=== PATIENT | male | born 1955 | race Caucasian/White ===

== ENCOUNTER → 2020-03-23 11:40 | Outpatient (CLI) | payer OTHER, SELFPAY ==
--- NOTE | 2020-03-23 11:48 | RAD_ITS ---
STUDY: X-RAY - PELVIS AND LEFT HIP REASON FOR EXAM: Male, 64 years old. HIP PAIN, NO TRAUMA TECHNIQUE: 3 views of the pelvis and hip. COMPARISON: None. FINDINGS: There is a non-specific bowel gas pattern. Metallic coils are seen in the left hemipelvis included with the prior hernia repair. Normal bilateral iliac wings, sacroiliac joints and visualized sacrum. Normal bilateral superior and inferior pubic rami. Normal pubic symphysis. Normal bilateral ischial tuberosities. Normal visualized femoral head. There is osteoarthritic spur formation of the acetabular rim. There is mild articular joint space narrowing of the hip. RAD/HIP, UNI W/ Pelvis 2-3 Views IMPRESSION: Degenerative changes of the left hip joint. Electronically Signed: Dewayne Sanchez, at 12:49 EDT , Service support ,
--- NOTE | 2020-03-23 11:48 | RAD_ITS ---
STUDY: X-RAY - RIGHT SHOULDER REASON FOR EXAM: Male, 64 years old. SHOULDER PAIN, NO TRAUMA TECHNIQUE: 4 view(s) of the shoulder. COMPARISON: None. FINDINGS: Normal glenohumeral articulation. Normal acromioclavicular joint. Normal acromion. Normal humeral head and visualized proximal humerus. The soft tissue structures are unremarkable. Normal visualized pulmonary apex. RAD/Shoulder min 2 Views IMPRESSION: Normal x-ray examination of the shoulder. Electronically Signed: Dewayne Sanchez, at 12:48 EDT , Service support ,
== END ==
PROVIDERS: PCP Internal Medicine; Referring Provider Internal Medicine; Visit Provider Internal Medicine
DX: M25.511 Pain in right shoulder (principal); M25.552 Pain in left hip
CPT/HCPCS: 73030; 73502

== ENCOUNTER → 2021-05-31 15:11 | Outpatient (CLI) | payer OTHER, SELFPAY ==
--- NOTE | 2021-05-31 15:19 | CT_ITS ---
STUDY: CT ABDOMEN AND PELVIS WITHOUT CONTRAST REASON FOR EXAM: Male, 65 years old. Microscopic hematuria RADIATION DOSAGE (If Supplied By Facility): CTDIvol = ( 6.13 ) mGy, DLP = ( 290.02 ) mGycm TECHNIQUE: Transaxial images were obtained from the dome of the diaphragm to the symphysis pubis without oral contrast, and without intravenous contrast. Sagittal and coronal images were reconstructed. Individualized dose optimization techniques were used for this CT. COMPARISON: None. FINDINGS: The visualized lung bases are unremarkable. The visualized portions of the heart are within normal limits. Normal liver. Normal gallbladder and extrahepatic biliary system. There are multiple benign calcified granulomata of the spleen. Normal pancreas. Normal bilateral adrenal glands. Normal right kidney. Normal left kidney. Normal visualized stomach. Normal small intestine. There are multiple colonic diverticula consistent with diverticulosis. The appendix is visualized and appears normal. Appendix seen on coronal recon images 44 through 49 Normal abdominal aorta. Normal inferior vena cava. Normal retroperitoneum. Normal urinary bladder. There are prostatic calcifications. Normal abdominal wall. There are diffuse degenerative changes of the visualized lumbar spine, and pelvis. CT/Abdomen/Pelvis without Cont IMPRESSION: No suspicious solid organ abnormality, specifically, no obstructive uropathy. Colonic diverticulosis Normal appendix visualized Degenerative bony changes Electronically Signed: Freddie Aviles MD at 16:32 EDT , Service support ,
== END ==
PROVIDERS: PCP Internal Medicine; Referring Provider Internal Medicine; Visit Provider Internal Medicine
DX: R31.0 Gross hematuria (principal)
CPT/HCPCS: 74176

== ENCOUNTER → 2021-08-08 16:36 | Outpatient (CLI) | payer OTHER, SELFPAY ==
--- NOTE | 2021-08-08 16:52 | MRI_ITS ---
STUDY: MRI LEFT MIDFOOT/foot REASON FOR EXAM: Male, 65 years old. PLANTAR FASCITIS LEFT FOOT WITH HEEL SPUR -- CAPSULITIS OF LEFT 2ND TOE TECHNIQUE: Standardized fat and water weighted pulse sequences were obtained in all 3 orthogonal planes. COMPARISON: None. FINDINGS: There is mild to moderate thickening of the central cord of the plantar fascia just proximal to the calcaneal insertion site. No edema is seen within the thickened fascia or tear. No plantar bursitis is seen. Mild linear intrasubstance signal abnormality is present in the thickened cord beneath a tiny plantar calcaneal spur. Normal remaining aspects of the plantar fascia. No marrow edema or osteochondral defect is present. Mild subcutaneous edema is seen on the medial side of ankle joint. Normal talonavicular articulation. Normal calcaneocuboid articulation. Normal navicular-cuneiform articulations. Normal intercuneiform articulations. Normal first tarsometatarsal articulation. Normal Lisfranc ligament. Normal second and third tarsometatarsal articulations. Normal cuboid fourth and cuboid fifth tarsometatarsal articulation. Normal first through fifth metatarsi. Small joint effusion of the first MTP noted. Normal tibialis anterior tendon. Normal extensor hallucis longus tendon. Normal extensor digitorum longus tendons. Normal peroneus longus tendon and distal insertion. Normal peroneus brevis tendon and distal insertion. Normal intrinsic muscles of the mid and forefoot region. Normal extensor digitorum brevis muscle. MRI/Lower Ext/No Jt/w/o IMPRESSION: 1. There is mild to moderate thickening of the central cord of the plantar fascia just proximal to the calcaneal insertion site. No edema is seen within the thickened fascia or tear. No plantar bursitis is seen. 2. Mild linear intrasubstance signal abnormality is present in the thickened cord beneath a tiny plantar calcaneal spur. 3. Mild subcutaneous edema is seen on the medial side of ankle joint. 4. Small joint effusion of the first MTP noted. Electronically Signed: Morales Wade MD at 23:52 EDT , Service support ,
== END ==
PROVIDERS: PCP Internal Medicine; Visit Provider Podiatrist
DX: M72.2 Plantar fascial fibromatosis (principal); M77.32 Calcaneal spur, left foot; M77.8 Other enthesopathies, not elsewhere classified
CPT/HCPCS: 73718

== ENCOUNTER → 2021-08-12 15:35 | Outpatient (CLI) | payer OTHER, SELFPAY ==
--- NOTE | 2021-08-12 16:14 | MRI_ITS ---
STUDY: MRI LEFT MIDFOOT AND FOREFOOT REASON FOR EXAM: Male, 65 years old. LEFT FOOT ,,ADD SERIES FOR TIP OF 2ND TOE AND POSTERIOR HEEL TECHNIQUE: Standardized fat and water weighted pulse sequences were obtained in all 3 orthogonal planes. COMPARISON: None. FINDINGS: The distal phalanx of the great toe demonstrates mild lateral deviation. The IP joint of the great toe is mildly narrowed. Low signal susceptibility artifact is seen in the nailbed region of the distal phalanges of the great toe possibly due to extrinsic artifact or sequela from posttraumatic fibrosis or similar entity. No demonstrated hallux valgus deformity. A small joint effusion of the first MTP is present. No marrow edema is seen. Mild flexion/hammertoe deformities noted in the second and third digits. Normal second through fifth metatarsophalangeal (MTP) joints. Normal interphalangeal joints of the second through fifth toes. Normal proximal, middle and distal phalanges of the second through fifth toes. Normal first through fourth intermetatarsal spaces. Normal visualized metatarsi. Normal first tarsometatarsal articulation. Normal Lisfranc ligament. Normal second and third tarsometatarsal articulations. Normal cuboid fourth and cuboid fifth tarsometatarsal articulation. Normal first through fifth metatarsi. Normal tibialis anterior tendon. Normal extensor hallucis longus tendon. Normal extensor digitorum longus tendons. Normal peroneus longus tendon and distal insertion. Normal peroneus brevis tendon and distal insertion. Normal intrinsic muscles of the mid and forefoot region. Normal extensor digitorum brevis muscle. Normal subcutis adipose space. IMPRESSION: 1. The distal phalanx of the great toe demonstrates mild lateral deviation. The IP joint of the great toe is mildly narrowed. 2. No demonstrated hallux valgus deformity. A small joint effusion of the first MTP is present. 3. Mild flexion/hammertoe deformities noted in the second and third digits. Electronically Signed: Morales Wade MD at 17:01 EDT , Service support , STUDY: MRI LEFT ANKLE WITHOUT CONTRAST REASON FOR EXAM: Male, 65 years old. LEFT FOOT ,,ADD SERIES FOR TIP OF 2ND TOE AND POSTERIOR HEEL. Bone spur with pain TECHNIQUE: Standardized fat and water weighted pulse sequences were obtained in all 3 orthogonal planes. COMPARISON: Left foot x-ray dated FEBRUARY 24, 2014. MRI of the left forefoot dated August 13, 2021. FINDINGS: A small 7.8 mm plantar calcaneal spur is reidentified. There is mild increased signal abnormality in addition a slight thickening of the central cord of the plantar fascia and insertion just beneath this region. The remaining aspects of the plantar fascia are normal. No focal tear or retraction or plantar bursitis is present. No plantar fibroma is seen. No edema is present in the calcaneal plantar spur or remaining aspect of the bone. No marrow edema or osteochondral defects are present. Normal posterior tibialis tendon. Normal flexor digitorum longus tendon. Normal flexor hallucis longus tendon. Normal peroneus longus and brevis tendons. Normal tibialis anterior tendon. Normal extensor hallucis longus tendon. Normal extensor digitorum longus tendons. Normal Achilles tendon and teno-osseous insertion. Normal intrinsic muscles of the rearfoot. Normal distal tibiofibular syndesmotic ligamentous complex. Normal lateral ligamentous complex. Normal subtalar ligaments and sinus tarsi. Normal deltoid ligamentous complexes. Normal plantar calcaneonavicular (spring) ligament. Normal tibiotalar articulation. Normal talar dome. Normal subtalar articulations. Normal talonavicular articulation. Normal calcaneocuboid articulation. Normal navicular-cuneiform articulations. MRI/Lower Ext/No Jt/w/o IMPRESSION: 1. A small 7.8 mm plantar calcaneal spur is reidentified. There is mild increased signal abnormality in addition a slight thickening of the central cord of the plantar fascia and insertion just beneath this region. The remaining aspects of the plantar fascia are normal. No focal tear or retraction or plantar bursitis is present. No plantar fibroma is seen. 2. No edema is present in the calcaneal plantar spur or remaining aspect of the bone. Electronically Signed: Morales Wade MD at 17:15 EDT , Service support ,
== END ==
PROVIDERS: PCP Internal Medicine; Visit Provider Podiatrist
DX: M77.32 Calcaneal spur, left foot (principal)
CPT/HCPCS: 73718

== ENCOUNTER 2021-11-28 17:30 | Outpatient (CLI) | payer OTHER, SELFPAY ==
[2021-11-28 17:49] VITALS: BP 156/92; PULSE 81; RESP 16; TEMP 37.1; O2SAT 100; BMI 23.6
[2021-11-28] MEDS: 0.9% Saline Lock 10 ML Syringe IV (17:52)
[2021-11-28 18:24] VITALS: BP 133/87; PULSE 78; RESP 16; TEMP 37.1; O2SAT 100
[2021-11-28 19:18] VITALS: BP 133/86; PULSE 76; RESP 16; TEMP 36.9; O2SAT 100
== END 2021-11-28 23:59 | disposition home or self-care (01) ==
LOC: MS3OUT 17:30 → MS3 17:31
PROVIDERS: PCP Internal Medicine; Referring Provider Nurse Practitioner Adult Health; Visit Provider Nurse Practitioner Adult Health
DX: Z23 Encounter for immunization (principal); U07.1 COVID-19
CPT/HCPCS: J7050; M0245; Q0245; A4216

== ENCOUNTER → 2024-12-05 | Outpatient (CLI) | payer MEDICARE, SELFPAY ==
--- NOTE | 2024-12-05 14:07 | RAD_ITS ---
EXAM: XR CHEST, 2 VIEWS CLINICAL INDICATION: CHEST X-RAY, PA AND LATERAL -- Cough in adult TECHNIQUE: Frontal and lateral views of the chest. COMPARISON: 07/13/2024 FINDINGS: LUNGS AND PLEURAL SPACES: Unremarkable. No consolidation or edema. No pneumothorax. No effusion. HEART: Unremarkable. Cardiac silhouette not enlarged. MEDIASTINUM: Central airways and mediastinal contour are unremarkable. BONES/JOINTS: Unremarkable. No acute fracture. SOFT TISSUES: Unremarkable. RAD/Chest PA and Lateral IMPRESSION: No radiographic evidence of acute cardiopulmonary disease. Electronically Signed: Brooks Do MD at 23:45 EST ,
== END | disposition home or self-care (01) ==
LOC: MTRAD 14:07
PROVIDERS: PCP Internal Medicine; Referring Provider Internal Medicine; Visit Provider Internal Medicine
DX: R05.9 Cough, unspecified (principal)
CPT/HCPCS: 71046

== ENCOUNTER → 2025-03-15 | Outpatient (CLI) | payer MEDICARE, SELFPAY ==
--- NOTE | 2025-03-15 13:35 | NEURO ---
NCS and/or EMG Patient Report Ordering Doctor: Kyra Bowers DATE OF SERVICE: 03/15/25 Cruz presents for electrodiagnostic testing of the upper limbs. He reports numbness and tingling in both hands. Electrodiagnostic findings: Right median motor nerve demonstrates prolonged latency with normal amplitude and reduced conduction velocity. Left median motor nerve demonstrates prolonged latency with normal amplitude and reduced conduction velocity. Ulnar motor response within normal limits bilaterally. Prolonged median sensory latency at the wrist bilaterally. Needle EMG testing was performed in the upper limbs. All muscles tested showed no evidence of denervation with normal motor unit action potentials. Electrodiagnostic impression: This is an abnormal study in the upper limbs 1. Electrodiagnostic findings suggestive of bilateral median mononeuropathy. This consistent with a moderate bilateral carpal tunnel syndrome. 2. No electrodiagnostic evidence is noted for ulnar neuropathy, including cubital tunnel syndrome. 3. No electrodiagnostic evidence is noted for cervical radiculopathy Multi Select Codes Neurology Neurology Interp Codes: 69591-99 Musc test done w/n test comp (interp) (2) and 88058-22 Nrv cndj test 9-10 studies (interp)
== END | disposition home or self-care (01) ==
LOC: PSN 09:58
PROVIDERS: PCP Internal Medicine; Referring Provider Internal Medicine; Visit Provider Internal Medicine
DX: G56.03 Carpal tunnel syndrome, bilateral upper limbs (principal)
CPT/HCPCS: 95886; 95911

== ENCOUNTER 2025-05-01 06:37 | Outpatient (CLI) | payer MEDICARE, SELFPAY ==
--- OUTSIDE RECORDS SUMMARY | 2025-05-01 06:40 | XMS RPT_ITS | CCD ---
Author Organization [facility] ion [facility] Care Team Providers Care Business Instructor Name Role Phone Kyra Bowers Unavailable Claudy Kothari Unavailable Sonya Ocampo Unavailable Unavailable Unavailable Unavailable Kyra Bowers Unavailable Claudy Kothariuel Unavailable Gravius, Teresa Unavailable Unavailable Unavailable Unavailable Gravius, Teresa Unavailable Unavailable Isaac Cooper Unavailable Unavailable PRESTON Garcia Unavailable Unavailable Jeanie Parmar Unavailable [facility] Unavailable Slarb, Teresita Unavailable Unavailable Marietta BROTHERS Kyra Unavailable Jeanie Parmar MD Unavailable Claudy Kothari MD Unavailable [facility] Unavailable Slarb CIGAR PACKER, Teresita Unavailable Unavailable Gravius LAUNDRY MANAGER, Teresa Unavailable Unavailable Andrew CIGAR PACKER, Meghan Unavailable Unavailable Unavailable Unavailable Isaac Salamanca LPN Unavailable Unavailable Coco MEYER Darlene Unavailable Unavailable Татьяна Fletcher MA Unavailable Unavailable Tiffanie Lewis MD Unavailable Jose MCKENNA, PRESTON Unavailable Unavailable CiJacquelin tamez CNP E Unavailable Donya Varner LPN Unavailable Unavailable Marietta DO Kyra Unavailable Jacquelin Park Unavailable Jacquelin Park Unavailable Marietta DO, Kyra De Leon Primary Care Provider Venu LAUNDRY MANAGER, Debbie Unavailable Unavailable Marietta DO, Kyra Attending Unavailable Fast DO, Evelia A Referring Unavailable Marietta DO, Kyra Consulting Unavailable Marietta DO, Kyra De Leon Primary Care Provider Dr. Charlie Webster Unavailable Tameka Fernandez MA Unavailable Unavailable Fast DO, Evelia A Unavailable MILADYS CARTER Attending Unavailable MARIETTA, KYRA DE LEON Primary Care Unavailab le EMMAMILADYS HERRERA Attending Unavailable MARIETTA, KYRA DE LEON Primary Care Unavailab le Marietta DO, Kyra De Leon Primary Care Provider Marietta BROTHERS, Dr. Rae Primary Care Provider Marietta BROTHERS, Dr. Rae Attending Provider [phone] Marietta DO, Dr. Rae Referring Provider [phone] Dr. Sly Kaur MD Attending Provider Marietta DO, Dr. Rae Other Provider Sarmad CH, Dr. Gill Attending Provider Marietta DO, Dr. aRe Primary Care Provider Marietta BROTHERS, Dr. Rae Attending Provider [phone] Marietta BROTHERS, Dr. Rae Referring Provider [phone] Shawna CH, Dr. Velazquez Attending Provider Marietta, Kyra Primary Care Unavailable Marietta, Kyra Referring Unavailable Bridget Bañuelos Attending Unavailable Marietta, Kyra Consulting Unavailable Marietta, Kyra Primary Care Unavailable Marietta, Kyra Referring Unavailable Marietta, Kyra Attending Unavailable Marietta, Kyra Primary Care Unavailable Marietta, Kyra Referring Unavailable Marietta, Kyra Attending Unavailable Marietta, Kyra Primary Care Unavailable Sly Kaur Attending Unavailable Marietta, Kyra Primary Care Unavailable VincentSly Attending Unavailable Marietta, Kyra Primary Care Unavailable Kyra Bowers Referring Unavailable Krya Bowers Attending Unavailable Kyra Bowers Primary Care Unavailable Kyra Bowers Referring Unavailable Marcus Matos Attending Unavailable Allergies Allergy Classification Reported Allergen(s) Allergy Type Date of Onset Reaction(s) Facility NEGATED: Highlighted row has been ruled out! (1 source) allergy to substance 4 [facility] Work Phone: NEGATED: Highlighted row has been ruled out! (1 source) drug allergy 2 [facility] Work Phone: Medications Current Medications Medication Drug Class(es) Dates Sig (Normalized) Sig (Original) azithromycin 250 mg oral tablet (20 sources) Macrolide Antimicrobial Start: 11-27-2021 End: 06-01-2023 take 1 capsule by mouth once daily Azithromycin (Zithromax Z-Hair) 250 mg Capsule Active 250 mg PO DAILY November 28, 2021 1:00am Comment on above: dispense one package 2 ml dupilumab 150 mg/ml auto-injector (1 source) Interleukin-4 Receptor alpha Antagonist dupilumab (DUPIXENT PEN) 300 mg/2 mL pen injection Inject subcutaneously every 2 weeks. Active 24 hr propranolol hydrochloride 120 mg extended release oral capsule (20 sources) beta-Adrenergic Clint Start: 01-04-2024 End: 12-26-2025 take 1 capsule by mouth once daily Propranolol 120 mg capsule,extended release 24 hr Active 120 mg PO daily April 27, 2025 12:00am Start: 01-09-2022 End: 07-18-2023 take 1 capsule by mouth once daily propranolol ER (INDERAL LA) 120 mg 24 hr capsule Take 1 capsule by mouth once daily. 90 capsule 3 07/18/2022 07/18/2023 Active Start: 07-04-2021 End: 04-27-2025 take 1 tablet by mouth twice daily Propranolol 10 mg tablet Discontinued 10 mg PO TWICE A DAY July 04, 2021 12:00am April 27, 2025 1:54pm take 1 capsule by [facility] once daily Propranolol HCl 120 MG Oral Capsule Extended Release 1 daily (120 MG) Active Comments: in [facility] take 1 capsule by [facility] once daily Propranolol HCl 120 MG Oral Capsule Extended Release 1 daily (120 MG) Active Comments: in [facility] Comment on above: in [facility] Take 1 capsule by [facility] once daily. rosuvastatin calcium 10 mg oral tablet (2 sources) HMG-CoA Reductase Inhibitor Start: take 1 tablet by mouth at bedtime Rosuvastatin 10 mg tablet Active 10 mg PO AT BEDTIME April 27, 2025 12:00am Start: 10-28-2024 rosuvastatin ( CRESTOR) 10 mg tablet 10/28/2024 Active Completed/Discontinued Medications Medication Drug Class(es) Dates Sig (Normalized) Sig (Original) 200 actuat albuterol 0.09 mg/actuat dry powder inhaler (16 sources) beta2-Adrenergic Agonist Start: 12-11-2021 End: 10-14-2022 take 2 puff(s) by inhalation three times daily ProAir RespiClick 90 mcg/actuation inhalation Aerosol Powder, Breath Activated 2 (two) Puff tid or qid for 0 days Quantity: 1 {Each} Refills: 0 Ordered: 14-Oct-2022 Debbie Lea CMA Start : 11-Dec-2021 End : 14-Oct-2022 Inactive amoxicillin 875 mg / clavulanate 125 mg oral tablet (20 sources) Penicillin-class Antibacterial Start: 08-24-2018 End: 09-03-2018 take 1 tablet by mouth twice daily Augmentin 875-125 MG Oral Tablet 1 (one) Tablet bid for 10 days Quantity: 20 {Tablet} Refills: 0 Ordered: 24-Aug-2018 Tiffanie Lewis MD Start : 24-Aug-2018 End : 03-Sep-2018 Inactive benzonatate 100 mg oral capsule (20 sources) Non-narcotic Antitussive Start: 12-11-2021 End: 04-30-2022 take 1 capsule by mouth three times daily as needed for cough Tessalon Perles 100 MG Oral Capsule 1 (one) Capsule tid prn cough for 0 days Quantity: 30 {Capsule} Refills: 0 Ordered: 30-Apr-2022 Teresita Choudhary LPN Start : 11-Dec-2021 End : 30-Apr-2022 Inactive Start: 12-05-2021 End: 06-22-2022 take 1 capsule by mouth three times daily as needed Benzonatate 200 MG Oral Capsule 1 (one) Capsule tid prn for 0 days Quantity: 30 {Capsule} Refills: 0 Ordered: 30-Apr-2022 Teresita Choudhary LPN Start : 05-Dec-2021 End : 30-Apr-2022 Inactive cefdinir 300 mg oral capsule (20 sources) Cephalosporin Antibacterial Start: 01-15-2015 End: 01-22-2015 take 1 capsule by mouth twice daily CEFDINIR, 300MG (Oral Capsule) 1 (one) Capsule bid for 7 days Quantity: 14 {Capsule} Refills: 0 Ordered: 15-Jan-2015 Jacquelin Park Start : 15-Jan-2015 End : 22-Jan-2015 Inactive celecoxib 200 mg oral capsule (20 sources) Nonsteroidal Anti-inflammatory Drug CELEBREX, 200MG (Oral Capsule) 1 cap prn (200 MG) Inactive cephalexin 500 mg oral capsule (20 sources) Cephalosporin Antibacterial Start: 03-23-2012 End: 04-02-2012 take 1 capsule by mouth three times daily KEFLEX, 500MG (Oral Capsule) 1 Capsule tid for 10 days Quantity: 30 {Capsule} Refills: 0 Ordered: 23-Mar-2012 Jacquelin Park Start : 23-Mar-2012 End : 02-Apr-2012 Inactive ciprofloxacin 500 mg oral tablet (20 sources) Quinolone Antimicrobial Start: 05-31-2021 End: 10-07-2021 take 1 tablet by mouth twice daily Ciprofloxacin HCl 500 MG Oral Tablet 1 (one) Tablet bid for 0 days Quantity: 20 {Tablet} Refills: 0 Ordered: 07-Oct-2021 Teresita Choudhary LPN Start : 31-May-2021 End : 07-Oct-2021 Inactive codeine phosphate 2 mg/ml / guaiFENesin 20 mg/ml oral solution (20 sources) Opioid Agonist Start: 05-02-2016 End: 05-31-2018 take 1 [tsp_us] by mouth every six hours as needed Cheratussin AC 100-10 MG/5ML Oral Syrup 1 (one) tsp q 6 hrs prn for 0 days Quantity: 4 {Ounce} Refills: 0 Ordered: 31-May-2018 Sonya Ocampo RN Start : 02-May-2016 End : 31-May-2018 Inactive Comments: four Comment on above: four doxycycline hyclate 20 mg oral tablet (1 source) Tetracycline-class Drug End: 12-26-2024 take 1 tablet by mouth twice daily doxycycline 20 mg tablet Take 20 mg by mouth two times a day. 12/26/2024 Discontinued ibuprofen 200 mg oral tablet (20 sources) Nonsteroidal Anti-inflammatory Drug take 3 tablets by mouth twice daily at mealtime IBUPROFEN, 200MG (Oral Tablet) 3 tabs bid with food (200 MG) Inactive ivermectin 3 mg oral tablet (20 sources) Antiparasitic, Pediculicide Start: 11-27-2021 End: 10-14-2022 ivermectin 3 mg oral tablet 10 Tablet qd with food for 5days for 0 days Quantity: 50 {Tablet} Refills: 0 Ordered: 14-Oct-2022 Debbie Lea CMA Start : 27-Nov-2021 End : 14-Oct-2022 Inactive meloxicam 15 mg oral tablet (20 sources) Nonsteroidal Anti-inflammatory Drug Start: 03-23-2020 End: 10-07-2021 take 1 tablet by mouth once daily at mealtime Meloxicam 15 MG Oral Tablet 1 (one) Tablet qd with food for 0 days Quantity: 30 {Tablet} Refills: 0 Ordered: 07-Oct-2021 Teresita Choudhary LPN Start : 23-Mar-2020 End : 07-Oct-2021 Inactive methylPREDNISolone 4 mg oral tablet (20 sources) Corticosteroid Start: 01-10-2015 End: 01-15-2015 MEDROL (HAIR), 4MG (Oral Tablet) 1 (one) Tablet TAD for 0 days Quantity: 1 {Package} Refills: 0 Ordered: 15-Jan-2015 Teresita Choudhary LPN Start : 10-Jan-2015 End : 15-Jan-2015 Discontinued No routine meds at this time (20 sources) No routine meds at this time Inactive No routine meds at this time Active oseltamivir 75 mg oral capsule (20 sources) Neuraminidase Inhibitor Start: 12-28-2019 End: 01-02-2020 take 1 capsule by mouth twice daily Tamiflu 75 MG Oral Capsule 1 (one) Capsule bid for 5 days Quantity: 10 {Capsule} Refills: 0 Ordered: 28-Dec-2019 Jacquelin Park Start : 28-Dec-2019 End : 02-Jan-2020 Inactive predniSONE 20 mg oral tablet (20 sources) Corticosteroid Start: 04-15-2012 End: 02-24-2014 take 2 tablets by mouth once daily, then take 1 tablet by mouth once daily, then take 0.5 tablet by mouth once daily PREDNISONE, 20MG (Oral Tablet) 1 Tablet uad for 0 days Refills: 0 Ordered: 24-Feb-2014 Jeanie Mcclain Start : 15-Apr-2012 End : 24-Feb-2014 Discontinued Comments: 2 a d for 5 d, 1 a d for 5d, 1/2 a d for 5 d Comment on above: 2 a d for 5 d, 1 a d for 5d, 1/2 a d for 5 d primidone 50 mg oral tablet (1 source) Anti-epileptic Agent Start: 01-08-2023 End: 01-08-2023 take 0.5 tablet by mouth once daily at bedtime, then take 1 tablet by mouth once daily at bedtime, then take 1.5 tablets by mouth once daily at bedtime, then take 2 tablets by mouth once daily at bedtime, then take 2.5 tablets by mouth once daily at bedtime, then take 3 tablets by mouth once daily at bedtime primidone (MYSOLINE) 50 mg tablet Take 0.5 tablets by mouth daily at bedtime for 7 days, THEN 1 tablet daily at bedtime for 7 days, THEN 1.5 tablets daily at bedtime for 7 days, THEN 2 tablets daily at bedtime for 7 days, THEN 2.5 tablets daily at bedtime for 7 days, THEN 3 tablets daily at bedtime. Can stop increasing the dose if tremors are controlled. 90 tablet 11 01/08/2023 01/08/2023 Discontinued Comment on above: Take 0.5 tablets by mouth daily at bedtime for 7 days, THEN 1 tablet daily at bedtime for 7 days, THEN 1.5 tablets daily at bedtime for 7 days, THEN 2 tablets daily at bedtime for 7 days, THEN 2.5 tablets daily at bedtime for 7 days, THEN 3 tablets daily at bedtime. Can stop increasing the dose if tremors are controlled. topiramate 100 mg oral tablet (20 sources) take 1 tablet by mouth once daily Topamax 100 MG Oral Tablet 1 daily (100 MG) Inactive Comments: Comment on above: NEGATED: Highlighted row has not occurred!drug or medication (18 sources) No Known Historical Medications NEGATED: Highlighted row has not occurred!No Known Historical Medications (20 sources) No Known Historical Medications Problems Active Problems Problem Classification Problem Date Documented Da te Episodic/Chronic Abdominal pain (20 sources) Left flank pain; Translations: [Left flank pain] Resolved: 10-14-2022 05-31-2018 Episodic Allergic reactions (20 sources) Contact dermatitis; Translations: [Contact dermatitis due to poison pelon] Resolved: 02-24-2014 05-31-2018 Episodic Comment on above: had Beulah x 2 days a fter hernia in Dec, now worsening puritic rash just on back Cancer; other and unspecified primary (20 sources) Personal history of malignant neoplasm of other organs and systems; Translations: [History of squamous cell carcinoma] 03-30-2020 Episodic Chronic obstructive pulmonary disease and bronchiectasis (12 sources) Bronchitis; Translations: [Bronchitis] Resolved: 06-01-2023 12-22-2022 Episodic Complications of surgical procedures or medical care (20 sources) Drug therapy finding; Translations: [Medication side effect] 02-15-2021 Episodic Comment on above: i think from topamax ---told him to go back to last dose and see if gives body more time at that dose - does he tolerated it -- then if does,, are his GAFFNEY controlled or not ?-- and go from there-- also touch base with neurologist to see if he agrees with plan or would he recommend doing somthing differently Coronary atherosclerosis and other heart disease (2 sources) Coronary arteriosclerosis; Translations: [Atherosclerotic heart disease of [place] coronary artery without angina pectoris] 11-28-2021 Chronic Diabetes mellitus without complication (20 sources) Hyperglycemia; Translations: [Hyperglycemia] 10-25-2021 Episodic Comment on above: Hiac was checked 5.5 10-29 Disorders of lipid metabolism (20 sources) Hypercholesterolemi a; Translations: [Hypercholesteremia ] Onset: 04-27-2025 10-25-2021 Chronic Comment on above: he will do diet and exercise Fever of unknown origin (20 sources) Fever with chills; Translations: [Chills with fever] Resolved: 02-19-2022 03-30-2020 Episodic Genitourinary symptoms and ill-defined conditions (20 sources) Blood in urine; Translations: [Hematuria] 06-12-2021 Episodic Headache; including migraine (20 sources) Migraine; Translations: [Migraine] 09-19-2019 Chronic Hyperplasia of prostate (20 sources) Large prostate ; Translations: [Prostate enlargement] 05-31-2018 Chronic Immunizations and screening for infectious disease (20 sources) Patient encounter status; Translations: [Encounter for immunization] 02-15-2021 Episodic Influenza (20 sources) Influenza due to Influenza A virus subtype H1N1; Translations: [Influenza A (H1N1)] 03-30-2020 Episodic Malaise and fatigue (20 sources) Fatigue; Translations: [Fatigue] 09-12-2019 Episodic Nutritional deficiencies (20 sources) Cobalamin deficiency; Translations: [Vitamin B12 deficiency] 10-25-2021 Episodic Open wounds of extremities (20 sources) Open wound of finger; Translations: [Unspecified open wound of other finger without damage to nail, initial encounter] Resolved: 02-24-2014 10-19-2015 Episodic Other connective tissue disease (20 sources) Achilles tendinitis, left leg; Translations: [Left achilles tendonitis] 05-31-2018 Episodic Comment on above: pending how he feels with rest nsaids -may need to see ortho for boot Other connective tissue disease (20 sources) Pain in right finger(s); Translations: [Pain in finger of right hand] 05-31-2018 Episodic Other connective tissue disease (20 sources) Triggering of digit; Translations: [Trigger ring finger of left hand] 06-08-2018 Episodic Comment on above: [id number]% bupivacaine 1/[id number] 401/2cc injected thumb and 4 th (ring ) finger Other connective tissue disease (20 sources) Plantar fasciitis; Translations: [Plantar fasciitis] 05-31-2018 Episodic Other connective tissue disease (20 sources) Rupture of Achilles tendon; Translations: [Partial tear of Achilles tendon, left, initial encounter] 05-31-2018 Episodic Comment on above: monitor no running- ice elvation and nsaids Other connective tissue disease (20 sources) Trigger thumb of right hand; Translations: [Trigger thumb of right hand] 02-15-2021 Episodic Other hereditary and degenerative nervous system conditions (3 sources) Essential tremor; Translations: [Essential tremor] Chronic Other lower respiratory disease (20 sources) Cough; Translations: [Cough] Resolved: 05-31-2018 05-31-2018 Episodic Other lower respiratory disease (20 sources) Rib pain; Translations: [Rib pain on left side] Resolved: 05-31-2018 05-31-2018 Episodic Other male genital disorders (20 sources) Disorder of male genital organ; Translations: [Testicular/scrotal pain] 05-31-2018 Episodic Other nervous system disorders (20 sources) Bilateral carpal tunnel syndrome; Translations: [Carpal tunnel syndrome, bilateral] 02-15-2021 Chronic Comment on above: cockup slpints at hs - discussed if worse consider sx so dont lose function Other nervous system disorders (2 sources) Carpal tunnel syndrome, bilateral upper limbs; Translations: [Carpal tunnel syndrome, bilateral upper limbs] Onset: 04-18-2025 Chronic Other nervous system disorders (20 sources) Tremor; Translations: [Tremor] 05-31-2018 Episodic Comment on above: think essential trem or- he wnats to hold meds for now Other nervous system disorders (20 sources) Paresthesia; Translations: [Paresthesia] Resolved: 05-31-2018 05-31-2018 Episodic Comment on above: believe carpal tunne l Other non-epithelial cancer of skin (20 sources) Basal cell carcinoma of skin; Translations: [Basal cell carcinoma] 03-30-2020 Episodic Other non-traumatic joint disorders (20 sources) Hip pain; Translations: [Hip pain, left] Resolved: 10-14-2022 03-30-2020 Episodic Other non-traumatic joint disorders (20 sources) Shoulder pain; Translations: [Right shoulder pain, unspecified chronicity] Resolved: 10-14-2022 03-30-2020 Episodic Other skin disorders (20 sources) Eruption; Translations: [Rash] Resolved: 05-31-2018 05-31-2018 Episodic Comment on above: contact derm vs foll iculitis only on back, not better with medrol dose pack will treat with antibiotic so had dr ro mcadams ok as trunk rash not look like poison pelon and looked liked drgu rash which would be wierd if prednisone so hold pred and obando to derm to have him seen- take antihistmain and pepcid and see how does until can get into derm Other skin disorders (20 sources) Other specified follicular disorders; Translations: [Bacterial folliculitis] Resolved: 05-31-2018 05-31-2018 Episodic Other skin disorders (20 sources) Lesion of skin of face; Translations: [Skin lesion of face] Resolved: 10-07-2021 03-30-2020 Episodic Other skin disorders (20 sources) Skin lesion; Translations: [Skin lesion] 03-23-2020 Episodic Other upper respiratory disease (14 sources) Pain in throat Episodic Other upper respiratory disease (12 sources) Nasal congestion; Translations: [Nasal congestion] Resolved: 06-01-2023 12-22-2022 Episodic Other upper respiratory infections (20 sources) Sore throat symptom; Translations: [Sore throat] 11-27-2021 Episodic Residual codes; unclassified (20 sources) Chill; Translations: [Chills] Resolved: 10-07-2021 03-30-2020 Episodic Residual codes; unclassified (20 sources) Non-smoker; Translations: [Non-smoker] 02-15-2021 Episodic Residual codes; unclassified (20 sources) Influenza vaccination declined; Translations: [Influenza vaccination declined (Renamed from Refused influenza vaccine)] 10-25-2021 Episodic Skin and subcutaneous tissue infections (2 sources) Cellulitis of left upper limb; Translations: [Cellulitis of left upper limb] 07-04-2021 Episodic Unclassified (20 sources) Blood chemistry abnormal; Translations: [Abnormal blood chemistry] Resolved: 05-31-2018 05-31-2018 Episodic Comment on above: pt will think about pt declined Unclassified (20 sources) Body mass index (BMI) 24.0-24.9, adult; Translations: [Vaccination required] Resolved: 04-11-2019 05-31-2018 Episodic Unclassified (20 sources) Unclassified (20 sources) BMI 24.0-24.9, adult Unclassified (20 sources) Non-smoker; Translations: [Non-smoker] 04-11-2019 Unclassified (20 sources) Skin lesion of face Unclassified (20 sources) Right shoulder pain, unspecified chronicity Unclassified (20 sources) Hip pain, left Unclassified (16 sources) Encounter for well adult exam with abnormal findings Unclassified (16 sources) Encounter for screening for malignant neoplasm of prostate (Renamed from Screening for prostate cancer) Unclassified (16 sources) Colon cancer screening (Renamed from Encounter for screening for malignant neoplasm of colon) Unclassified (16 sources) Influenza vaccination declined (Renamed from Refused influenza vaccine) Unclassified (16 sources) Encounter for screening for lipid disorder (Renamed from Screening for lipid disorders) Unclassified (1 source) Cough, unspecified; Translations: [Cough, unspecified] Onset: 12-21-2024 Viral infection (20 sources) Severe acute respiratory syndrome; Translations: [SARS (severe acute respiratory syndrome)] 11-27-2021 Episodic Past or Other Problems Problem Classification Problem Date Documented Date Episodic/Chronic Abdominal hernia (20 sources) Inguinal hernia; Translations: [Hernia, inguinal] Onset: 5 05-31-2018 Episodic Influenza (20 sources) Influenza Other connective tissue disease (14 sources) Pain in finger of right hand; Translations: [Finger pain, right] 04-11-2019 Other connective tissue disease (14 sources) Left achilles tendonitis; Translations: [Achilles tendinitis of left lower extremity] 04-11-2019 Comment on above: pending how he feels with rest nsaids -may need to see ortho for boot Other connective tissue disease (2 sources) Trigger thumb of right hand; Translations: [Trigger thumb of right hand] 02-15-2021 Other nervous system disorders (14 sources) Bilateral carpal tunnel syndrome; Translations: [Carpal tunnel syndrome, bilateral] 04-11-2019 Comment on above: cockup slpints at hs - discussed if worse consider sx so dont lose function Residual codes; unclassified (5 sources) Vaccination required; Translations: [Encounter for immunization] 05-31-2018 Episodic Unclassified (5 sources) Carpal tunnel syndrome, bilateral upper limbs; Translations: [Carpal tunnel syndrome, bilateral] 05-31-2018 Comment on above: cockup slpints at hs - discussed if worse consider sx so dont lose function Unclassified (20 sources) Abnormal blood chemistry Unclassified (20 sources) Prostate enlargement Unclassified (20 sources) Open wound of fingers, without mention of complication (883.0) Unclassified (20 sources) Rib pain on left side Unclassified (20 sources) Testicular/scrotal pain Unclassified (20 sources) Finger pain, right Unclassified (20 sources) Rash Unclassified (20 sources) Bacterial folliculitis Unclassified (20 sources) Trigger ring finger of right hand Unclassified (20 sources) Hernia, inguinal Unclassified (20 sources) SHINGLES,NEED FOR PROPHYLACTIC VACCINATION AND INOCULATION AGAINST (V05.8) Unclassified (20 sources) Parasthesia (782.0) Unclassified (20 sources) Abnormal blood chemistry (790.6) Unclassified (20 sources) Plantar Fascititis (728.71) Unclassified (20 sources) Achilles tendinitis of left lower extremity Unclassified (20 sources) Partial tear of Achilles tendon, left, initial encounter Unclassified (20 sources) CONTACT DERMATITIS D/T POISON PELON, (692.6) Unclassified (20 sources) Carpal tunnel syndrome, bilateral Unclassified (20 sources) BMI 23.0-23.9, adult; Translations: [Body mass index 20-24 - normal] 09-12-2019 Unclassified (20 sources) Trigger ring finger of left hand Unclassified (12 sources) Patient encounter status; Translations: [Encounter for immunization] 04-11-2019 Unclassified (20 sources) Body mass index 20-24 - normal; Translations: [BMI 24.0-24.9, adult] Resolved: 9 09-12-2019 Unclassified (20 sources) Drug therapy finding; Translations: [Medication side effect] 09-19-2019 Comment on above: i think from topamax ---told him to go back to last dose and see if gives body more time at that dose - does he tolerated it -- then if does,, are his GAFFNEY controlled or not ?-- and go from there-- also touch base with neurologist to see if he agrees with plan or would he recommend doing somthing differently Unclassified (20 sources) History of squamous cell carcinoma Unclassified (20 sources) Chills with fever Unclassified (20 sources) Trigger thumb of right hand Unclassified (20 sources) High priority for severe acute respiratory syndrome coronavirus 2 (SARS-CoV-2) vaccination (Dose 1) (Renamed from High priority for severe acute respiratory syndrome coronavirus 2 (SARS-CoV-2) vaccination) Unclassified (19 sources) Trigger finger, left little finger Unclassified (16 sources) Hypercholesteremia Unclassified (20 sources) Unspecified Diagnosis 12-11-2021 Unclassified (4 sources) Hematuria, microscopic Viral infection (20 sources) Disease caused by 2019-nCoV Results Test Name Value Interpretation Reference Range Facility Plastic Surgery Visit Report on 06-19-2025 Plastic Surgery Visit Report [facility]astic [facility] Surgery [address], [address] [place], [place] [id number] OFFICE VISIT Date of Service: 04/27/25 MR#: [id number] Acct: [id number] Name: VANE OCHOA Rep #: [id number] : 1955 Provider: Dr. Marcus Matos MD Age/Sex: 69/M Location: [facility] Status: Signed Intake Vital Signs 02/17/25 08:46 04/27/25 14:03 Height 5 ft 10 in 5 ft 10 in Weight: 170 lb BMI 24.3 BP 95/65 Blood Pressure Location Lt brachial Position Sitting Respiration 18 Pulse 84 Temp 98.6 F Temp Source Oral Pulse Oximetry (%) 96 Oxygen Delivery Method room air Intake Visit Reasons: BILAT CARPAL TUNNEL Chief Complaint: bilateral carpal tunnel Accompanied by: Is patient in pain?: No Allergies No Known Allergies Allergy (Verified 04/27/25 14:04) Medications ???Medication ???Instructions ???Recorded ???Confirmed ???Type azithromycin 250 mg capsule 250 mg PO DAILY 11/28/21 11/28/21 History propranolol 120 mg capsule,24 120 mg PO QDAY 04/27/25 04/27/25 H istory hr,extended release rosuvastatin 10 mg tablet 10 mg PO QHS 04/27/25 04/27/25 His tory Have you fallen in the past year?: Yes (fell in driveway injury to elbow) Nurse's Note: pt here with for eval carpal tunnel, right worse than left [facility] History (Updated 04/28/25 @ 10:[address] Marcus Matos MD) Tumor cells, benign Seasonal allergies Hyperglycemia B12 deficiency Hypercholesteremia Essential tremor Migraine Carpal tunnel syndrome, bilateral upper limbs Inguinal hernia Cervical radiculopathy Trigger finger, left Partial tear of Achilles tendon Skin cancer Cellulitis of left upper extremity Hernia Tumor Hay fever Social History Smoking Status: Never smoker alcohol intake: current substance use type: does not use additional social history: pt denies vaping, denies edibles, denies marijuana use, pt uses aspirin and ibuprofen Pt denies family history blood clots HPI BILAT CARPAL TUNNEL Details: The patient is a delightful 69-year-old male presenting with concerning symptoms of bilateral carpal tunnel syndrome. The symptoms began a few years ago and have been intermittent, with the right hand being more affected than the left. The patient reports nocturnal symptoms, including burning sensations and numbness, primarily affecting the radial three fingers. 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 He has been taking P5P supplements, which he believes have contributed to symptom improvement. The patient has a history of trauma to the small fingers on both hands, resulting in arthritis, but no surgical interventions were performed. He denies any significant neck or back problems and has no history of diabetes or smoking. The patient also reports having essential tremors, which are more pronounced during activity. Attestation: Documentation on this patient encounter was supported using ambient scribe technology/ voice AI technology. The patient consented to recording for the purpose of documenting the encounter. Provider reviewed content of the generated note prior to signature. ROS Details - Neurological: Reports burning sensation and numbness in hands, denies headaches, dizziness, or balance issues - Musculoskeletal: Reports arthritis in small fingers, denies fractures or breaks in other areas - General: Denies significant neck or back problems, denies history of diabetes or smoking General General: Yes good health; No fatigue, fever(s) or weight loss HENMT HENMT: No rhinitis, sore throat/mouth sore, nasal congestion, contacts or glaucoma Endo Endocrine: No thyroid disease, polydipsia, heat intolerance, cold intolerance, hepatitis or excessive urine Skin Skin: Yes Bleeding and bruising; No changing moles or suspicious lesion Musc Musculoskeletal: No joint pain, joint stiffness, muscle weakness, back pain, osteoarthritis or Muscle aches/ myalgia Neuro Neurological: No headache(s), No lightheadedness and No numbness Cardio Cardiovascular: No chest pain, pacemaker, fatigue or shortness of breat with exertion Psych Psychiatric: No depression, claustrophobia or anxiety Resp Respiratory: No spitting up, shortness of breath, sleep apnea, asthma, emphysema, TB, Cough or Smoker Gastro Gastrointestinal: No diarrhea, constipation, blood in stool, nausea, vomiting or abdominal bloating Nawaf Hematologic: No anemia, No bleeding and No abnormal bleeding Genitourinary: No urinary frequency, blood in urine or incontinence Exam Details Bilateral Upper Extremity Inspectio (more content not included)... Normal [facility] NCS and/or EMG Patienton NCS and/or EMG Patient [facility] Pulmonary Services/Neurology [address] [place] [address] MR#: [id number] Acct: [id number] Name: VANE OCHOA Rep #: [id number] : 1955 69 From: Bridget Bañuelos MD Referring Dr: Kyra Bowers DO Status: REG CL I Location: PSN Date: 03/15/25 Sex: M C NCS and/or EMG Patient Report Ordering Doctor: Kyra Bowers DATE OF SERVICE: 03/15/25 Vane presents for electrodiagnostic testing of the upper limbs. He reports numbness and tingling in both hands. Electrodiagnostic findings: Right median motor nerve demonstrates prolonged latency with normal amplitude and reduced conduction velocity. Left median motor nerve demonstrates prolonged latency with normal amplitude and reduced conduction velocity. Ulnar motor response within normal limits bilaterally. Prolonged median sensory latency at the wrist bilaterally. Needle EMG testing was performed in the upper limbs. All muscles tested showed no evidence of denervation with normal motor unit action potentials. Electrodiagnostic impression: This is an abnormal study in the upper limbs 1. Electrodiagnostic findings suggestive of bilateral median mononeuropathy. This consistent with a moderate bilateral carpal tunnel syndrome. 2. No electrodiagnostic evidence is noted for ulnar neuropathy, including cubital tunnel syndrome. 3. No electrodiagnostic evidence is noted for cervical radiculopathy Multi Select Codes Neurology Neurology Interp Codes: 35632-54 Musc test done w/n test comp (interp) (2) and 76501-22 Nrv cndj test 9-10 studies (interp) 03/15/251336 Date Bridget Bañuelos MD CC: Dr. Bridget Bañuelos MD; Dr. Kyra Bowers DO Date Dictated: 03/15/251334 Date Transcribed: 03/15/251334 Third Loader: RAFA Signed Normal [facility] Cerv Spine 4 or 5 Viewson Cerv Spine 4 or 5 Views [facility] Imaging Services [address] [place], [place] [address] Cerv Spine 4 or 5 Views MR#: [id number] Acct: [id number] Name: VANE OCHOA Rep #: [id number] : 1955 M 69 From: Jeffery arias MD PCP: Dr. Kyra Bowers DO Status: DEP AMB Study: Cerv Spine 4 or 5 Views Date of Exam: 02/17/25 Exam# [id number] Ordering Dr: Josey Jeffers BACTERIOLOGIST FISHERY-C PROCEDURE: CERV SPINE 4 OR 5 VIEWS 02/17/2025 REASON FOR EXAM: RADICULOPATHY TECHNIQUE: 4 views of the cervical spine. COMPARISON: None FINDINGS: Cervical lordosis is maintained. Atlantoaxial interval is within normal limits. Vertebral body heights are maintained. Mild loss of disc spaces at C6-C7 and C7-T1, otherwise disc spaces are within normal limits. No acute fracture or traumatic malalignment. No significant malalignment on the flexion and extension images. Rzwv-sb-vhwokhzo multilevel degenerative changes, most prominent at C6-C7, including uncinate hypertrophy and endplate remodeling. Precervical soft tissue planes are maintained. Imaged lung charles are clear. RAD/Cerv Spine 4 or 5 Views IMPRESSION: Mild-moderate multilevel degenerative changes of the cervical spine, most prominent at C6-C7. Reading Location: [facility] CC: BACTERIOLOGIST FISHERY-Jean-Paul Jeffers; Dr. Kyra Bowers DO Third Loader: Signed Normal [facility] CNOVon 12-26-2024 CNOV Office Visit (NRMDN) VANE OCHOA ([id number]) 1955 M Date Time Provider Department 12/26/24 9:30 AM MILADYS CARTER NRN During your visit today, we recorded the following information about you: Pulse Blood pressure Weight 73/minute 129/80 79.8 kg Miladys Carter MD 12/26/2024 12:19 PM Signed [facility] - FOLLOW UP EVALUATION Primary Movement Disorders Neurologist: Miladys Carter MD Primary Movement Disorders SHIRA: Kyra Bowers DO, DO [address] [facility] [address] [address] [facility] [address] Dear Kyra Bowers DO DO: I had the pleasure of seeing Mr. Ochoa for follow-up today. As you know he is a 69 year old right-handed male with a history of ET since 2012. He is seen alone. Subjective Previous Plan- 01/04/2024 Visit: Continue your medications as you have been taking them. We are not making any changes today. If you feel you are not tolerating them or your symptoms are changing before your next appointment, please feel free to send me a Adiana message or contact the office - Interval History: About the same. Tremor unchanged. Occasionally worse but it doesn't last. Hasn't identified any triggers. If hungry maybe. No propranolol side effects. No lightheadedness. Balance is fine. No falls. Movement Disorders Medications Schedule - as of the start of the visit: Medications propranolol ER 120 mg daily Other Movement Disorder Prior Therapies Topiramate Questionnaires: In addition, the following areas that may be affected by abnormal involuntary movements were evaluated: Daily activities Difficulties with eating: Yes (slight) tremor Difficulties in dressin (none) Difficulties with hygiene activities: 0 (none) Difficulties with handwriting: Yes (slight) variable. shaky when bad but always legible. Difficulties with doing hobbies and other activities: 0 (none) Difficulties turning in bed: 0 (none) Difficulties getting out of bed, car or chair: 0 (none) Tremors/Gait/Balance Shaking or tremors: Yes (mild) Walking and balance problems: 0 (none) Number of falls in the Last Month: 0 Gait freezin (none) Autonomic/Pain Lightheadeness on standin (none) Urinary problems: 0 (none) Constipation problems: 0 (none) Pain and other sensations: 0 (none) Speech/Swallowing Speech problems: 0 (none) Droolin (none) Chewing and swallowing problems: 0 (none) Sleep/Fatigue Sleep problems: 0 (none) Daytime sleepiness: 0 (none) Fatigue: 0 (none) Mood/Behavior Depression: PHQ-9 Score: 0 usually representing no significant (0-4) depression. Anxiety: GERSON-7 Total Score: 0 usually representing no significant (0-4) anxiety. Finally, the following table shows the patient's overall global physical and mental health using the PROMIS scale: PROMIS-10 Flowsheet Row Office Visit from 12/26/2024 in Neurology Office Visit from 01/04/2024 in Neurology Global Physical Health T Score 57.7 57.7 Global Mental Health T Score 56 53.3 0-10 Standard Pain Scale 4 5 *PROMIS-10 scoring scale: mean = 50, over 50 is above average, under 50 is below average ALLERGIES No Known Allergies Current Outpatient Medications Medication Sig rosuvastatin (CRESTOR) 10 mg tablet dupilumab (DUPIXENT PEN) 300 mg/2 mL pen injection Inject subcutaneously every 2 weeks. propranolol ER (INDERAL LA) 120 mg 24 hr capsule Take 1 capsule by mouth once daily. No current facility-administered medications for this visit. Objective Vital Signs: BP 129/80 (BP Site: Left Arm, BP Position: Sitting, BP Cuff Size: Regular Adult) Pulse 73 Wt 79.8 kg (175 lb 14.8 oz) SpO2 98% BMI 25.24 kg/m? Orthostatic Vitals: None for this encounter Weight: 79.8 kg (175 lb 14.8 oz) No LMP for male patient. Body mass index is 25.24 kg/m?. General Physical Examination: General: Awake, alert, interactive, no acute distress, good nutritional status, normal development, well-kept General Neurological Examination: Neurological Exam Mental Status Awake and alert. Language is fluent with no aphasia. Motor Bilateral upper extremity action/postural tremors, worse on right.. Gait Casual gait is normal including stance, stride, and arm swing. Assessment and Plan: Assessment Mr. Ochoa is a right-handed 69 year old year old male with ET. His tremor is manageable with current treatment regimen. The following are the current problems noted and addressed during this visit: Essential tremor (primary encounter diagnosis) Plan 12/26/2024 Visit: For tremor - continue propranolol at current dose Updated Movement Disorders Medication Schedule: Medications propranolol ER 120 mg daily Return at or around: 12/26/25 Thank you for allowing me to be part of the clinical care of this patient! I look forward to continued participation in the patient?s care with you. Please (more content not included)... Normal [facility] Chest PA and Lateralon 12-05 Chest PA and Lateral [facility] Imaging Services [address] [place], [place] [address] Chest PA and Lateral MR#: [id number] Acct: [id number] Name: VANE OCHOA Rep #: [id number] : 1955 M 68 From: Brooks Do MD PCP: Dr. Kyra Bowers DO Status: REG CLI Study: Chest PA and Lateral Date of Exam: 12/05/24 Exam# [id number] Ordering [place]: [place] [id number] EXAM: XR CHEST, 2 VIEWS CLINICAL INDICATION: CHEST X-RAY, PA AND LATERAL -- Cough in adult TECHNIQUE: Frontal and lateral views of the chest. COMPARISON: 07/13/2024 FINDINGS: LUNGS AND PLEURAL SPACES: Unremarkable. No consolidation or edema. No pneumothorax. No effusion. HEART: Unremarkable. Cardiac silhouette not enlarged. MEDIASTINUM: Central airways and mediastinal contour are unremarkable. BONES/JOINTS: Unremarkable. No acute fracture. SOFT TISSUES: Unremarkable. RAD/Chest PA and Lateral IMPRESSION: No radiographic evidence of acute cardiopulmonary disease. Electronically Signed: Brooks Do MD at 23:45 EST , CC: Dr. Kyra Bowers DO Third Loader: Signed Normal [facility] Ribs Corey Min 4V w/PA Cheston 07-13-2024 Ribs Corey Min 4V w/PA Chest [facility] Radiology [address] [place] [address] Ribs Corey Min 4V w/PA Chest MR#: [id number] Acct: [id number] Name: VANE OCHOA Rep #: [id number] : 1955 M 68 From: Armand Harden MD PCP: Dr. Kyra Bowers DO Status: DEP AMB Study: Ribs Corey Min 4V w/PA Chest Date of Exam: 07/13 Exam# [id number] Ordering Dr: Josey Jeffers [id number] STUDY: X-RAY - BILATERAL RIBS WITH CHEST REASON FOR EXAM: Male, 68 years old. PAIN TECHNIQUE - RIBS: 8 views of the ribs. TECHNIQUE - CHEST: 2 frontal views of the chest. COMPARISON: None. FINDINGS - RIBS : Normal visualized bilateral ribs without a demonstrated fracture. FINDINGS - CHEST: The lungs are clear and expanded. There is no demonstrated pleural abnormality. Normal size heart. Normal mediastinum and rashida. Normal visualized pulmonary arteries. Normal visualized aortic arch and descending thoracic aorta. Normal visualized thoracic spine. Normal visualized ribs, clavicles, and shoulders. There is no demonstrated abnormality of the visualized soft tissue structures of the upper abdomen. RAD/Ribs Corey Min 4V w/PA Chest IMPRESSION: RIBS: Normal x-ray examination of the bilateral ribs. CHEST: Normal x-ray examination of the chest. Electronically Signed: Armand Harden MD at 14:59 EDT Reading Location ID and State: [facility] / [place] , Service support , CC: JERE Jeffers; Dr. Kyra Bowers DO Third Loader: Signed Normal [facility] CNOVon 01-04-2024 CNOV Office Visit (NRMDN) VANE OCHOA ([id number]) 1955 M Date Time Provider Department 01/04/24 9:00 AM MILADYS CARTER During your visit today, we recorded the following information about you: Pulse Blood pressure Weight Height 74/minute 133/78 78.2 kg 1.778 m Miladys Carter MD 01/04/2024 9:23 AM Signed [facility] - FOLLOW UP EVALUATION Kyra Bowers DO, DO [address] [facility] [address] [facility] [address] Dear Kyra Bowers DO, DO: I had the pleasure of seeing Mr. Ochoa for follow-up today. As you know he is a 68 year old right-handed male with a history of ET since 2012. He is seen alone. Subjective Previous Plan-01/08/2023 Visit: Continue propranolol - Initially prescribed primidone to add on but patient later called and declined it - Interval History: Tremor is worse at times but otherwise overall about the same. No triggers. Only notices when eating, dinner time, carrying plate of food. Writing is variable. Fine motor is variable. Right side worse than left. Happy with current treatment. BP is ok. Movement Disorders Medications Schedule - as of the start of the visit: Medications propranolol ER 120 mg daily Other Movement Disorder Prior Therapies Topiramate Questionnaires: In addition, the following areas that may be affected by abnormal involuntary movements were evaluated: Daily activities Difficulties with eating: Yes (mild) Difficulties in dressin (none) Difficulties with hygiene activities: 0 (none) Difficulties with handwriting: Yes (slight) Difficulties with doing hobbies and other activities: 0 (none) Difficulties turning in bed: 0 (none) Difficulties getting out of bed, car or chair: 0 (none) Tremors/Gait/Balance Shaking or tremors: Yes (mild) Walking and balance problems: 0 (none) Number of falls in the Last Month: 0 Gait freezin (none) Autonomic/Pain Lightheadeness on standin (none) Urinary problems: 0 (none) Constipation problems: 0 (none) Pain and other sensations: 0 (none) Speech/Swallowing Speech problems: 0 (none) Droolin (none) Chewing and swallowing problems: 0 (none) Sleep/Fatigue Sleep problems: 0 (none) Daytime sleepiness: 0 (none) Fatigue: 0 (none) Mood/Behavior Depression: PHQ-9 Score: 0 usually representing no significant (0-4) depression. Anxiety: GERSON-7 Total Score: 0 usually representing no significant (0-4) anxiety. Finally, the following table shows the patient's overall global physical and mental health using the PROMIS scale: PROMIS-10 Flowsheet Row Office Visit from 01/04/2024 in Neurology Office Visit from 01/08/2023 in Neurology Global Physical Health T Score 57.7 57.7 Global Mental Health T Score 53.3 53.3 0-10 Standard Pain Scale 5 4 *PROMIS-10 scoring scale: mean = 50, over 50 is above average, under 50 is below average ALLERGIES No Known Allergies Current Outpatient Medications Medication Sig doxycycline 20 mg tablet Take 20 mg by mouth two times a day. propranolol ER (INDERAL LA) 120 mg 24 hr capsule Take 1 capsule by mouth once daily. No current facility-administered medications for this visit. Objective Vital Signs: BP 133/78 (BP Site: Left Arm, BP Position: Sitting, BP Cuff Size: Regular Adult) Pulse 74 Ht 177.8 cm (5' 10) Wt 78.2 kg (172 lb 6.4 oz) SpO2 97% BMI 24.74 kg/m? Orthostatic Vitals: None for this encounter Weight: 78.2 kg (172 lb 6.4 oz) Height: 177.8 cm (5' 10) No LMP for male patient. Body mass index is 24.74 kg/m?. General Physical Examination: General: Awake, alert, interactive, no acute distress, good nutritional status, normal development, well-kept General Neurological Examination: Neurological Exam Mental Status Awake and alert. Speech is normal. Language is fluent with no aphasia. Fund of knowledge is appropriate for level of education. Motor The following abnormal movements were seen: Bilateral upper extremity action/postural tremors, worse on right. No bradykinesia. Gait Casual gait is normal including stance, stride, and arm swing. Assessment and Plan: Assessment Mr. Ochoa is a right-handed 68 year old year old male with ET. His tremor is manageable with current treatment regimen. The following are the current problems noted and addressed during this visit: Essential tremor (primary encounter diagnosis) Plan 01/04/2024 Visit: Continue your medications as you have been taking them. We are not making any changes today. If you feel you are not tolerating them or your symptoms are changing before your next appointment, please feel free to send me a Adiana message or contact the office - Updated Movement Disorders Medication Schedule: Medications propranolol ER 120 mg daily Return at or around: 01/04/25 Medical Decision Making: Problems: Low: Stable chronic illn (more content not included)... Normal [facility] HEPATITIS C ANTIBODY (88903) Ordered By: Salt Refiner on 10-14-2022 HCV Ab Signal/Cutoff IA [Rel units/Vol] {ratio} Normal 0.0-0.9 [facility]; [facility] Work Phone: Comment on above: Negative: < 0.8 Inde terminate: 0.8 - 0.9 Positive: > 0.9 . HCV antibody alone does not differentiate between previous resolved infection and active infection. The CDC and current clinical guidelines recommend that a positive HCV antibody result be followed up with an HCV RNA test to support the diagnosis of acute HCV infection. [facility] offers Hepatitis C Virus (HCV) RNA, Diagnosis, NEO (360290) and Hepatitis C Virus (HCV) Antibody with reflex to Quantitative Real-time PCR (769539). PATIENT WAS FASTINGP ERFORMED BY: [facility] Center[facility]scsot5365 [facility] [id number] LIPID PANEL (60383)Ordered B y: Salt Refiner on 10-14-2022 Cholesterol [Mass/Vol] 207 mg/dL Abnormal 100-199 [facility]; [facility] Work Phone: Comment on above: PATIENT WAS FASTINGP ERFORMED BY: [facility] CenterBcuzbi3160 [facility] [id number] Cholesterol in HDL [Mass/Vol] 42 mg/dL Normal [facility]; [facility] Work Phone: Comment on above: PATIENT WAS FASTINGP ERFORMED BY: CLAUDIA [facility] [id number] [place] [id number] Triglyceride [Mass/Vol] 93 mg/dL Normal 0-149 [facility]; [facility] Work Phone: Comment on above: PATIENT WAS FASTINGP ERFORMED BY: [facility] [id number] [address] [place] [id number] LIPID PANEL (95204) 17 mg/dL Normal 5-40 [facility]; [facility] Work Phone: Comment on above: PATIENT WAS FASTINGP ERFORMED BY: [facility] [id number] [address] [place] [id number] LIPID PANEL (70934) 148 mg/dL Abnormal 0-99 [facility]; [facility] Work Phone: Comment on above: PATIENT WAS FASTINGP ERFORMED BY: [facility] [id number] [address] [id number] LIPID PANEL (64712) 3.5 {ratio} Normal 0.0-3.6 [facility]; [facility] Work Phone: Comment on above: LDL/HDL Ratio Men Wo men 1/2 Avg.Risk 1.0 1.5 Avg.Risk 3.6 3.2 2X Avg.Risk 6.2 5.0 3X Avg.Risk 8.0 6.1 PATIENT WAS FASTINGP ERFORMED BY: [facility] [id number] [address] [id number] PSA (PROSTATE SPECIFIC ANTIG EN) (V76.44)Ordered By: Salt Refiner on 10-14-2022 Prostate specific Ag [Mass/Vol] 2.5 ng/mL Normal 0.0-4.0 [facility]; [facility] Work Phone: Comment on above: Ugo ECLIA methodol ogy. .According to the [place] [employer], Serum PSA shoulddecrease and remain at undetectable levels after radicalprostatectomy. The AUA defines biochemical recurrence as an initialPSA value 0.2 ng/mL or greater followed by a subsequent confirmatoryPSA value 0.2 ng/mL or greater.Values obtained with different assay methods or kits cannot be usedinterchangeably. Results cannot be interpreted as absolute evidenceof the presence or absence of malignant disease. PATIENT WAS FASTINGP ERFORMED BY: [employer]6370 Surfwax MediaBaptist Health La [facility]ange [id number] VITAMIN B-12 (CYANOCOBALAMIN ) ([id number])Ordered By: Salt Refiner on 10-14-2022 Cobalamin (Vitamin B12) [Mass/Vol] 492 pg/mL Normal 232-1245 [facility]; [facility] Work Phone: Comment on above: PATIENT WAS FASTINGP ERFORMED BY: [employer]6370 Surfwax MediaBaptist Health [facility] [id number] URINE JOHNSON CULTURE-IDENTIFICA [place] ([id number])Ordered By: Salt Refiner on 04-28-2022 Bacteria identified Cx Nom (U) Final report Abnormal [facility]; [facility] Work Phone: Comment on above: PATIENT NOT FASTINGP ERFORMED BY: [employer]6370 Polaris WirelessMission Hospital [facility]owell [id number] Information: SRC:UC Bacteria identified Cx Nom (U) Escherichia coli Abnormal [facility]; [facility] Work Phone: Comment on above: 10,000-25,000 colony forming units per mLCefazolin <=4 ug/mLCefazolin with an JOSEMANUEL <=16 predicts susceptibility to the oral agentscefaclor, cefdinir, cefpodoxime, cefprozil, cefuroxime, cephalexin,and loracarbef when used for therapy of uncomplicated urinary tractinfections due to E. coli, Klebsiella pneumoniae, and Proteusmirabilis. PATIENT NOT FASTINGP ERFORMED BY: [employer]6370 Polaris WirelessMission Hospital [facility] [id number] Information: SRC:UC Other Antibiotic [Susc] MIHEAD Normal [facility]; [facility] Work Phone: Comment on above: S = Susceptible; I = Intermediate; R = Resistant P = Positive; N = Negative MICS are expressed in micrograms per mL Antibiotic RSLT#1 RSLT#2 RSLT#3 RSLT#4Amoxicillin/Clavulanic Acid SAmpicillin SCefepime SCeftriaxone SCefuroxime SCiprofloxacin SErtapenem SGentamicin SImipenem SLevofloxacin SMeropenem SNitrofurantoin SPiperacillin/Tazobactam STetracycline STobramycin STrimethoprim/Sulfa S PATIENT NOT FASTINGP ERFORMED BY: CLAUDIA [facility] Dakkrf5945 Murphy RoadUNC Health [id number] Information: SRC:JARON Urinalysis, Office ([id number])Or dered By: Teresa Fall on 04-28-2022 Bilirubin Ql (U) Negative Normal Comprehe nsive Internal Medicine; [facility] Work Phone: Glucose Test strip (U) [Mass/Vol] Negative Normal [facility]; [facility] Work Phone: Hemoglobin Ql (U) ++ Abnormal Compreh ensive [facility]; [facility] Work Phone: Ketones Ql (U) Negative Normal Comprehens ada [facility]; [facility] Work Phone: Leukocyte esterase Test strip Ql (U) Negative Normal [facility]; [facility] Work Phone: Nitrite Ql (U) Negative Normal Comprehens ada [facility]; [facility] Work Phone: pH (U) 5.0 [pH] Normal [facility]; [facility] Work Phone: Protein Ql (U) Negative Normal Comprehens ada [facility]; [facility] Work Phone: Specific gravity (U) [Rel density] 1.030 1 Abnormal [facility]; [facility] Work Phone: Urobilinogen (24H U) [Mass/Time] Normal Normal [facility]; [facility] Work Phone: COVID 19 (ONLY) RAPID ([id number] )Ordered By: Isaac Salamanca on 11-27-2021 SARS-CoV-2 (COVID-19) RNA NEO+probe Ql (Unsp spec) Positive Normal [facility]; [facility] Work Phone: C-REACTIVE PROTEIN ([id number])Or dered By: Salt Refiner on 10-08-2021 CRP [Mass/Vol] 2 mg/L Normal 0-10 [facility]; [facility] Work Phone: Comment on above: PATIENT WAS FASTINGP ERFORMED BY: [facility] Codhwg6407 [address] RoadDublin [place] [id number] CBC (AUTO) ([id number])Ordered By : Salt Refiner on 10-08-2021 Erythrocyte distribution width (RBC) [Ratio] 12.2 % Normal 11.6-15.4 [facility]; [facility] Work Phone: Comment on above: PATIENT WAS FASTINGP ERFORMED BY: [facility] Vpwvhz3117 [address] Roadblin [place] [id number] Hematocrit (Bld) [Volume fraction] 45.3 % Normal 37.5-51.0 [facility]; [facility] Work Phone: Comment on above: PATIENT WAS FASTINGP ERFORMED BY: [facility] Mmekfc5921 [address] RoadDublin [place] [id number] Hemoglobin (Bld) [Mass/Vol] 15.7 g/dL Normal 13.0-17.7 [facility]; [facility] Work Phone: Comment on above: PATIENT WAS FASTINGP ERFORMED BY: [facility] Cxpaxe5135 [address] RoadDublin [place] [id number] MCH (RBC) [Entitic mass] 31.7 pg Normal 26.6-33.0 [facility]; [facility] Work Phone: Comment on above: PATIENT WAS FASTINGP ERFORMED BY: [facility] Qwzewj0176 [address] RoadDublin [place] [id number] MCHC (RBC) [Mass/Vol] 34.7 g/dL Normal 31.5-35.7 [facility]; [facility] Work Phone: Comment on above: PATIENT WAS FASTINGP ERFORMED BY: [facility] Katkdj1011 [address] RoadDublin [place] [id number] MCV (RBC) [Entitic vol] 92 fL Normal 79-97 [facility]; [facility] Work Phone: Comment on above: PATIENT WAS FASTINGP ERFORMED BY: CLAUDIA [facility] Gcubrc2989 [address] RoadDublin [place] [id number] Platelets (Bld) [#/Vol] 248 10*3/uL Normal 150-450 [facility]; [facility] Work Phone: Comment on above: PATIENT WAS FASTINGP ERFORMED BY: CLAUDIA [facility] Jbtfgb9489 [address] RoadDublin [place] [id number] RBC (Bld) [#/Vol] 4.95 10*6/uL Normal 4.14-5.80 Compr [facility]; [facility] Work Phone: Comment on above: PATIENT WAS FASTINGP ERFORMED BY: CLAUDIA Lab[facility] Llzyeh1798 [address] RoadDublin [place] [id number] WBC (Bld) [#/Vol] 8.9 10*3/uL Normal 3.4-10.8 [facility]; [facility] Work Phone: Comment on above: PATIENT WAS FASTINGP ERFORMED BY: CLAUDIA [facility] Easpkj7359 [address] RoadDublin [place] [id number] LIPID PANEL (03945)Ordered B y: Salt Refiner on 10-08-2021 Cholesterol [Mass/Vol] 211 mg/dL Abnormal 100-199 [facility]; [facility] Work Phone: Comment on above: PATIENT WAS FASTINGP ERFORMED BY: CLAUDIA [facility] Rdxgvj1383 [address] RoadDublin [place] [id number] Cholesterol in HDL [Mass/Vol] 39 mg/dL Abnormal [facility]; [facility] Work Phone: Comment on above: PATIENT WAS FASTINGP ERFORMED BY: CLAUDIA [facility] Polrvp2272 [address] RoadDublin [place] [id number] Triglyceride [Mass/Vol] 150 mg/dL Abnormal 0-149 [facility]; [facility] Work Phone: Comment on above: PATIENT WAS FASTINGP ERFORMED BY: CLAUDIA [facility] Nzwjdo4484 [address] RoadDublin [place] [id number] LIPID PANEL (06253) 27 mg/dL Normal 5-40 [facility]; [facility] Work Phone: Comment on above: PATIENT WAS FASTINGP ERFORMED BY: CLAUDIA Mae Nenjfs6711 [facility] [id number] LIPID PANEL (29208) 145 mg/dL Abnormal 0-99 [facility]; [facility] Work Phone: Comment on above: PATIENT WAS FASTINGP ERFORMED BY: Lab[facility] Jjkqna6791 [facility] [id number] LIPID PANEL (43828) 3.7 {ratio} Abnormal 0.0-3.6 [facility]; [facility] Work Phone: Comment on above: LDL/HDL Ratio Men Wo men 1/2 Avg.Risk 1.0 1.5 Avg.Risk 3.6 3.2 2X Avg.Risk 6.2 5.0 3X Avg.Risk 8.0 6.1 PATIENT WAS FASTINGP ERFORMED BY: [facility]6370 [facility] [id number] METABOLIC PANEL, COMPREHENSI VE (45540)Ordered By: Salt Refiner on 10-08-2021 Albumin [Mass/Vol] 4.1 g/dL Normal 3.8-4.8 [facility]; [facility] Work Phone: Comment on above: PATIENT WAS FASTINGP ERFORMED BY: CLAUDIA [facility] Mkbzci0271 [facility] [id number] Albumin/Globulin [Mass ratio] 1.5 {ratio} Normal 1.2-2.2 [facility]; [facility] Work Phone: Comment on above: PATIENT WAS FASTINGP ERFORMED BY: LabcoOcean Medical CenterNbvgow6436 [facility] [id number] ALP [Catalytic activity/Vol] 82 U/L Normal 44-121 [facility]; [facility] Work Phone: Comment on above: Please note refere nce interval change PATIENT WAS FASTINGP ERFORMED BY: Labss[facility] Jxphct2[address] RoadDublin [place] [id number] ALT [Catalytic activity/Vol] 15 U/L Normal 0-44 [facility]; [facility] Work Phone: Comment on above: PATIENT WAS FASTINGP ERFORMED BY: CLAUDIA Rigginslin6[address] RoadDublin [place] [id number] AST [Catalytic activity/Vol] 15 U/L Normal 0-40 [facility]; [facility] Work Phone: Comment on above: PATIENT WAS FASTINGP ERFORMED BY: CLAUDIA [facility] Prftgk2387 [address] RoadDublin [place] [id number] Bilirubin [Mass/Vol] 0.3 mg/dL Normal 0.0-1.2 [facility]; [facility] Work Phone: Comment on above: PATIENT WAS FASTINGP ERFORMED BY: Mae Sjtmdt0758 [address] RoadDublin [place] [id number] Calcium [Mass/Vol] 9.3 mg/dL Normal 8.6-10.2 [facility]; [facility] Work Phone: Comment on above: PATIENT WAS FASTINGP ERFORMED BY: Labhimanshu Nzpuoo7[address] RoadDublin [place] [id number] Chloride [Moles/Vol] 105 mmol/L Normal 96-106 [facility]; [facility] Work Phone: Comment on above: PATIENT WAS FASTINGP ERFORMED BY: Labhimanshu Ifdrvr1774 [address] RoadDublin [place] [id number] CO2 [Moles/Vol] 22 mmol/L Normal 20-29 [facility]; [facility] Work Phone: Comment on above: PATIENT WAS FASTINGP ERFORMED BY: [facility] Mlymlw0076 [address] RoadDublin [place] [id number] Creatinine [Mass/Vol] 1.01 mg/dL Normal 0.76-1.27 [facility]; [facility] Work Phone: Comment on above: PATIENT WAS FASTINGP ERFORMED BY: [facility] Lewwhb6518 [address] RoadDublin [place] [id number] GFR/1.73 sq M.predicted among blacks CKD-EPI (S/P/Bld) [Vol rate/Area] 90 mL/min/1.73 Normal [facility]; [facility] Work Phone: Comment on above: In accordance with recommendations from the NKF-ASN Task force, Mae is in the process of updating its eGFR calculation to the 2020 CKD-EPI creatinine equation that estimates kidney function without a race variable. PATIENT WAS FASTINGP ERFORMED BY: CLAUDIA Rigginslin6370 MurphySac-[facility] Hospital [id number] GFR/1.73 sq M.predicted among non-blacks CKD-EPI (S/P/Bld) [Vol rate/Area] 78 mL/min/1.73 Normal [facility]; [facility] Work Phone: Comment on above: PATIENT WAS FASTINGP ERFORMED BY: Kenneth Rigginslin6370 [facility] [id number] Globulin (S) [Mass/Vol] 2.7 g/dL Normal 1.5-4.5 [facility]; [facility] Work Phone: Comment on above: PATIENT WAS FASTINGP ERFORMED BY: CLAUDIA Iqbal6370 [facility] [id number] Glucose [Mass/Vol] 108 mg/dL Abnormal 65-99 [facility]; [facility] Work Phone: Comment on above: PATIENT WAS FASTINGP ERFORMED BY: Kenneth Rigginslin6370 [facility] [id number] Potassium [Moles/Vol] 4.5 mmol/L Normal 3.5-5.2 [facility]; [facility] Work Phone: Comment on above: PATIENT WAS FASTINGP ERFORMED BY: CLAUDIA Rigginslin6370 [facility] [id number] Protein [Mass/Vol] 6.8 g/dL Normal 6.0-8.5 [facility]; [facility] Work Phone: Comment on above: PATIENT WAS FASTINGP ERFORMED BY: CLAUDIA [facility] Hbtmum0487 [address] RoadDublin [place] [id number] Sodium [Moles/Vol] 139 mmol/L Normal 134-144 [facility]; [facility] Work Phone: Comment on above: PATIENT WAS FASTINGP ERFORMED BY: CLAUDIA [facility] Higeoj6330 [address] RoadDublin [place] [id number] Urea nitrogen [Mass/Vol] 20 mg/dL Normal 8-27 [facility]; [facility] Work Phone: Comment on above: PATIENT WAS FASTINGP ERFORMED BY: CLAUDIA [facility] Dbqanp6337 [address] RoadDublin [place] [id number] Urea nitrogen/Creatini ne [Mass ratio] 20 mg/mg Normal 10-24 [facility]; [facility] Work Phone: Comment on above: PATIENT WAS FASTINGP ERFORMED BY: CLAUDIA [facility] Vamtos5568 [address] RoadDublin [place] [id number] SED RATE ERYTHROCYTE ([id number]) Ordered By: Salt Refiner on 10-08-2021 ESR (Bld) [Velocity] 9 mm/h Normal 0-30 [facility]; [facility] Work Phone: Comment on above: PATIENT WAS FASTINGP ERFORMED BY: CLAUDIA [facility] Acfdrt0973 [address] RoadDublin [place] [id number] TSH ([id number])Ordered By: Syste m Hospice Case Manager on 10-08-2021 TSH Qn 2.030 {uIU/mL} Normal 0.450-4.500 [facility]; [facility] Work Phone: Comment on above: PATIENT WAS FASTINGP ERFORMED BY: CLAUDIA [facility] Fcjbdt9301 [address] RoadDublin [place] [id number] VITAMIN B-12 (CYANOCOBALAMIN ) ([id number])Ordered By: Salt Refiner on 10-08-2021 Cobalamin (Vitamin B12) [Mass/Vol] 337 pg/mL Normal 232-1245 [facility]; [facility] Work Phone: Comment on above: PATIENT WAS FASTINGP ERFORMED BY: CLAUDIA [employer] Jrhjng[address] cafegiveMission Hospital [facility]owell [id number] URINE JOHNSON CULTURE-IDENTIFICA [place] (45093)Ordered By: Salt Refiner on 06-12-2021 Bacteria identified Cx Nom (U) Final report Abnormal [facility]; [facility] Work Phone: Comment on above: PATIENT NOT FASTINGP ERFORMED BY: [employer] Tehenc97[address] 77[facility] [id number] Information: SRC: Bacteria identified Cx Nom (U) STASAP Abnormal [facility]; [facility] Work Phone: Comment on above: Staphylococcus sapro vldiduyd93,000-25,000 colony forming units per mLThe CLSI does not advise routine susceptibility testing of urinarytract isolates of Staphylococcus saprophyticus, because acute,uncomplicated urinary tract infections caused by this organism respondto concentrations achieved in urine of antimicrobial agents commonlyused to treat these infections, such as nitrofurantoin, afluoroquinolone, or trimethoprim with or without sulfamethoxazole.CLSI, T772-U74, 2005. PATIENT NOT FASTINGP ERFORMED BY: [employer] Blywxm1167 [address] cafegiveMission Hospital [facility]owell [id number] Information: SRC: Urinalysis, Office ([id number])Or dered By: Teresa Fall on 06-12-2021 Bilirubin Ql (U) Negative Normal Comprehe nsive Internal Medicine; [facility] Work Phone: Glucose Test strip (U) [Mass/Vol] Negative Normal [facility]; [facility] Work Phone: Hemoglobin Ql (U) ++ Abnormal Compreh ensive [facility]; [facility] Work Phone: Ketones Ql (U) Negative Normal Comprehens ada [facility]; [facility] Work Phone: Leukocyte esterase Test strip Ql (U) Negative Normal [facility]; [facility] Work Phone: Nitrite Ql (U) Negative Normal Comprehens ada [facility]; [facility] Work Phone: pH (U) 6.0 [pH] Normal [facility]; [facility] Work Phone: Protein Ql (U) Negative Normal Comprehens ada [facility]; [facility] Work Phone: Specific gravity (U) [Rel density] 1.020 1 Normal [facility]; [facility] Work Phone: Urobilinogen (24H U) [Mass/Time] 2 mg/dL Normal [facility]; [facility] Work Phone: PSA (Prostate Specific Antig en), Screening (61582)Ordered By: Salt Refiner on 06-10-2021 Prostate specific Ag [Mass/Vol] 3.9 ng/mL Normal 0.0-4.0 [facility]; [facility] Work Phone: Comment on above: [employer] ECLIA methodol ogy. .According to the [place] [employer], Serum PSA shoulddecrease and remain at undetectable levels after radicalprostatectomy. The AUA defines biochemical recurrence as an initialPSA value 0.2 ng/mL or greater followed by a subsequent confirmatoryPSA value 0.2 ng/mL or greater.Values obtained with different assay methods or kits cannot be usedinterchangeably. Results cannot be interpreted as absolute evidenceof the presence or absence of malignant disease. PATIENT NOT FASTINGP ERFORMED BY: [employer]6370 Surfwax MediaBaptist Health La [facility] [id number] URINE JOHNSON CULTURE-IDENTIFICA [place] (44945)Ordered By: Salt Refiner on 05-31-2021 Bacteria identified Cx Nom (U) Final report Abnormal [facility]; [facility] Work Phone: Comment on above: PATIENT NOT FASTINGP ERFORMED BY: [employer]6370 Surfwax MediaBaptist Health [facility] [id number] Information: SRC:UC Bacteria identified Cx Nom (U) Enterococcus faecalis Abnormal Comprehens ada [facility]; [facility] Work Phone: Comment on above: 400 Colonies/mLNote: this isolate is vancomycin- susceptible.This information is provided for epidemiologic purposes only:vancomycin is not among the antibiotics recommended for therapyof urinary tract infections caused by Enterococcus.For Enterococcus species, aminoglycosides (except for high-levelresistance screening), cephalosporins, clindamycin, andtrimethoprim-sulfamethoxazole are not effective clinically.(CLSI, R653-B98, 2016) PATIENT NOT FASTINGP ERFORMED BY: CLAUDIA [facility] Nbotvr7333 [address] cafegiveMission Hospital McDowell [id number] Information: SRC: Other Antibiotic [Susc] MIHEAD Normal [facility]; [facility] Work Phone: Comment on above: S = Susceptible; I = Intermediate; R = Resistant P = Positive; N = Negative MICS are expressed in micrograms per mL Antibiotic RSLT#1 RSLT#2 RSLT#3 RSLT#4Ciprofloxacin SLevofloxacin SNitrofurantoin SPenicillin STetracycline RVancomycin S PATIENT NOT FASTINGP ERFORMED BY: CLAUDIA SharitaFreeman [facility] Ahlkiy[address] cafegiveMission Hospital [facility]owell [id number] Information: SRC: Urinalysis, Office ([id number])Or dered By: Teresita Choudhary on 05-31-2021 Bilirubin Ql (U) Negative Normal Comprehe nsive Internal Medicine; [facility] Work Phone: Glucose Test strip (U) [Mass/Vol] Negative Normal [facility]; [facility] Work Phone: Hemoglobin Ql (U) + Abnormal Compreh ensive [facility]; [facility] Work Phone: Ketones Ql (U) Negative Normal Comprehens ada [facility]; [facility] Work Phone: Leukocyte esterase Test strip Ql (U) Negative Normal [facility]; [facility] Work Phone: Nitrite Ql (U) Negative Normal Comprehens ada [facility]; [facility] Work Phone: pH (U) 6 [pH] Abnormal [facility]; [facility] Work Phone: Protein Ql (U) Negative Normal Comprehens ada [facility]; [facility] Work Phone: Specific gravity (U) [Rel density] 1.020 1 Normal [facility]; [facility] Work Phone: Urobilinogen (24H U) [Mass/Time] Normal Normal [facility]; [facility] Work Phone: Rapid Flu (95053 x 2)Ordered By: Isaac Cooper on 12-28-2019 FLUAV Ag IA Ql (Throat) Positive Normal [facility] Work Phone: Rapid Flu (40127 x 2)Ordered By: Isaac Salamanca on 12-28-2019 FLUAV Ag IA Ql (Throat) Positive Normal [facility]; [facility] Work Phone: CBC WITH MANUAL DIFF ([id number]) Ordered By: Salt Refiner on 09-12-2019 Basophils (Bld) [#/Vol] 0.0 {x10E3/uL} Normal 0.0-0.2 [facility] Work Phone: Comment on above: PATIENT NOT FASTINGP ERFORMED BY: CB [facility] Ypzpph7116 [address] RoadDublin [place] [id number] Basophils (Bld) [#/Vol] 0.0 10*3/uL Normal 0.0-0.2 [facility]; [facility] Work Phone: Comment on above: PATIENT NOT FASTINGP ERFORMED BY: CB [facility] Lgndin7596 [address] RoadDublin [place] [id number] Basophils/100 WBC (Bld) 0 % Normal [facility] Work Phone: Comment on above: PATIENT NOT FASTINGP ERFORMED BY: CB [facility] Ccpcgl2870 [address] RoadDublin [place] [id number] Eosinophils (Bld) [#/Vol] 0.2 {x10E3/uL} Normal 0.0-0.4 [facility] Work Phone: Comment on above: PATIENT NOT FASTINGP ERFORMED BY: CB [facility] Hcetlk6443 [address] RoadDublin [place] [id number] Eosinophils (Bld) [#/Vol] 0.2 10*3/uL Normal 0.0-0.4 [facility]; [facility] Work Phone: Comment on above: PATIENT NOT FASTINGP ERFORMED BY: CB [facility] Krcmfd7355 [address] RoadDublin [place] [id number] Eosinophils/100 WBC (Bld) 2 % Normal [facility] Work Phone: Comment on above: PATIENT NOT FASTINGP ERFORMED BY: CLAUDIA SheriffConoy IqbalKctjbp9719 [address] Roadblin [place] [id number] Erythrocyte distribution width (RBC) [Ratio] 13.4 % Normal 12.3-15.4 [facility] Work Phone: Comment on above: PATIENT NOT FASTINGP ERFORMED BY: CB [facility] Yrpdzj[address] [facility] [id number] Hematocrit (Bld) [Volume fraction] 43.1 % Normal 37.5-51.0 [facility] Work Phone: Comment on above: PATIENT NOT FASTINGP ERFORMED BY: CLAUDIA SheriffConoy RigginsFfqahi7805 Murphy RoadUNC Health [id number] Hemoglobin (Bld) [Mass/Vol] 15.1 g/dL Normal 13.0-17.7 [facility] Work Phone: Comment on above: PATIENT NOT FASTINGP ERFORMED BY: CB [facility] Zwjtjq4045 Murphy RoadAtrium Healthin [place] [id number] Immature granulocytes (Bld) [#/Vol] 0.0 {x10E3/uL} Normal 0.0-0.1 [facility] Work Phone: Comment on above: PATIENT NOT FASTINGP ERFORMED BY: CB [facility] Mlfjqi7345 [address] Roadblin [place] [id number] Immature granulocytes (Bld) [#/Vol] 0.0 10*3/uL Normal 0.0-0.1 [facility]; [facility] Work Phone: Comment on above: PATIENT NOT FASTINGP ERFORMED BY: CB [facility] Vrqjsj4346 [address] Roadblin [place] [id number] Immature granulocytes/100 WBC (Bld) 0 % Normal [facility] Work Phone: Comment on above: PATIENT NOT FASTINGP ERFORMED BY: CB [facility] Jculor59[address] [facility]in [place] [id number] Lymphocytes (Bld) [#/Vol] 2.4 {x10E3/uL} Normal 0.7-3.1 [facility] Work Phone: Comment on above: PATIENT NOT FASTINGP ERFORMED BY: CLAUDIA [facility] Dtwzoa1612 [address] RoadDublin [place] [id number] Lymphocytes (Bld) [#/Vol] 2.4 10*3/uL Normal 0.7-3.1 [facility]; [facility] Work Phone: Comment on above: PATIENT NOT FASTINGP ERFORMED BY: CB [facility] Nqxwvv4028 [address] RoadDublin [place] [id number] Lymphocytes/100 WBC (Bld) 27 % Normal [facility] Work Phone: Comment on above: PATIENT NOT FASTINGP ERFORMED BY: CLAUDIA [facility] Vdsfig9735 [address] RoadDublin [place] [id number] MCH (RBC) [Entitic mass] 31.7 pg Normal 26.6-33.0 [facility] Work Phone: Comment on above: PATIENT NOT FASTINGP ERFORMED BY: CB [facility] Ckesog1547 [address] RoadDublin [place] [id number] MCHC (RBC) [Mass/Vol] 35.0 g/dL Normal 31.5-35.7 [facility] Work Phone: Comment on above: PATIENT NOT FASTINGP ERFORMED BY: [facility] Cxpyso2090 [address]Dublin [place] [id number] MCV (RBC) [Entitic vol] 90 fL Normal 79-97 [facility] Work Phone: Comment on above: PATIENT NOT FASTINGP ERFORMED BY: CB [facility] Xutzox7[address]Dublin [place] [id number] Monocytes (Bld) [#/Vol] 0.9 {x10E3/uL} Normal 0.1-0.9 [facility] Work Phone: Comment on above: PATIENT NOT FASTINGP ERFORMED BY: CB [facility] Iezxjt4724 [address]Dublin [place] [id number] Monocytes (Bld) [#/Vol] 0.9 10*3/uL Normal 0.1-0.9 [facility]; [facility] Work Phone: Comment on above: PATIENT NOT FASTINGP ERFORMED BY: CB [facility] Prouft40[address]Dublin [place] [id number] Monocytes/100 WBC (Bld) 10 % Normal [facility] Work Phone: Comment on above: PATIENT NOT FASTINGP ERFORMED BY: CB [facility] Sqilgc8[address]Dublin [place] [id number] Neutrophils (Bld) [#/Vol] 5.3 {x10E3/uL} Normal 1.4-7.0 [facility] Work Phone: Comment on above: PATIENT NOT FASTINGP ERFORMED BY: CLAUDIA [facility] Kccjzd5350 [address] RoadDublin [place] [id number] Neutrophils (Bld) [#/Vol] 5.3 10*3/uL Normal 1.4-7.0 [facility]; [facility] Work Phone: Comment on above: PATIENT NOT FASTINGP ERFORMED BY: CB [facility] Qppaxu1534 [address]Dublin [place] [id number] Neutrophils/100 WBC (Bld) 61 % Normal [facility] Work Phone: Comment on above: PATIENT NOT FASTINGP ERFORMED BY: CB [facility] Silysf01[address]Dublin [place] [id number] Platelets (Bld) [#/Vol] 236 {x10E3/uL} Normal 150-450 [facility] Work Phone: Comment on above: PATIENT NOT FASTINGP ERFORMED BY: CB [facility] Bbugrw9[address]Dublin [place] [id number] Platelets (Bld) [#/Vol] 236 10*3/uL Normal 150-450 [facility]; [facility] Work Phone: Comment on above: PATIENT NOT FASTINGP ERFORMED BY: CB [facility] Cddzfq04[address]Dublin [place] [id number] RBC (Bld) [#/Vol] 4.77 {x10E6/uL} Normal 4.14-5.80 [facility] Medicine Work Phone: Comment on above: PATIENT NOT FASTINGP ERFORMED BY: CLAUDIA Maenoy Wpcrgd0068 [facility] [id number] RBC (Bld) [#/Vol] 4.77 10*6/uL Normal 4.14-5.80 [facility]; [facility] Work Phone: Comment on above: PATIENT NOT FASTINGP ERFORMED BY: CLAUDIA [facility] Bmgugv7556 [facility] [id number] WBC (Bld) [#/Vol] 8.9 {x10E3/uL} Normal 3.4-10.8 [facility] Medicine Work Phone: Comment on above: PATIENT NOT FASTINGP ERFORMED BY: CLAUDIA Rigginslin6370 [facility] [id number] WBC (Bld) [#/Vol] 8.9 10*3/uL Normal 3.4-10.8 [facility] Internal [facility]; [facility] Work Phone: Comment on above: PATIENT NOT FASTINGP ERFORMED BY: CLAUDIA Rigginslin6370 [facility] [id number] EBV Panel ([id number])Ordered By: Salt Refiner on 09-12-2019 EBV capsid IgG IA Qn (S) >600.0 Abnormal 0.0-17.9 [facility] Work Phone: Comment on above: Negative <18.0 Equiv ocal 18.0 - 21.9 Positive >21.9 PATIENT NOT FASTINGP ERFORMED BY: CLAUDIA LabDaniel Asteim3905 [facility] [id number] EBV capsid IgM IA Qn (S) <36.0 Normal 0.0-35.9 [facility] Work Phone: Comment on above: Negative <36.0 Equiv ocal 36.0 - 43.9 Positive >43.9 PATIENT NOT FASTINGP ERFORMED BY: CLAUDIA [employer] Tabwhq0114 [facility] [id number] EBV early IgG Qn (S) <9.0 Normal 0.0-8.9 [facility] Work Phone: Comment on above: Negative < 9.0 Equiv ocal 9.0 - 10.9 Positive >10.9 PATIENT NOT FASTINGP ERFORMED BY: [employer] Dgyaxf6356 [facility] [id number] EBV nuclear IgG IA Qn (S) 263.0 U/mL Abnormal 0.0-17.9 [facility] Work Phone: Comment on above: Negative <18.0 Equiv ocal 18.0 - 21.9 Positive >21.9 PATIENT NOT FASTINGP ERFORMED BY: [employer] Skrabn4098 [facility] [id number] Service comment (Unsp spec) [Interp] SPRCS Normal [facility] Work Phone: Comment on above: EBV Interpretation C davies . Interpretation EBV-IgM EA(D)-IgG VCA-IgG EBNA-IgG . EBV Seronegative - - - - Early Phase + - - - Acute Primary + +or- + - Infection Convalescence/Past - +or- + + Infection Reactivated +or- +or- + + Infection + Antibody Present - Antibody Absent PATIENT NOT FASTINGP ERFORMED BY: [employer] Yhfufz0583 [facility] [id number] [facility]ALTHon 09-[facility]-2019 [facility] HNO ID: [id number] Author: Lelia Javed (Tech) Service: Radiology Author Type: Wiper Blender Type: Allied Health Filed: 09/08/2019 3:29 PM Note Text: Radiology Service Progress Note PATIENT NAME: Vane Ochoa DATE OF SERVICE: September 08, 2019 TIME: 3:29 PM PATIENT IDENTITY VERIFICATION COMPLETED USING TWO (2) METHODS: Name and Date of confirmed by patient verbally and Name and Date of confirmed by identification band. PATIENT GENDER DATA: Male PATIENT RELEVANT IMPLANT DATA REVIEWED: Yes RADIOLOGY DEPARTMENT: MR; Exam(s) Completed: Head: Routine Brain PERIPHERAL IV DATA: Not applicable SIGNED BY: RODRIGUE Gonzalez September 08, 2019 3:29 PM Normal [facility] MRI BRAIN WO IVCONon 09-08-2 019 MRI BRAIN WO IVCON * * *Final Report* * * DATE OF EXAM: Sep 08 2019 3:47PM LUIS 0294 - MRI BRAIN WO IVCON / PROCEDURE REASON: N75-Ombmemmmeu headache * * * * Physician Interpretation * * * * EXAMINATION: MRI BRAIN WO IVCON HISTORY: Positional headache - Headache, persistent/atypical TECHNIQUE: MRI brain routine protocol without contrast. M: [id number] COMPARISON: None. RESULT: Acute Change: No evidence of an acute intracranial process. Hemorrhage: No evidence of prior parenchymal hemorrhage on the susceptibility weighted sequences. Mass Lesion/ Mass Effect: No evidence of an intracranial mass or extra-axial fluid collection. No significant mass effect. Chronic Change: The white matter is within normal limits of signal intensity for age. Parenchyma: No significant parenchymal volume loss for age. Ventricles: Normal caliber and morphology. Skull Base: Hypothalamic and pituitary region are grossly normal. Craniocervical junction is normal. No significant marrow replacement process. Vasculature: Major intracranial arteries and dural venous sinuses demonstrate typical flow voids, suggesting patency by spin echo criteria. Incidental small developmental venous anomaly in the left superior frontal lobe. Other: Trace mucosal thickening in scattered ethmoid air cells. Mastoid air cells are clear. The orbits and extracranial soft tissues are unremarkable. IMPRESSION: No acute intracranial findings. Age-appropriate unremarkable brain. Third Loader: TREV Transcribe Date/Time: Sep 08 2019 3:51P Dictated by : SHIRIN HOWARD MD This examination was interpreted and the report reviewed and electronically signed by: SHIRIN HOWARD MD on Sep 08 2019 3:54PM EST [id number] Normal [facility] PSA (PROSTATE SPECIFIC ANTIG EN) ([id number])Ordered By: Salt Refiner on 11-29-2015 Prostate specific Ag mass conc 2.2 ng/mL Normal 0.0-4.0 [facility] Work Phone: Comment on above: Ugo ECLIA methodol ogy. .According to the [place] [employer], Serum PSA shoulddecrease and remain at undetectable levels after radicalprostatectomy. The AUA defines biochemical recurrence as an initialPSA value 0.2 ng/mL or greater followed by a subsequent confirmatoryPSA value 0.2 ng/mL or greater.Values obtained with different assay methods or kits cannot be usedinterchangeably. Results cannot be interpreted as absolute evidenceof the presence or absence of malignant disease. PATIENT NOT FASTINGP ERFORMED BY: CLAUDIA Ujogo6370 [facility] [id number] Information: [id number] CYTOSPIN ON FLUIDOrdered By: Salt Refiner on 11-22-2015 CYTOSPIN ON FLUID See Note Normal Compreh ensive Internal Medicine Work Phone: Comment on above: Patient: VANE OCHOA : 1955 (59/M) Acct Num: [id number] Phys: Ashley CH,Terrence Unit Num: [id number] Loc: LABSPEC Specimen: [id number] Received: 11/23/15899 Spec Type: CYSPIN FL TISSUES TISSUES: CULTURE RESULTS No results available. CYTOLOGY GROSS Received is 80 ml of yellow cloudy fluid labeled with the patient's name and DOBand designated per the requisition as urine. Submitted for cytology preparation. / 11/23/15 TC:5 CPT: 11594 CYTOLOGY STUDY Slides are reviewed. DIAGNOSIS CYTOLOGY Urine for cytology (cytospin): Negative for malignant cells. AM: 11/26/15 HEADER OPERATION: Not noted PRE-OP DIAGNOSIS: Hematuria TISSUE SUBMITTED: Urine cytology Signed Kvng Doris 11/26/15 Cytology, Body Fluid / CSFOr dered By: Salt Refiner on 11-22-2015 Cytology report Cyto stain Doc (Body fld) SEE PATHOLOGY REPORT Normal Comprehensi ve Internal Medicine Work Phone: Comment on above: Specimen submitted t o Anatomical Pathology Department fortesting. CBC WITH MANUAL DIFF ([id number]) Ordered By: Salt Refiner on 11-15-2015 Basophils #/vol (Bld) 0.0 {x10E3/uL} Normal 0.0-0.2 [facility] Work Phone: Comment on above: PATIENT NOT FASTINGP ERFORMED BY: [facility]6370 [facility] [id number] Information: [id number] Basophils (Bld) [#/Vol] 0.0 10*3/uL Normal 0.0-0.2 [facility]; [facility] Work Phone: Comment on above: PATIENT NOT FASTINGP ERFORMED BY: [address] [id number] Information: [id number] Basophils Auto #/vol (Bld) 0.0 {x10E3/uL} Normal 0.0-0.2 [facility] Work Phone: Basophils/100 WBC (Bld) 0 % Normal [facility] Work Phone: Comment on above: PATIENT NOT FASTINGP ERFORMED BY: [address] [id number] Information: [id number] Basophils/100 WBC Auto (Bld) 0 % Normal [facility] Work Phone: Eosinophils #/vol (Bld) 0.2 {x10E3/uL} Normal 0.0-0.4 [facility] Work Phone: Comment on above: PATIENT NOT FASTINGP ERFORMED BY: [address] [id number] Information: [id number] Eosinophils (Bld) [#/Vol] 0.2 10*3/uL Normal 0.0-0.4 [facility]; [facility] Work Phone: Comment on above: PATIENT NOT FASTINGP ERFORMED BY: [address] [id number] Information: [id number] Eosinophils Auto #/vol (Bld) 0.2 {x10E3/uL} Normal 0.0-0.4 [facility] Work Phone: Eosinophils/100 WBC (Bld) 2 % Normal [facility] Work Phone: Comment on above: PATIENT NOT FASTINGP ERFORMED BY: CLAUDIA [facility] CenterZcjtdo3421 [facility] [id number] Information: [id number] Eosinophils/100 WBC Auto (Bld) 2 % Normal [facility] Work Phone: Erythrocyte distribution width Auto Ratio (RBC) 13.4 % Normal 12.3-15.4 [facility] Work Phone: Erythrocyte distribution width Ratio (RBC) 13.4 % Normal 12.3-15.4 [facility] Work Phone: Comment on above: PATIENT NOT FASTINGP ERFORMED BY: [address] [id number] Information: [id number] Hematocrit Auto Volume Fraction (Bld) 42.3 % Normal 37.5-51.0 [facility] Work Phone: Hematocrit Volume Fraction (Bld) 42.3 % Normal 37.5-51.0 [facility] Work Phone: Comment on above: PATIENT NOT FASTINGP ERFORMED BY: [address] [id number] Information: [id number] Hemoglobin mass conc (Bld) 14.3 g/dL Normal 12.6-17.7 [facility] Work Phone: Comment on above: PATIENT NOT FASTINGP ERFORMED BY: [place] [id number] [facility] [id number] Information: [id number] Immature granulocytes #/vol (Bld) 0.0 {x10E3/uL} Normal 0.0-0.1 [facility] Work Phone: Comment on above: PATIENT NOT FASTINGP ERFORMED BY: [place] 5694670 [facility] [id number] Information: [id number] Immature granulocytes (Bld) [#/Vol] 0.0 10*3/uL Normal 0.0-0.1 [facility]; [facility] Work Phone: Comment on above: PATIENT NOT FASTINGP ERFORMED BY: CLAUDIA Leblanc [facility] [id number] Information: [id number] Immature granulocytes/100 WBC (Bld) 0 % Normal [facility] Work Phone: Comment on above: PATIENT NOT FASTINGP ERFORMED BY: CLAUDIA Rigginslin6370 [facility] [id number] Information: [id number] Lymphocytes #/vol (Bld) 2.0 {x10E3/uL} Normal 0.7-3.1 [facility] Work Phone: Comment on above: PATIENT NOT FASTINGP ERFORMED BY: CLAUDIA Rigginslin6370 [facility] [id number] Information: [id number] Lymphocytes (Bld) [#/Vol] 2.0 10*3/uL Normal 0.7-3.1 [facility]; [facility] Work Phone: Comment on above: PATIENT NOT FASTINGP ERFORMED BY: CLAUDIA Rigginslin6370 [facility] [id number] Information: [id number] Lymphocytes Auto #/vol (Bld) 2.0 {x10E3/uL} Normal 0.7-3.1 [facility] Work Phone: Lymphocytes/100 WBC (Bld) 25 % Normal [facility] Work Phone: Comment on above: PATIENT NOT FASTINGP ERFORMED BY: CLAUDIA [place] [id number] [facility] [id number] Information: [id number] Lymphocytes/100 WBC Auto (Bld) 25 % Normal [facility] Work Phone: MCH Auto Entitic mass (RBC) 30.6 pg Normal 26.6-33.0 [facility] Work Phone: MCH Entitic mass (RBC) 30.6 pg Normal 26.6-33.0 [facility] Work Phone: Comment on above: PATIENT NOT FASTINGP ERFORMED BY: CLAUDIA [address] [id number] Information: [id number] MCHC Auto mass conc (RBC) 33.8 g/dL Normal 31.5-35.7 [facility] Work Phone: MCHC mass conc (RBC) 33.8 g/dL Normal 31.5-35.7 [facility] Work Phone: Comment on above: PATIENT NOT FASTINGP ERFORMED BY: [address] [id number] Information: [id number] MCV Auto Entitic volume (RBC) 90 fL Normal 79-97 [facility] Work Phone: MCV Entitic volume (RBC) 90 fL Normal 79-97 [facility] Work Phone: Comment on above: PATIENT NOT FASTINGP ERFORMED BY: [address] [id number] Information: [id number] Monocytes #/vol (Bld) 0.8 {x10E3/uL} Normal 0.1-0.9 [facility] Work Phone: Comment on above: PATIENT NOT FASTINGP ERFORMED BY: [address] [id number] Information: [id number] Monocytes (Bld) [#/Vol] 0.8 10*3/uL Normal 0.1-0.9 [facility]; [facility] Work Phone: Comment on above: PATIENT NOT FASTINGP ERFORMED BY: [facility]6370 [facility] [id number] Information: [id number] Monocytes Auto #/vol (Bld) 0.8 {x10E3/uL} Normal 0.1-0.9 [facility] Work Phone: Monocytes/100 WBC (Bld) 11 % Normal [facility] Work Phone: Comment on above: PATIENT NOT FASTINGP ERFORMED BY: CLAUDIA SharitaDaniel RigginsCjvaqk3314 [facility] [id number] Information: [id number] Monocytes/100 WBC Auto (Bld) 11 % Normal [facility] Work Phone: Neutrophils #/vol (Bld) 4.9 {x10E3/uL} Normal 1.4-7.0 [facility] Work Phone: Comment on above: PATIENT NOT FASTINGP ERFORMED BY: CLAUDIA SharitaDaniel RigginsGmaftv3037 [facility] [id number] Information: [id number] Neutrophils (Bld) [#/Vol] 4.9 10*3/uL Normal 1.4-7.0 [facility]; [facility] Work Phone: Comment on above: PATIENT NOT FASTINGP ERFORMED BY: CLAUDIA [facility] CenterDaniel RigginsObdwhg9607 [facility] [id number] Information: [id number] Neutrophils Auto #/vol (Bld) 4.9 {x10E3/uL} Normal 1.4-7.0 [facility] Work Phone: Neutrophils/100 WBC (Bld) 62 % Normal [facility] Work Phone: Comment on above: PATIENT NOT FASTINGP ERFORMED BY: CLAUDIA [place] [id number] [facility] [id number] Information: [id number] Neutrophils/100 WBC Auto (Bld) 62 % Normal [facility] Work Phone: Platelets #/vol (Bld) 223 {x10E3/uL} Normal 150-379 [facility] Work Phone: Comment on above: PATIENT NOT FASTINGP ERFORMED BY: CLAUDIA [place] [id number] [facility] [id number] Information: [id number] Platelets (Bld) [#/Vol] 223 10*3/uL Normal 150-379 [facility]; [facility] Work Phone: Comment on above: PATIENT NOT FASTINGP ERFORMED BY: CLAUDIA Leblanc [facility] [id number] Information: [id number] Platelets Auto #/vol (Bld) 223 {x10E3/uL} Normal 150-379 [facility] Work Phone: RBC #/vol (Bld) 4.68 {x10E6/uL} Normal 4.14-5.80 [facility] Work Phone: Comment on above: PATIENT NOT FASTINGP ERFORMED BY: CLAUDIA Leblanc [facility] [id number] Information: [id number] RBC (Bld) [#/Vol] 4.68 10*6/uL Normal 4.14-5.80 Compr [facility] Internal Medicine; [facility] Work Phone: Comment on above: PATIENT NOT FASTINGP ERFORMED BY: CLAUDIA Leblanc [facility] [id number] Information: [id number] RBC Auto #/vol (Bld) 4.68 {x10E6/uL} Normal 4.14-5.80 [facility] Internal Medicine Work Phone: WBC #/vol (Bld) 8.0 {x10E3/uL} Normal 3.4-10.8 [facility] Internal Medicine Work Phone: Comment on above: PATIENT NOT FASTINGP ERFORMED BY: CLAUDIA Rigginslin6370 [facility] [id number] Information: [id number] WBC (Bld) [#/Vol] 8.0 10*3/uL Normal 3.4-10.8 [facility]; [facility] Work Phone: Comment on above: PATIENT NOT FASTINGP ERFORMED BY: CB [facility] Delsfr1161 [address]Dublin [place] [id number] Information: [id number] WBC Auto #/vol (Bld) 8.0 {x10E3/uL} Normal 3.4-10.8 [facility] Work Phone: Metabolic Panel, Comprehensi ve ([id number])Ordered By: Salt Refiner on 11-15-2015 Albumin mass conc 4.2 g/dL Normal 3.5-5.5 Compreh ensive Internal Medicine Work Phone: Comment on above: PATIENT NOT FASTINGP ERFORMED BY: CLAUDIA [facility] Nnudmn9585 [address] RoadDublin [place] [id number] Albumin/Globulin mass ratio 1.6 {ratio} Normal 1.1-2.5 [facility] Work Phone: Comment on above: PATIENT NOT FASTINGP ERFORMED BY: CLAUDIA LabHimanshu Wfxdsy7758 [address] RoadDublin [place] [id number] ALP [Catalytic activity/Vol] 63 U/L Normal 39-117 [facility]; [facility] Work Phone: Comment on above: PATIENT NOT FASTINGP ERFORMED BY: CLAUDIA [facility] Duujcl4497 [address] RoadDublin [place] [id number] ALP enzyme act/vol 63 [iU]/L Normal 39-117 [facility] Work Phone: Comment on above: PATIENT NOT FASTINGP ERFORMED BY: CLAUDIA [facility] Xpcmwt5962 [address] RoadDublin [place] [id number] ALT [Catalytic activity/Vol] 14 U/L Normal 0-44 [facility]; [facility] Work Phone: Comment on above: PATIENT NOT FASTINGP ERFORMED BY: CLAUDIA [facility] Tftosc3473 [address] RoadDublin [place] [id number] ALT enzyme act/vol 14 [iU]/L Normal 0-44 [facility] Work Phone: Comment on above: PATIENT NOT FASTINGP ERFORMED BY: CLAUDIA [facility] Fmykto0461 [address] RoadDublin [place] [id number] AST [Catalytic activity/Vol] 17 U/L Normal 0-40 [facility]; [facility] Work Phone: Comment on above: PATIENT NOT FASTINGP ERFORMED BY: CLAUDIA Iqbal6[address] [facility] [id number] AST enzyme act/vol 17 [iU]/L Normal 0-40 [facility] Work Phone: Comment on above: PATIENT NOT FASTINGP ERFORMED BY: CLAUDIA Iqbal6[address] [facility] [id number] Bilirubin mass conc 0.3 mg/dL Normal 0.0-1.2 [facility] Work Phone: Comment on above: PATIENT NOT FASTINGP ERFORMED BY: CLAUDIA Rigginslin6370 [facility] [id number] Calcium mass conc 9.2 mg/dL Normal 8.7-10.2 Compreh ensive Internal Medicine Work Phone: Comment on above: PATIENT NOT FASTINGP ERFORMED BY: CLAUDIA Rigginslin6370 [facility] [id number] Chloride molar conc 104 mmol/L Normal 97-108 [facility] Work Phone: Comment on above: PATIENT NOT FASTINGP ERFORMED BY: CLAUDIA Rigginslin6370 [facility] [id number] CO2 molar conc 23 mmol/L Normal 18-29 Comprehens [facility] Internal Medicine Work Phone: Comment on above: PATIENT NOT FASTINGP ERFORMED BY: CLAUDIA Rigginslin6370 [facility] [id number] Creatinine mass conc 1.21 mg/dL Normal 0.76-1.27 [facility] Work Phone: Comment on above: PATIENT NOT FASTINGP ERFORMED BY: CLAUDIA Rigginslin6370 [facility] [id number] GFR/1.73 sq M predicted among blacks CKD-EPI vol rate/area (S/P/Bld) 75 mL/min/1.73 Normal [facility] Work Phone: Comment on above: PATIENT NOT FASTINGP ERFORMED BY: CLAUDIA [facility] Fguuzx8516 [address] Roadblin [place] [id number] GFR/1.73 sq M predicted among non-blacks CKD-EPI vol rate/area (S/P/Bld) 65 mL/min/1.73 Normal [facility] Work Phone: Comment on above: PATIENT NOT FASTINGP ERFORMED BY: CLAUDIA [facility] Jymngw1610 Murphy RoadAtrium Healthin [place] [id number] Globulin Calculated mass conc (S) 2.7 g/dL Normal 1.5-4.5 [facility] Work Phone: Globulin mass conc (S) 2.7 g/dL Normal 1.5-4.5 [facility] Work Phone: Comment on above: PATIENT NOT FASTINGP ERFORMED BY: CLAUDIA [facility] Kvgtid17[address] Healthin [place] [id number] Glucose mass conc 85 mg/dL Normal 65-99 Compreh ensive Internal Medicine Work Phone: Comment on above: PATIENT NOT FASTINGP ERFORMED BY: CLAUDIA [facility] Tezeoe[address] [facility] Hospitalbl[facility] [place] [id number] Potassium molar conc 4.3 mmol/L Normal 3.5-5.2 [facility] Work Phone: Comment on above: PATIENT NOT FASTINGP ERFORMED BY: CLAUDIA [facility] Wgsxfn[address] [facility] HospitalDuin [place] [id number] Protein mass conc 6.9 g/dL Normal 6.0-8.5 Compreh ensive Internal Medicine Work Phone: Comment on above: PATIENT NOT FASTINGP ERFORMED BY: [facility] Kfkvoy0525 [address] RoadDublin [place] [id number] Sodium molar conc 143 mmol/L Normal 134-144 Compreh ensive Internal Medicine Work Phone: Comment on above: PATIENT NOT FASTINGP ERFORMED BY: CLAUDIA [facility] Rpypsh4738 [address] RoadDublin [place] [id number] Urea nitrogen mass conc 17 mg/dL Normal 6-24 [facility] Work Phone: Comment on above: PATIENT NOT FASTINGP ERFORMED BY: CLAUDIA [facility] Pmtmkb0932 [address] RoadDublin [place] [id number] Urea nitrogen/Creatini ne mass ratio 14 mg/mg Normal 9-20 [facility] Work Phone: Comment on above: PATIENT NOT FASTINGP ERFORMED BY: CLAUDIA LabHimanshurp Gldtcf3866 Murphy RoadDublin [place] [id number] URINALYSIS W/O MICRO ([id number]) Ordered By: Salt Refiner on 11-15-2015 Appearance Nom (U) Clear Normal [facility] Work Phone: Comment on above: PATIENT NOT FASTINGP ERFORMED BY: CLAUDIA LabDaniel RigginsOeaynz4228 [address] RoadDublin [place] [id number] Bilirubin Ql (U) Negative Normal Comprehe nsive [facility] Work Phone: Comment on above: PATIENT NOT FASTINGP ERFORMED BY: CLAUDIA LabDaniel RigginsDhkbtj4181 [address] RoadDublin [place] [id number] Bilirubin Ql (U) Negative Normal Comprehe nsive [facility]; [facility] Work Phone: Comment on above: PATIENT NOT FASTINGP ERFORMED BY: CLAUDIA LabDaniel RigginsBxgneh0009 [address] RoadDublin [place] [id number] Color Nom (U) Yellow Normal Comprehensi ve Internal Medicine Work Phone: Comment on above: PATIENT NOT FASTINGP ERFORMED BY: CLAUDIA LabDaniel RigginsXzgbps8344 [address] RoadDublin [place] [id number] Glucose Ql (U) Negative Normal Comprehens ada [facility] Work Phone: Comment on above: PATIENT NOT FASTINGP ERFORMED BY: CLAUDIA [facility] Zyeioe9674 [address] RoadDublin [place] [id number] Glucose Ql (U) Negative Normal Comprehens ada [facility]; [facility] Work Phone: Comment on above: PATIENT NOT FASTINGP ERFORMED BY: CLAUDIA LabHimanshurp Bxtsqc0844 [address] RoadDublin [place] [id number] Hemoglobin Ql (U) Negative Normal Compreh ensive [facility] Work Phone: Comment on above: PATIENT NOT FASTINGP ERFORMED BY: CLAUDIA LabDaniel Iqbal6370 [address] RoadDublin [place] [id number] Hemoglobin Ql (U) Negative Normal Compreh ensive [facility]; [facility] Work Phone: Comment on above: PATIENT NOT FASTINGP ERFORMED BY: CLAUDIA Iqbal6370 [address] RoadDublin [place] [id number] Hemoglobin Test strip Ql (U) Negative Normal [facility] Work Phone: Ketones Ql (U) Negative Normal Comprehens ada [facility] Work Phone: Comment on above: PATIENT NOT FASTINGP ERFORMED BY: CLAUDIA Rigginslin6370 [address] RoadDublin [place] [id number] Ketones Ql (U) Negative Normal Comprehens ada [facility]; [facility] Work Phone: Comment on above: PATIENT NOT FASTINGP ERFORMED BY: CLAUDIA Rigginslin6370 [address] RoadDuin [place] [id number] Leukocyte esterase Test strip Ql (U) Negative Normal [facility] Work Phone: Comment on above: PATIENT NOT FASTINGP ERFORMED BY: CLAUDIA Iqbal6370 Murphy RoadDuin [place] [id number] Leukocyte esterase Test strip Ql (U) Negative Normal [facility]; [facility] Work Phone: Comment on above: PATIENT NOT FASTINGP ERFORMED BY: CLAUDIA Rigginslin6370 Murphy RoadAtrium Healthin [place] [id number] Microscopic observation LM Nom (Urine sed) MICNIP Normal [facility] Work Phone: Comment on above: Microscopic not sania cated and not performed. PATIENT NOT FASTINGP ERFORMED BY: CLAUDIA LabDaniel RigginsXwisnf7732 [address] RoadDublin [place] [id number] Nitrite Ql (U) Negative Normal Comprehens ada [facility] Work Phone: Comment on above: PATIENT NOT FASTINGP ERFORMED BY: CLAUDIA Rigginslin6370 [address] RoadDuin [place] [id number] Nitrite Ql (U) Negative Normal Comprehens ada [facility]; [facility] Work Phone: Comment on above: PATIENT NOT FASTINGP ERFORMED BY: CLAUDIA LabConoy IqbalDbzlok2779 [address] RoadDublin [place] [id number] Nitrite Test strip Ql (U) Negative Normal [facility] Work Phone: pH (U) 7.0 [pH] Normal 5.0-7.5 [facility] Work Phone: Comment on above: PATIENT NOT FASTINGP ERFORMED BY: CLAUDIA [facility] Nofomx6[address] RoadDublin [place] [id number] pH Test strip (U) 7.0 [pH] Normal 5.0-7.5 Compreh ensive [facility] Work Phone: Protein Ql (U) Trace Normal Comprehens ada [facility] Work Phone: Comment on above: PATIENT NOT FASTINGP ERFORMED BY: CLAUDIA LabDaniel RigginsQanmor9906 [address] RoadDublin [place] [id number] Protein Test strip Ql (U) Trace Normal [facility] Work Phone: Specific gravity Relative Density (U) 1.024 1 Normal 1.005-1.030 [facility] Work Phone: Comment on above: PATIENT NOT FASTINGP ERFORMED BY: CLAUDIA LabConoy RigginsVdcdet0100 [address] RoadDublin [place] [id number] Urobilinogen (U) [Mass/Vol] 1.0 mg/dL Normal 0.2-1.0 [facility]; [facility] Work Phone: Comment on above: PATIENT NOT FASTINGP ERFORMED BY: [facility] Yqclrg5472 Murphy RoadDublin [place] [id number] Urobilinogen Test strip mass conc (U) 1.0 mg/dL Normal 0.2-1.0 [facility] Work Phone: Comment on above: PATIENT NOT FASTINGP ERFORMED BY: CLAUDIA [facility] Dnqlig8935 Murphy RoadDublin [place] [id number] CBC W/AUTO DIFF WBC (07246)O rdered By: Salt Refiner on 10-23-2014 Basophils #/vol (Bld) 0.0 {x10E3/uL} Normal 0.0-0.2 [facility] Work Phone: Comment on above: PATIENT WAS FASTINGP ERFORMED BY: [address] [id number] Information: [id number] Basophils (Bld) [#/Vol] 0.0 10*3/uL Normal 0.0-0.2 [facility]; [facility] Work Phone: Comment on above: PATIENT WAS FASTINGP ERFORMED BY: [address] [id number] Information: [id number] Basophils Auto #/vol (Bld) 0.0 {x10E3/uL} Normal 0.0-0.2 [facility] Work Phone: Basophils/100 WBC (Bld) 0 % Normal [facility] Work Phone: Comment on above: PATIENT WAS FASTINGP ERFORMED BY: [address] [id number] Information: [id number] Basophils/100 WBC Auto (Bld) 0 % Normal [facility] Work Phone: Eosinophils #/vol (Bld) 0.1 {x10E3/uL} Normal 0.0-0.4 [facility] Work Phone: Comment on above: PATIENT WAS FASTINGP ERFORMED BY: [place] 5694670 [facility] [id number] Information: [id number] Eosinophils (Bld) [#/Vol] 0.1 10*3/uL Normal 0.0-0.4 [facility]; [facility] Work Phone: Comment on above: PATIENT WAS FASTINGP ERFORMED BY: [address] [id number] Information: [id number] Eosinophils Auto #/vol (Bld) 0.1 {x10E3/uL} Normal 0.0-0.4 [facility] Work Phone: Eosinophils/100 WBC (Bld) 2 % Normal [facility] Work Phone: Comment on above: PATIENT WAS FASTINGP ERFORMED BY: [address] [id number] Information: [id number],[id number] Eosinophils/100 WBC Auto (Bld) 2 % Normal [facility] Work Phone: Erythrocyte distribution width Auto Ratio (RBC) 13.4 % Normal 12.3-15.4 [facility] Work Phone: Erythrocyte distribution width Ratio (RBC) 13.4 % Normal 12.3-15.4 [facility] Work Phone: Comment on above: PATIENT WAS FASTINGP ERFORMED BY: [address] [id number] Information: [id number] Hematocrit Auto Volume Fraction (Bld) 45.0 % Normal 37.5-51.0 [facility] Work Phone: Hematocrit Volume Fraction (Bld) 45.0 % Normal 37.5-51.0 [facility] Work Phone: Comment on above: PATIENT WAS FASTINGP ERFORMED BY: [address] [id number] Information: [id number] Hemoglobin mass conc (Bld) 15.1 g/dL Normal 12.6-17.7 [facility] Work Phone: Comment on above: PATIENT WAS FASTINGP ERFORMED BY: [address] [id number] Information: [id number] Immature granulocytes #/vol (Bld) 0.0 {x10E3/uL} Normal 0.0-0.1 [facility] Work Phone: Comment on above: PATIENT WAS FASTINGP ERFORMED BY: [place] 5694670 [facility] [id number] Information: [id number],[id number] Immature granulocytes (Bld) [#/Vol] 0.0 10*3/uL Normal 0.0-0.1 [facility]; [facility] Work Phone: Comment on above: PATIENT WAS FASTINGP ERFORMED BY: [address] [id number] Information: [id number],[id number] Immature granulocytes/100 WBC (Bld) 0 % Normal [facility] Work Phone: Comment on above: PATIENT WAS FASTINGP ERFORMED BY: [address] [id number] Information: [id number] Lymphocytes #/vol (Bld) 1.7 {x10E3/uL} Normal 0.7-3.1 [facility] Work Phone: Comment on above: PATIENT WAS FASTINGP ERFORMED BY: [place] 5694670 [facility] [id number] Information: [id number] Lymphocytes (Bld) [#/Vol] 1.7 10*3/uL Normal 0.7-3.1 [facility]; [facility] Work Phone: Comment on above: PATIENT WAS FASTINGP ERFORMED BY: [place] 5694670 [facility] [id number] Information: [id number] Lymphocytes Auto #/vol (Bld) 1.7 {x10E3/uL} Normal 0.7-3.1 [facility] Work Phone: Lymphocytes/100 WBC (Bld) 22 % Normal [facility] Work Phone: Comment on above: PATIENT WAS FASTINGP ERFORMED BY: [place] 5694670 [facility] [id number] Information: [id number] Lymphocytes/100 WBC Auto (Bld) 22 % Normal [facility] Work Phone: MCH Auto Entitic mass (RBC) 30.0 pg Normal 26.6-33.0 [facility] Work Phone: MCH Entitic mass (RBC) 30.0 pg Normal 26.6-33.0 [facility] Work Phone: Comment on above: PATIENT WAS FASTINGP ERFORMED BY: CLAUDIA MyFitnessPalDaniel RigginsUebdmm5794 [facility] [id number] Information: [id number] MCHC Auto mass conc (RBC) 33.6 g/dL Normal 31.5-35.7 [facility] Work Phone: MCHC mass conc (RBC) 33.6 g/dL Normal 31.5-35.7 [facility] Work Phone: Comment on above: PATIENT WAS FASTINGP ERFORMED BY: CLAUDIA Iqbal6370 [facility] [id number] Information: [id number] MCV Auto Entitic volume (RBC) 89 fL Normal 79-97 [facility] Work Phone: MCV Entitic volume (RBC) 89 fL Normal 79-97 [facility] Work Phone: Comment on above: PATIENT WAS FASTINGP ERFORMED BY: CLAUDIA MyFitnessPalDaniel Gnpitp7328 [facility] [id number] Information: [id number] Monocytes #/vol (Bld) 0.7 {x10E3/uL} Normal 0.1-0.9 [facility] Work Phone: Comment on above: PATIENT WAS FASTINGP ERFORMED BY: CLAUDIA MyFitnessPalDaniel RigginsWhdmya4424 [facility] [id number] Information: [id number] Monocytes (Bld) [#/Vol] 0.7 10*3/uL Normal 0.1-0.9 [facility]; [facility] Work Phone: Comment on above: PATIENT WAS FASTINGP ERFORMED BY: [facility]6370 [facility] [id number] Information: [id number] Monocytes Auto #/vol (Bld) 0.7 {x10E3/uL} Normal 0.1-0.9 [facility] Work Phone: Monocytes/100 WBC (Bld) 9 % Normal [facility] Work Phone: Comment on above: PATIENT WAS FASTINGP ERFORMED BY: [place] 5694670 [facility] [id number] Information: 408773,[id number] Monocytes/100 WBC Auto (Bld) 9 % Normal [facility] Work Phone: Neutrophils #/vol (Bld) 5.3 {x10E3/uL} Normal 1.4-7.0 [facility] Work Phone: Comment on above: PATIENT WAS FASTINGP ERFORMED BY: [place] [id number] [facility] [id number] Information: [id number],[id number] Neutrophils (Bld) [#/Vol] 5.3 10*3/uL Normal 1.4-7.0 [facility]; [facility] Work Phone: Comment on above: PATIENT WAS FASTINGP ERFORMED BY: [place] 5694670 [facility] [id number] Information: [id number],[id number] Neutrophils Auto #/vol (Bld) 5.3 {x10E3/uL} Normal 1.4-7.0 [facility] Work Phone: Neutrophils/100 WBC (Bld) 67 % Normal [facility] Work Phone: Comment on above: PATIENT WAS FASTINGP ERFORMED BY: [place] [id number] [facility] [id number] Information: [id number] Neutrophils/100 WBC Auto (Bld) 67 % Normal [facility] Work Phone: Platelets #/vol (Bld) 224 {x10E3/uL} Normal 150-379 [facility] Work Phone: Comment on above: PATIENT WAS FASTINGP ERFORMED BY: CLAUDIA Kenneth Mora70 [facility] [id number] Information: [id number] Platelets (Bld) [#/Vol] 224 10*3/uL Normal 150-379 [facility]; [facility] Work Phone: Comment on above: PATIENT WAS FASTINGP ERFORMED BY: CLAUDIA Maenoy Xhyoiw5800 [facility] [id number] Information: [id number] Platelets Auto #/vol (Bld) 224 {x10E3/uL} Normal 150-379 [facility] Work Phone: RBC #/vol (Bld) 5.04 {x10E6/uL} Normal 4.14-5.80 [facility] Work Phone: Comment on above: PATIENT WAS FASTINGP ERFORMED BY: CLAUDIA SharitaAznoy Ojicnn4619 [facility] [id number] Information: [id number] RBC (Bld) [#/Vol] 5.04 10*6/uL Normal 4.14-5.80 [facility] Work Phone: Comment on above: PATIENT WAS FASTINGP ERFORMED BY: CLAUDIA SharitaFreeman [facility] Eylyqz6692 [facility] [id number] Information: [id number] RBC Auto #/vol (Bld) 5.04 {x10E6/uL} Normal 4.14-5.80 [facility] Work Phone: WBC #/vol (Bld) 7.9 {x10E3/uL} Normal 3.4-10.8 [facility] Work Phone: Comment on above: PATIENT WAS FASTINGP ERFORMED BY: CLAUDIA [place] [id number] [facility] [id number] Information: [id number] WBC (Bld) [#/Vol] 7.9 10*3/uL Normal 3.4-10.8 [facility]; [facility] Work Phone: Comment on above: PATIENT WAS FASTINGP ERFORMED BY: [place] 5694670 [facility] [id number] Information: [id number] WBC Auto #/vol (Bld) 7.9 {x10E3/uL} Normal 3.4-10.8 [facility] Work Phone: VITAMIN B-12 (CYANOCOBALAMIN ) (84513)Ordered By: Salt Refiner on 10-23-2014 Cobalamin (Vitamin B12) mass conc 371 pg/mL Normal 211-946 [facility] Work Phone: Comment on above: PATIENT WAS FASTINGP ERFORMED BY: [address] [id number] CBC W/AUTO DIFF WBC (64929)O rdered By: Salt Refiner on 07-26-2014 Basophils #/vol (Bld) 0.0 {x10E3/uL} Normal 0.0-0.2 [facility] Work Phone: Comment on above: PATIENT WAS FASTINGP ERFORMED BY: [place] 5694670 [facility] [id number] Information: [id number] Basophils (Bld) [#/Vol] 0.0 10*3/uL Normal 0.0-0.2 [facility]; [facility] Work Phone: Comment on above: PATIENT WAS FASTINGP ERFORMED BY: [place] [id number] [facility] [id number] Information: [id number] Basophils Auto #/vol (Bld) 0.0 {x10E3/uL} Normal 0.0-0.2 [facility] Work Phone: Basophils/100 WBC (Bld) 0 % Normal [facility] Work Phone: Comment on above: PATIENT WAS FASTINGP ERFORMED BY: CLAUDIA [place] [id number] [facility] [id number] Information: [id number] Basophils/100 WBC Auto (Bld) 0 % Normal [facility] Work Phone: Eosinophils #/vol (Bld) 0.2 {x10E3/uL} Normal 0.0-0.4 [facility] Work Phone: Comment on above: PATIENT WAS FASTINGP ERFORMED BY: CLAUDIA [address] [id number] Information: [id number] Eosinophils (Bld) [#/Vol] 0.2 10*3/uL Normal 0.0-0.4 [facility]; [facility] Work Phone: Comment on above: PATIENT WAS FASTINGP ERFORMED BY: CLAUDIA [place] [id number] [facility] [id number] Information: [id number],[id number] Eosinophils Auto #/vol (Bld) 0.2 {x10E3/uL} Normal 0.0-0.4 [facility] Work Phone: Eosinophils/100 WBC (Bld) 2 % Normal [facility] Work Phone: Comment on above: PATIENT WAS FASTINGP ERFORMED BY: [address] [id number] Information: 466130,[id number] Eosinophils/100 WBC Auto (Bld) 2 % Normal [facility] Work Phone: Erythrocyte distribution width Auto Ratio (RBC) 13.7 % Normal 12.3-15.4 [facility] Work Phone: Erythrocyte distribution width Ratio (RBC) 13.7 % Normal 12.3-15.4 [facility] Work Phone: Comment on above: PATIENT WAS FASTINGP ERFORMED BY: [address] [id number] Information: [id number] Hematocrit Auto Volume Fraction (Bld) 43.5 % Normal 37.5-51.0 [facility] Work Phone: Hematocrit Volume Fraction (Bld) 43.5 % Normal 37.5-51.0 [facility] Work Phone: Comment on above: PATIENT WAS FASTINGP ERFORMED BY: [address] [id number] Information: [id number] Hemoglobin mass conc (Bld) 15.1 g/dL Normal 12.6-17.7 [facility] Work Phone: Comment on above: PATIENT WAS FASTINGP ERFORMED BY: [address] [id number] Information: [id number] Immature granulocytes #/vol (Bld) 0.0 {x10E3/uL} Normal 0.0-0.1 [facility] Work Phone: Comment on above: PATIENT WAS FASTINGP ERFORMED BY: [address] [id number] Information: [id number] Immature granulocytes (Bld) [#/Vol] 0.0 10*3/uL Normal 0.0-0.1 [facility]; [facility] Work Phone: Comment on above: PATIENT WAS FASTINGP ERFORMED BY: [address] [id number] Information: [id number] Immature granulocytes/100 WBC (Bld) 0 % Normal [facility] Work Phone: Comment on above: PATIENT WAS FASTINGP ERFORMED BY: [address] [id number] Information: 237774,[id number] Lymphocytes #/vol (Bld) 1.5 {x10E3/uL} Normal 0.7-3.1 [facility] Work Phone: Comment on above: PATIENT WAS FASTINGP ERFORMED BY: CLAUDIA [facility]6370 [facility] [id number] Information: [id number],[id number] Lymphocytes (Bld) [#/Vol] 1.5 10*3/uL Normal 0.7-3.1 [facility]; [facility] Work Phone: Comment on above: PATIENT WAS FASTINGP ERFORMED BY: CLAUDIA [facility] Dznjuu1773 [facility] [id number] Information: [id number] Lymphocytes Auto #/vol (Bld) 1.5 {x10E3/uL} Normal 0.7-3.1 [facility] Work Phone: Lymphocytes/100 WBC (Bld) 13 % Normal [facility] Work Phone: Comment on above: PATIENT WAS FASTINGP ERFORMED BY: CLAUDIA [place] [id number] [facility] [id number] Information: [id number],[id number] Lymphocytes/100 WBC Auto (Bld) 13 % Normal [facility] Work Phone: MCH Auto Entitic mass (RBC) 30.3 pg Normal 26.6-33.0 [facility] Work Phone: MCH Entitic mass (RBC) 30.3 pg Normal 26.6-33.0 [facility] Work Phone: Comment on above: PATIENT WAS FASTINGP ERFORMED BY: CLAUDIA [facility]6370 [facility] [id number] Information: 545647,[id number] MCHC Auto mass conc (RBC) 34.7 g/dL Normal 31.5-35.7 [facility] Work Phone: MCHC mass conc (RBC) 34.7 g/dL Normal 31.5-35.7 [facility] Work Phone: Comment on above: PATIENT WAS FASTINGP ERFORMED BY: CLAUDIA [place] [id number] [facility] [id number] Information: [id number],[id number] MCV Auto Entitic volume (RBC) 87 fL Normal 79-97 [facility] Work Phone: MCV Entitic volume (RBC) 87 fL Normal 79-97 [facility] Work Phone: Comment on above: PATIENT WAS FASTINGP ERFORMED BY: [place] [id number] [facility] [id number] Information: 610655,[id number] Monocytes #/vol (Bld) 1.1 {x10E3/uL} Abnormal 0.1-0.9 [facility] Work Phone: Comment on above: PATIENT WAS FASTINGP ERFORMED BY: [address] [id number] Information: [id number] Monocytes (Bld) [#/Vol] 1.1 10*3/uL Abnormal 0.1-0.9 [facility]; [facility] Work Phone: Comment on above: PATIENT WAS FASTINGP ERFORMED BY: [place] [id number] [facility] [id number] Information: 890373,[id number] Monocytes Auto #/vol (Bld) 1.1 {x10E3/uL} Abnormal 0.1-0.9 [facility] Work Phone: Monocytes/100 WBC (Bld) 9 % Normal [facility] Work Phone: Comment on above: PATIENT WAS FASTINGP ERFORMED BY: [address] [id number] Information: 794339,[id number] Monocytes/100 WBC Auto (Bld) 9 % Normal [facility] Work Phone: Neutrophils #/vol (Bld) 8.6 {x10E3/uL} Abnormal 1.4-7.0 [facility] Work Phone: Comment on above: PATIENT WAS FASTINGP ERFORMED BY: [address] [id number] Information: [id number] Neutrophils (Bld) [#/Vol] 8.6 10*3/uL Abnormal 1.4-7.0 [facility]; [facility] Work Phone: Comment on above: PATIENT WAS FASTINGP ERFORMED BY: CLAUDIA [place] [id number] [facility] [id number] Information: [id number] Neutrophils Auto #/vol (Bld) 8.6 {x10E3/uL} Abnormal 1.4-7.0 [facility] Work Phone: Neutrophils/100 WBC (Bld) 76 % Normal [facility] Work Phone: Comment on above: PATIENT WAS FASTINGP ERFORMED BY: CLAUDIA Rigginslin6370 [facility] [id number] Information: [id number] Neutrophils/100 WBC Auto (Bld) 76 % Normal [facility] Work Phone: Platelets #/vol (Bld) 180 {x10E3/uL} Normal 150-379 [facility] Work Phone: Comment on above: PATIENT WAS FASTINGP ERFORMED BY: CLAUDIA Rigginslin6370 [facility] [id number] Information: [id number] Platelets (Bld) [#/Vol] 180 10*3/uL Normal 150-379 [facility]; [facility] Work Phone: Comment on above: PATIENT WAS FASTINGP ERFORMED BY: CLAUDIA [facility]6370 [facility] [id number] Information: [id number] Platelets Auto #/vol (Bld) 180 {x10E3/uL} Normal 150-379 [facility] Work Phone: RBC #/vol (Bld) 4.99 {x10E6/uL} Normal 4.14-5.80 [facility] Internal Medicine Work Phone: Comment on above: PATIENT WAS FASTINGP ERFORMED BY: CLAUDIA [facility]6370 [facility] [id number] Information: [id number] RBC (Bld) [#/Vol] 4.99 10*6/uL Normal 4.14-5.80 [facility]; [facility] Work Phone: Comment on above: PATIENT WAS FASTINGP ERFORMED BY: [facility]6370 [facility] [id number] Information: [id number] RBC Auto #/vol (Bld) 4.99 {x10E6/uL} Normal 4.14-5.80 [facility] Work Phone: WBC #/vol (Bld) 11.5 {x10E3/uL} Abnormal 3.4-10.8 [facility] Work Phone: Comment on above: PATIENT WAS FASTINGP ERFORMED BY: [facility]6370 [facility] [id number] Information: [id number] WBC (Bld) [#/Vol] 11.5 10*3/uL Abnormal 3.4-10.8 [facility] Internal Medicine; [facility] Work Phone: Comment on above: PATIENT WAS FASTINGP ERFORMED BY: [facility]6[address] [facility] [id number] Information: [id number] WBC Auto #/vol (Bld) 11.5 {x10E3/uL} Abnormal 3.4-10.8 [facility] Work Phone: METABOLIC PANEL, COMPREHENSI VE ([id number])Ordered By: Salt Refiner on 07-26-2014 Albumin mass conc 4.2 g/dL Normal 3.5-5.[address] [facility] Work Phone: Comment on above: PATIENT WAS FASTINGP ERFORMED BY: [facility] [id number] Albumin/Globulin mass ratio 1.5 {ratio} Normal 1.1-2.5 [facility] Work Phone: Comment on above: PATIENT WAS FASTINGP ERFORMED BY: CLAUDIA SharitaDaniel RigginsAdhftz43[address] Murphy RoadDublin [place] [id number] ALP [Catalytic activity/Vol] 71 U/L Normal 39-117 [facility]; [facility] Work Phone: Comment on above: PATIENT WAS FASTINGP ERFORMED BY: CLAUDIA SharitaDaniel RigginsUzolzr3535 Murphy RoadDublin [place] [id number] ALP enzyme act/vol 71 [iU]/L Normal 39-117 [facility] Work Phone: Comment on above: PATIENT WAS FASTINGP ERFORMED BY: CLAUDIA Rigginslin6370 [address] RoadDublin [place] [id number] ALT [Catalytic activity/Vol] 14 U/L Normal 0-44 [facility]; [facility] Work Phone: Comment on above: PATIENT WAS FASTINGP ERFORMED BY: CLAUDIA Rigginslin6370 [address] RoadDublin [place] [id number] ALT enzyme act/vol 14 [iU]/L Normal 0-44 [facility] Work Phone: Comment on above: PATIENT WAS FASTINGP ERFORMED BY: CLAUDIA Rigginslin6[address] RoadDublin [place] [id number] AST [Catalytic activity/Vol] 17 U/L Normal 0-40 [facility]; [facility] Work Phone: Comment on above: PATIENT WAS FASTINGP ERFORMED BY: CLAUDIA SharitaDaniel RigginsTpkrjo7083 [address] RoadDublin [place] [id number] AST enzyme act/vol 17 [iU]/L Normal 0-40 [facility] Work Phone: Comment on above: PATIENT WAS FASTINGP ERFORMED BY: CLAUDIA SharitaDaniel RigginsSfamwy5[address] RoadDublin [place] [id number] Bilirubin mass conc 0.6 mg/dL Normal 0.0-1.2 [facility] Work Phone: Comment on above: PATIENT WAS FASTINGP ERFORMED BY: CLAUDIA Rigginslin[address] [facility] [place] [id number] Calcium mass conc 9.4 mg/dL Normal 8.7-10.2 Compreh ensive Internal Medicine Work Phone: Comment on above: PATIENT WAS FASTINGP ERFORMED BY: [facility] Xpadee[address] [facility] [id number] Chloride molar conc 99 mmol/L Normal 97-108 [facility] Work Phone: Comment on above: PATIENT WAS FASTINGP ERFORMED BY: [facility] Ybaale[address] [facility] [place] [id number] CO2 molar conc 24 mmol/L Normal 18-29 Comprehens ada Internal Medicine Work Phone: Comment on above: PATIENT WAS FASTINGP ERFORMED BY: [facility] Mjfzik7688 [facility] [id number] Creatinine mass conc 0.98 mg/dL Normal 0.76-1.27 [facility] Work Phone: Comment on above: PATIENT WAS FASTINGP ERFORMED BY: [facility] Whgccf6343 [facility] [id number] GFR/1.73 sq M predicted among blacks CKD-EPI vol rate/area (S/P/Bld) 98 mL/min/1.73 Normal [facility] Work Phone: Comment on above: PATIENT WAS FASTINGP ERFORMED BY: [facility] Aovxvx7910 [address] [facility] [id number] GFR/1.73 sq M predicted among non-blacks CKD-EPI vol rate/area (S/P/Bld) 85 mL/min/1.73 Normal [facility] Work Phone: Comment on above: PATIENT WAS FASTINGP ERFORMED BY: [facility] Pheqvt1926 [address] [facility] [id number] Globulin Calculated mass conc (S) 2.8 g/dL Normal 1.5-4.5 [facility] Work Phone: Globulin mass conc (S) 2.8 g/dL Normal 1.5-4.5 [facility] Work Phone: Comment on above: PATIENT WAS FASTINGP ERFORMED BY: CLAUDIA LabConoy RigginsFeopar[address] [facility] [place] [id number] Glucose mass conc 88 mg/dL Normal 65-99 Compreh ensive Internal Medicine Work Phone: Comment on above: PATIENT WAS FASTINGP ERFORMED BY: CLAUDIA [facility] Gycxbx8648 [address] [facility] [place] [id number] Potassium molar conc 4.6 mmol/L Normal 3.5-5.2 [facility] Work Phone: Comment on above: PATIENT WAS FASTINGP ERFORMED BY: CLAUDIA LabDaniel RigginsBxzobb47[address] [facility] [place] [id number] Protein mass conc 7.0 g/dL Normal 6.0-8.5 Compreh ensive Internal Medicine Work Phone: Comment on above: PATIENT WAS FASTINGP ERFORMED BY: CLAUDIA LabDaniel RigginsWzcxcj0329 [address] [facility] [id number] Sodium molar conc 138 mmol/L Normal 134-144 Compreh ensive Internal Medicine Work Phone: Comment on above: PATIENT WAS FASTINGP ERFORMED BY: CLAUDIA LabDaniel RigginsKxwglq3458 [facility] [id number] Urea nitrogen mass conc 13 mg/dL Normal 6-24 [facility] Work Phone: Comment on above: PATIENT WAS FASTINGP ERFORMED BY: CLAUDIA [facility] Uygtvz7143 [facility] [id number] Urea nitrogen/Creatini ne mass ratio 13 mg/mg Normal 9-20 [facility] Work Phone: Comment on above: PATIENT WAS FASTINGP ERFORMED BY: CLAUDIA [facility] Svxtcy7919 [address] [facility] [id number] TSH ([id number])Ordered By: Jules Mcdonald on 07-26-2014 Thyrotropin Qn 1.490 {uIU/mL} Normal 0.450-4.500 Compr ehensive Internal Medicine Work Phone: Comment on above: PATIENT WAS FASTINGP ERFORMED BY: CB Asset Marketing Serviceslin6370 [facility] [id number] VITAMIN B-12 (CYANOCOBALAMIN ) ([id number])Ordered By: Salt Refiner on 07-26-2014 Cobalamin (Vitamin B12) mass conc 368 pg/mL Normal 211-946 [facility] Work Phone: Comment on above: PATIENT WAS FASTINGP ERFORMED BY: [facility] Jmdhjb6151 [facility] [id number] Vital Signs Date Time Vital Sign Value Performing Clinician Facility 04-27-2025 14:03-0400 Body height 177.[address] Kyra Bowers DO Work Phone: [facility] 04-27-2025 14:03-0400 Body mass index (BMI) [Ratio] 24.3 kg/m2 Dr. Kyra Bowers DO Work Phone: [facility] 04-27-2025 14:03-0400 Body temperature 98.6 [degF] Dr. Kyra Bowers DO Work Phone: [facility] 04-27-2025 14:03-0400 Body weight 77.[address] Kyra Bowers DO Work Phone: [facility] 04-27-2025 14:03-0400 Diastolic blood pressure 65 mm[Hg] Dr. Kyra Bowers DO Work Phone: [facility] 04-27-2025 14:03-0400 Heart rate 84 /min Dr. Kyra Bowers DO Work Phone: [facility] 04-27-2025 14:03-0400 Respiratory rate 18 /min Dr. Kyra Bowers DO Work Phone: [facility] 04-27-2025 14:03-0400 SaO2% (BldA) [Mass fraction] 96 % Dr. Kyra Bowers DO Work Phone: [facility] 04-27-2025 14:03-0400 Systolic blood pressure 95 mm[Hg] Dr. Kyra Bowers DO Work Phone: [facility] 02-17-2025 08:46-0400 Body height 177.[address] Kyra Bowers DO Work Phone: [facility] 12-26-2024 09:17-0500 Body mass index (BMI) [Ratio] 25.24 kg/m2 Miladys Carter MD Work Phone: [facility] 12-26-2024 09:17-0500 Body weight 79.8 kg Miladys Carter MD Work Phone: [facility] 12-26-2024 09:17-0500 Diastolic blood pressure 80 mm[Hg] Miladys Carter MD Work Phone: [facility] 12-26-2024 09:17-0500 Heart rate 73 /min Miladys Carter MD Work Phone: [facility] 12-26-2024 09:17-0500 SaO2% (BldA) [Mass fraction] 98 % Miladys Carter MD Work Phone: [facility] 12-26-2024 09:17-0500 Systolic blood pressure 129 mm[Hg] Miladys Carter MD Work Phone: [facility] 07-21-2023 13:12-0400 Body height 177.8 cm Tameka Fernandez MA [facility]; [facility] Work Phone: 07-21-2023 13:12-0400 Body mass index (BMI) [Ratio] 24.57 kg/m2 Tameka Fernandez MA [facility]; [facility] Work Phone: 07-21-2023 13:12-0400 Body surface area Derived from formula 1.95 m2 Tameka Fernandez MA [facility]; [facility] Work Phone: 07-21-2023 13:12-0400 Body temperature 97.4 [degF] Tameka Fernandez MA [facility]; [facility] Work Phone: 09-12-2023 13:12-0400 Body weight 77.68 kg Tameka Fernandez MA [facility]; [facility] Work Phone: 07-21-2023 13:12-0400 Diastolic blood pressure 78 mm[Hg] Tameka Fernandez MA [facility]; [facility] Work Phone: Comment on above: Patient Position: Sitting; Cuff Location : Left Arm; Cuff Size: Standard 07-21-2023 13:12-0400 Heart rate 64 /min Tameka Fernandez MA [facility]; [facility] Work Phone: Comment on above: Pattern: Regular 07-21-2023 13:120400 SaO2% (BldA) [Mass fraction] 99 % Tameka Fernandez MA [facility]; [facility] Work Phone: Comment on above: Room air 07-21-2023 13:12-0400 Systolic blood pressure 122 mm[Hg] Tameka Fernandez MA [facility]; [facility] Work Phone: Comment on above: Patient Position: Sitting; Cuff Location : Left Arm; Cuff Size: Standard 06-01-2023 08:06-0400 Body height 177.8 cm Teresita Kevinrb BALA [facility]; [facility] Work Phone: 06-01-2023 08:06-0400 Body mass index (BMI) [Ratio] 24.57 kg/m2 Teresita Slarb [employer]IGAR P[employer]ER [facility]; [facility] Work Phone: 06-01-2023 08:06-0400 Body surface area Derived from formula 1.95 m2 Teresita Slarb [employer] [facility]; [facility] Work Phone: 06-01-2023 08:06-0400 Body temperature 97.9 [degF] Teresita Slarb [employer] [facility]; [facility] Work Phone: Comment on above: Method: Temporal 06-01-2023 08:06-0400 Body weight 77.68 kg Teresita Slarb BALA [facility]; [facility] Work Phone: 06-01-2023 08:06-0400 Diastolic blood pressure 82 mm[Hg] Teresita Slarb [employer] [facility]; [facility] Work Phone: Comment on above: Patient Position: Sitting; Cuff Location : Left Arm; Cuff Size: Standard 06-01-2023 08:06-0400 Heart rate 71 /min Teresita Slarb [employer] [facility]; [facility] Work Phone: Comment on above: Pattern: Regular 06-01-2023 08:06-0400 Respiratory rate 17 /min Teresita Slarb [employer] [facility]; [facility] Work Phone: Comment on above: Pattern: Unlabored 06-01-2023 08:06-0400 SaO2% (BldA) [Mass fraction] 99 % Teresita Slarb [employer] [facility]; [facility] Work Phone: Comment on above: Room air 06-01-2023 08:06-0400 Systolic blood pressure 124 mm[Hg] Teresita Slarb [employer] [facility]; [facility] Work Phone: Comment on above: Patient Position: Sitting; Cuff Location : Left Arm; Cuff Size: Standard 01-08-2023 09:26-0500 Body height 177.8 cm Miladys Carter MD Work Phone: [facility] 01-08-2023 09:26-0500 Body weight 78.02 kg Miladys Carter MD Work Phone: [facility] 01-08-2023 09:26-0500 Diastolic blood pressure 77 mm[Hg] Miladys Carter MD Work Phone: [facility] 01-08-2023 09:26-0500 Heart rate 73 /min Miladys Carter MD Work Phone: [facility] 01-08-2023 09:26-0500 SaO2% (BldA) [Mass fraction] 98 % Miladys Carter MD Work Phone: [facility] 01-08-2023 09:26-0500 Systolic blood pressure 118 mm[Hg] Miladys Carter MD Work Phone: [facility] 12-22-2022 13:25-0500 Body height 177.8 cm [facility]; [facility] Work Phone: 12-22-2022 13:25-0500 Body mass index (BMI) [Ratio] 24.57 kg/m2 [facility]; [facility] Work Phone: 12-22-2022 13:25-0500 Body surface area Derived from formula 1.95 m2 [facility]; [facility] Work Phone: 12-22-2022 13:25-0500 Body temperature 97 [degF] Debbie [facility] Comprehensiv e Internal Medicine; [facility] Work Phone: 12-22-2022 13:25-0500 Body weight 77.68 kg [facility]; [facility] Work Phone: 12-22-2022 13:25-0500 Diastolic blood pressure 68 mm[Hg] [facility]; [facility] Work Phone: Comment on above: Patient Position: Sitting; Cuff Location : Left Arm; Cuff Size: Standard 12-22-2022 13:25-0500 Heart rate 68 /min [facility]; [facility] Work Phone: Comment on above: Pattern: Regular 12-22-2022 13:25-0500 Respiratory rate 16 /min [facility] Comprehensiv e Internal Medicine; [facility] Work Phone: Comment on above: Pattern: Unlabored 12-22-2022 13:25-0500 SaO2% (BldA) [Mass fraction] 97 % [facility]; [facility] Work Phone: Comment on above: Room air 12-22-2022 13:25-0500 Systolic blood pressure 118 mm[Hg] [facility]; [facility] Work Phone: Comment on above: Patient Position: Sitting; Cuff Location : Left Arm; Cuff Size: Standard 10-14-2022 08:20-0500 Body height 177.8 cm Debbie Lea [facility]; [facility] Work Phone: 10-14-2022 08:20-0500 Body mass index (BMI) [Ratio] 24.57 kg/m2 [facility]; [facility] Work Phone: 10-14-2022 08:20-0500 Body surface area Derived from formula 1.95 m2 [facility]; [facility] Work Phone: 10-14-2022 08:20-0500 Body temperature 97.4 [degF] [facility] Comprehensiv e Internal Medicine; [facility] Work Phone: 10-14-2022 08:20-0500 Body weight 77.68 kg [facility]; [facility] Work Phone: 10-14-2022 08:20-0500 Diastolic blood pressure 68 mm[Hg] [facility]; [facility] Work Phone: Comment on above: Patient Position: Sitting; Cuff Location : Left Arm; Cuff Size: Standard 10-14-2022 08:20-0500 Heart rate 88 /min [facility]; [facility] Work Phone: Comment on above: Pattern: Regular 10-14-2022 08:20-0500 Respiratory rate 16 /min [facility] Comprehensiv e Internal Medicine; [facility] Work Phone: Comment on above: Pattern: Unlabored 10-14-2022 08:20-0500 SaO2% (BldA) [Mass fraction] 97 % [facility]; [facility] Work Phone: Comment on above: Room air 10-14-2022 08:20-0500 Systolic blood pressure 118 mm[Hg] [facility]; [facility] Work Phone: Comment on above: Patient Position: Sitting; Cuff Location : Left Arm; Cuff Size: Standard 06-11-2022 09:39-0400 Body height 177.8 cm Teresa Gravius [facility]; [facility] Work Phone: 06-11-2022 09:39-0400 Body mass index (BMI) [Ratio] 24.39 kg/m2 Teresa Gravius [facility]; [facility] Work Phone: 06-11-2022 09:39-0400 Body surface area Derived from formula 1.95 m2 Teresa Gravius [facility]; [facility] Work Phone: 06-11-2022 09:39-0400 Body weight 77.11 kg Teresa Gravius [facility]; [facility] Work Phone: 04-30-2022 09:26-0400 Body height 177.8 cm Kyra Marietta DO Work Phone: [facility]; [facility] Work Phone: Comment on above: pt did not report any vitals 04-30-2022 09:26-0400 Body mass index (BMI) [Ratio] 24.39 kg/m2 Kyra Marietta DO Work Phone: [facility]; [facility] Work Phone: Comment on above: pt did not report any vitals 04-30-2022 09:26-0400 Body surface area Derived from formula 1.95 m2 Kyra Marietta DO Work Phone: [facility]; [facility] Work Phone: Comment on above: pt did not report any vitals 04-30-2022 09:26-0400 Body weight 77.11 kg Kyra Marietta DO Work Phone: [facility]; [facility] Work Phone: Comment on above: pt did not report any vitals 02-19-2022 15:56-0400 Body height 177.8 cm Teresa Gravius [facility]; [facility] Work Phone: 02-19-2022 15:56-0400 Body mass index (BMI) [Ratio] 24.39 kg/m2 Teresa Fall CMA [facility]; [facility] Work Phone: 02-19-2022 15:56-0400 Body surface area Derived from formula 1.95 m2 Teresa Fall LAUNDRY MANAGER [facility]; [facility] Work Phone: 02-19-2022 15:56-0400 Body temperature 97.3 [degF] Teresa Fall CMA Comprehensiv e Internal Medicine; [facility] Work Phone: Comment on above: Method: Infrared 02-19-2022 15:56-0400 Body weight 77.11 kg Teresa Fall LAUNDRY MANAGER [facility]; [facility] Work Phone: 02-19-2022 15:56-0400 Diastolic blood pressure 78 mm[Hg] Teresa Fall LAUNDRY MANAGER [facility]; [facility] Work Phone: Comment on above: Patient Position: Sitting; Cuff Location : Left Arm; Cuff Size: Standard 02-19-2022 15:56-0400 Heart rate 86 /min Teresa Fall [facility]; [facility] Work Phone: Comment on above: Pattern: Regular 02-19-2022 15:56-0400 Respiratory rate 16 /min Teresa Fall LAUNDRY MANAGER Comprehensiv e Internal Medicine; [facility] Work Phone: Comment on above: Pattern: Unlabored 02-19-2022 15:56-0400 SaO2% (BldA) [Mass fraction] 97 % Teresa Fall [facility]; [facility] Work Phone: Comment on above: Room air 02-19-2022 15:56-0400 Systolic blood pressure 104 mm[Hg] Teresa Fall LAUNDRY MANAGER [facility]; [facility] Work Phone: Comment on above: Patient Position: Sitting; Cuff Location : Left Arm; Cuff Size: Standard 11-27-2021 08:36-0500 Body height 177.8 cm Teresa Fall CMA [facility]; [facility] Work Phone: 11-27-2021 08:36-0500 Body mass index (BMI) [Ratio] 24.39 kg/m2 Teresa Fall CMA [facility]; [facility] Work Phone: 11-27-2021 08:36-0500 Body surface area Derived from formula 1.95 m2 Teresa Fall CMA [facility]; [facility] Work Phone: 11-27-2021 08:36-0500 Body temperature 99.5 [degF] Teresa Fall CMA Comprehensiv e Internal Medicine; [facility] Work Phone: Comment on above: Method: Oral 11-27-2021 08:36-0500 Body weight 77.11 kg Teresa Fall CMA [facility]; [facility] Work Phone: 11-27-2021 08:36-0500 Diastolic blood pressure 62 mm[Hg] Teresa Fall CMA [facility]; [facility] Work Phone: Comment on above: Patient Position: Sitting; Cuff Location : Left Arm; Cuff Size: Standard 11-27-2021 08:36-0500 Heart rate 78 /min Teresa Fall CMA [facility]; [facility] Work Phone: Comment on above: Pattern: Regular 11-27-2021 08:36-0500 Respiratory rate 18 /min Teresa Fall CMA Comprehensiv e Internal Medicine; [facility] Work Phone: Comment on above: Pattern: Unlabored 11-27-2021 08:36-0500 SaO2% (BldA) [Mass fraction] 96 % Teresa Fall [facility]; [facility] Work Phone: Comment on above: Room air 11-27-2021 08:36-0500 Systolic blood pressure 90 mm[Hg] Teresa Fall CMA [facility]; [facility] Work Phone: Comment on above: Patient Position: Sitting; Cuff Location : Left Arm; Cuff Size: Standard 10-25-2021 08:19-0500 Body height 177.8 cm Darlene Sepulveda [facility]; [facility] Work Phone: 10-25-2021 08:19-0500 Body mass index (BMI) [Ratio] 24.39 kg/m2 Darlene Sepulveda [facility]; [facility] Work Phone: 10-25-2021 08:19-0500 Body surface area Derived from formula 1.95 m2 Darlene Sepulveda [facility]; [facility] Work Phone: 10-25-2021 08:19-0500 Body temperature 97.3 [degF] Darlene Sepulveda [facility]; [facility] Work Phone: Comment on above: Method: Thermal Scan 10-25-2021 08:19-0500 Body weight 77.11 kg Darlene Sepulveda [facility]; [facility] Work Phone: 10-25-2021 08:19-0500 Diastolic blood pressure 62 mm[Hg] Darlene Sepulveda [facility]; [facility] Work Phone: Comment on above: Patient Position: Sitting; Cuff Location : Left Arm; Cuff Size: Standard 10-25-2021 08:19-0500 Heart rate 81 /min Darlene Sepulveda [facility]; [facility] Work Phone: Comment on above: Pattern: Regular 10-25-2021 08:19-0500 Respiratory rate 16 /min Darlene Sepulveda [facility]; [facility] Work Phone: Comment on above: Pattern: Unlabored 10-25-2021 08:19-0500 Systolic blood pressure 115 mm[Hg] Darlene Sepulveda [facility]; [facility] Work Phone: Comment on above: Patient Position: Sitting; Cuff Location : Left Arm; Cuff Size: Standard 10-07-2021 16:12-0500 Body height 177.8 cm Teresita Choudhary LPN [facility]; [facility] Work Phone: 10-07-2021 16:12-0500 Body mass index (BMI) [Ratio] 24.39 kg/m2 Teresita Slarb [employer] [facility]; [facility] Work Phone: 10-07-2021 16:12-0500 Body surface area Derived from formula 1.95 m2 Teresita Slarb [employer] [facility]; [facility] Work Phone: 10-07-2021 16:12-0500 Body temperature 97.8 [degF] Teresita Slarb [employer] [facility] Work Phone: 10-07-2021 16:12-0500 Body weight 77.11 kg Teresita Slarb [employer] [facility] Work Phone: 10-07-2021 16:12-0500 Diastolic blood pressure 68 mm[Hg] Teresita Slarb [employer] [facility] Work Phone: Comment on above: Patient Position: Sitting; Cuff Location : Left Arm; Cuff Size: Standard 10-07-2021 16:12-0500 Heart rate 78 /min Teresita Slarb [employer] [facility] Work Phone: Comment on above: Pattern: Regular 10-07-2021 16:12-0500 Respiratory rate 16 /min Teresita Slarb [employer] [facility] Work Phone: Comment on above: Pattern: Unlabored 10-07-2021 16:12-0500 SaO2% (BldA) [Mass fraction] 98 % Teresita Slarb [employer] [facility]; [facility] Work Phone: Comment on above: Room air 10-07-2021 16:12-0500 Systolic blood pressure 110 mm[Hg] Teresita Slarb [employer] [facility]; [facility] Work Phone: Comment on above: Patient Position: Sitting; Cuff Location : Left Arm; Cuff Size: Standard 05-31-2021 06:52-0400 Body height 177.8 cm Teresita Slarb [employer] [facility] Work Phone: Comment on above: pt did not report 05-31-2021 06:52-0400 Body mass index (BMI) [Ratio] 24.11 kg/m2 Teresita Slarb [employer] [facility]; [facility] Work Phone: Comment on above: pt did not report 05-31-2021 06:52-0400 Body surface area Derived from formula 1.94 m2 Teresita Slarb [employer] [facility]; [facility] Work Phone: Comment on above: pt did not report 05-31-2021 06:52-0400 Body weight 76.22 kg Teresita Slarb [employer] [facility]; [facility] Work Phone: Comment on above: pt did not report 04-26-2021 07:12-0400 Body height 177.8 cm Teresa Gravius [facility] Work Phone: 04-26-2021 07:12-0400 Body mass index (BMI) [Ratio] 24.11 kg/m2 Teresa Gravius [facility]; [facility] Work Phone: 04-26-2021 07:12-0400 Body surface area Derived from formula 1.94 m2 Teresa Gravius [facility]; [facility] Work Phone: 04-26-2021 07:12-0400 Body temperature 97.3 [degF] Teresa Gravius [facility]; [facility] Work Phone: Comment on above: Method: Infrared 04-26-2021 07:12-0400 Body weight 76.22 kg Teresa Gravius [facility] Work Phone: 04-26-2021 07:12-0400 Heart rate 71 /min Teresa Gravius [facility] Work Phone: Comment on above: Pattern: Regular 04-26-2021 07:12-0400 Respiratory rate 16 /min Teresa Gravius [facility]; [facility] Work Phone: Comment on above: Pattern: Unlabored 04-26-2021 07:12-0400 SaO2% (BldA) [Mass fraction] 97 % Teresa Morochoius [employer] [facility]; [facility] Work Phone: Comment on above: Room air 02-15-2021 07:11-0400 BMI (Body Mass Index) 24.11 kg/m2 Teresita Slarb [employer] [facility]; [facility] Work Phone: 02-15-2021 [id number] Body Temperature 98.2 [degF] Teresita Slarb [employer] [facility]; [facility] Work Phone: 02-15-2021 07:040 Body weight 76.22 kg Teresita Slarb [employer] [facility]; [facility] Work Phone: 02-15-2021 07:11-0400 BP Diastolic 68 mm[Hg] Teresita Slarb [employer] [facility]; [facility] Work Phone: Comment on above: Patient Position: Sitting; Cuff Location : Left Arm; Cuff Size: Standard 02-15-2021 07:11-0400 BP Systolic 108 mm[Hg] Teresita Slarb [employer] [facility]; [facility] Work Phone: Comment on above: Patient Position: Sitting; Cuff Location : Left Arm; Cuff Size: Standard 02-15-2021 [id number]:[id number] BSA (Body Surface Area) 1.94 m2 Teresita Slarb [employer] [facility]; [facility] Work Phone: 02-15-2021 [id number] Height 177.8 cm Teresita Slarb [employer] [facility]; [facility] Work Phone: 02-15-2021 07:11-0400 Pulse (Heart Rate) 78 /min Teresita Slarb [employer] [facility]; [facility] Work Phone: Comment on above: Pattern: Regular 02-15-2021 07:11-0400 Pulse Oximetry 98 % Kyra Bowers [facility]; [facility] Work Phone: Comment on above: Room air 02-15-2021 07:11-0400 Respiratory Rate 16 /min Teresita Choudhary [facility]; [facility] Work Phone: Comment on above: Pattern: Unlabored 02-15-2021 07:11-0400 SaO2% (BldA) [Mass fraction] 98 % Teresita Choudhary [facility]; [facility] Work Phone: Comment on above: Room air 07-06-2020 11:18-0400 BMI (Body Mass Index) 24.11 kg/m2 Teresa Fall [facility] Work Phone: 07-06-2020 11:18-0400 Body Temperature 97.1 [degF] Teresa Fall [facility] Work Phone: Comment on above: Method: Infrared 07-06-2020 11:18-0400 Body weight 76.22 kg Teresa Fall [facility] Work Phone: 07-06-2020 11:18-0400 BP Diastolic 60 mm[Hg] Teresa Fall [facility] Work Phone: Comment on above: Patient Position: Sitting; Cuff Location : Left Arm; Cuff Size: Standard 07-06-2020 11:18-0400 BP Systolic 120 mm[Hg] Teresa Fall [facility] Work Phone: Comment on above: Patient Position: Sitting; Cuff Location : Left Arm; Cuff Size: Standard 07-06-2020 11:18-0400 BSA (Body Surface Area) 1.94 m2 Teresa Fall [facility] Work Phone: 07-06-2020 11:18-0400 Height 177.8 cm Teresa Fall [facility] Work Phone: 07-06-2020 11:18-0400 Pulse (Heart Rate) 76 /min Teresa Fall [facility] Work Phone: Comment on above: Pattern: Regular 07-06-2020 11:18-0400 Pulse Oximetry 97 % Kyra Bowers [facility] Work Phone: Comment on above: Room air 07-06-2020 11:18-0400 Respiratory Rate 16 /min Teresa Fall CMA [facility] Work Phone: Comment on above: Pattern: Unlabored 07-06-2020 11:18-0400 SaO2% (BldA) [Mass fraction] 97 % Teresa Fall [facility]; [facility] Work Phone: Comment on above: Room air 03-30-2020 08:23-0400 BMI (Body Mass Index) 24.11 kg/m2 Teresa Fall [facility] Work Phone: 03-30-2020 08:23-0400 Body Temperature 96.8 [degF] Teresa Fall CMA [facility] Work Phone: Comment on above: Method: Temporal 03-30-2020 08:23-0400 Body weight 76.22 kg Teresa Fall [facility] Work Phone: 03-30-2020 08:23-0400 BP Diastolic 78 mm[Hg] Teresa Fall [facility] Work Phone: Comment on above: Patient Position: Sitting; Cuff Location : Left Arm; Cuff Size: Standard 03-30-2020 08:23-0400 BP Systolic 118 mm[Hg] Teresa Fall [facility] Work Phone: Comment on above: Patient Position: Sitting; Cuff Location : Left Arm; Cuff Size: Standard 03-30-2020 08:23-0400 BSA (Body Surface Area) 1.94 m2 Teresa Fall [facility] Work Phone: 03-30-2020 08:23-0400 Height 177.8 cm Teresa Fall [facility] Work Phone: 03-30-2020 08:23-0400 Pulse (Heart Rate) 71 /min Teresa Fall CMA [facility] Work Phone: Comment on above: Pattern: Regular 03-30-2020 08:23-0400 Pulse Oximetry 98 % Kyra Bowers [facility] Work Phone: Comment on above: Room air 03-30-2020 08:23-0400 Respiratory Rate 16 /min Teresa Fall CMA [facility] Work Phone: Comment on above: Pattern: Unlabored 03-30-2020 08:23-0400 SaO2% (BldA) [Mass fraction] 98 % Teresa Fall [facility]; [facility] Work Phone: Comment on above: Room air 03-23-2020 11:07-0400 BMI (Body Mass Index) 24.11 kg/m2 Teresa Fall CMA [facility] Work Phone: 03-23-2020 11:07-0400 Body Temperature 97.3 [degF] Teresa Fall CMA [facility] Work Phone: Comment on above: Method: Temporal 03-23-2020 11:07-0400 Body weight 76.22 kg Teresa Fall [employer] [facility] Work Phone: 03-23-2020 11:07-0400 BP Diastolic 82 mm[Hg] Teresa Fall [employer] [facility] Work Phone: Comment on above: Patient Position: Sitting; Cuff Location : Left Arm; Cuff Size: Standard 03-23-2020 11:07-0400 BP Systolic 123 mm[Hg] Teresa Fall [employer] [facility] Work Phone: Comment on above: Patient Position: Sitting; Cuff Location : Left Arm; Cuff Size: Standard 03-23-2020 11:07-0400 BSA (Body Surface Area) 1.94 m2 Teresa Fall [employer] [facility] Work Phone: 03-23-2020 11:07-0400 Height 177.8 cm Teresa Fall [employer] [facility] Work Phone: 03-23-2020 11:07-0400 Pulse (Heart Rate) 69 /min Teresa Fall CMA [facility] Work Phone: Comment on above: Pattern: Regular 03-23-2020 11:07-0400 Pulse Oximetry 97 % Kyra Bowers [facility] Work Phone: Comment on above: Room air 03-23-2020 11:07-0400 Respiratory Rate 18 /min Teresa Fall [employer] [facility] Work Phone: Comment on above: Pattern: Unlabored 03-23-2020 11:07-0400 SaO2% (BldA) [Mass fraction] 97 % Teresa Fall [employer] [facility]; [facility] Work Phone: Comment on above: Room air 01-16-2020 15:58-0400 BMI (Body Mass Index) 24.4 kg/m2 Sonya Ocampo RN [facility] Work Phone: 01-16-2020 15:58-0400 Body Temperature 97.9 [degF] Sonya Ocampo RN [facility] Work Phone: Comment on above: Method: Temporal 01-16-2020 15:58-0400 Body weight 77.12 kg Sonya L Terrence RN [facility] Work Phone: 01-16-2020 15:58-0400 BP Diastolic 74 mm[Hg] Sonya L Terrence RN [facility] Work Phone: Comment on above: Patient Position: Sitting; Cuff Location : Left Arm; Cuff Size: Standard 01-16-2020 15:58-0400 BP Systolic 118 mm[Hg] Sonya L Long RN [facility] Work Phone: Comment on above: Patient Position: Sitting; Cuff Location : Left Arm; Cuff Size: Standard 01-16-2020 15:58-0400 BSA (Body Surface Area) 1.95 m2 Sonya L Long RN [facility] Work Phone: 01-16-2020 15:58-0400 Height 177.8 cm Sonya L Long RN [facility] Work Phone: 01-16-2020 15:58-0400 Pulse (Heart Rate) 79 /min Sonya L Terrence RN [facility] Work Phone: Comment on above: Pattern: Regular 01-16-2020 15:58-0400 Pulse Oximetry 97 % Kyra Bowers [facility] Work Phone: Comment on above: Room air 01-16-2020 15:58-0400 Respiratory Rate 16 /min Sonya Ocampo RN [facility] Work Phone: Comment on above: Pattern: Unlabored 01-16-2020 15:58-0400 SaO2% (BldA) [Mass fraction] 97 % Sonya Ocampo RN [facility]; [facility] Work Phone: Comment on above: Room air 12-28-2019 08:16-0500 BMI (Body Mass Index) 24.4 kg/m2 Isaac Salamanca LPN [facility] Work Phone: 12-28-2019 08:16-0500 Body Temperature 97.6 [degF] Isaac Salamanca LPN [facility] Work Phone: Comment on above: Method: Temporal 12-28-2019 08:16-0500 Body weight 77.12 kg Isaac Salamanca LPN [facility] Work Phone: 12-28-2019 08:16-0500 BP Diastolic 72 mm[Hg] Isaac Salamanca LPN [facility] Work Phone: Comment on above: Patient Position: Sitting; Cuff Location : Left Arm; Cuff Size: Standard 12-28-2019 08:16-0500 BP Systolic 118 mm[Hg] Isaac Salamanca LPN [facility] Work Phone: Comment on above: Patient Position: Sitting; Cuff Location : Left Arm; Cuff Size: Standard 12-28-2019 08:16-0500 BSA (Body Surface Area) 1.95 m2 Isaac Salamanca LPN [facility] Work Phone: 12-28-2019 08:16-0500 Height 177.8 cm Isaac Salamanca LPN [facility] Work Phone: 12-28-2019 08:16-0500 Pulse (Heart Rate) 98 /min Isaac Salamanca LPN [facility] Work Phone: Comment on above: Pattern: Regular 12-28-2019 08:16-0500 Pulse Oximetry 97 % Kyra Bowers [facility] Work Phone: Comment on above: Room air 12-28-2019 08:16-0500 Respiratory Rate 16 /min Isaac Cheikh [facility] Work Phone: Comment on above: Pattern: Unlabored 12-28-2019 08:16-0500 SaO2% (BldA) [Mass fraction] 97 % Isaac Salamanca [facility]; [facility] Work Phone: Comment on above: Room air 09-19-2019 13:07-0500 BMI (Body Mass Index) 23.82 kg/m2 Teresa Fall [facility] Work Phone: 09-19-2019 13:07-0500 Body Temperature 96.7 [degF] Teresa Fall [employer] [facility] Work Phone: Comment on above: Method: Temporal 09-19-2019 13:07-0500 Body weight 75.3 kg Teresa Fall [facility] Work Phone: 09-19-2019 13:07-0500 BP Diastolic 90 mm[Hg] Teresa Fall [facility] Work Phone: Comment on above: Patient Position: Sitting; Cuff Location : Left Arm; Cuff Size: Standard 09-19-2019 13:07-0500 BP Systolic 132 mm[Hg] Teresa Fall [facility] Work Phone: Comment on above: Patient Position: Sitting; Cuff Location : Left Arm; Cuff Size: Standard 09-19-2019 13:07-0500 BSA (Body Surface Area) 1.93 m2 Teresa Fall [facility] Work Phone: 09-19-2019 13:07-0500 Height 177.8 cm Teresa Fall [facility] Work Phone: 09-19-2019 13:07-0500 Pulse (Heart Rate) 74 /min Teresa Fall [employer] [facility] Work Phone: Comment on above: Pattern: Regular 09-19-2019 13:07-0500 Pulse Oximetry 97 % Kyra Bowers [facility] Work Phone: Comment on above: Room air 09-19-2019 13:07-0500 Respiratory Rate 16 /min Teresa Fall CMA [facility] Work Phone: Comment on above: Pattern: Unlabored 09-19-2019 13:07-0500 SaO2% (BldA) [Mass fraction] 97 % Teresa Fall CMA [facility]; [facility] Work Phone: Comment on above: Room air 04-11-2019 15:28-0400 BMI (Body Mass Index) 23.82 kg/m2 Teresa Fall [facility] Work Phone: 04-11-2019 15:28-0400 Body Temperature 97.2 [degF] Teresa Fall CMA [facility] Work Phone: Comment on above: Method: Temporal 04-11-2019 15:28-0400 Body weight 75.3 kg Teresa Fall [facility] Work Phone: 04-11-2019 15:28-0400 BP Diastolic 78 mm[Hg] Teresa Fall [facility] Work Phone: Comment on above: Patient Position: Sitting; Cuff Location : Left Arm; Cuff Size: Standard 04-11-2019 15:28-0400 BP Systolic 126 mm[Hg] Teresa Fall [facility] Work Phone: Comment on above: Patient Position: Sitting; Cuff Location : Left Arm; Cuff Size: Standard 04-11-2019 15:28-0400 BSA (Body Surface Area) 1.93 m2 Teresa Fall [facility] Work Phone: 04-11-2019 15:28-0400 Height 177.8 cm Teresa Fall [facility] Work Phone: 04-11-2019 15:28-0400 Pulse (Heart Rate) 66 /min Teresa Fall CMA [facility] Work Phone: Comment on above: Pattern: Regular 04-11-2019 15:28-0400 Pulse Oximetry 96 % Kyra Bowers [facility] Work Phone: Comment on above: Room air 04-11-2019 15:28-0400 Respiratory Rate 16 /min Teresa Fall [employer] MANAGER [facility] Work Phone: Comment on above: Pattern: Unlabored 04-11-2019 15:28-0400 SaO2% (BldA) [Mass fraction] 96 % Teresa Fall [employer]UNDRY MANAGER [facility]; [facility] Work Phone: Comment on above: Room air 04-11-2019 15:28-0400 Weight 75.3 kg Kyra Bowers [facility] Work Phone: 05-31-2018 16:44-0400 BMI (Body Mass Index) 24.25 kg/m2 Sonya Ocampo RN [facility] Work Phone: 05-31-2018 16:44-0400 Body Temperature 98.6 [degF] Sonya Ocampo RN [facility] Work Phone: Comment on above: Method: Temporal 05-31-2018 16:44-0400 Body weight 76.66 kg Sonya Ocampo RN [facility] Work Phone: 05-31-2018 16:44-0400 BP Diastolic 78 mm[Hg] Sonya L Terrence [facility] Work Phone: Comment on above: Patient Position: Sitting; Cuff Location : Left Arm; Cuff Size: Standard 05-31-2018 16:44-0400 BP Systolic 112 mm[Hg] Sonya L Terrence [facility] Work Phone: Comment on above: Patient Position: Sitting; Cuff Location : Left Arm; Cuff Size: Standard 05-31-2018 16:44-0400 BSA (Body Surface Area) 1.94 m2 Sonya L Terrence [facility] Work Phone: 05-31-2018 16:44-0400 Height 177.8 cm Sonya L Terrence [facility] Work Phone: 05-31-2018 16:44-0400 Pulse (Heart Rate) 78 /min Sonya Ocampo RN [facility] Work Phone: Comment on above: Pattern: Regular 05-31-2018 16:44-0400 Pulse Oximetry 96 % Kyra Bowers [facility] Work Phone: Comment on above: Room air 05-31-2018 16:44-0400 Respiratory Rate 18 /min Sonya Ocampo RN [facility] Work Phone: Comment on above: Pattern: Unlabored 05-31-2018 16:44-0400 SaO2% (BldA) [Mass fraction] 96 % Sonya Mccormick [facility]; [facility] Work Phone: Comment on above: Room air 05-31-2018 16:44-0400 Weight 76.[address] [facility] Work Phone: 11-19-2015 17:28-0500 BMI (Body Mass Index) 23.24 kg/m2 Jeanie Mcclain [facility] Work Phone: 11-19-2015 17:28-0500 Body Temperature 98.9 [degF] Jeanie Mcclain [facility] Work Phone: Comment on above: Method: Temporal 11-19-2015 17:28-0500 Body weight 73.[address] [facility] Work Phone: 11-19-2015 17:28-0500 BP Diastolic 74 mm[Hg] Jeanie Mcclain [facility] Work Phone: Comment on above: Patient Position: Sitting; Cuff Location : Left Arm; Cuff Size: Standard 11-19-2015 17:28-0500 BP Systolic 126 mm[Hg] Jeanie Mcclain [facility] Work Phone: Comment on above: Patient Position: Sitting; Cuff Location : Left Arm; Cuff Size: Standard 11-19-2015 17:28-0500 BSA (Body Surface Area) 1.[address] [facility] Work Phone: 11-19-2015 17:28-0500 Height 177.[address] [facility] Work Phone: 11-19-2015 17:28-0500 Pulse (Heart Rate) 90 /min Jeanie Mcclain [facility] Work Phone: Comment on above: Pattern: Regular 11-19-2015 17:28-0500 Pulse Oximetry 98 % Kyra Bowers [facility] Work Phone: Comment on above: Room air 11-19-2015 17:28-0500 Respiratory Rate 16 /min Jeanie Velezmontserrat [facility] Work Phone: Comment on above: Pattern: Unlabored 11-19-2015 17:28-0500 SaO2% (BldA) [Mass fraction] 98 % Jeanie Velezjeromesimone [facility]; [facility] Work Phone: Comment on above: Room air 11-19-2015 17:28-0500 Weight 73.[address] [facility] Work Phone: 01-15-2015 11:05-0400 BMI (Body Mass Index) 23.53 kg/m2 Teresita Slarb [employer] [facility] Work Phone: 01-15-2015 11:05-0400 Body Temperature 98 [degF] Teresita Slarb [employer] [facility] Work Phone: 01-15-2015 11:05-0400 Body weight 74.39 kg Teresita Slarb [employer] [facility] Work Phone: 01-15-2015 11:05-0400 BP Diastolic 76 mm[Hg] Teresita Slarb [employer] [facility] Work Phone: Comment on above: Patient Position: Sitting; Cuff Location : Left Arm; Cuff Size: Standard 01-15-2015 11:05-0400 BP Systolic 122 mm[Hg] Teresita Slarb [employer] [facility] Work Phone: Comment on above: Patient Position: Sitting; Cuff Location : Left Arm; Cuff Size: Standard 01-15-2015 11:05-0400 BSA (Body Surface Area) 1.92 m2 Teresita Slarb [employer] [facility] Work Phone: 01-15-2015 11:05-0400 Height 177.8 cm Teresita Slarb [employer] [facility] Work Phone: 01-15-2015 11:05-0400 Pulse (Heart Rate) 87 /min Teresita Slarb [employer] [facility] Work Phone: Comment on above: Pattern: Regular 01-15-2015 11:05-0400 Pulse Oximetry 98 % Kyra Bowers [facility] Work Phone: Comment on above: Room air 01-15-2015 11:05-0400 Respiratory Rate 16 /min Teresita Slarb [employer] [facility] Work Phone: Comment on above: Pattern: Unlabored 01-15-2015 11:05-0400 SaO2% (BldA) [Mass fraction] 98 % Teresita Slarb [employer] [facility]; [facility] Work Phone: Comment on above: Room air 01-15-2015 11:05-0400 Weight 74.39 kg Kyra Bowers [facility] Work Phone: 01-10-2015 09:55-0500 BMI (Body Mass Index) 23.24 kg/m2 Teresita Slarb [employer] [facility] Work Phone: 01-10-2015 09:55-0500 Body Temperature 97 [degF] Teresita Slarb [employer] [facility] Work Phone: 01-10-2015 09:55-0500 Body weight 73.48 kg Teresita Slarb [employer] [facility] Work Phone: 01-10-2015 09:55-0500 BP Diastolic 78 mm[Hg] Teresita Slarb [employer] [facility] Work Phone: Comment on above: Patient Position: Sitting; Cuff Location : Left Arm; Cuff Size: Standard 01-10-2015 09:55-0500 BP Systolic 116 mm[Hg] Teresita Slarb [employer] [facility] Work Phone: Comment on above: Patient Position: Sitting; Cuff Location : Left Arm; Cuff Size: Standard 01-10-2015 09:55-0500 BSA (Body Surface Area) 1.91 m2 Teresita Slarb [employer]AR [facility] Work Phone: 01-10-2015 09:55-0500 Height 177.8 cm Teresita Choudhary BALA [facility] Work Phone: 01-10-2015 09:55-0500 Pulse (Heart Rate) 98 /min Teresita Choudhary LPN Comprehens[facility] e [facility] Medicine Work Phone: Comment on above: Pattern: Regular 01-10-2015 09:55-0500 Pulse Oximetry 98 % Kyra Bowers [facility] Internal Medicine Work Phone: Comment on above: Room air 01-10-2015 09:55-0500 Respiratory Rate 18 /min Teresita Brownbakari MCKENNA [facility] Work Phone: Comment on above: Pattern: Unlabored 01-10-2015 09:55-0500 SaO2% (BldA) [Mass fraction] 98 % Teresita Slabakari MCKENNA [facility]; [facility] Work Phone: Comment on above: Room air 01-10-2015 09:55-0500 Weight 73.[address] [facility] Internal Medicine Work Phone: 10-24-2014 11:22-0500 BMI (Body Mass Index) 23.24 kg/m2 Jeanie Johny [facility] Internal Medicine Work Phone: 10-24-2014 11:22-0500 Body Temperature 99.5 [degF] Jeanie Mcclain [facility] Internal Medicine Work Phone: 10-24-2014 11:22-0500 Body weight 73.[address] [facility] Internal Medicine Work Phone: 10-24-2014 11:22-0500 BP Diastolic 84 mm[Hg] Jeanie Mcclain [facility] Internal Medicine Work Phone: Comment on above: Patient Position: Sitting; Cuff Location : Left Arm; Cuff Size: Standard 10-24-2014 11:22-0500 BP Systolic 116 mm[Hg] Jeanie Johny [facility] Internal Medicine Work Phone: Comment on above: Patient Position: Sitting; Cuff Location : Left Arm; Cuff Size: Standard 10-24-2014 11:22-0500 BSA (Body Surface Area) 1.[address] [facility] Internal Medicine Work Phone: 10-24-2014 11:22-0500 Height 177.[address] [facility] Internal Medicine Work Phone: 10-24-2014 11:22-0500 Pulse (Heart Rate) 76 /min [facility] Work Phone: Comment on above: Pattern: Regular 10-24-2014 11:22-0500 Respiratory Rate 16 /min Jeanie Mcclain [facility] Internal Medicine Work Phone: Comment on above: Pattern: Unlabored 10-24-2014 11:22-0500 Weight 73.[address] [facility] Internal Medicine Work Phone: 08-21-2014 16:10-0400 BMI (Body Mass Index) 23.39 kg/m2 Jeanie Mcclain [facility] Internal Medicine Work Phone: 08-21-2014 16:10-0400 Body Temperature 98.7 [degF] Jeanie Mcclain [facility] Internal Medicine Work Phone: 08-21-2014 16:10-0400 Body weight 73.[address] [facility] Internal Medicine Work Phone: 08-21-2014 16:10-0400 BP Diastolic 68 mm[Hg] Jeanie Mcclain [facility] Internal Medicine Work Phone: Comment on above: Patient Position: Sitting; Cuff Location : Left Arm; Cuff Size: Standard 08-21-2014 16:10-0400 BP Systolic 104 mm[Hg] Jeanie Mcclain [facility] Internal Medicine Work Phone: Comment on above: Patient Position: Sitting; Cuff Location : Left Arm; Cuff Size: Standard 08-21-2014 16:10-0400 BSA (Body Surface Area) 1.[address] [facility] Internal Medicine Work Phone: 08-21-2014 16:10-0400 Height 177.[address] [facility] Internal Medicine Work Phone: 08-21-2014 16:10-0400 Pulse (Heart Rate) 94 /min Jeanie Mcclain [facility] Internal Medicine Work Phone: Comment on above: Pattern: Regular 08-21-2014 16:10-0400 Respiratory Rate 16 /min Jeanie Mcclain [facility] Internal Medicine Work Phone: Comment on above: Pattern: Unlabored 08-21-2014 16:10-0400 Weight 73.[address] [facility] Internal Medicine Work Phone: 07-05-2014 15:55-0400 BMI (Body Mass Index) 22.81 kg/m2 Darlene Sepulveda [facility] Internal Medicine Work Phone: 07-05-2014 15:55-0400 Body weight 72.12 kg Darlene Sepulveda [facility] Internal Medicine Work Phone: 07-05-2014 15:55-0400 BP Diastolic 60 mm[Hg] Darlene Sepulveda [facility] Internal Medicine Work Phone: Comment on above: Patient Position: Sitting; Cuff Location : Left Arm; Cuff Size: Standard 07-05-2014 15:55-0400 BP Systolic 120 mm[Hg] Darlene Sepulveda [facility] Internal Medicine Work Phone: Comment on above: Patient Position: Sitting; Cuff Location : Left Arm; Cuff Size: Standard 07-05-2014 15:55-0400 BSA (Body Surface Area) 1.89 m2 Darlene Sepulveda [facility] Internal Medicine Work Phone: 07-05-2014 15:55-0400 Height 177.8 cm Darlene Sepulveda [facility] Internal Medicine Work Phone: 07-05-2014 15:55-0400 Pulse (Heart Rate) 83 /min Darlene Sepulveda [facility] Internal Medicine Work Phone: Comment on above: Pattern: Regular 07-05-2014 15:55-0400 Respiratory Rate 16 /min Darlene Sepulveda [facility] Internal Medicine Work Phone: Comment on above: Pattern: Unlabored 07-05-2014 15:55-0400 Weight 72.[address] [facility] Internal Medicine Work Phone: 02-24-2014 10:30-0400 BMI (Body Mass Index) 22.81 kg/m2 Jeanie Johny [facility] Internal Medicine Work Phone: 02-24-2014 10:30-0400 Body Temperature 98 [degF] Jeanie Johny [facility] Internal Medicine Work Phone: 02-24-2014 10:30-0400 Body weight 72.[address] Internal Medicine Work Phone: 02-24-2014 10:30-0400 BP Diastolic 86 mm[Hg] Jeanie Johny [facility] Internal Medicine Work Phone: Comment on above: Patient Position: Sitting; Cuff Location : Left Arm; Cuff Size: Large 02-24-2014 10:30-0400 BP Systolic 120 mm[Hg] Jeanie Johny [facility] Internal Medicine Work Phone: Comment on above: Patient Position: Sitting; Cuff Location : Left Arm; Cuff Size: Large 02-24-2014 10:30-0400 BSA (Body Surface Area) 1.[address] [facility] Internal Medicine Work Phone: 02-24-2014 10:30-0400 Height 177.[address] [facility] Internal Medicine Work Phone: 02-24-2014 10:30-0400 Pulse (Heart Rate) 76 /min Jeanie Mcclain [facility] Internal Medicine Work Phone: Comment on above: Pattern: Regular 02-24-2014 10:30-0400 Respiratory Rate 16 /min Jeanie Mcclain [facility] Internal Medicine Work Phone: Comment on above: Pattern: Unlabored 02-24-2014 10:30-0400 Weight 72.[address] Work Phone: 03-23-2012 15:31-0400 BMI (Body Mass Index) 23.25 kg/m2 Lakshmi Corea LPN [facility] Work Phone: 03-23-2012 15:31-0400 Body weight 73.51 kg Lakshmi Corea LPN [facility] Work Phone: 03-23-2012 15:31-0400 BP Diastolic 74 mm[Hg] Lakshmi Corea LPN [facility] Work Phone: Comment on above: Patient Position: Sitting; Cuff Location : Left Arm; Cuff Size: Standard 03-23-2012 15:31-0400 BP Systolic 124 mm[Hg] Lakshmi Corea LPN [facility] Work Phone: Comment on above: Patient Position: Sitting; Cuff Location : Left Arm; Cuff Size: Standard 03-23-2012 15:31-0400 BSA (Body Surface Area) 1.91 m2 Lakshmi Corea LPN [facility] Work Phone: 03-23-2012 15:31-0400 Height 177.8 cm Lakshmi Corea LPN [facility] Work Phone: 03-23-2012 15:31-0400 Pulse (Heart Rate) 70 /min Lakshmi Corea LPN [facility] Work Phone: Comment on above: Pattern: Regular 03-23-2012 15:31-0400 Respiratory Rate 16 /min Lakshmi Corea LPN Comprehens[facility] e [facility] Work Phone: 03-23-2012 15:31-0400 Weight 73.[address] [facility] Work Phone: Encounters Encounter Date Encounter Type Care Provider Facility Start: 04-27-2025 End: 04-27-[address] Marcus Matos MD -[facility] Work Phone: Start: 04-27-2025 End: 04-27-[address] Kyra Bowers DO Work Phone: [facility] Work Phone: Start: 03-15-2025 ambulatory Kyra Bowers Facilit y:[facility] Start: 03-15-2025 Non-patient / Non-visit Dr. Bridget Bañuelos MD -[facility] Start: 03-15-2025 End: 03-15-[address] Kyra Bowers DO Work Phone: [facility] Work Phone: Start: 03-15-2025 End: 03-15-[address] Kyra Bowers DO -Pulmonary Services/Neurology Work Phone: Start: 03-15-2025 End: 03-15-2025 ambulatory Kyra Bowers Facility:[facility] Start: 02-17-2025 End: 02-17-[address] Sly Kaur MD -[facility] Start: 02-17-2025 End: 02-17-2025 ambulatory Kyra Bowers Facility:[facility] Start: 12-26-2024 End: 12-26-2024 ambulatory MILADYS CARTER Facility:[facility] Start: 12-26-2024 End: 12-26-2024 Office outpatient visit 15 minutes Miladys Carter MD Work Phone: Neurology Comment on above: Essential tremor (Pr imary Dx) Start: 12-05-2024 End: 12-05-[address] Kyra Bowers DO -Radiology, [place] Work Phone: Start: 12-05-2024 End: 12-05-2024 ambulatory Kyra Bowers Facility:[facility] Start: 07-13-2024 End: 07-13-2024 ambulatory Kyra Bowers Facility:[facility] Start: 01-04-2024 End: 01-04-2024 ambulatory MILADYS CARTER Facility:[facility] Start: 07-23-2023 End: 07-23-2023 Annotation/Addendum Kyra Bowers DO Work Phone: [facility] Start: 07-21-2023 End: 07-23-2023 Office outpatient visit 10 minutes Kyra Bowers DO Work Phone: [facility] Start: 07-21-2023 Review Kyra Fearo n DO Work Phone: [facility] Start: 06-01-2023 End: 06-01-2023 Office outpatient visit 5 minutes Kyra Marietta DO Work Phone: [facility] Start: 06-01-2023 Review Kyra Fearo n DO Work Phone: [facility] Start: 01-08-2023 End: 01-08-2023 Patient encounter procedure Miladys Carter MD Work Phone: Neurology Comment on above: Essential tremor (Pr imary Dx) Start: 12-22-2022 End: 12-22-2022 Office outpatient visit 15 minutes Kyra Marietta DO Work Phone: [facility] Start: 10-16-2022 End: 10-16-2022 Office outpatient visit 10 minutes Kyra Marietta DO Work Phone: [facility] Start: 10-15-2022 ambulatory Kyra Marietta DO Comp rehensive Internal Med Start: 10-14-2022 End: 10-15-2022 Patient encounter procedure Kyra Marietta DO Work Phone: [facility] Start: 07-18-2022 Refill Miladys ventura MD Work Phone: Neurological [place] Comment on above: Refill Request Start: 06-11-2022 End: 06-11-2022 Office outpatient visit 5 minutes Kyra Marietta DO Work Phone: [facility] Start: 04-30-2022 End: 04-30-2022 Office outpatient visit 15 minutes Kyra Marietta DO Work Phone: [facility] Start: 04-30-2022 Review Kyra Fearo n DO Work Phone: [facility] Start: 04-28-2022 End: 04-30-2022 Office outpatient visit 5 minutes Kyra Marietta DO Work Phone: [facility] Start: 03-31-2022 Review Kyra Fearo n DO Work Phone: [facility] Start: 03-17-2022 Review Kyra Fearo n DO Work Phone: [facility] Start: 02-19-2022 End: 02-20-2022 Office outpatient visit 10 minutes Kyra Marietta DO Work Phone: [facility] Start: 12-24-2021 End: 12-25-2021 Office outpatient visit 5 minutes Kyra Marietta DO Work Phone: [facility] Start: 12-11-2021 End: 12-11-2021 Annotation/Addendum Kyra Marietta DO Work Phone: [facility] Start: 12-05-2021 End: 12-05-2021 Phone Encounter Kyra Marietta DO Work Phone: [facility] Start: 12-02-2021 End: 12-02-2021 Office outpatient visit 25 minutes Kyra Marietta DO Work Phone: [facility] Start: 11-27-2021 End: 11-27-2021 Office outpatient visit 10 minutes Kyra Marietta DO Work Phone: [facility] Start: 11-27-2021 End: 11-27-2021 Annotation/Addendum Kyra Amrietta DO Work Phone: [facility] Start: 11-20-2021 End: 11-20-2021 Office outpatient visit 5 minutes Kyra Marietta DO Work Phone: [facility] Start: 10-25-2021 End: 10-25-2021 Office outpatient visit 15 minutes Kyra Marietta DO Work Phone: [facility] Start: 10-07-2021 End: 10-07-2021 Patient encounter status Kyra Marietta DO Work Phone: [facility] Start: 10-07-2021 End: 10-07-2021 Periodic preventive med est patient 40-64yrs Kyra Marietta DO Work Phone: [facility] Start: 06-12-2021 Review Kyra Fearo n DO Work Phone: [facility] Start: 06-12-2021 End: 06-12-2021 Phone Encounter Kyra Marietta DO Work Phone: [facility] Start: 06-10-2021 End: 06-10-2021 Lab Order Kyra Marietta DO Work Phone: [facility] Start: 06-07-2021 End: 06-07-2021 Annotation/Addendum Kyra Marietta DO Work Phone: [facility] Start: 05-31-2021 End: 05-31-2021 Office outpatient visit 15 minutes Kyra Marietta DO Work Phone: [facility] Start: 04-26-2021 End: 04-26-2021 Office outpatient visit 10 minutes Kyra Marietta DO Work Phone: [facility] Start: 04-02-2021 End: 04-03-2021 Office outpatient visit 5 minutes Kyra Marietta DO Work Phone: [facility] Start: 03-01-2021 End: 03-04-2021 Office outpatient visit 5 minutes Kyra Marietta DO Work Phone: [facility] Start: 03-01-2021 End: 03-04-2021 Office outpatient visit 5 minutes Kyra Marietta DO Work Phone: [facility] Start: 02-15-2021 End: 02-15-2021 Office outpatient visit 10 minutes Kyra Marietta [facility] Start: 07-06-2020 End: 07-06-2020 Office outpatient visit 10 minutes Kyra Marietta [facility] Start: 07-06-2020 Review Kyra Marietta [facility] Start: 03-30-2020 End: 03-30-2020 Office outpatient visit 10 minutes Kyra Marietta [facility] Start: 03-23-2020 End: 03-23-2020 Office outpatient visit 15 minutes Kyra Marietta [facility] Start: 01-23-2020 End: 01-23-2020 Phone Encounter Kyra Marietta [facility] Assistant Professor Of History al Medicine Start: 01-16-2020 End: 01-16-2020 Office outpatient visit 10 minutes Kyra Bowers [facility] Start: 12-30-2019 End: 12-30-2019 Annotation/Addendum Kyra Bowers [facility] Assistant Professor Of History al Medicine Start: 12-28-2019 End: 12-28-2019 Office outpatient visit 15 minutes Kyra Bowers [facility] Start: 09-19-2019 End: 09-19-2019 Office outpatient visit 15 minutes Kyra Bowers [facility] Start: 09-12-2019 End: 09-12-2019 Lab Order Kyra Bowers [facility] Assistant Professor Of History al Medicine Start: 04-11-2019 End: 04-11-2019 Office outpatient visit 15 minutes Kyra Bowers [facility] Start: 05-31-2018 End: 06-09-2018 Office outpatient visit 10 minutes Kyra Bowers [facility] Start: 05-02-2016 End: 05-02-2016 Phone Encounter Kyra Bowers [facility] Assistant Professor Of History al Medicine Start: 04-28-2016 End: 04-28-2016 Phone Encounter Kyra Bowers [facility] Assistant Professor Of History al Medicine Start: 11-30-2015 End: 11-30-2015 Phone Encounter Kyra Bowers [facility] Assistant Professor Of History al Medicine Start: 11-28-2015 End: 11-29-2015 Office outpatient visit 5 minutes Kyra Bowers [facility] Start: 11-21-2015 End: 11-21-2015 Phone Encounter Kyra Marietta [facility] Assistant Professor Of History al Medicine Start: 11-20-2015 End: 11-20-2015 Phone Encounter Kyra Marietta [facility] Assistant Professor Of History al Medicine Start: 11-19-2015 End: 11-20-2015 Office outpatient visit 25 minutes Kyra Bowers [facility] Start: 11-14-2015 End: 11-14-2015 Phone Encounter Kyra Marietta [facility] Assistant Professor Of History al Medicine Start: 11-14-2015 End: 11-14-2015 Phone Encounter Kyra Bowers [facility] Assistant Professor Of History al Medicine Start: 01-15-2015 End: 01-15-2015 Office outpatient visit 15 minutes Kyra Bowers [facility] Start: 01-10-2015 End: 01-10-2015 Office outpatient visit 10 minutes Kyra Bowers [facility] Start: 10-24-2014 End: 10-24-2014 Office outpatient visit 15 minutes Kyra Bowers [facility] Start: 10-23-2014 End: 10-23-2014 Office outpatient visit 5 minutes Kyra Bowers [facility] Start: 08-21-2014 End: 08-22-2014 Office outpatient visit 15 minutes Kyra Bowers [facility] Start: 07-05-2014 End: 07-11-2014 Office outpatient visit 25 minutes Kyra Bowers [facility] Start: 02-24-2014 End: 02-26-2014 Patient encounter Kyra Bowers [facility] Assistant Professor Of History al Medicine Start: 04-15-2012 End: 04-20-2012 Patient encounter Kyra Bowers [facility] Assistant Professor Of History al Medicine Start: 03-30-2012 End: 03-31-2012 Annotation/Addendum Kyra Bowers [facility] Assistant Professor Of History al Medicine Start: 03-23-2012 End: 03-23-2012 Patient encounter Kyra Bowers [facility] Assistant Professor Of History al Medicine Patient encounter procedure Kyra Bowers DO Work Phone: [facility]; [facility] Work Phone: Patient encounter procedure Debbie Lea [facility]; [facility] Work Phone: Patient encounter procedure Tameka Fernandez PR [facility]; [facility] Work Phone: Patient encounter status Darlene Sepulveda [facility]; [facility] Work Phone: Patient encounter status Isaac Salamanca [facility]; [facility] Work Phone: Patient encounter status Teresa Fall [facility]; [facility] Work Phone: Patient encounter status Teresita Choudhary [facility]; [facility] Work Phone: Patient encounter status Teresa Fall [facility]; [facility] Work Phone: Patient encounter status Debbie Lea [facility]; [facility] Work Phone: Patient encounter status Debbie Lea [facility]; [facility] Work Phone: Patient encounter status Teresita Choudhary [facility]; [facility] Work Phone: Procedures Date Procedure Procedure Detail Performing Clinician Start: 02-17-2025 X-ray of cervical spine Dr. Kyra Bowers DO Work Phone: Start: 12-05-2024 X-ray of chest, PA and lateral views Dr. Kyra Bowers DO Work Phone: Start: 01-09-2022 Adult depression screening assessment Miladys Carter MD Work Phone: Start: 11-28-2021 End: 11-28-2021 Virtual Office Visit Comments: See Note; NOTES: [facility] [address] [place] [address] OFFICE VISIT Date of Service: 11/28/21 MR#: [id number] Acct: [id number] Patient: VANE OCHOA Rep #: [id number] : [id number] Provider: JERE vann Age/Sex: 65/M Location: [facility] [email or web address] Status: Signed Intake Intake Visit Reasons: COVID, [place] Allergies No Known Allergies Allergy (Verified 11/28/21 10:09) PFSH Medical History (Updated 11/28/21 @ 10:07 by Sophia Weston NP, BACTERIOLOGIST FISHERY-C) Cellulitis of left upper extremity Hay fever Hernia Tumor Social History (Updated 07/04/21 @ 15:52 by Zohreh Cabrales) Smoking Status: Never smoker alcohol intake: never HPI HPI Details: Patient was informed that this visit will be billed to patient. This visit was conducted during COVID- pandemic. Details: Patient was informed that this visit will be billed to patient. This visit was conducted during COVID. Statement read to the patient: This telehealth visit is being offered during our stay at home measures in response to the pandemic. It is subject to an office visit charge. There are also charges for the monoclonal antibody infusion which may or may not be covered by your insurance. The patient consents to continue. The FDA has authorized the emergency use of monoclonal antibody treatment (bamlanivimab/etesevimab or casirivimab/imdevimab) for mild to moderate COVID-19 in adults and pediatric patients with positive results of direct SARS-Cov-2 viral testing ages 12 and older, at least 40 kg, who are at high risk for progressing to severe COVID-19 and or hospitalization. The significant known and potential risks (allergic reactions, worsening of symptoms after treatment, or side effects from injection including brief pain, bleeding, bruising of the skin, soreness, swelling, possible infection at the infusion site) and benefits (decrease chance of progression to severe COVID-19) of a monoclonal antibody infusion, and the extent to which such potential risks and benefits are unknown. Note that worsening symptoms after treatment may occur but it is unknown whether these symptoms are related to treatment or are due to the progression of COVID-19. Worsening symptoms may include: fever, difficulty breathing, rapid or slow heart rate, tiredness, weakness or confusion. If these symptoms occur, patients are encouraged to seek immediate medical attention. These treatments are still being studied, all possible side effects may not be listed or known at this time. Patients treated with monoclonal antibody infusion should continue to self-isolate and use infection control measures (such as wear mask, isolate, social distance, avoid sharing personal items, clean and disinfect high touch surfaces, and frequent handwashing) according to the CDC guidelines. The fact sheet will be provided prior to the administration of the medication. Oral medications have received authorization from the FDA to treat [id number] COVID-19 in patients at high risk for progression to severe COVID-19. These medications may not be appropriate for all patients and available drug supply may be limited. However, these oral medications may be more effective against the omicron variant. The patient had the option to refuse or accept treatment with monoclonal antibody therapy. The patient was informed that the number of people treated with monoclonal antibody therapy at this time is small. Due to the changes in the virus that causes COVID-19, some monoclonal antibody treatments may not be effective for all forms of the virus (known as variants). This includes the omicron variant. The patient stated understanding of this information communicated and wished to proceed with monoclonal antibody infusion therapy. COVID + test date: 11/27/21 @ [facility] Sx Onset: 11/21/21 Sx: cough, sinus and chest congestion, GAFFNEY, fever, body aches O2: NO Age: 65 yrs Vaccine: Moderna x2 Qualifier: Age 65 ROS Const Constitutional: Positive for body ache, fever(s) and headache(s) ENT ENT: Positive for sinus pressure and headache(s) Resp Respiratory: Positive for cough and chest congestion Neuro Neurology: Positive for headache(s) Exam Const General: cooperative and no acute distress Resp Effort Inspection: normal respiratory effort and able to speak in complete sentences Neuro General: patient alert, patient awake and patient oriented x3 Cognition: normal cognition Speech: speech normal Psych Mental Status: mental status grossly normal Mood: congruent mood Attitude: cooperative Thought Process: normal Thought Content: normal Judgment: judgment good Details: Details:: Exam was limited due to phone visit with no video. Quality Reporting Tobacco Screening ([facility] 138) Smoking Status: Never smoker Coding Level of Care Code New Pt Level 1 Telephone Patient Type New History Problem Focused Exam Problem Focused Medical Decision Making Straight Forward Diagnoses COVID-19 U07.1 Coronary artery disease I25.10 Time Spent (min) 10 Comment 62928 Assessment and Plan Assessment and Plan (1) COVID-19: Status: Acute Plan: The patient remains appropriate for the Monoclonal Antibody Infusion. The patient states understanding of this information communicated and wishes to proceed with monoclonal antibody infusion therapy. Patient agrees to receive either balanivimab/etesvimab or casirivimab/imdevimab upon availability. (2) Coronary artery disease: Status: Acute 11/28/21 1018 <Electronically signed by Sophia DOBBINSC> Date Sophia Weston NP, NP-C Cosigner Signature: Date (if applicable) CC: Tiffanie Lewis MD; Dr. Kyra Bowers, DO Kyra Bowers DO Work Phone: Start: 08-12-2021 End: 08-13-2021 Lower Ext/No Jt/w/o Comments: See Note; NOTES: [facility] Imaging Services [address] [address] Lower Ext/No Jt/w/o MR#: [id number] Acct: [id number] Name: VANE OCHOA Rep #: [id number] : 1955 M 65 From: Morales ta MD PCP: Dr. Kyra Bowers, DO Status: REG CLI Study: Lower Ext/No Jt/w/o Date of Exam: 08/12/21 Exam# [id number] Ordering Dr: Dileep Reece DP STUDY: MRI LEFT MIDFOOT AND FOREFOOT REASON FOR EXAM: Male, 65 years old. LEFT FOOT ,,ADD SERIES FOR TIP OF 2ND TOE AND POSTERIOR HEEL TECHNIQUE: Standardized fat and water weighted pulse sequences were obtained in all 3 orthogonal planes. COMPARISON: None. FINDINGS: The distal phalanx of the great toe demonstrates mild lateral deviation. The IP joint of the great toe is mildly narrowed. Low signal susceptibility artifact is seen in the nailbed region of the distal phalanges of the great toe possibly due to extrinsic artifact or sequela from posttraumatic fibrosis or similar entity. No demonstrated hallux valgus deformity. A small joint effusion of the first MTP is present. No marrow edema is seen. Mild flexion/hammertoe deformities noted in the second and third digits. Normal second through fifth metatarsophalangeal (MTP) joints. Normal interphalangeal joints of the second through fifth toes. Normal proximal, middle and distal phalanges of the second through fifth toes. Normal first through fourth intermetatarsal spaces. Normal visualized metatarsi. Normal first tarsometatarsal articulation. Normal Lisfranc ligament. Normal second and third tarsometatarsal articulations. Normal cuboid fourth and cuboid fifth tarsometatarsal articulation. Normal first through fifth metatarsi. Normal tibialis anterior tendon. Normal extensor hallucis longus tendon. Normal extensor digitorum longus tendons. Normal peroneus longus tendon and distal insertion. Normal peroneus brevis tendon and distal insertion. Normal intrinsic muscles of the mid and forefoot region. Normal extensor digitorum brevis muscle. Normal subcutis adipose space. IMPRESSION: 1. The distal phalanx of the great toe demonstrates mild lateral deviation. The IP joint of the great toe is mildly narrowed. 2. No demonstrated hallux valgus deformity. A small joint effusion of the first MTP is present. 3. Mild flexion/hammertoe deformities noted in the second and third digits. Electronically Signed: Morales Wade MD at 17:01 EDT , Service support , STUDY: MRI LEFT ANKLE WITHOUT CONTRAST REASON FOR EXAM: Male, 65 years old. LEFT FOOT ,,ADD SERIES FOR TIP OF 2ND TOE AND POSTERIOR HEEL. Bone spur with pain TECHNIQUE: Standardized fat and water weighted pulse sequences were obtained in all 3 orthogonal planes. COMPARISON: Left foot x-ray dated FEBRUARY 24, 2014. MRI of the left forefoot dated August 13, 2021. FINDINGS: A small 7.8 mm plantar calcaneal spur is reidentified. There is mild increased signal abnormality in addition a slight thickening of the central cord of the plantar fascia and insertion just beneath this region. The remaining aspects of the plantar fascia are normal. No focal tear or retraction or plantar bursitis is present. No plantar fibroma is seen. No edema is present in the calcaneal plantar spur or remaining aspect of the bone. No marrow edema or osteochondral defects are present. Normal posterior tibialis tendon. Normal flexor digitorum longus tendon. Normal flexor hallucis longus tendon. Normal peroneus longus and brevis tendons. Normal tibialis anterior tendon. Normal extensor hallucis longus tendon. Normal extensor digitorum longus tendons. Normal Achilles tendon and teno-osseous insertion. Normal intrinsic muscles of the rearfoot. Normal distal tibiofibular syndesmotic ligamentous complex. Normal lateral ligamentous complex. Normal subtalar ligaments and sinus tarsi. Normal deltoid ligamentous complexes. Normal plantar calcaneonavicular (spring) ligament. Normal tibiotalar articulation. Normal talar dome. Normal subtalar articulations. Normal talonavicular articulation. Normal calcaneocuboid articulation. Normal navicular-cuneiform articulations. MRI/Lower Ext/No Jt/w/o IMPRESSION: 1. A small 7.8 mm plantar calcaneal spur is reidentified. There is mild increased signal abnormality in addition a slight thickening of the central cord of the plantar fascia and insertion just beneath this region. The remaining aspects of the plantar fascia are normal. No focal tear or retraction or plantar bursitis is present. No plantar fibroma is seen. 2. No edema is present in the calcaneal plantar spur or remaining aspect of the bone. Electronically Signed: Morales Wade MD at 17:15 EDT , Service support , CC: AMARIS Reece; Dr. Kyra Bowers DO Third Loader: Signed Kyra Bowers DO Work Phone: Start: 08-08-2021 End: 08-08-2021 Lower Ext/No Jt/w/o Comments: See Note; NOTES: [facility] Imaging Services [address] [place] [address] Lower Ext/No Jt/w/o MR#: [id number] Acct: [id number] Name: VANE OCHOA Rep #: [id number] : 1955 M 65 From: Morales ta MD PCP: Dr. Kyra Bowers DO Status: REG CLI Study: Lower Ext/No Jt/w/o Date of Exam: 08/08/21 Exam# [id number] Ordering Dr: Dileep Reece DPM STUDY: MRI LEFT MIDFOOT/foot REASON FOR EXAM: Male, 65 years old. PLANTAR FASCITIS LEFT FOOT WITH HEEL SPUR -- CAPSULITIS OF LEFT 2ND TOE TECHNIQUE: Standardized fat and water weighted pulse sequences were obtained in all 3 orthogonal planes. COMPARISON: None. FINDINGS: There is mild to moderate thickening of the central cord of the plantar fascia just proximal to the calcaneal insertion site. No edema is seen within the thickened fascia or tear. No plantar bursitis is seen. Mild linear intrasubstance signal abnormality is present in the thickened cord beneath a tiny plantar calcaneal spur. Normal remaining aspects of the plantar fascia. No marrow edema or osteochondral defect is present. Mild subcutaneous edema is seen on the medial side of ankle joint. Normal talonavicular articulation. Normal calcaneocuboid articulation. Normal navicular-cuneiform articulations. Normal intercuneiform articulations. Normal first tarsometatarsal articulation. Normal Lisfranc ligament. Normal second and third tarsometatarsal articulations. Normal cuboid fourth and cuboid fifth tarsometatarsal articulation. Normal first through fifth metatarsi. Small joint effusion of the first MTP noted. Normal tibialis anterior tendon. Normal extensor hallucis longus tendon. Normal extensor digitorum longus tendons. Normal peroneus longus tendon and distal insertion. Normal peroneus brevis tendon and distal insertion. Normal intrinsic muscles of the mid and forefoot region. Normal extensor digitorum brevis muscle. MRI/Lower Ext/No Jt/w/o IMPRESSION: 1. There is mild to moderate thickening of the central cord of the plantar fascia just proximal to the calcaneal insertion site. No edema is seen within the thickened fascia or tear. No plantar bursitis is seen. 2. Mild linear intrasubstance signal abnormality is present in the thickened cord beneath a tiny plantar calcaneal spur. 3. Mild subcutaneous edema is seen on the medial side of ankle joint. 4. Small joint effusion of the first MTP noted. Electronically Signed: Morales Wade MD at 23:52 EDT , Service support , CC: AMARIS Reece; Dr. Kyra Bowers DO Third Loader: Signed Kyra Bowers DO Work Phone: Start: 07-04-2021 End: 07-04-2021 Urgent Care Visit Report Comments: See Note; NOTES: [facility] [address] [place] [address] OFFICE VISIT Date of Service: 07/04/21 MR#: [id number] Acct: [id number] Name: VANE OCHOA Rep #: [id number] : 1955 Provider: TIARA rosa Age/Sex: 65/M Location: [facility] Status: Signed Intake Vital Signs 07/04/21 15:47 Height 5 ft 10 in Weight: 160 lb BMI 22.9 BP 118/62 Blood Pressure Location Lt brachial Position Sitting Respiration 16 Pulse 85 Pulse Source Monitor Temp 98.1 F Temp Source Temporal Pulse Oximetry (%) 96 Oxygen Delivery Method room air Intake Visit Reasons: LEFT ARM SWELLING REDNESS Allergies No Known Allergies Allergy (Verified 07/04/21 15:48) Medications doxycycline monohydrate 100 mg capsule 100 mg PO BID #20 cap 07/04/21 [Rx Confirmed 07/04/21] methylprednisolone 4 mg tablets in a dose pack See Rx Instructions PO PER PKG DIR #21 tab 07/04/21 [Rx Confirmed 07/04/21] propranolol 10 mg tablet 10 mg PO BID 07/04/21 [History Confirmed 07/04/21] PFSH Medical History (Updated 07/04/21 @ 16:00 by TIARA Lancaster) Cellulitis of left upper extremity Hay fever Hernia Tumor Social History (Updated 07/04/21 @ 15:52 by Zohreh Cabrales) Smoking Status: Never smoker alcohol intake: never HPI HPI Details: VANE OCHOA, is a 65 M who presents to the office today for initial evaluation approximate 24-hour history of progressive worsening erythema, warmth, swelling, pruritus, and tenderness with pinpoint black opening to center to left upper arm - unknown etiology. No complaints of fever, chills, sweats, constricted/pruritic airway or chest pressure/shortness of breath/wheeze. No oymm-uvk-ghjfjod products taken to assist with symptoms. No other associated symptoms and no alleviating or aggravating factors. ROS Const Constitutional: No other (As above) Exam Const General: cooperative, healthy appearing, comfortable and no acute distress Nutritional Appearance: average body habitus and well nourished Orientation: alert, awake and oriented x3 [facility] Head: normal to inspection Ears: hearing grossly normal bilaterally and external ears normal Nose: external nose normal and no nasal discharge Face and sinus: normal facial exam and face symmetric Mouth: oral mucosae normal, lip normal, tongue normal and oropharynx normal Teeth and gingiva: gingiva normal Throat: posterior oropharynx normal, tonsils normal, uvula midline and no postnasal drainage Eyes General: appearance normal, both eyes and all related structures Neck Neck: normal visual inspection, full ROM, no lymphadenopathy, no meningeal signs and supple Neck mass: No Thyroid: thyroid normal Lymphatic: no lymphadenopathy noted Chest Chest palpation inspection: normal inspection of the chest Resp Effort Inspection: normal respiratory effort, able to speak in complete sentences and symmetric chest movement Cardio Rate: regular rate Pulses: radial pulses present GI Inspection: normal to inspection Skin General: no rashes or lesions noted and erythema ( 6 cm diameter w/ well-circumscribed border center pinpoint black d/c) Neuro General: patient alert, patient awake, patient oriented x3 and gait normal Cognition: normal cognition Speech: speech normal Gait: normal gait Motor: muscle tone normal throughout Sensory Exam: no sensory deficits noted Extrem General: full ROM, capillary refill normal, normal exam except as noted (Except as noted in skin exam above) and no joint enlargement Psych Appearance: grossly normal Mental Status: mental status grossly normal Mood: congruent mood Affect: normal affect Speech and Movement: speech and movement normal Attitude: cooperative Thought Process: normal Thought Content: normal Judgment: judgment good Coding Level of Care Code Off vis,new,level 3 Diagnoses Cellulitis of left upper extremity L03.114 Assessment and Plan Assessment and Plan (1) Cellulitis of left upper extremity: Status: Acute Plan - Abisai MENJIVAR, PA: - consider insect/spider bite Doxycycline and Medrol Dosepak as prescribed today. Twice daily wound care with bacitracin ointment as instructed today. Rest, ice applications, Tylenol as needed for symptomatic relief. Follow-up PCP in 3 to 5 days should symptoms not improve, ED sooner should symptoms only worsen or any other concerns develop. Patient states acknowledging understanding all the above. This note was generated with [employer] dictation software. It may contain incorrect words, spelling, and punctuation that were not noted in checking the note before signing. Plan Details Other Medications: New: doxycycline monohydrate 100 mg PO BID 20 caps 0RF methylprednisolone (Medrol (Hair)) PO PER PKG DIR 21 tabs 0RF 07/04/21 1601 <Electronically signed by Abisai MENJIVAR> Date Abisai MENJIVAR Cosigner Signature: Date (if applicable) CC: Kyra Bowers DO Work Phone: Start: 05-31-2021 End: 05-31-2021 Abdomen/Pelvis without Cont Comments: See Note; NOTES: [facility] Imaging Services [address] [place] [address] Abdomen/Pelvis without Cont MR#: [id number] Acct: [id number] Name: VANE OCHOA Rep #: [id number] : 1955 M 65 From: Tremayne Aviles MD PCP: Dr. Kyra Bowers, Status: REG CLI Study: Abdomen/Pelvis without Cont Date of Exam: 05/10 01/27 Exam# [id number] Ordering Dr: Kyra Bowers DO STUDY: CT ABDOMEN AND PELVIS WITHOUT CONTRAST REASON FOR EXAM: Male, 65 years old. Microscopic hematuria RADIATION DOSAGE (If Supplied By Facility): CTDIvol = ( 6.13 ) mGy, DLP = ( 290.02 ) mGycm TECHNIQUE: Transaxial images were obtained from the dome of the diaphragm to the symphysis pubis without oral contrast, and without intravenous contrast. Sagittal and coronal images were reconstructed. Individualized dose optimization techniques were used for this CT. COMPARISON: None. FINDINGS: The visualized lung bases are unremarkable. The visualized portions of the heart are within normal limits. Normal liver. Normal gallbladder and extrahepatic biliary system. There are multiple benign calcified granulomata of the spleen. Normal pancreas. Normal bilateral adrenal glands. Normal right kidney. Normal left kidney. Normal visualized stomach. Normal small intestine. There are multiple colonic diverticula consistent with diverticulosis. The appendix is visualized and appears normal. Appendix seen on coronal recon images 44 through 49 Normal abdominal aorta. Normal inferior vena cava. Normal retroperitoneum. Normal urinary bladder. There are prostatic calcifications. Normal abdominal wall. There are diffuse degenerative changes of the visualized lumbar spine, and pelvis. CT/Abdomen/Pelvis without Cont IMPRESSION: No suspicious solid organ abnormality, specifically, no obstructive uropathy. Colonic diverticulosis Normal appendix visualized Degenerative bony changes Electronically Signed: Freddie Aviles MD at 16:32 EDT , Service support , CC: Dr. Kyra Bowers DO Third Loader: Signed Kyra Bowers DO Work Phone: Start: 03-23-2020 End: 03-23-2020 HIP, UNI W/ Pelvis 2-3 Views Comments: See Note; NOTES: [facility] Imaging Services [address] [place] [address] HIP, UNI W/ Pelvis 2-3 Views MR#: [id number] Acct: [id number] Name: VANE OCHOA Rep #: [id number] : 1955 M 64 From: Dewayne vázquez MD PCP: Dr. Evelia Feng DO Status: REG CLI Study: HIP, UNI W/ Pelvis 2-3 Views Date of Exam: Exam# [id number] Ordering Dr: Kyra Bowers DO STUDY: X-RAY - PELVIS AND LEFT HIP REASON FOR EXAM: Male, 64 years old. HIP PAIN, NO TRAUMA TECHNIQUE: 3 views of the pelvis and hip. COMPARISON: None. FINDINGS: There is a non-specific bowel gas pattern. Metallic coils are seen in the left hemipelvis included with the prior hernia repair. Normal bilateral iliac wings, sacroiliac joints and visualized sacrum. Normal bilateral superior and inferior pubic rami. Normal pubic symphysis. Normal bilateral ischial tuberosities. Normal visualized femoral head. There is osteoarthritic spur formation of the acetabular rim. There is mild articular joint space narrowing of the hip. RAD/HIP, UNI W/ Pelvis 2-3 Views IMPRESSION: Degenerative changes of the left hip joint. Electronically Signed: Dewayne Sanchez, at 12:49 EDT , Service support , CC: Dr. Evelia Feng DO; Dr. Kyra Bowers DO Third Loader: Signed Kyra Bowers Work Phone: Start: 03-23-2020 End: 03-23-2020 Shoulder min 2 Views Comments: See Note; NOTES: [facility] Imaging Services [address] [place] [address] Shoulder min 2 Views MR#: [id number] Acct: [id number] Name: VANE OCHOA Rep #: [id number] : 1955 M 64 From: Dewayne vázquez MD PCP: Dr. Evelia Feng DO Status: REG CLI Study: Shoulder min 2 Views Date of Exam: 03/23/20 Exam# [id number] Ordering Dr: Kyra Bowers DO STUDY: X-RAY - RIGHT SHOULDER REASON FOR EXAM: Male, 64 years old. SHOULDER PAIN, NO TRAUMA TECHNIQUE: 4 view(s) of the shoulder. COMPARISON: None. FINDINGS: Normal glenohumeral articulation. Normal acromioclavicular joint. Normal acromion. Normal humeral head and visualized proximal humerus. The soft tissue structures are unremarkable. Normal visualized pulmonary apex. RAD/Shoulder min 2 Views IMPRESSION: Normal x-ray examination of the shoulder. Electronically Signed: Dewayne Sanchez, at 12:48 EDT , Service support , CC: Dr. Evelia Feng DO; Dr. Kyra Bowers DO Third Loader: Signed Kyra Bowers Work Phone: Start: 11-27-2015 End: 11-27-2015 Abdomen/Pelvis WITH Contrast Comments: See Note; NOTES: [facility] Imaging Services [address] [place] [address] Verdana 4d Abdomen/Pelvis WITH Contrast MR#: [id number] Acct: [id number] Name: DONVANE Quita Rep #: [id number] : 1955 M 59 From: Mckay Orzoco DO PCP: Evelia Feng DO Status: REG CLI Study: Abdomen/Pelvis WITH Contrast Date of Exam: 11/27/15 Exam# [id number] Ordering Dr: Evelia Feng DO STUDY: CT ABDOMEN AND PELVIS WITH CONTRAST REASON FOR EXAM: Male, 59 years old. Left-sided abdominal and flank pain. History of left inguinal hernia repair. RADIATION DOSAGE (If Supplied By Facility): CTDIvol = ( 10.91 ) mGy, DLP = ( 1086.83 ) mGycm TECHNIQUE: Transaxial images were obtained from the dome of the diaphragm to the symphysis pubis with oral contrast. 100ml ml of Isovue 300 contrast was administered. Sagittal and coronal images were reconstructed. COMPARISON: None. FINDINGS: The visualized lung bases are unremarkable. The visualized portions of the heart are within normal limits. The liver is of normal size contour and density. There are multiple hypodense foci suggesting small cysts. The largest lies in segment 2 of the liver and measures 1 cm in diameter. The gallbladder is partially contracted. There is no biliary ductal abnormality. Calcified granulomata within the otherwise normal spleen. Normal pancreas. Normal bilateral adrenal glands. Post kidneys are of normal size and cortical thickness. There is no focal mass or renal calculi. There is no hydronephrosis. There is normal bilateral uptake and excretion of contrast material. Normal bilateral ureters. Normal visualized stomach. Normal small intestine. There is sigmoid diverticuli without acute inflammatory change. The appendix is visualized and appears normal. Normal abdominal aorta. Normal inferior vena cava. Normal retroperitoneum. Normal urinary bladder. The prostate is enlarged with coarse calcifications. Prominent seminal vesicles. There is no pelvic lymphadenopathy or mass. No free air or free fluid is seen within the abdominal cavity. There is evidence of previous left inguinal herniorrhaphy. There is persistent herniation of omental fat. Similarly, omental fat is seen in the right inguinal canal. There are degenerative changes of the lumbar spine and hips. IMPRESSION: 1. Hepatic cysts. 2. Evidence of old granulomatous disease. 3. Sigmoid diverticulosis without acute inflammatory change. 4. Enlarged prostate. 5. Evidence of left inguinal herniorrhaphy it is persistent herniation of omental fat. Electronically Signed: Mckay Orozco DO at 23:30 EST Tel [phone], Service support [phone], CC: Evelia Feng DO Third Loader: Signed Evelia Feng Work Phone: Start: 11-20-2015 End: 11-20-2015 Ribs Unil 2V No CXR Comments: See Note; NOTES: [facility] Imaging Services [address] [place] [address] Verdana 4d Ribs Unil 2V No CXR MR#: [id number] Acct: [id number] Name: VANE OCHOA Rep #: [id number] : 1955 M 59 From: John Christianson MD PCP: Evelia Feng DO Status: REG CLI Study: Ribs Unil 2V No CXR Date of Exam: 11/20/15 Exam# [id number] Ordering Dr: Evelia Feng DO STUDY: X-RAY - UNILATERAL RIBS ( LEFT ) REASON FOR EXAM: Male, 59 years old. Left posterior rib pain. No trauma TECHNIQUE: 4 view(s) of the ribs. COMPARISON: None. FINDINGS: Normal visualized ribs without a demonstrated fracture. There is a calcified granuloma in the left lung. There is a calcified lymph node in the aortopulmonary window IMPRESSION: No rib lesions noted. Electronically Signed: John Christianson MD, FACR at 20:06 EST , Service support [phone], RAD/Ribs Unil 2V No CXR IMPRESSION: No rib lesions noted. Electronically Signed: John Christianson MD, FACR at 20:06 EST , Service support [phone], CC: Evelia Feng DO Third Loader: Signed Evelia Feng Work Phone: Start: 11-20-2015 End: 11-20-2015 Chest PA and Lateral Comments: See Note; NOTES: [facility] Imaging Services [address] [place] [address] Verda 4d Chest PA and Lateral MR#: [id number] Acct: [id number] Name: VANE OCHOA Rep #: [id number] : 1955 M 59 From: John Christianson MD PCP: Evelia Feng DO Status: REG CLI Study: Chest PA and Lateral Date of Exam: 11/20/15 Exam# [id number] Ordering Dr: Evelia Feng DO STUDY: X-RAY CHEST REASON FOR EXAM: Male, 59 years old. Left posterior rib pain. No trauma TECHNIQUE: PA and lateral views of the chest. COMPARISON: None. FINDINGS: There is a calcified granuloma in the left upper lobe. There is hyperexpansion of the lungs There is no demonstrated pleural abnormality. There is a calcified lymph node in the aortopulmonary window normal rashida Normal visualized pulmonary arteries. Normal visualized aortic arch and descending thoracic aorta. There are diffuse degenerative changes of the visualized thoracic spine. Normal visualized ribs, clavicles, and shoulders. There is no demonstrated abnormality of the visualized soft tissue structures of the upper abdomen. IMPRESSION: COPD. Old granulomatous disease. No acute disease noted Electronically Signed: John Christianson MD, FACR at 20:04 EST , Service support [phone], RAD/Chest PA and Lateral IMPRESSION: COPD. Old granulomatous disease. No acute disease noted Electronically Signed: John Christianson MD, FACR at 20:04 EST , Service support [phone], CC: Evelia Feng DO Third Loader: Signed Evelia Feng Work Phone: Start: 11-15-2015 End: 11-19-2015 Testicular with Arterial Flow Comments: See Note; NOTES: [facility] Imaging Services [address] [place] [address] Verdana 4d Testicular with Arterial Flow MR#: [id number] Acct: [id number] Name: VANE OCHOA Rep #: [id number] : 1955 M 59 From: Tony Rodriguez MD PCP: Evelia Feng DO Status: REG CLI Study: Testicular with Arterial Flow Date of Exam: 11/15/15 Exam# [id number] Ordering Dr: Evelia Feng DO STUDY: SCROTUM ULTRASOUND REASON FOR EXAM: Male, 59 years old. Bilateral testicular pain TECHNIQUE: Ultrasound evaluation of the scrotum was performed with color Doppler and static engel-scale imaging. COMPARISON: None. FINDINGS: RIGHT TESTICLE INTRATESTICULAR: There is a normal size of the right testicle. The right testicle measures 3.3 x 2.4 x 1.6 cm. There is a homogenous echotexture. There is normal arterial and normal venous vascularity. There is no demonstrated right testicular mass or cyst. EXTRATESTICULAR: The epididymal head is normal in size. The epididymis head measures 1.2 x 1.2 x 0.8 cm. There is normal vascularity of the epididymis. There is a 0.6 x 0.5 x 0.4 CM right epididymal head cyst. There is no demonstrated hydrocele. There is no demonstrated varicocele. There is no demonstrated extratesticular mass or cyst. Lateral to the right testicle is a hypoechoic cord measuring approximately 5 mm in diameter. This is of unknown etiology or significance. LEFT TESTICLE INTRATESTICULAR: There is a normal size of the left testicle. The left testicle measures 3.4 x 2.5 x 1.5 cm. There is a homogenous echotexture. There is normal arterial and normal venous vascularity. There is no demonstrated left testicular mass or cyst. Several left testicular microcalcifications are present. EXTRATESTICULAR: The epididymal head is normal in size. The epididymis head measures 0.9 x 0.9 x 1.0 cm. There is normal vascularity of the epididymis. There is an epididymal head cyst measuring 0.3 x 0.4 x 0.3 CM. There is no demonstrated hydrocele. There is no demonstrated varicocele. There is no demonstrated extratesticular mass or cyst. Lateral to the left testicle there is an anechoic cord measuring 0.4 CM in diameter. This is of unknown etiology or significance. IMPRESSION: 1. Mild left testicular microlithiasis. 2. 4 mm anechoic cord lateral to the left testicle. 5 mm hypoechoic linear structure lateral to the right testicle. These are of unknown etiology or significance. 3. Bilateral epididymal head cysts. Electronically Signed: Tony Rodriguez MD at 23:14 EST , Service support [phone], CC: Evelia Feng DO Third Loader: Signed Evelia Feng Work Phone: Start: 07-31-2014 End: 07-31-2014 NCS and/or EMG Patient Comments: See Note; NOTES: [facility] Pulmonary Services/Neurology [address] [place] [address] NCS and/or EMG Patient MR#: [id number] Acct: [id number] Name: VANE OCHOA Rep #: [id number] : 1955 58 From: Bridget Bañuelos MD Referring Dr: Evelia Feng DO Status: REG CLI Ordering Dr: Evelia Feng DO Date: 07/26/14 Location: [facility] Sex: M C The patient presents for electrodiagnostic testing of the upper extremities. He has chief complaint of numbness in both hands and occasional tremors in the hands. ELECTRODIAGNOSTIC FINDINGS: On nerve conduction study, median motor nerve demonstrates normal distal latency , amplitude, and conduction velocity bilaterally. Ulnar motor responses are within normal limits, including conduction velocity across the elbow. Prolonged median sensory distal latency bilaterally. Prolonged right median palmar response. Ulnar sensory response is within normal limits. Radial sensory responses are normal. On needle EMG, all muscles tested in the upper limbs showed no evidence of denervation with normal motor unit action potentials. ELECTRODIAGNOSTIC IMPRESSION: This is an abnormal study. Electrodiagnostic evidence is consistent with bilateral median mononeuropathy. This is consistent with a mild bilateral carpal tunnel syndrome. If there are any questions in regards to this exam, please do not hesitate to contact me. Sincerely, 07/31/14 1356 <Electronically signed by Bridget Bañuelos MD> Date Bridget Bañuelos MD CC: Bridget Bañuelos MD; Evelia Feng DO Date Dictated: 07/26/14 1210 Date Transcribed: 07/26/14 1250 Third Loader: GULSHAN Signed Kyra Bowers Start: 02-24-2014 End: 03-07-2014 Ankle min 3 Views Comments: See Note; NOTES: [facility] Imaging Services [address] [place] [address] Radiology Report MR#: [id number] Acct: [id number] Name: VANE OCHOA Rep #: [id number] : 1955 M 58 From: Dewayne Sanchez MD PCP: Pavan Downey MD Status: REG CLI Study: Ankle min 3 Views Date of Exam: 02/24/14 Exam# [id number] Ordering Dr: Evelia Feng DO ADDENDUM by Dewayne Sanchez MD on 03/07/14 at 1618 ADDENDUM This is an addendum report for billing purposes. 3 views were obtained. Electronically Signed: Dewayne Sanchez MD at 16:18 EDT Tel [phone], Service support [phone], 03/07/14 6541 Date cc: Evelia Feng DO; Pavan Downey MD * Signed STUDY: X-RAY - LEFT ANKLE REASON FOR EXAM: Male, 58 years old. Heel pain. TECHNIQUE: 30 view(s) of the ankle. COMPARISON: None. FINDINGS: Normal visualized distal tibia and fibula. Normal medial and lateral malleoli. Normal tibiotalar articulation and ankle mortise. Plantar spur. The visualized subtalar, talonavicular, calcaneocuboid and tarsal articulations are normal. IMPRESSION: Plantar spur. Electronically Signed: Dewayne Sanchez MD at 13:02 EDT Tel [phone], Service support [phone], RAD/Ankle min 3 Views IMPRESSION: Plantar spur. Electronically Signed: Dewayne Sanchez MD at 13:02 EDT Tel [phone], Service support [phone], CC: Evelia Feng DO; Pavan Downey MD Third Loader: Signed Evelia Feng Work Phone: Start: 02-24-2014 End: 02-27-2014 Foot min 3 Views Comments: See Note; NOTES: [facility] Imaging Services [address] [place] [address] Radiology Report MR#: [id number] Acct: [id number] Name: VANE OCHOA Rep #: [id number] : 1955 58 From: Dewayne Sanchez MD PCP: Pavan Downey MD Status: REG CLI Study: Foot min 3 Views Date of Exam: 02/24/14 Exam# [id number] Ordering Dr: Evelia Feng DO STUDY: X-RAY - LEFT FOOT CLINICAL: Male, 58 years old. Heel pain. TECHNIQUE: 3 view(s) of the foot. COMPARISON: None. FINDINGS: There is a plantar calcaneal spur. Normal visualized subtalar, talonavicular, calcaneocuboid, tarsal and tarsometatarsal articulations. Normal metatarsi. 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 Normal tibial and fibular sesamoid bones. Normal interphalangeal joint of the great toe. Normal phalanges of the great toe. Normal second through fifth metatarsophalangeal joints. Normal interphalangeal joints and phalanges of the lesser toes. The soft tissue structures are unremarkable. IMPRESSION: Plantar spur. Electronically Signed: Dewayne Sanchez MD at 13:02 EDT Tel [phone], Service support [phone], CC: Evelia Feng DO; Pavan Downey MD Third Loader: Signed Evelia Feng Work Phone: Hernia-inguinal Sonya Ocampo Comment on above: Date: 12/13/2014. Hernia-inguinal Teresa Gravi us Comment on above: Date: 12/13/2014. Hernia-inguinal Teresa Gravi us Comment on above: Date: 12/13/2014. Hernia-inguinal Teresa Gravi us Comment on above: Date: 12/13/2014. Hernia-inguinal Teresa Gravi us Comment on above: Date: 12/13/2014. Hernia-inguinal Teresita Slarb Comment on above: Date: 12/13/2014. Hernia-inguinal Teresa Gravi us LAUNDRY MANAGER Comment on above: Date: 12/13/2014. Hernia-inguinal Darlene Elizabeth hak LAUNDRY MANAGER Comment on above: Date: 12/13/2014. Hernia-inguinal Isaac Salamanca CIGAR PACKER Comment on above: Date: 12/13/2014. Hernia-inguinal Teresa Gravi us LAUNDRY MANAGER Comment on above: Date: 12/13/2014. Hernia-inguinal Teresita Slarb CIGAR PACKER Comment on above: Date: 12/13/2014. Hernia-inguinal Teresa Gravi us LAUNDRY MANAGER Comment on above: Date: 12/13/2014. Hernia-inguinal Kayela Radfo rd LAUNDRY MANAGER Comment on above: Date: 12/13/2014. Hernia-inguinal Kayela Radfo rd LAUNDRY MANAGER Comment on above: Date: 12/13/2014. Hernia-inguinal Kayela Radfo rd LAUNDRY MANAGER Comment on above: Date: 12/13/2014. Hernia-inguinal Teresita Slarb CIGAR P[employer]ER Comment on above: Date: 12/13/2014. Hernia-inguinal Tameka Feranndez [place] Comment on above: Date: 12/13/2014. Plan of Treatment Date Care Activity Detail Author Start: 2030 RSV Vaccine (1 - 1-d ose 75+ series) RSV Vaccine (1 - 1-dose 75+ series) [facility] Start: 05-01-2025 ambulatory Ambulatory Facility:[facility] Start: 11-09-2024 Advance Directive Discussion Advance Directive Discussion [facility] Start: 07-10-2024 Covid-19 Vaccine () Covid-19 Vaccine ( season) [facility] Start: 07-10-2024 Influenza vaccination Influenza Vacc ine (#1) [facility] Start: 07-21-2023 Procedure Education Eprescribe d prescriptions (G8553) [facility] Work Phone: Start: 06-01-2023 Procedure Education Eprescribe d prescriptions (G8553) [facility]; [facility] Work Phone: Start: 06-01-2023 Provider Instruction s for Treatment *Trigger Point Injections [facility]; [facility] Work Phone: Start: 01-09-2023 Adult depression screening assessment DEPRESSION SCREENING [facility] Start: 12-22-2022 INHOUSE COVID 19 (ON LY) RAPID (77497) INHOUSE COVID 19 (ONLY) RAPID (41908) [facility]; [facility] Work Phone: Start: 12-22-2022 Procedure Education Eprescribe d prescriptions (G8553) [facility]; [facility] Work Phone: Start: 11-09-2022 ADVANCE DIRECTIVE DISCUSSION ADVANCE DIRECTIVE DISCUSSION [facility] Start: 11-09-2022 DEPRESSION ASSESSMENT DEPRESSION ASS ESSMENT [facility] Start: 10-16-2022 Procedure Education Eprescribe d prescriptions (G8553) [facility]; [facility] Work Phone: Start: 10-16-2022 Provider Instruction s for Treatment Reviewed Lab [facility]; [facility] Work Phone: Start: 10-14-2022 Provider Instruction s for Treatment [facility]; [facility] Work Phone: Start: 07-10-2022 Influenza vaccination INFLUENZA (#1) [facility] Start: 06-11-2022 Procedure Education Eprescribe d prescriptions (G8553) [facility]; [facility] Work Phone: Start: 06-11-2022 Provider Instruction s for Treatment *Trigger Point Injections [facility]; [facility] Work Phone: Start: 04-30-2022 Procedure Education Eprescribe d prescriptions (G8553) [facility]; [facility] Work Phone: Start: 04-28-2022 Culture bct isol&prs mptv id isolate ea urine URINE JOHNSON CULTURE-IDENTIFICATN (67192) [facility]; [facility] Work Phone: Start: 02-19-2022 Procedure Education Eprescribe d prescriptions (G8553) [facility]; [facility] Work Phone: Start: 02-19-2022 Provider Instruction s for Treatment *Trigger Point Injections [facility]; [facility] Work Phone: Start: 11-27-2021 Procedure Education Eprescribe d prescriptions (G8553) [facility]; [facility] Work Phone: Start: 11-09-2021 ADVANCE DIRECTIVE DISCUSSION ADVANCE DIRECTIVE DISCUSSION [facility] Start: 10-25-2021 Procedure Education Eprescribe d prescriptions (G8553) [facility]; [facility] Work Phone: Start: 10-25-2021 Provider Instruction s for Treatment [facility]; [facility] Work Phone: Start: 10-25-2021 Lipid panel LIPID PANEL (77400) [facility]; [facility] Work Phone: Comment on above: do lab in february Start: 10-25-2021 Cyanocobalamin vitam in b-12 VITAMIN B-12 (CYANOCOBALAMIN) (13906) [facility]; [facility] Work Phone: Comment on above: do lab infebruary Start: 10-07-2021 Procedure Education Eprescribe d prescriptions (G8553) [facility]; [facility] Work Phone: Start: 06-07-2021 Assay of prostate specific antigen total PSA (PROSTATE SPECIFIC ANTIGEN) (06881) [facility]; [facility] Work Phone: Start: 05-31-2021 Procedure Education Eprescribe d prescriptions (G8553) [facility]; [facility] Work Phone: Start: 04-26-2021 Procedure Education Eprescribe d prescriptions (G8553) [facility]; [facility] Work Phone: Start: 02-15-2021 Procedure Education Eprescribe d prescriptions (G8553) [facility]; [facility] Work Phone: Start: 2020 PNEUMOCOCCAL: 65+ (1 - PCV) PNEUMOCOCCAL: 65+ (1 - PCV) [facility] Start: 07-06-2020 Procedure Education Eprescribe d prescriptions (G8553) [facility] Work Phone: Start: 03-30-2020 Procedure Education Eprescribe d prescriptions (G8553) [facility] Work Phone: Start: 03-30-2020 Provider Instruction s for Treatment Shave Biopsy with Epi [facility] Work Phone: Start: 03-23-2020 Procedure Education Eprescribe d prescriptions (G8553) [facility] Work Phone: Start: 01-16-2020 Procedure Education Eprescribe d prescriptions (G8553) [facility] Work Phone: Start: 01-16-2020 Provider Instruction s for Treatment Shave Biopsy without Epi- nose - sent to pathology [facility] Work Phone: Start: 12-28-2019 Patient Education Flu (Influenza) *: flu [facility] Work Phone: Start: 12-28-2019 Procedure Education Eprescribe d prescriptions (G8553) [facility] Work Phone: Start: 09-19-2019 Procedure Education Eprescribe d prescriptions (G8553) [facility] Work Phone: Start: 09-19-2019 Provider Instruction s for Treatment Reviewed Lab [facility] Work Phone: Start: 09-12-2019 Blood count manual c ell count each CBC WITH MANUAL DIFF (79373) [facility] Work Phone: Start: 09-12-2019 Antibody broderick-bar r eb virus early antigen ea EBV Panel (23815) [facility] Work Phone: Start: 04-11-2019 Procedure Education Eprescribe d prescriptions (G8553) [facility] Work Phone: Start: 04-11-2019 Provider Instruction s for Treatment *Trigger Point Injections- billateral ring fingers of R and L hand [facility] Work Phone: Start: 01-15-2015 Provider Instruction s for Treatment Follow up if no improvement or if symptoms worsen [facility] Work Phone: Start: 10-24-2014 Patient Education Groin (Ingui nal) Hernia: groin [facility] Work Phone: Start: 10-23-2014 Provider Instruction s for Treatment Shingles Vaccine Education 2005 [facility] Work Phone: Start: 03-23-2012 Procedure Education Laceration Com [facility] Work Phone: Start: 03-23-2012 Provider Instruction s for Treatment Follow up in 10 days [facility] Work Phone: Start: 2010 PROSTATE CANCER SCREENING DISCUSSION PROSTATE CANCER SCREENING DISCUSSION [facility] Start: 2010 Prostate specific antigen measurement Prostate Cancer Screening Discussion [facility] Start: 2005 Pneumococcal Vaccine : 50+ (1 of 1 - PCV) Pneumococcal Vaccine: 50+ (1 of 1 - PCV) [facility] Start: 2005 SHINGRIX VACCINE (1 of 2) SHINGRIX VACCINE (1 of 2) [facility] Start: 2000 COLOGUARD (FIT-DNA) COLOGUARD (FIT-D NA) [facility] Start: 2000 Colonoscopy COLONOSCOPY [facility] Start: 2000 COLORECTAL CANCER SCREENING COLORECTAL CANCER SCREENING [facility] Start: [address] COLONOGRAPHY [facility] Start: 2000 [facility] Start: 2000 Diabetes Screening Diabetes Screenin g [facility] Start: 2000 FECAL OCCULT BLOOD FECAL OCCULT BLOO D [facility] Start: 2000 Screening for malign ant neoplasm of colon [facility] Start: 2000 SIGMOIDOSCOPY SIGMOIDOSCOPY [facility] Start: 1990 Lipid panel Lipid Screening [facility] Start: 1990 LIPID SCREEN LIPID SCREEN [facility] Start: 1974 Urine microalbumin profile [facility] Start: 1973 Anxiety Screening Anxiety Screening [facility] Start: 1973 Depression Screening Depression Scre ening [facility] Start: 1973 HEPATITIS C SCREENING HEPATITIS C [facility] Start: 1973 Hepatitis C screening Hepatitis C [facility] Start: 06-13-1956 COVID-19 VACCINE (#1) COVID-19 VACCI NE (#1) [facility] Work Phone: [facility] Work Phone: [facility] Work Phone: [facility] Work Phone: [facility] Work Phone: [facility] Work Phone[facility] Work Phone[facility] Work Phone: [facility] Work Phone: [facility] Work Phone: Hernia, inguinal : Groin (Inguinal) Hernia: groin [facility] Work Phone: Unspecified open wound of other finger without damage to nail, initial encounter : Laceration [facility] Work Phone: [facility] Work Phone: [facility] Work Phone[facility] Work Phone: [facility] Work Phone: [facility] Work Phone: [facility] Work Phone: [facility] Work Phone: [facility] Work Phone: [facility] Work Phone: [facility] Work Phone: [facility] Work Phone: [facility] Work Phone: [facility] Work Phone: [facility] Work Phone: [facility] Work Phone: [facility] Work Phone: [facility] Work Phone: Payers Date Payer Category Payer Self-pay 2023 Medicare (Managed Care) [employer] [id number] 2022 Medicare [employer] MEDICARE [employer] MEDICARE PPO [id number] 2022-Present [phone] [address] [address] [place] [address] PPO [id number] 2021 Private Health Insurance [id number] 2021 Unknown [id number] 2014 Unknown 2004 Private Health Insurance [employer] [id number] 1955 Unknown [id number] Unknown [id number] Unknown [id number] Unknown [id number] Unknown [id number] Unknown [id number] Unknown [id number] Unknown [id number] Unknown [id number] Social History Date Type Detail Facility Start: 01-04-2024 End: 12-26-2024 Alcohol Use Never smoker [facility] Work Phone: Tobacco use: Never smoker. [facility] Work Phone: Tobacco use: Tobacco use: [facility] Work Phone: Start: 11-23-2014 End: 04-27-2025 Tobacco smoking status MSIS Never smoked tobacco [facility] Work Phone: Start: 11-23-2014 Tobacco use and exposure Smokeless tobacco non-user [facility] Work Phone: Start: 01-09-2022 End: 12-26-2024 Alcohol intake Current drinker of alcohol (finding) [facility] Start: 11-23-2014 History SDOH Alcohol Comment 1-3/week [facility] Start: 1955 Sex Assigned At Not on file [facility] Start: 01-04-2024 End: 12-26-2024 Tobacco use panel [facility] Adult Depression Screening Assessment 0 [facility] Start: 1955 Sex Assigned At Male W [facility] Medical Equipment Procedure Code Equipment Code Equipment Origin al Text Equipment Identifier Dates Mesh Srg 3dmax 6 x4in Lt Groin - [id number] Start: 12-13-2014 Functional Status Date Assessment Result Facility 01-22-2015 Are you deaf, or do you have serious difficulty hearing No 01/22/2015 12:51 PM Gianluca Gleason [facility] 01-22-2015 Are you blind, or do you have serious difficulty seeing, even when wearing glasses No 01/22/2015 12:51 PM Gianluca Gleason [facility] 01-22-2015 Do you have serious difficulty walking or climbing stairs No 01/22/2015 12:51 PM Gianluca Gleason [facility] 01-22-2015 Do you have difficul ty dressing or bathing No 01/22/2015 12:51 PM Gianluca Gleason [facility] 01-22-2015 Because of a physica l, mental, or emotional condition, do you have difficulty doing errands alone such as visiting a physician's office or shopping No 01/22/2015 12:51 PM Gianluca Gleason [facility] Mental Status Date Assessment Result Facility 01-22-2015 Because of a physica l, mental, or emotional condition, do you have serious difficulty concentrating, remembering, or making decisions No 01/22/2015 12:51 PM Gianluca Gleason [facility] Clinical Notes 07-18-2022 to 03-15-2025 Miladys Carter MD - 12/26/2024 9:44 AM Daniel Carter MD - 01/09/2023 7:31 AM ESTTelephone Encounter - Miladys Carter MD - 07/18/2022 2:42 PM EDT Note Date & Type Note Facility 03-15-2025 Procedure note [facility] 12-26-2024 Note HNO ID: [id number] Author: MILADYS CARTER MD Service: ? Author Type: Physician Type: Progress Notes Filed: 12/26/2024 12:19 Note Text: [facility] - FOLLOW UP EVALUATION [facility] Neurologist: Miladys Carter MD [facility] SHIRA: yKra Bowers DO, DO [address] [facility] [address] [facility] [address] Dear Kyra Bowers DO DO: I had the pleasure of seeing Mr. Ochoa for follow-up today. As you know he is a 69 year old right-handed male with a history of ET since 2012. He is seen alone. Subjective Previous Plan- 01/04/2024 Visit: Continue your medications as you have been taking them. We are not making any changes today. If you feel you are not tolerating them or your symptoms are changing before your next appointment, please feel free to send me a Adiana message or contact the office - Interval History: About the same. Tremor unchanged. Occasionally worse but it doesn't last. Hasn't identified any triggers. If hungry maybe. No propranolol side effects. No lightheadedness. Balance is fine. No falls. Movement Disorders Medications Schedule - as of the start of the visit: Medications propranolol ER 120 mg daily Other Movement Disorder Prior Therapies Topiramate Questionnaires: In addition, the following areas that may be affected by abnormal involuntary movements were evaluated: Daily activities Difficulties with eating: Yes (slight) tremor Difficulties in dressin (none) Difficulties with hygiene activities: 0 (none) Difficulties with handwriting: Yes (slight) variable. shaky when bad but always legible. Difficulties with doing hobbies and other activities: 0 (none) Difficulties turning in bed: 0 (none) Difficulties getting out of bed, car or chair: 0 (none) Tremors/Gait/Balance Shaking or tremors: Yes (mild) Walking and balance problems: 0 (none) Number of falls in the Last Month: 0 Gait freezin (none) Autonomic/Pain Lightheadeness on standin (none) Urinary problems: 0 (none) Constipation problems: 0 (none) Pain and other sensations: 0 (none) Speech/Swallowing Speech problems: 0 (none) Droolin (none) Chewing and swallowing problems: 0 (none) Sleep/Fatigue Sleep problems: 0 (none) Daytime sleepiness: 0 (none) Fatigue: 0 (none) Mood/Behavior Depression: PHQ-9 Score: 0 usually representing no significant (0-4) depression. Anxiety: GERSON-7 Total Score: 0 usually representing no significant (0-4) anxiety. Finally, the following table shows the patient's overall global physical and mental health using the PROMIS scale: PROMIS-10 Flowsheet Row Office Visit from 12/26/2024 in Neurology Office Visit from 01/04/2024 in Neurology Global Physical Health T Score 57.7 57.7 Global Mental Health T Score 56 53.3 0-10 Standard Pain Scale 4 5 *PROMIS-10 scoring scale: mean = 50, over 50 is above average, under 50 is below average ALLERGIES No Known Allergies Current Outpatient Medications Medication Sig rosuvastatin (CRESTOR) 10 mg tablet dupilumab (DUPIXENT PEN) 300 mg/2 mL pen injection Inject subcutaneously every 2 weeks. propranolol ER (INDERAL LA) 120 mg 24 hr capsule Take 1 capsule by mouth once daily. No current facility-administered medications for this visit. Objective Vital Signs: BP 129/80 (BP Site: Left Arm, BP Position: Sitting, BP Cuff Size: Regular Adult) Pulse 73 Wt 79.8 kg (175 lb 14.8 oz) SpO2 98% BMI 25.24 kg/m? Orthostatic Vitals: None for this encounter Weight: 79.8 kg (175 lb 14.8 oz) No LMP for male patient. Body mass index is 25.24 kg/m?. General Physical Examination: General: Awake, alert, interactive, no acute distress, good nutritional status, normal development, well-kept General Neurological Examination: Neurological Exam Mental Status Awake and alert. Language is fluent with no aphasia. Motor Bilateral upper extremity action/postural tremors, worse on right.. Gait Casual gait is normal including stance, stride, and arm swing. Assessment and Plan: Assessment Mr. Ochoa is a right-handed 69 year old year old male with ET. His tremor is manageable with current treatment regimen. The following are the current problems noted and addressed during this visit: Essential tremor (primary encounter diagnosis) Plan 12/26/2024 Visit: For tremor - continue propranolol at current dose Updated Movement Disorders Medication Schedule: Medications propranolol ER 120 mg daily Return at or around: 12/26/25 Thank you for allowing me to be part of the clinical care of this patient! I look forward to continued participation in the patient?s care with you. Please do not hesitate to call with any questions. Sincerely, Miladys Carter MD [facility] 12-26-2024 History of Present illness Narrative [facility] - FOLLOW UP EVALUATION Primary Movement Disorders Neurologist: Miladys Carter MD Primary Movement Disorders SHIRA: Kyra Bowers DO, DO [address] [facility] [address] [facility] [id number] Dear Kyra Bowers DO, DO: I had the pleasure of seeing Mr. Ochoa for follow-up today. As you know he is a 69 year old right-handed male with a history of ET since 2012. He is seen alone. Subjective Previous Plan- 01/04/2024 Visit: Continue your medications as you have been taking them. We are not making any changes today. If you feel you are not tolerating them or your symptoms are changing before your next appointment, please feel free to send me a Adiana message or contact the office - Interval History: About the same. Tremor unchanged. Occasionally worse but it doesn't last. Hasn't identified any triggers. If hungry maybe. No propranolol side effects. No lightheadedness. Balance is fine. No falls. Movement Disorders Medications Schedule - as of the start of the visit: Medications propranolol ER 120 mg daily Other Movement Disorder Prior Therapies Topiramate Questionnaires: In addition, the following areas that may be affected by abnormal involuntary movements were evaluated: Daily activities Difficulties with eating: Yes (slight) tremor Difficulties in dressin (none) Difficulties with hygiene activities: 0 (none) Difficulties with handwriting: Yes (slight) variable. shaky when bad but always legible. Difficulties with doing hobbies and other activities: 0 (none) Difficulties turning in bed: 0 (none) Difficulties getting out of bed, car or chair: 0 (none) Tremors/Gait/Balance Shaking or tremors: Yes (mild) Walking and balance problems: 0 (none) Number of falls in the Last Month: 0 Gait freezin (none) Autonomic/Pain Lightheadeness on standin (none) Urinary problems: 0 (none) Constipation problems: 0 (none) Pain and other sensations: 0 (none) Speech/Swallowing Speech problems: 0 (none) Droolin (none) Chewing and swallowing problems: 0 (none) Sleep/Fatigue Sleep problems: 0 (none) Daytime sleepiness: 0 (none) Fatigue: 0 (none) Mood/Behavior Depression: PHQ-9 Score: 0 usually representing no significant (0-4) depression. Anxiety: GERSON-7 Total Score: 0 usually representing no significant (0-4) anxiety. Finally, the following table shows the patient's overall global physical and mental health using the PROMIS scale: PROMIS-10 Flowsheet Row Office Visit from 12/26/2024 in Neurology Office Visit from 01/04/2024 in Neurology Global Physical Health T Score 57.7 57.7 Global Mental Health T Score 56 53.3 0-10 Standard Pain Scale 4 5 *PROMIS-10 scoring scale: mean = 50, over 50 is above average, under 50 is below average ALLERGIES No Known Allergies Current Outpatient Medications Medication Sig rosuvastatin (CRESTOR) 10 mg tablet dupilumab (DUPIXENT PEN) 300 mg/2 mL pen injection Inject subcutaneously every 2 weeks. propranolol ER (INDERAL LA) 120 mg 24 hr capsule Take 1 capsule by mouth once daily. No current facility-administered medications for this visit. Objective Vital Signs: BP 129/80 (BP Site: Left Arm, BP Position: Sitting, BP Cuff Size: Regular Adult) Pulse 73 Wt 79.8 kg (175 lb 14.8 oz) SpO2 98% BMI 25.24 kg/m Orthostatic Vitals: None for this encounter Weight: 79.8 kg (175 lb 14.8 oz) No LMP for male patient. Body mass index is 25.24 kg/m . General Physical Examination: General: Awake, alert, interactive, no acute distress, good nutritional status, normal development, well-kept General Neurological Examination: Neurological Exam Mental Status Awake and alert. Language is fluent with no aphasia. Motor Bilateral upper extremity action/postural tremors, worse on right.. Gait Casual gait is normal including stance, stride, and arm swing. Assessment and Plan: Assessment Mr. Ochoa is a right-handed 69 year old year old male with ET. His tremor is manageable with current treatment regimen. The following are the current problems noted and addressed during this visit: Essential tremor (primary encounter diagnosis) Plan 12/26/2024 Visit: For tremor - continue propranolol at current dose Updated Movement Disorders Medication Schedule: Medications propranolol ER 120 mg daily Return at or around: 12/26/25 Thank you for allowing me to be part of the clinical care of this patient! I look forward to continued participation in the patient s care with you. Please do not hesitate to call with any questions. Sincerely, Miladys Carter MD documented in this encounter [facility] 01-04-2024 Note HNO ID: [id number] Author: MILADYS CARTER MD Service: ? Author Type: Physician Type: Progress Notes Filed: 01/04/2024 09:23 Note Text: [facility] - FOLLOW UP EVALUATION Kyra Bowers DO, DO [address] [facility] [address] [facility] [id number] Dear Kyra Bowers DO DO: I had the pleasure of seeing Mr. Ochoa for follow-up today. As you know he is a 68 year old right-handed male with a history of ET since 2012. He is seen alone. Subjective Previous Plan-01/08/2023 Visit: Continue propranolol - Initially prescribed primidone to add on but patient later called and declined it - Interval History: Tremor is worse at times but otherwise overall about the same. No triggers. Only notices when eating, dinner time, carrying plate of food. Writing is variable. Fine motor is variable. Right side worse than left. Happy with current treatment. BP is ok. Movement Disorders Medications Schedule - as of the start of the visit: Medications propranolol ER 120 mg daily Other Movement Disorder Prior Therapies Topiramate Questionnaires: In addition, the following areas that may be affected by abnormal involuntary movements were evaluated: Daily activities Difficulties with eating: Yes (mild) Difficulties in dressin (none) Difficulties with hygiene activities: 0 (none) Difficulties with handwriting: Yes (slight) Difficulties with doing hobbies and other activities: 0 (none) Difficulties turning in bed: 0 (none) Difficulties getting out of bed, car or chair: 0 (none) Tremors/Gait/Balance Shaking or tremors: Yes (mild) Walking and balance problems: 0 (none) Number of falls in the Last Month: 0 Gait freezin (none) Autonomic/Pain Lightheadeness on standin (none) Urinary problems: 0 (none) Constipation problems: 0 (none) Pain and other sensations: 0 (none) Speech/Swallowing Speech problems: 0 (none) Droolin (none) Chewing and swallowing problems: 0 (none) Sleep/Fatigue Sleep problems: 0 (none) Daytime sleepiness: 0 (none) Fatigue: 0 (none) Mood/Behavior Depression: PHQ-9 Score: 0 usually representing no significant (0-4) depression. Anxiety: GERSON-7 Total Score: 0 usually representing no significant (0-4) anxiety. Finally, the following table shows the patient's overall global physical and mental health using the PROMIS scale: PROMIS-10 Flowsheet Row Office Visit from 01/04/2024 in Neurology Office Visit from 01/08/2023 in Neurology Global Physical Health T Score 57.7 57.7 Global Mental Health T Score 53.3 53.3 0-10 Standard Pain Scale 5 4 *PROMIS-10 scoring scale: mean = 50, over 50 is above average, under 50 is below average ALLERGIES No Known Allergies Current Outpatient Medications Medication Sig doxycycline 20 mg tablet Take 20 mg by mouth two times a day. propranolol ER (INDERAL LA) 120 mg 24 hr capsule Take 1 capsule by mouth once daily. No current facility-administered medications for this visit. Objective Vital Signs: BP 133/78 (BP Site: Left Arm, BP Position: Sitting, BP Cuff Size: Regular Adult) Pulse 74 Ht 177.8 cm (5' 10) Wt 78.2 kg (172 lb 6.4 oz) SpO2 97% BMI 24.74 kg/m? Orthostatic Vitals: None for this encounter Weight: 78.2 kg (172 lb 6.4 oz) Height: 177.8 cm (5' 10) No LMP for male patient. Body mass index is 24.74 kg/m?. General Physical Examination: General: Awake, alert, interactive, no acute distress, good nutritional status, normal development, well-kept General Neurological Examination: Neurological Exam Mental Status Awake and alert. Speech is normal. Language is fluent with no aphasia. Fund of knowledge is appropriate for level of education. Motor The following abnormal movements were seen: Bilateral upper extremity action/postural tremors, worse on right. No bradykinesia. Gait Casual gait is normal including stance, stride, and arm swing. Assessment and Plan: Assessment Mr. Ochoa is a right-handed 68 year old year old male with ET. His tremor is manageable with current treatment regimen. The following are the current problems noted and addressed during this visit: Essential tremor (primary encounter diagnosis) Plan 01/04/2024 Visit: Continue your medications as you have been taking them. We are not making any changes today. If you feel you are not tolerating them or your symptoms are changing before your next appointment, please feel free to send me a Adiana message or contact the office - Updated Movement Disorders Medication Schedule: Medications propranolol ER 120 mg daily Return at or around: 01/04/25 Medical Decision Making: Problems: Low: Stable chronic illness Risk: Moderate: Drug management Medical Decision Making Level: 3 - Low Thank you for allowing me to be part of the clinical care of this patient! I look forward to continued participation in the patient?s care with you. Please do not hesitate to call (more content not included)... [facility] 01-09-2023 History of Present illness Narrative [facility] - FOLLOW UP EVALUATION Kyra Bowers DO, DO [address] [facility] [address] [facility] [id number] Dear Kyra Bowers DO, DO: I had the pleasure of seeing Mr. Ochoa for follow-up today. As you know he is a 67 year old right-handed male with a history of ET since 2012. He is seen with his . Subjective Previous Plan-01/09/2022 Visit: Continue propranolol at current dose - Interval History: Good and bad days. Some trouble doing things. Trouble eating, carrying plates. Writing is hit or miss. Overall worse. carries plate sometimes. Movement Disorders Medications Schedule - as of the start of the visit: Medications propranolol ER 120 mg daily Other Movement Disorder Prior Therapies Topiramate Questionnaires: In addition, the following areas that may be affected by abnormal involuntary movements were evaluated: Daily activities Difficulties with eating: Yes (mild) Difficulties in dressin (none) Difficulties with hygiene activities: 0 (none) Difficulties with handwriting: Yes (slight) Difficulties with doing hobbies and other activities: 0 (none) Difficulties turning in bed: 0 (none) Difficulties getting out of bed, car or chair: 0 (none) Tremors/Gait/Balance Shaking or tremors: Yes (mild) Walking and balance problems: 0 (none) Number of falls in the Last Month: 0 Gait freezin (none) Autonomic/Pain Lightheadeness on standin (none) Urinary problems: Constipation problems: 0 (none) Pain and other sensations: Yes (slight) Speech/Swallowing Speech problems: 0 (none) Droolin (none) Chewing and swallowing problems: 0 (none) Sleep/Fatigue Sleep problems: 0 (none) Daytime sleepiness: Fatigue: Yes (slight) Mood/Behavior Depression: PHQ-9 Score: 0 usually representing no significant (0-4) depression. Anxiety: GERSON-7 Total Score: 0 usually representing no significant (0-4) anxiety. Finally, the following table shows the patient's overall global physical and mental health using the PROMIS scale: PROMIS-10 Flowsheet Row Office Visit from 01/08/2023 in Neurology Office Visit from 01/09/2022 in Neurology Global Physical Health T Score 57.7 54.1 Global Mental Health T Score 53.3 56 0-10 Standard Pain Scale 4 4 *PROMIS-10 scoring scale: mean = 50, over 50 is above average, under 50 is below average ALLERGIES No Known Allergies Current Outpatient Medications Medication Sig propranolol ER (INDERAL LA) 120 mg 24 hr capsule Take 1 capsule by mouth once daily. No current facility-administered medications for this visit. Objective Vital Signs: BP 118/77 (BP Site: Left Arm, BP Position: Sitting, BP Cuff Size: Regular Adult) Pulse 73 Ht 177.8 cm (5' 10) Wt 78 kg (172 lb) SpO2 98% BMI 24.68 kg/m Orthostatic Vitals: None for this encounter Weight: 78 kg (172 lb) Height: 177.8 cm (5' 10) No LMP for male patient. Body mass index is 24.68 kg/m . General Physical Examination: General: Awake, alert, interactive, no acute distress, good nutritional status, normal development, well-kept General Neurological Examination: Neurological Exam Mental Status Awake and alert. Speech is normal. Language is fluent with no aphasia. Fund of knowledge is appropriate for level of education. Motor Normal muscle tone. The following abnormal movements were seen: Bilateral upper extremity action tremors. Gait Casual gait is normal including stance, stride, and arm swing. Assessment and Plan: Assessment Mr. Ochoa is a right-handed 67 year old year old male with ET. Noting mild progression of tremors. Discussed addition of primidone and he stated he would like to try it. Orders sent for titration up to 150 mg at bedtime. Patient called later in the day after his visit and stated he did not wish to try additional medication at this time. The following are the current problems noted and addressed during this visit: Essential tremor (primary encounter diagnosis) Plan 01/08/2023 Visit: Continue propranolol - Initially prescribed primidone to add on but patient later called and declined it - Updated Movement Disorders Medication Schedule: Medications propranolol ER 120 mg daily Return at or around: 07/11/23 Medical Decision Making: Problems: Moderate: 1+ chronic illnesses with change Risk: Moderate: Drug management Medical Decision Making Level: 4 - Moderate Thank you for allowing me to be part of the clinical care of this patient! I look forward to continued participation in the patient s care with you. Please do not hesitate to call with any questions. Sincerely, Miladys Carter MD documented in this encounter [facility] 07-18-2022 Miscellaneous Notes Done Request from patient requesting refill. Please E-Scribe to [facility]. Last OV: 01/09/22 with [facility] Future OV: none Requested Prescriptions Pending Prescriptions Disp Refills propranolol ER (INDERAL LA) 120 mg 24 hr capsule 90 capsule 3 Sig: Take 1 capsule by mouth once daily. Le Patrick documented in this encounter [facility] Evaluation note Diagnosis Essential tremor- Primary Essential and other specified forms of tremor [facility] Essential tremor- Primary Essential and other specified forms of tremor [facility]No assessment information availableWooVan [facility] Work Phone: Instructions* Name Dates Details Patient Instructions Indication:Trigger thumb of right hand Start:15-Feb-2021 Instruction Type:Provider Instructions for Treatment How to Access Health Informa tion Online using Patient Portal and [employer] Apps Indication:Trigger thumb of right hand Start:15-Feb-2021 Instruction Type:Patient Education How to access health informa tion online Indication:Trigger ring finger of left hand Start:06-Jul-2020 Instruction Type:Patient Education How to access health informa tion online - Detail Indication:Trigger ring finger of left hand Start:06-Jul-2020 Instruction Type:Patient Education Patient Instructions Indication:Trigger ring finger of left hand Start:06-Jul-2020 Instruction Type:Provider Instructions for Treatment How to access health informa tion online Indication:Non-smoker Start:30-Mar-2020 Instruction Type:Patient Education How to access health informa tion online - Detail Indication:Non-smoker Start:30-Mar-2020 Instruction Type:Patient Education Patient Instructions Indication:Non-smoker Start:30-Mar-2020 Instruction Type:Provider Instructions for Treatment How to access health informa tion online Indication:Non-smoker Start:23-Mar-2020 Instruction Type:Patient Education How to access health informa tion online - Detail Indication:Non-smoker Start:23-Mar-2020 Instruction Type:Patient Education Patient Instructions Indication:Non-smoker Start:23-Mar-2020 Instruction Type:Provider Instructions for Treatment How to access health informa tion online Indication:Non-smoker Start:16-Jan-2020 Instruction Type:Patient Education How to access health informa tion online - Detail Indication:Non-smoker Start:16-Jan-2020 Instruction Type:Patient Education Patient Instructions Indication:Non-smoker Start:16-Jan-2020 Instruction Type:Provider Instructions for Treatment How to access health informa tion online Indication:BMI 24.0-24.9, adult Start:28-Dec-2019 Instruction Type:Patient Education How to access health informa tion online - Detail Indication:BMI 24.0-24.9, adult Start:28-Dec-2019 Instruction Type:Patient Education Patient Instructions Indication:BMI 24.0-24.9, adult Start:28-Dec-2019 Instruction Type:Provider Instructions for Treatment How to access health informa tion online Indication:BMI 23.0-23.9, adult Start:19-Sep-2019 Instruction Type:Patient Education How to access health informa tion online - Detail Indication:BMI 23.0-23.9, adult Start:19-Sep-2019 Instruction Type:Patient Education Patient Instructions Indication:BMI 23.0-23.9, adult Start:19-Sep-2019 Instruction Type:Provider Instructions for Treatment How to access health informa tion online Indication:Non-smoker Start:11-Apr-2019 Instruction Type:Patient Education How to access health informa tion online - Detail Indication:Non-smoker Start:11-Apr-2019 Instruction Type:Patient Education Patient Instructions Indication:Non-smoker Start:11-Apr-2019 Instruction Type:Provider Instructions for Treatment How to access health informa tion online Indication:Trigger ring finger of right hand Start:31-May-2018 Instruction Type:Patient Education How to access health informa tion online - Detail Indication:Trigger ring finger of right hand Start:31-May-2018 Instruction Type:Patient Education Patient Instructions Indication:Trigger ring finger of right hand Start:31-May-2018 Instruction Type:Provider Instructions for Treatment How to access health informa tion online Indication:Testicular/scrotal pain Start:19-Nov-2015 Instruction Type:Patient Education How to access health informa tion online - Detail Indication:Testicular/scrotal pain Start:19-Nov-2015 Instruction Type:Patient Education Patient Instructions Indication:Testicular/scrotal pain Start:19-Nov-2015 Instruction Type:Provider Instructions for Treatment Patient Instructions Indication:Contact dermatitis Start:10-Jan-2015 Instruction Type:Provider Instructions for Treatment Patient Instructions Indication:Hernia, inguinal Start:24-Oct-2014 Instruction Type:Provider Instructions for Treatment Patient Instructions Indication:Paresthesia Start:21-Aug-2014 Instruction Type:Provider Instructions for Treatment How to access health informa tion online Indication:Tremor Start:05-Jul-2014 Instruction Type:Patient Education How to access health informa tion online - Detail Indication:Tremor Start:05-Jul-2014 Instruction Type:Patient Education Patient Instructions Indication:Tremor Start:05-Jul-2014 Instruction Type:Provider Instructions for Treatment Patient Instructions Indication:Plantar fasciitis Start:24-Feb-2014 Instruction Type:Provider Instructions for Treatment [facility]; [facility] Work Phone: Instructions* Name Dates Details Patient Instructions Indication:Trigger thumb of right hand Start:15-Feb-2021 Instruction Type:Provider Instructions for Treatment How to Access Health Informa tion Online using Patient Portal and [employer] Apps Indication:Trigger thumb of right hand Start:15-Feb-2021 Instruction Type:Patient Education How to access health informa tion online Indication:Trigger ring finger of left hand Start:06-Jul-2020 Instruction Type:Patient Education How to access health informa tion online - Detail Indication:Trigger ring finger of left hand Start:06-Jul-2020 Instruction Type:Patient Education Patient Instructions Indication:Trigger ring finger of left hand Start:06-Jul-2020 Instruction Type:Provider Instructions for Treatment How to access health informa tion online Indication:Non-smoker Start:30-Mar-2020 Instruction Type:Patient Education How to access health informa tion online - Detail Indication:Non-smoker Start:30-Mar-2020 Instruction Type:Patient Education Patient Instructions Indication:Non-smoker Start:30-Mar-2020 Instruction Type:Provider Instructions for Treatment How to access health informa tion online Indication:Non-smoker Start:23-Mar-2020 Instruction Type:Patient Education How to access health informa tion online - Detail Indication:Non-smoker Start:23-Mar-2020 Instruction Type:Patient Education Patient Instructions Indication:Non-smoker Start:23-Mar-2020 Instruction Type:Provider Instructions for Treatment How to access health informa tion online Indication:Non-smoker Start:16-Jan-2020 Instruction Type:Patient Education How to access health informa tion online - Detail Indication:Non-smoker Start:16-Jan-2020 Instruction Type:Patient Education Patient Instructions Indication:Non-smoker Start:16-Jan-2020 Instruction Type:Provider Instructions for Treatment How to access health informa tion online Indication:BMI 24.0-24.9, adult Start:28-Dec-2019 Instruction Type:Patient Education How to access health informa tion online - Detail Indication:BMI 24.0-24.9, adult Start:28-Dec-2019 Instruction Type:Patient Education Patient Instructions Indication:BMI 24.0-24.9, adult Start:28-Dec-2019 Instruction Type:Provider Instructions for Treatment How to access health informa tion online Indication:BMI 23.0-23.9, adult Start:19-Sep-2019 Instruction Type:Patient Education How to access health informa tion online - Detail Indication:BMI 23.0-23.9, adult Start:19-Sep-2019 Instruction Type:Patient Education Patient Instructions Indication:BMI 23.0-23.9, adult Start:19-Sep-2019 Instruction Type:Provider Instructions for Treatment How to access health informa tion online Indication:Non-smoker Start:11-Apr-2019 Instruction Type:Patient Education How to access health informa tion online - Detail Indication:Non-smoker Start:11-Apr-2019 Instruction Type:Patient Education Patient Instructions Indication:Non-smoker Start:11-Apr-2019 Instruction Type:Provider Instructions for Treatment How to access health informa tion online Indication:Trigger ring finger of right hand Start:31-May-2018 Instruction Type:Patient Education How to access health informa tion online - Detail Indication:Trigger ring finger of right hand Start:31-May-2018 Instruction Type:Patient Education Patient Instructions Indication:Trigger ring finger of right hand Start:31-May-2018 Instruction Type:Provider Instructions for Treatment How to access health informa tion online Indication:Testicular/scrotal pain Start:19-Nov-2015 Instruction Type:Patient Education How to access health informa tion online - Detail Indication:Testicular/scrotal pain Start:19-Nov-2015 Instruction Type:Patient Education Patient Instructions Indication:Testicular/scrotal pain Start:19-Nov-2015 Instruction Type:Provider Instructions for Treatment Patient Instructions Indication:Contact dermatitis Start:10-Jan-2015 Instruction Type:Provider Instructions for Treatment Patient Instructions Indication:Hernia, inguinal Start:24-Oct-2014 Instruction Type:Provider Instructions for Treatment Patient Instructions Indication:Paresthesia Start:21-Aug-2014 Instruction Type:Provider Instructions for Treatment How to access health informa tion online Indication:Tremor Start:05-Jul-2014 Instruction Type:Patient Education How to access health informa tion online - Detail Indication:Tremor Start:05-Jul-2014 Instruction Type:Patient Education Patient Instructions Indication:Tremor Start:05-Jul-2014 Instruction Type:Provider Instructions for Treatment Patient Instructions Indication:Plantar fasciitis Start:24-Feb-2014 Instruction Type:Provider Instructions for Treatment [facility]; [facility] Work Phone: Instructions* Name Dates Details Patient Instructions Indication:Trigger finger, left little finger Start:26-Apr-2021 Instruction Type:Provider Instructions for Treatment How to Access Health Informa tion Online using Patient Portal and [employer] Indication:Trigger finger, left little finger Start:26-Apr-2021 Instruction Type:Patient Education Patient Instructions Indication:Trigger thumb of right hand Start:15-Feb-2021 Instruction Type:Provider Instructions for Treatment How to Access Health Informa tion Online using Patient Portal and [employer] Indication:Trigger thumb of right hand Start:15-Feb-2021 Instruction Type:Patient Education How to access health informa tion online Indication:Trigger ring finger of left hand Start:06-Jul-2020 Instruction Type:Patient Education How to access health informa tion online - Detail Indication:Trigger ring finger of left hand Start:06-Jul-2020 Instruction Type:Patient Education Patient Instructions Indication:Trigger ring finger of left hand Start:06-Jul-2020 Instruction Type:Provider Instructions for Treatment How to access health informa tion online Indication:Non-smoker Start:30-Mar-2020 Instruction Type:Patient Education How to access health informa tion online - Detail Indication:Non-smoker Start:30-Mar-2020 Instruction Type:Patient Education Patient Instructions Indication:Non-smoker Start:30-Mar-2020 Instruction Type:Provider Instructions for Treatment How to access health informa tion online Indication:Non-smoker Start:23-Mar-2020 Instruction Type:Patient Education How to access health informa tion online - Detail Indication:Non-smoker Start:23-Mar-2020 Instruction Type:Patient Education Patient Instructions Indication:Non-smoker Start:23-Mar-2020 Instruction Type:Provider Instructions for Treatment How to access health informa tion online Indication:Non-smoker Start:16-Jan-2020 Instruction Type:Patient Education How to access health informa tion online - Detail Indication:Non-smoker Start:16-Jan-2020 Instruction Type:Patient Education Patient Instructions Indication:Non-smoker Start:16-Jan-2020 Instruction Type:Provider Instructions for Treatment How to access health informa tion online Indication:BMI 24.0-24.9, adult Start:28-Dec-2019 Instruction Type:Patient Education How to access health informa tion online - Detail Indication:BMI 24.0-24.9, adult Start:28-Dec-2019 Instruction Type:Patient Education Patient Instructions Indication:BMI 24.0-24.9, adult Start:28-Dec-2019 Instruction Type:Provider Instructions for Treatment How to access health informa tion online Indication:BMI 23.0-23.9, adult Start:19-Sep-2019 Instruction Type:Patient Education How to access health informa tion online - Detail Indication:BMI 23.0-23.9, adult Start:19-Sep-2019 Instruction Type:Patient Education Patient Instructions Indication:BMI 23.0-23.9, adult Start:19-Sep-2019 Instruction Type:Provider Instructions for Treatment How to access health informa tion online Indication:Non-smoker Start:11-Apr-2019 Instruction Type:Patient Education How to access health informa tion online - Detail Indication:Non-smoker Start:11-Apr-2019 Instruction Type:Patient Education Patient Instructions Indication:Non-smoker Start:11-Apr-2019 Instruction Type:Provider Instructions for Treatment How to access health informa tion online Indication:Trigger ring finger of right hand Start:31-May-2018 Instruction Type:Patient Education How to access health informa tion online - Detail Indication:Trigger ring finger of right hand Start:31-May-2018 Instruction Type:Patient Education Patient Instructions Indication:Trigger ring finger of right hand Start:31-May-2018 Instruction Type:Provider Instructions for Treatment How to access health informa tion online Indication:Testicular/scrotal pain Start:19-Nov-2015 Instruction Type:Patient Education How to access health informa tion online - Detail Indication:Testicular/scrotal pain Start:19-Nov-2015 Instruction Type:Patient Education Patient Instructions Indication:Testicular/scrotal pain Start:19-Nov-2015 Instruction Type:Provider Instructions for Treatment Patient Instructions Indication:Contact dermatitis Start:10-Jan-2015 Instruction Type:Provider Instructions for Treatment Patient Instructions Indication:Hernia, inguinal Start:24-Oct-2014 Instruction Type:Provider Instructions for Treatment Patient Instructions Indication:Paresthesia Start:21-Aug-2014 Instruction Type:Provider Instructions for Treatment How to access health informa tion online Indication:Tremor Start:05-Jul-2014 Instruction Type:Patient Education How to access health informa tion online - Detail Indication:Tremor Start:05-Jul-2014 Instruction Type:Patient Education Patient Instructions Indication:Tremor Start:05-Jul-2014 Instruction Type:Provider Instructions for Treatment Patient Instructions Indication:Plantar fasciitis Start:24-Feb-2014 Instruction Type:Provider Instructions for Treatment [facility]; [facility] Work Phone: Instructions* Name Dates Details Patient Instructions Indication:BMI 24.0-24.9, adult Start:25-Oct-2021 Instruction Type:Provider Instructions for Treatment How to Access Health Informa tion Online using Patient Portal and [employer] Indication:BMI 24.0-24.9, adult Start:25-Oct-2021 Instruction Type:Patient Education Patient Instructions Indication:Non-smoker Start:07-Oct-2021 Instruction Type:Provider Instructions for Treatment How to Access Health Informa tion Online using Patient Portal and [employer] Indication:Non-smoker Start:07-Oct-2021 Instruction Type:Patient Education Patient Instructions Indication:Non-smoker Start:31-May-2021 Instruction Type:Provider Instructions for Treatment How to Access Health Informa tion Online using Patient Portal and [employer] Apps Indication:Non-smoker Start:31-May-2021 Instruction Type:Patient Education Patient Instructions Indication:Trigger finger, left little finger Start:26-Apr-2021 Instruction Type:Provider Instructions for Treatment How to Access Health Informa tion Online using Patient Portal and [employer] Apps Indication:Trigger finger, left little finger Start:26-Apr-2021 Instruction Type:Patient Education Patient Instructions Indication:Trigger thumb of right hand Start:15-Feb-2021 Instruction Type:Provider Instructions for Treatment How to Access Health Informa tion Online using Patient Portal and [employer] Apps Indication:Trigger thumb of right hand Start:15-Feb-2021 Instruction Type:Patient Education How to access health informa tion online Indication:Trigger ring finger of left hand Start:06-Jul-2020 Instruction Type:Patient Education How to access health informa tion online - Detail Indication:Trigger ring finger of left hand Start:06-Jul-2020 Instruction Type:Patient Education Patient Instructions Indication:Trigger ring finger of left hand Start:06-Jul-2020 Instruction Type:Provider Instructions for Treatment How to access health informa tion online Indication:Non-smoker Start:30-Mar-2020 Instruction Type:Patient Education How to access health informa tion online - Detail Indication:Non-smoker Start:30-Mar-2020 Instruction Type:Patient Education Patient Instructions Indication:Non-smoker Start:30-Mar-2020 Instruction Type:Provider Instructions for Treatment How to access health informa tion online Indication:Non-smoker Start:23-Mar-2020 Instruction Type:Patient Education How to access health informa tion online - Detail Indication:Non-smoker Start:23-Mar-2020 Instruction Type:Patient Education Patient Instructions Indication:Non-smoker Start:23-Mar-2020 Instruction Type:Provider Instructions for Treatment How to access health informa tion online Indication:Non-smoker Start:16-Jan-2020 Instruction Type:Patient Education How to access health informa tion online - Detail Indication:Non-smoker Start:16-Jan-2020 Instruction Type:Patient Education Patient Instructions Indication:Non-smoker Start:16-Jan-2020 Instruction Type:Provider Instructions for Treatment How to access health informa tion online Indication:BMI 24.0-24.9, adult Start:28-Dec-2019 Instruction Type:Patient Education How to access health informa tion online - Detail Indication:BMI 24.0-24.9, adult Start:28-Dec-2019 Instruction Type:Patient Education Patient Instructions Indication:BMI 24.0-24.9, adult Start:28-Dec-2019 Instruction Type:Provider Instructions for Treatment How to access health informa tion online Indication:BMI 23.0-23.9, adult Start:19-Sep-2019 Instruction Type:Patient Education How to access health informa tion online - Detail Indication:BMI 23.0-23.9, adult Start:19-Sep-2019 Instruction Type:Patient Education Patient Instructions Indication:BMI 23.0-23.9, adult Start:19-Sep-2019 Instruction Type:Provider Instructions for Treatment How to access health informa tion online Indication:Non-smoker Start:11-Apr-2019 Instruction Type:Patient Education How to access health informa tion online - Detail Indication:Non-smoker Start:11-Apr-2019 Instruction Type:Patient Education Patient Instructions Indication:Non-smoker Start:11-Apr-2019 Instruction Type:Provider Instructions for Treatment How to access health informa tion online Indication:Trigger ring finger of right hand Start:31-May-2018 Instruction Type:Patient Education How to access health informa tion online - Detail Indication:Trigger ring finger of right hand Start:31-May-2018 Instruction Type:Patient Education Patient Instructions Indication:Trigger ring finger of right hand Start:31-May-2018 Instruction Type:Provider Instructions for Treatment How to access health informa tion online Indication:Testicular/scrotal pain Start:19-Nov-2015 Instruction Type:Patient Education How to access health informa tion online - Detail Indication:Testicular/scrotal pain Start:19-Nov-2015 Instruction Type:Patient Education Patient Instructions Indication:Testicular/scrotal pain Start:19-Nov-2015 Instruction Type:Provider Instructions for Treatment Patient Instructions Indication:Contact dermatitis Start:10-Jan-2015 Instruction Type:Provider Instructions for Treatment Patient Instructions Indication:Hernia, inguinal Start:24-Oct-2014 Instruction Type:Provider Instructions for Treatment Patient Instructions Indication:Paresthesia Start:21-Aug-2014 Instruction Type:Provider Instructions for Treatment How to access health informa tion online Indication:Tremor Start:05-Jul-2014 Instruction Type:Patient Education How to access health informa tion online - Detail Indication:Tremor Start:05-Jul-2014 Instruction Type:Patient Education Patient Instructions Indication:Tremor Start:05-Jul-2014 Instruction Type:Provider Instructions for Treatment Patient Instructions Indication:Plantar fasciitis Start:24-Feb-2014 Instruction Type:Provider Instructions for Treatment [facility]; [facility] Work Phone: Instructions* Name Dates Details Patient Instructions Indication:BMI 24.0-24.9, adult Start:25-Oct-2021 Instruction Type:Provider Instructions for Treatment How to Access Health Informa tion Online using Patient Portal and [employer] Indication:BMI 24.0-24.9, adult Start:25-Oct-2021 Instruction Type:Patient Education Patient Instructions Indication:Non-smoker Start:07-Oct-2021 Instruction Type:Provider Instructions for Treatment How to Access Health Informa tion Online using Patient Portal and [employer] Indication:Non-smoker Start:07-Oct-2021 Instruction Type:Patient Education Patient Instructions Indication:Non-smoker Start:31-May-2021 Instruction Type:Provider Instructions for Treatment How to Access Health Informa tion Online using Patient Portal and [employer] Indication:Non-smoker Start:31-May-2021 Instruction Type:Patient Education Patient Instructions Indication:Trigger finger, left little finger Start:26-Apr-2021 Instruction Type:Provider Instructions for Treatment How to Access Health Informa tion Online using Patient Portal and [employer] Indication:Trigger finger, left little finger Start:26-Apr-2021 Instruction Type:Patient Education Patient Instructions Indication:Trigger thumb of right hand Start:15-Feb-2021 Instruction Type:Provider Instructions for Treatment How to Access Health Informa tion Online using Patient Portal and [employer] Indication:Trigger thumb of right hand Start:15-Feb-2021 Instruction Type:Patient Education How to access health informa tion online Indication:Trigger ring finger of left hand Start:06-Jul-2020 Instruction Type:Patient Education How to access health informa tion online - Detail Indication:Trigger ring finger of left hand Start:06-Jul-2020 Instruction Type:Patient Education Patient Instructions Indication:Trigger ring finger of left hand Start:06-Jul-2020 Instruction Type:Provider Instructions for Treatment How to access health informa tion online Indication:Non-smoker Start:30-Mar-2020 Instruction Type:Patient Education How to access health informa tion online - Detail Indication:Non-smoker Start:30-Mar-2020 Instruction Type:Patient Education Patient Instructions Indication:Non-smoker Start:30-Mar-2020 Instruction Type:Provider Instructions for Treatment How to access health informa tion online Indication:Non-smoker Start:23-Mar-2020 Instruction Type:Patient Education How to access health informa tion online - Detail Indication:Non-smoker Start:23-Mar-2020 Instruction Type:Patient Education Patient Instructions Indication:Non-smoker Start:23-Mar-2020 Instruction Type:Provider Instructions for Treatment How to access health informa tion online Indication:Non-smoker Start:16-Jan-2020 Instruction Type:Patient Education How to access health informa tion online - Detail Indication:Non-smoker Start:16-Jan-2020 Instruction Type:Patient Education Patient Instructions Indication:Non-smoker Start:16-Jan-2020 Instruction Type:Provider Instructions for Treatment How to access health informa tion online Indication:BMI 24.0-24.9, adult Start:28-Dec-2019 Instruction Type:Patient Education How to access health informa tion online - Detail Indication:BMI 24.0-24.9, adult Start:28-Dec-2019 Instruction Type:Patient Education Patient Instructions Indication:BMI 24.0-24.9, adult Start:28-Dec-2019 Instruction Type:Provider Instructions for Treatment How to access health informa tion online Indication:BMI 23.0-23.9, adult Start:19-Sep-2019 Instruction Type:Patient Education How to access health informa tion online - Detail Indication:BMI 23.0-23.9, adult Start:19-Sep-2019 Instruction Type:Patient Education Patient Instructions Indication:BMI 23.0-23.9, adult Start:19-Sep-2019 Instruction Type:Provider Instructions for Treatment How to access health informa tion online Indication:Non-smoker Start:11-Apr-2019 Instruction Type:Patient Education How to access health informa tion online - Detail Indication:Non-smoker Start:11-Apr-2019 Instruction Type:Patient Education Patient Instructions Indication:Non-smoker Start:11-Apr-2019 Instruction Type:Provider Instructions for Treatment How to access health informa tion online Indication:Trigger ring finger of right hand Start:31-May-2018 Instruction Type:Patient Education How to access health informa tion online - Detail Indication:Trigger ring finger of right hand Start:31-May-2018 Instruction Type:Patient Education Patient Instructions Indication:Trigger ring finger of right hand Start:31-May-2018 Instruction Type:Provider Instructions for Treatment How to access health informa tion online Indication:Testicular/scrotal pain Start:19-Nov-2015 Instruction Type:Patient Education How to access health informa tion online - Detail Indication:Testicular/scrotal pain Start:19-Nov-2015 Instruction Type:Patient Education Patient Instructions Indication:Testicular/scrotal pain Start:19-Nov-2015 Instruction Type:Provider Instructions for Treatment Patient Instructions Indication:Contact dermatitis Start:10-Jan-2015 Instruction Type:Provider Instructions for Treatment Patient Instructions Indication:Hernia, inguinal Start:24-Oct-2014 Instruction Type:Provider Instructions for Treatment Patient Instructions Indication:Paresthesia Start:21-Aug-2014 Instruction Type:Provider Instructions for Treatment How to access health informa tion online Indication:Tremor Start:05-Jul-2014 Instruction Type:Patient Education How to access health informa tion online - Detail Indication:Tremor Start:05-Jul-2014 Instruction Type:Patient Education Patient Instructions Indication:Tremor Start:05-Jul-2014 Instruction Type:Provider Instructions for Treatment Patient Instructions Indication:Plantar fasciitis Start:24-Feb-2014 Instruction Type:Provider Instructions for Treatment [facility]; [facility] Work Phone: Instructions* Name Dates Details Patient Instructions Indication:Non-smoker Start:27-Nov-2021 Instruction Type:Provider Instructions for Treatment How to Access Health Informa tion Online using Patient Portal and [employer] Apps Indication:Non-smoker Start:27-Nov-2021 Instruction Type:Patient Education Patient Instructions Indication:BMI 24.0-24.9, adult Start:25-Oct-2021 Instruction Type:Provider Instructions for Treatment How to Access Health Informa tion Online using Patient Portal and [employer] Indication:BMI 24.0-24.9, adult Start:25-Oct-2021 Instruction Type:Patient Education Patient Instructions Indication:Non-smoker Start:07-Oct-2021 Instruction Type:Provider Instructions for Treatment How to Access Health Informa tion Online using Patient Portal and [employer] Indication:Non-smoker Start:07-Oct-2021 Instruction Type:Patient Education Patient Instructions Indication:Non-smoker Start:31-May-2021 Instruction Type:Provider Instructions for Treatment How to Access Health Informa tion Online using Patient Portal and [employer] Indication:Non-smoker Start:31-May-2021 Instruction Type:Patient Education Patient Instructions Indication:Trigger finger, left little finger Start:26-Apr-2021 Instruction Type:Provider Instructions for Treatment How to Access Health Informa tion Online using Patient Portal and [employer] Indication:Trigger finger, left little finger Start:26-Apr-2021 Instruction Type:Patient Education Patient Instructions Indication:Trigger thumb of right hand Start:15-Feb-2021 Instruction Type:Provider Instructions for Treatment How to Access Health Informa tion Online using Patient Portal and [employer] Indication:Trigger thumb of right hand Start:15-Feb-2021 Instruction Type:Patient Education How to access health informa tion online Indication:Trigger ring finger of left hand Start:06-Jul-2020 Instruction Type:Patient Education How to access health informa tion online - Detail Indication:Trigger ring finger of left hand Start:06-Jul-2020 Instruction Type:Patient Education Patient Instructions Indication:Trigger ring finger of left hand Start:06-Jul-2020 Instruction Type:Provider Instructions for Treatment How to access health informa tion online Indication:Non-smoker Start:30-Mar-2020 Instruction Type:Patient Education How to access health informa tion online - Detail Indication:Non-smoker Start:30-Mar-2020 Instruction Type:Patient Education Patient Instructions Indication:Non-smoker Start:30-Mar-2020 Instruction Type:Provider Instructions for Treatment How to access health informa tion online Indication:Non-smoker Start:23-Mar-2020 Instruction Type:Patient Education How to access health informa tion online - Detail Indication:Non-smoker Start:23-Mar-2020 Instruction Type:Patient Education Patient Instructions Indication:Non-smoker Start:23-Mar-2020 Instruction Type:Provider Instructions for Treatment How to access health informa tion online Indication:Non-smoker Start:16-Jan-2020 Instruction Type:Patient Education How to access health informa tion online - Detail Indication:Non-smoker Start:16-Jan-2020 Instruction Type:Patient Education Patient Instructions Indication:Non-smoker Start:16-Jan-2020 Instruction Type:Provider Instructions for Treatment How to access health informa tion online Indication:BMI 24.0-24.9, adult Start:28-Dec-2019 Instruction Type:Patient Education How to access health informa tion online - Detail Indication:BMI 24.0-24.9, adult Start:28-Dec-2019 Instruction Type:Patient Education Patient Instructions Indication:BMI 24.0-24.9, adult Start:28-Dec-2019 Instruction Type:Provider Instructions for Treatment How to access health informa tion online Indication:BMI 23.0-23.9, adult Start:19-Sep-2019 Instruction Type:Patient Education How to access health informa tion online - Detail Indication:BMI 23.0-23.9, adult Start:19-Sep-2019 Instruction Type:Patient Education Patient Instructions Indication:BMI 23.0-23.9, adult Start:19-Sep-2019 Instruction Type:Provider Instructions for Treatment How to access health informa tion online Indication:Non-smoker Start:11-Apr-2019 Instruction Type:Patient Education How to access health informa tion online - Detail Indication:Non-smoker Start:11-Apr-2019 Instruction Type:Patient Education Patient Instructions Indication:Non-smoker Start:11-Apr-2019 Instruction Type:Provider Instructions for Treatment How to access health informa tion online Indication:Trigger ring finger of right hand Start:31-May-2018 Instruction Type:Patient Education How to access health informa tion online - Detail Indication:Trigger ring finger of right hand Start:31-May-2018 Instruction Type:Patient Education Patient Instructions Indication:Trigger ring finger of right hand Start:31-May-2018 Instruction Type:Provider Instructions for Treatment How to access health informa tion online Indication:Testicular/scrotal pain Start:19-Nov-2015 Instruction Type:Patient Education How to access health informa tion online - Detail Indication:Testicular/scrotal pain Start:19-Nov-2015 Instruction Type:Patient Education Patient Instructions Indication:Testicular/scrotal pain Start:19-Nov-2015 Instruction Type:Provider Instructions for Treatment Patient Instructions Indication:Contact dermatitis Start:10-Jan-2015 Instruction Type:Provider Instructions for Treatment Patient Instructions Indication:Hernia, inguinal Start:24-Oct-2014 Instruction Type:Provider Instructions for Treatment Patient Instructions Indication:Paresthesia Start:21-Aug-2014 Instruction Type:Provider Instructions for Treatment How to access health informa tion online Indication:Tremor Start:05-Jul-2014 Instruction Type:Patient Education How to access health informa tion online - Detail Indication:Tremor Start:05-Jul-2014 Instruction Type:Patient Education Patient Instructions Indication:Tremor Start:05-Jul-2014 Instruction Type:Provider Instructions for Treatment Patient Instructions Indication:Plantar fasciitis Start:24-Feb-2014 Instruction Type:Provider Instructions for Treatment [facility]; [facility] Work Phone: Instructions* Name Dates Details Patient Instructions Indication:Non-smoker Start:27-Nov-2021 Instruction Type:Provider Instructions for Treatment How to Access Health Informa tion Online using Patient Portal and [employer] Apps Indication:Non-smoker Start:27-Nov-2021 Instruction Type:Patient Education Patient Instructions Indication:BMI 24.0-24.9, adult Start:25-Oct-2021 Instruction Type:Provider Instructions for Treatment How to Access Health Informa tion Online using Patient Portal and [employer] Indication:BMI 24.0-24.9, adult Start:25-Oct-2021 Instruction Type:Patient Education Patient Instructions Indication:Non-smoker Start:07-Oct-2021 Instruction Type:Provider Instructions for Treatment How to Access Health Informa tion Online using Patient Portal and [employer] Apps Indication:Non-smoker Start:07-Oct-2021 Instruction Type:Patient Education Patient Instructions Indication:Non-smoker Start:31-May-2021 Instruction Type:Provider Instructions for Treatment How to Access Health Informa tion Online using Patient Portal and [employer] Apps Indication:Non-smoker Start:31-May-2021 Instruction Type:Patient Education Patient Instructions Indication:Trigger finger, left little finger Start:26-Apr-2021 Instruction Type:Provider Instructions for Treatment How to Access Health Informa tion Online using Patient Portal and [employer] Apps Indication:Trigger finger, left little finger Start:26-Apr-2021 Instruction Type:Patient Education Patient Instructions Indication:Trigger thumb of right hand Start:15-Feb-2021 Instruction Type:Provider Instructions for Treatment How to Access Health Informa tion Online using Patient Portal and [employer] Apps Indication:Trigger thumb of right hand Start:15-Feb-2021 Instruction Type:Patient Education How to access health informa tion online Indication:Trigger ring finger of left hand Start:06-Jul-2020 Instruction Type:Patient Education How to access health informa tion online - Detail Indication:Trigger ring finger of left hand Start:06-Jul-2020 Instruction Type:Patient Education Patient Instructions Indication:Trigger ring finger of left hand Start:06-Jul-2020 Instruction Type:Provider Instructions for Treatment How to access health informa tion online Indication:Non-smoker Start:30-Mar-2020 Instruction Type:Patient Education How to access health informa tion online - Detail Indication:Non-smoker Start:30-Mar-2020 Instruction Type:Patient Education Patient Instructions Indication:Non-smoker Start:30-Mar-2020 Instruction Type:Provider Instructions for Treatment How to access health informa tion online Indication:Non-smoker Start:23-Mar-2020 Instruction Type:Patient Education How to access health informa tion online - Detail Indication:Non-smoker Start:23-Mar-2020 Instruction Type:Patient Education Patient Instructions Indication:Non-smoker Start:23-Mar-2020 Instruction Type:Provider Instructions for Treatment How to access health informa tion online Indication:Non-smoker Start:16-Jan-2020 Instruction Type:Patient Education How to access health informa tion online - Detail Indication:Non-smoker Start:16-Jan-2020 Instruction Type:Patient Education Patient Instructions Indication:Non-smoker Start:16-Jan-2020 Instruction Type:Provider Instructions for Treatment How to access health informa tion online Indication:BMI 24.0-24.9, adult Start:28-Dec-2019 Instruction Type:Patient Education How to access health informa tion online - Detail Indication:BMI 24.0-24.9, adult Start:28-Dec-2019 Instruction Type:Patient Education Patient Instructions Indication:BMI 24.0-24.9, adult Start:28-Dec-2019 Instruction Type:Provider Instructions for Treatment How to access health informa tion online Indication:BMI 23.0-23.9, adult Start:19-Sep-2019 Instruction Type:Patient Education How to access health informa tion online - Detail Indication:BMI 23.0-23.9, adult Start:19-Sep-2019 Instruction Type:Patient Education Patient Instructions Indication:BMI 23.0-23.9, adult Start:19-Sep-2019 Instruction Type:Provider Instructions for Treatment How to access health informa tion online Indication:Non-smoker Start:11-Apr-2019 Instruction Type:Patient Education How to access health informa tion online - Detail Indication:Non-smoker Start:11-Apr-2019 Instruction Type:Patient Education Patient Instructions Indication:Non-smoker Start:11-Apr-2019 Instruction Type:Provider Instructions for Treatment How to access health informa tion online Indication:Trigger ring finger of right hand Start:31-May-2018 Instruction Type:Patient Education How to access health informa tion online - Detail Indication:Trigger ring finger of right hand Start:31-May-2018 Instruction Type:Patient Education Patient Instructions Indication:Trigger ring finger of right hand Start:31-May-2018 Instruction Type:Provider Instructions for Treatment How to access health informa tion online Indication:Testicular/scrotal pain Start:19-Nov-2015 Instruction Type:Patient Education How to access health informa tion online - Detail Indication:Testicular/scrotal pain Start:19-Nov-2015 Instruction Type:Patient Education Patient Instructions Indication:Testicular/scrotal pain Start:19-Nov-2015 Instruction Type:Provider Instructions for Treatment Patient Instructions Indication:Contact dermatitis Start:10-Jan-2015 Instruction Type:Provider Instructions for Treatment Patient Instructions Indication:Hernia, inguinal Start:24-Oct-2014 Instruction Type:Provider Instructions for Treatment Patient Instructions Indication:Paresthesia Start:21-Aug-2014 Instruction Type:Provider Instructions for Treatment How to access health informa tion online Indication:Tremor Start:05-Jul-2014 Instruction Type:Patient Education How to access health informa tion online - Detail Indication:Tremor Start:05-Jul-2014 Instruction Type:Patient Education Patient Instructions Indication:Tremor Start:05-Jul-2014 Instruction Type:Provider Instructions for Treatment Patient Instructions Indication:Plantar fasciitis Start:24-Feb-2014 Instruction Type:Provider Instructions for Treatment [facility]; [facility] Work Phone: Instructions* Name Dates Details Patient Instructions Indication:Non-smoker Start:27-Nov-2021 Instruction Type:Provider Instructions for Treatment How to Access Health Informa tion Online using Patient Portal and [employer] Indication:Non-smoker Start:27-Nov-2021 Instruction Type:Patient Education Patient Instructions Indication:BMI 24.0-24.9, adult Start:25-Oct-2021 Instruction Type:Provider Instructions for Treatment How to Access Health Informa tion Online using Patient Portal and [employer] Indication:BMI 24.0-24.9, adult Start:25-Oct-2021 Instruction Type:Patient Education Patient Instructions Indication:Non-smoker Start:07-Oct-2021 Instruction Type:Provider Instructions for Treatment How to Access Health Informa tion Online using Patient Portal and [employer] Indication:Non-smoker Start:07-Oct-2021 Instruction Type:Patient Education Patient Instructions Indication:Non-smoker Start:31-May-2021 Instruction Type:Provider Instructions for Treatment How to Access Health Informa tion Online using Patient Portal and [employer] Indication:Non-smoker Start:31-May-2021 Instruction Type:Patient Education Patient Instructions Indication:Trigger finger, left little finger Start:26-Apr-2021 Instruction Type:Provider Instructions for Treatment How to Access Health Informa tion Online using Patient Portal and [employer] Indication:Trigger finger, left little finger Start:26-Apr-2021 Instruction Type:Patient Education Patient Instructions Indication:Trigger thumb of right hand Start:15-Feb-2021 Instruction Type:Provider Instructions for Treatment How to Access Health Informa tion Online using Patient Portal and [employer] Indication:Trigger thumb of right hand Start:15-Feb-2021 Instruction Type:Patient Education How to access health informa tion online Indication:Trigger ring finger of left hand Start:06-Jul-2020 Instruction Type:Patient Education How to access health informa tion online - Detail Indication:Trigger ring finger of left hand Start:06-Jul-2020 Instruction Type:Patient Education Patient Instructions Indication:Trigger ring finger of left hand Start:06-Jul-2020 Instruction Type:Provider Instructions for Treatment How to access health informa tion online Indication:Non-smoker Start:30-Mar-2020 Instruction Type:Patient Education How to access health informa tion online - Detail Indication:Non-smoker Start:30-Mar-2020 Instruction Type:Patient Education Patient Instructions Indication:Non-smoker Start:30-Mar-2020 Instruction Type:Provider Instructions for Treatment How to access health informa tion online Indication:Non-smoker Start:23-Mar-2020 Instruction Type:Patient Education How to access health informa tion online - Detail Indication:Non-smoker Start:23-Mar-2020 Instruction Type:Patient Education Patient Instructions Indication:Non-smoker Start:23-Mar-2020 Instruction Type:Provider Instructions for Treatment How to access health informa tion online Indication:Non-smoker Start:16-Jan-2020 Instruction Type:Patient Education How to access health informa tion online - Detail Indication:Non-smoker Start:16-Jan-2020 Instruction Type:Patient Education Patient Instructions Indication:Non-smoker Start:16-Jan-2020 Instruction Type:Provider Instructions for Treatment How to access health informa tion online Indication:BMI 24.0-24.9, adult Start:28-Dec-2019 Instruction Type:Patient Education How to access health informa tion online - Detail Indication:BMI 24.0-24.9, adult Start:28-Dec-2019 Instruction Type:Patient Education Patient Instructions Indication:BMI 24.0-24.9, adult Start:28-Dec-2019 Instruction Type:Provider Instructions for Treatment How to access health informa tion online Indication:BMI 23.0-23.9, adult Start:19-Sep-2019 Instruction Type:Patient Education How to access health informa tion online - Detail Indication:BMI 23.0-23.9, adult Start:19-Sep-2019 Instruction Type:Patient Education Patient Instructions Indication:BMI 23.0-23.9, adult Start:19-Sep-2019 Instruction Type:Provider Instructions for Treatment How to access health informa tion online Indication:Non-smoker Start:11-Apr-2019 Instruction Type:Patient Education How to access health informa tion online - Detail Indication:Non-smoker Start:11-Apr-2019 Instruction Type:Patient Education Patient Instructions Indication:Non-smoker Start:11-Apr-2019 Instruction Type:Provider Instructions for Treatment How to access health informa tion online Indication:Trigger ring finger of right hand Start:31-May-2018 Instruction Type:Patient Education How to access health informa tion online - Detail Indication:Trigger ring finger of right hand Start:31-May-2018 Instruction Type:Patient Education Patient Instructions Indication:Trigger ring finger of right hand Start:31-May-2018 Instruction Type:Provider Instructions for Treatment How to access health informa tion online Indication:Testicular/scrotal pain Start:19-Nov-2015 Instruction Type:Patient Education How to access health informa tion online - Detail Indication:Testicular/scrotal pain Start:19-Nov-2015 Instruction Type:Patient Education Patient Instructions Indication:Testicular/scrotal pain Start:19-Nov-2015 Instruction Type:Provider Instructions for Treatment Patient Instructions Indication:Contact dermatitis Start:10-Jan-2015 Instruction Type:Provider Instructions for Treatment Patient Instructions Indication:Hernia, inguinal Start:24-Oct-2014 Instruction Type:Provider Instructions for Treatment Patient Instructions Indication:Paresthesia Start:21-Aug-2014 Instruction Type:Provider Instructions for Treatment How to access health informa tion online Indication:Tremor Start:05-Jul-2014 Instruction Type:Patient Education How to access health informa tion online - Detail Indication:Tremor Start:05-Jul-2014 Instruction Type:Patient Education Patient Instructions Indication:Tremor Start:05-Jul-2014 Instruction Type:Provider Instructions for Treatment Patient Instructions Indication:Plantar fasciitis Start:24-Feb-2014 Instruction Type:Provider Instructions for Treatment [facility]; [facility] Work Phone: Instructions* Name Dates Details Patient Instructions Indication:Non-smoker Start:27-Nov-2021 Instruction Type:Provider Instructions for Treatment How to Access Health Informa tion Online using Patient Portal and [employer] Apps Indication:Non-smoker Start:27-Nov-2021 Instruction Type:Patient Education Patient Instructions Indication:BMI 24.0-24.9, adult Start:25-Oct-2021 Instruction Type:Provider Instructions for Treatment How to Access Health Informa tion Online using Patient Portal and [employer] Indication:BMI 24.0-24.9, adult Start:25-Oct-2021 Instruction Type:Patient Education Patient Instructions Indication:Non-smoker Start:07-Oct-2021 Instruction Type:Provider Instructions for Treatment How to Access Health Informa tion Online using Patient Portal and [employer] Indication:Non-smoker Start:07-Oct-2021 Instruction Type:Patient Education Patient Instructions Indication:Non-smoker Start:31-May-2021 Instruction Type:Provider Instructions for Treatment How to Access Health Informa tion Online using Patient Portal and [employer] Indication:Non-smoker Start:31-May-2021 Instruction Type:Patient Education Patient Instructions Indication:Trigger finger, left little finger Start:26-Apr-2021 Instruction Type:Provider Instructions for Treatment How to Access Health Informa tion Online using Patient Portal and [employer] Apps Indication:Trigger finger, left little finger Start:26-Apr-2021 Instruction Type:Patient Education Patient Instructions Indication:Trigger thumb of right hand Start:15-Feb-2021 Instruction Type:Provider Instructions for Treatment How to Access Health Informa tion Online using Patient Portal and [employer] Indication:Trigger thumb of right hand Start:15-Feb-2021 Instruction Type:Patient Education How to access health informa tion online Indication:Trigger ring finger of left hand Start:06-Jul-2020 Instruction Type:Patient Education How to access health informa tion online - Detail Indication:Trigger ring finger of left hand Start:06-Jul-2020 Instruction Type:Patient Education Patient Instructions Indication:Trigger ring finger of left hand Start:06-Jul-2020 Instruction Type:Provider Instructions for Treatment How to access health informa tion online Indication:Non-smoker Start:30-Mar-2020 Instruction Type:Patient Education How to access health informa tion online - Detail Indication:Non-smoker Start:30-Mar-2020 Instruction Type:Patient Education Patient Instructions Indication:Non-smoker Start:30-Mar-2020 Instruction Type:Provider Instructions for Treatment How to access health informa tion online Indication:Non-smoker Start:23-Mar-2020 Instruction Type:Patient Education How to access health informa tion online - Detail Indication:Non-smoker Start:23-Mar-2020 Instruction Type:Patient Education Patient Instructions Indication:Non-smoker Start:23-Mar-2020 Instruction Type:Provider Instructions for Treatment How to access health informa tion online Indication:Non-smoker Start:16-Jan-2020 Instruction Type:Patient Education How to access health informa tion online - Detail Indication:Non-smoker Start:16-Jan-2020 Instruction Type:Patient Education Patient Instructions Indication:Non-smoker Start:16-Jan-2020 Instruction Type:Provider Instructions for Treatment How to access health informa tion online Indication:BMI 24.0-24.9, adult Start:28-Dec-2019 Instruction Type:Patient Education How to access health informa tion online - Detail Indication:BMI 24.0-24.9, adult Start:28-Dec-2019 Instruction Type:Patient Education Patient Instructions Indication:BMI 24.0-24.9, adult Start:28-Dec-2019 Instruction Type:Provider Instructions for Treatment How to access health informa tion online Indication:BMI 23.0-23.9, adult Start:19-Sep-2019 Instruction Type:Patient Education How to access health informa tion online - Detail Indication:BMI 23.0-23.9, adult Start:19-Sep-2019 Instruction Type:Patient Education Patient Instructions Indication:BMI 23.0-23.9, adult Start:19-Sep-2019 Instruction Type:Provider Instructions for Treatment How to access health informa tion online Indication:Non-smoker Start:11-Apr-2019 Instruction Type:Patient Education How to access health informa tion online - Detail Indication:Non-smoker Start:11-Apr-2019 Instruction Type:Patient Education Patient Instructions Indication:Non-smoker Start:11-Apr-2019 Instruction Type:Provider Instructions for Treatment How to access health informa tion online Indication:Trigger ring finger of right hand Start:31-May-2018 Instruction Type:Patient Education How to access health informa tion online - Detail Indication:Trigger ring finger of right hand Start:31-May-2018 Instruction Type:Patient Education Patient Instructions Indication:Trigger ring finger of right hand Start:31-May-2018 Instruction Type:Provider Instructions for Treatment How to access health informa tion online Indication:Testicular/scrotal pain Start:19-Nov-2015 Instruction Type:Patient Education How to access health informa tion online - Detail Indication:Testicular/scrotal pain Start:19-Nov-2015 Instruction Type:Patient Education Patient Instructions Indication:Testicular/scrotal pain Start:19-Nov-2015 Instruction Type:Provider Instructions for Treatment Patient Instructions Indication:Contact dermatitis Start:10-Jan-2015 Instruction Type:Provider Instructions for Treatment Patient Instructions Indication:Hernia, inguinal Start:24-Oct-2014 Instruction Type:Provider Instructions for Treatment Patient Instructions Indication:Paresthesia Start:21-Aug-2014 Instruction Type:Provider Instructions for Treatment How to access health informa tion online Indication:Tremor Start:05-Jul-2014 Instruction Type:Patient Education How to access health informa tion online - Detail Indication:Tremor Start:05-Jul-2014 Instruction Type:Patient Education Patient Instructions Indication:Tremor Start:05-Jul-2014 Instruction Type:Provider Instructions for Treatment Patient Instructions Indication:Plantar fasciitis Start:24-Feb-2014 Instruction Type:Provider Instructions for Treatment [facility]; [facility] Work Phone: Instructions* Name Dates Details Patient Instructions Indication:Non-smoker Start:27-Nov-2021 Instruction Type:Provider Instructions for Treatment How to Access Health Informa tion Online using Patient Portal and [employer] Indication:Non-smoker Start:27-Nov-2021 Instruction Type:Patient Education Patient Instructions Indication:BMI 24.0-24.9, adult Start:25-Oct-2021 Instruction Type:Provider Instructions for Treatment How to Access Health Informa tion Online using Patient Portal and [employer] Apps Indication:BMI 24.0-24.9, adult Start:25-Oct-2021 Instruction Type:Patient Education Patient Instructions Indication:Non-smoker Start:07-Oct-2021 Instruction Type:Provider Instructions for Treatment How to Access Health Informa tion Online using Patient Portal and [employer] Apps Indication:Non-smoker Start:07-Oct-2021 Instruction Type:Patient Education Patient Instructions Indication:Non-smoker Start:31-May-2021 Instruction Type:Provider Instructions for Treatment How to Access Health Informa tion Online using Patient Portal and [employer] Indication:Non-smoker Start:31-May-2021 Instruction Type:Patient Education Patient Instructions Indication:Trigger finger, left little finger Start:26-Apr-2021 Instruction Type:Provider Instructions for Treatment How to Access Health Informa tion Online using Patient Portal and [employer] Indication:Trigger finger, left little finger Start:26-Apr-2021 Instruction Type:Patient Education Patient Instructions Indication:Trigger thumb of right hand Start:15-Feb-2021 Instruction Type:Provider Instructions for Treatment How to Access Health Informa tion Online using Patient Portal and [employer] Apps Indication:Trigger thumb of right hand Start:15-Feb-2021 Instruction Type:Patient Education How to access health informa tion online Indication:Trigger ring finger of left hand Start:06-Jul-2020 Instruction Type:Patient Education How to access health informa tion online - Detail Indication:Trigger ring finger of left hand Start:06-Jul-2020 Instruction Type:Patient Education Patient Instructions Indication:Trigger ring finger of left hand Start:06-Jul-2020 Instruction Type:Provider Instructions for Treatment How to access health informa tion online Indication:Non-smoker Start:30-Mar-2020 Instruction Type:Patient Education How to access health informa tion online - Detail Indication:Non-smoker Start:30-Mar-2020 Instruction Type:Patient Education Patient Instructions Indication:Non-smoker Start:30-Mar-2020 Instruction Type:Provider Instructions for Treatment How to access health informa tion online Indication:Non-smoker Start:23-Mar-2020 Instruction Type:Patient Education How to access health informa tion online - Detail Indication:Non-smoker Start:23-Mar-2020 Instruction Type:Patient Education Patient Instructions Indication:Non-smoker Start:23-Mar-2020 Instruction Type:Provider Instructions for Treatment How to access health informa tion online Indication:Non-smoker Start:16-Jan-2020 Instruction Type:Patient Education How to access health informa tion online - Detail Indication:Non-smoker Start:16-Jan-2020 Instruction Type:Patient Education Patient Instructions Indication:Non-smoker Start:16-Jan-2020 Instruction Type:Provider Instructions for Treatment How to access health informa tion online Indication:BMI 24.0-24.9, adult Start:28-Dec-2019 Instruction Type:Patient Education How to access health informa tion online - Detail Indication:BMI 24.0-24.9, adult Start:28-Dec-2019 Instruction Type:Patient Education Patient Instructions Indication:BMI 24.0-24.9, adult Start:28-Dec-2019 Instruction Type:Provider Instructions for Treatment How to access health informa tion online Indication:BMI 23.0-23.9, adult Start:19-Sep-2019 Instruction Type:Patient Education How to access health informa tion online - Detail Indication:BMI 23.0-23.9, adult Start:19-Sep-2019 Instruction Type:Patient Education Patient Instructions Indication:BMI 23.0-23.9, adult Start:19-Sep-2019 Instruction Type:Provider Instructions for Treatment How to access health informa tion online Indication:Non-smoker Start:11-Apr-2019 Instruction Type:Patient Education How to access health informa tion online - Detail Indication:Non-smoker Start:11-Apr-2019 Instruction Type:Patient Education Patient Instructions Indication:Non-smoker Start:11-Apr-2019 Instruction Type:Provider Instructions for Treatment How to access health informa tion online Indication:Trigger ring finger of right hand Start:31-May-2018 Instruction Type:Patient Education How to access health informa tion online - Detail Indication:Trigger ring finger of right hand Start:31-May-2018 Instruction Type:Patient Education Patient Instructions Indication:Trigger ring finger of right hand Start:31-May-2018 Instruction Type:Provider Instructions for Treatment How to access health informa tion online Indication:Testicular/scrotal pain Start:19-Nov-2015 Instruction Type:Patient Education How to access health informa tion online - Detail Indication:Testicular/scrotal pain Start:19-Nov-2015 Instruction Type:Patient Education Patient Instructions Indication:Testicular/scrotal pain Start:19-Nov-2015 Instruction Type:Provider Instructions for Treatment Patient Instructions Indication:Contact dermatitis Start:10-Jan-2015 Instruction Type:Provider Instructions for Treatment Patient Instructions Indication:Hernia, inguinal Start:24-Oct-2014 Instruction Type:Provider Instructions for Treatment Patient Instructions Indication:Paresthesia Start:21-Aug-2014 Instruction Type:Provider Instructions for Treatment How to access health informa tion online Indication:Tremor Start:05-Jul-2014 Instruction Type:Patient Education How to access health informa tion online - Detail Indication:Tremor Start:05-Jul-2014 Instruction Type:Patient Education Patient Instructions Indication:Tremor Start:05-Jul-2014 Instruction Type:Provider Instructions for Treatment Patient Instructions Indication:Plantar fasciitis Start:24-Feb-2014 Instruction Type:Provider Instructions for Treatment [facility]; [facility] Work Phone: Instructions* Name Dates Details Patient Instructions Indication:Non-smoker Start:19-Feb-2022 Instruction Type:Provider Instructions for Treatment How to Access Health Informa tion Online using Patient Portal and [employer]rd [employer] Apps Indication:Non-smoker Start:19-Feb-2022 Instruction Type:Patient Education Patient Instructions Indication:Non-smoker Start:27-Nov-2021 Instruction Type:Provider Instructions for Treatment How to Access Health Informa tion Online using Patient Portal and [employer]rd [employer] Apps Indication:Non-smoker Start:27-Nov-2021 Instruction Type:Patient Education Patient Instructions Indication:BMI 24.0-24.9, adult Start:25-Oct-2021 Instruction Type:Provider Instructions for Treatment How to Access Health Informa tion Online using Patient Portal and [employer]rd [employer] Apps Indication:BMI 24.0-24.9, adult Start:25-Oct-2021 Instruction Type:Patient Education Patient Instructions Indication:Non-smoker Start:07-Oct-2021 Instruction Type:Provider Instructions for Treatment How to Access Health Informa tion Online using Patient Portal and [employer] Apps Indication:Non-smoker Start:07-Oct-2021 Instruction Type:Patient Education Patient Instructions Indication:Non-smoker Start:31-May-2021 Instruction Type:Provider Instructions for Treatment How to Access Health Informa tion Online using Patient Portal and [employer] Apps Indication:Non-smoker Start:31-May-2021 Instruction Type:Patient Education Patient Instructions Indication:Trigger finger, left little finger Start:26-Apr-2021 Instruction Type:Provider Instructions for Treatment How to Access Health Informa tion Online using Patient Portal and [employer] Apps Indication:Trigger finger, left little finger Start:26-Apr-2021 Instruction Type:Patient Education Patient Instructions Indication:Trigger thumb of right hand Start:15-Feb-2021 Instruction Type:Provider Instructions for Treatment How to Access Health Informa tion Online using Patient Portal and [employer] Apps Indication:Trigger thumb of right hand Start:15-Feb-2021 Instruction Type:Patient Education How to access health informa tion online Indication:Trigger ring finger of left hand Start:06-Jul-2020 Instruction Type:Patient Education How to access health informa tion online - Detail Indication:Trigger ring finger of left hand Start:06-Jul-2020 Instruction Type:Patient Education Patient Instructions Indication:Trigger ring finger of left hand Start:06-Jul-2020 Instruction Type:Provider Instructions for Treatment How to access health informa tion online Indication:Non-smoker Start:30-Mar-2020 Instruction Type:Patient Education How to access health informa tion online - Detail Indication:Non-smoker Start:30-Mar-2020 Instruction Type:Patient Education Patient Instructions Indication:Non-smoker Start:30-Mar-2020 Instruction Type:Provider Instructions for Treatment How to access health informa tion online Indication:Non-smoker Start:23-Mar-2020 Instruction Type:Patient Education How to access health informa tion online - Detail Indication:Non-smoker Start:23-Mar-2020 Instruction Type:Patient Education Patient Instructions Indication:Non-smoker Start:23-Mar-2020 Instruction Type:Provider Instructions for Treatment How to access health informa tion online Indication:Non-smoker Start:16-Jan-2020 Instruction Type:Patient Education How to access health informa tion online - Detail Indication:Non-smoker Start:16-Jan-2020 Instruction Type:Patient Education Patient Instructions Indication:Non-smoker Start:16-Jan-2020 Instruction Type:Provider Instructions for Treatment How to access health informa tion online Indication:BMI 24.0-24.9, adult Start:28-Dec-2019 Instruction Type:Patient Education How to access health informa tion online - Detail Indication:BMI 24.0-24.9, adult Start:28-Dec-2019 Instruction Type:Patient Education Patient Instructions Indication:BMI 24.0-24.9, adult Start:28-Dec-2019 Instruction Type:Provider Instructions for Treatment How to access health informa tion online Indication:BMI 23.0-23.9, adult Start:19-Sep-2019 Instruction Type:Patient Education How to access health informa tion online - Detail Indication:BMI 23.0-23.9, adult Start:19-Sep-2019 Instruction Type:Patient Education Patient Instructions Indication:BMI 23.0-23.9, adult Start:19-Sep-2019 Instruction Type:Provider Instructions for Treatment How to access health informa tion online Indication:Non-smoker Start:11-Apr-2019 Instruction Type:Patient Education How to access health informa tion online - Detail Indication:Non-smoker Start:11-Apr-2019 Instruction Type:Patient Education Patient Instructions Indication:Non-smoker Start:11-Apr-2019 Instruction Type:Provider Instructions for Treatment How to access health informa tion online Indication:Trigger ring finger of right hand Start:31-May-2018 Instruction Type:Patient Education How to access health informa tion online - Detail Indication:Trigger ring finger of right hand Start:31-May-2018 Instruction Type:Patient Education Patient Instructions Indication:Trigger ring finger of right hand Start:31-May-2018 Instruction Type:Provider Instructions for Treatment How to access health informa tion online Indication:Testicular/scrotal pain Start:19-Nov-2015 Instruction Type:Patient Education How to access health informa tion online - Detail Indication:Testicular/scrotal pain Start:19-Nov-2015 Instruction Type:Patient Education Patient Instructions Indication:Testicular/scrotal pain Start:19-Nov-2015 Instruction Type:Provider Instructions for Treatment Patient Instructions Indication:Contact dermatitis Start:10-Jan-2015 Instruction Type:Provider Instructions for Treatment Patient Instructions Indication:Hernia, inguinal Start:24-Oct-2014 Instruction Type:Provider Instructions for Treatment Patient Instructions Indication:Paresthesia Start:21-Aug-2014 Instruction Type:Provider Instructions for Treatment How to access health informa tion online Indication:Tremor Start:05-Jul-2014 Instruction Type:Patient Education How to access health informa tion online - Detail Indication:Tremor Start:05-Jul-2014 Instruction Type:Patient Education Patient Instructions Indication:Tremor Start:05-Jul-2014 Instruction Type:Provider Instructions for Treatment Patient Instructions Indication:Plantar fasciitis Start:24-Feb-2014 Instruction Type:Provider Instructions for Treatment [facility]; [facility] Work Phone: Instructions* Name Dates Details Patient Instructions Indication:Non-smoker Start:19-Feb-2022 Instruction Type:Provider Instructions for Treatment How to Access Health Informa tion Online using Patient Portal and [employer] Apps Indication:Non-smoker Start:19-Feb-2022 Instruction Type:Patient Education Patient Instructions Indication:Non-smoker Start:27-Nov-2021 Instruction Type:Provider Instructions for Treatment How to Access Health Informa tion Online using Patient Portal and [employer] Apps Indication:Non-smoker Start:27-Nov-2021 Instruction Type:Patient Education Patient Instructions Indication:BMI 24.0-24.9, adult Start:25-Oct-2021 Instruction Type:Provider Instructions for Treatment How to Access Health Informa tion Online using Patient Portal and [employer] Apps Indication:BMI 24.0-24.9, adult Start:25-Oct-2021 Instruction Type:Patient Education Patient Instructions Indication:Non-smoker Start:07-Oct-2021 Instruction Type:Provider Instructions for Treatment How to Access Health Informa tion Online using Patient Portal and [employer] Apps Indication:Non-smoker Start:07-Oct-2021 Instruction Type:Patient Education Patient Instructions Indication:Non-smoker Start:31-May-2021 Instruction Type:Provider Instructions for Treatment How to Access Health Informa tion Online using Patient Portal and [employer] Apps Indication:Non-smoker Start:31-May-2021 Instruction Type:Patient Education Patient Instructions Indication:Trigger finger, left little finger Start:26-Apr-2021 Instruction Type:Provider Instructions for Treatment How to Access Health Informa tion Online using Patient Portal and [employer] Apps Indication:Trigger finger, left little finger Start:26-Apr-2021 Instruction Type:Patient Education Patient Instructions Indication:Trigger thumb of right hand Start:15-Feb-2021 Instruction Type:Provider Instructions for Treatment How to Access Health Informa tion Online using Patient Portal and [employer] Indication:Trigger thumb of right hand Start:15-Feb-2021 Instruction Type:Patient Education How to access health informa tion online Indication:Trigger ring finger of left hand Start:06-Jul-2020 Instruction Type:Patient Education How to access health informa tion online - Detail Indication:Trigger ring finger of left hand Start:06-Jul-2020 Instruction Type:Patient Education Patient Instructions Indication:Trigger ring finger of left hand Start:06-Jul-2020 Instruction Type:Provider Instructions for Treatment How to access health informa tion online Indication:Non-smoker Start:30-Mar-2020 Instruction Type:Patient Education How to access health informa tion online - Detail Indication:Non-smoker Start:30-Mar-2020 Instruction Type:Patient Education Patient Instructions Indication:Non-smoker Start:30-Mar-2020 Instruction Type:Provider Instructions for Treatment How to access health informa tion online Indication:Non-smoker Start:23-Mar-2020 Instruction Type:Patient Education How to access health informa tion online - Detail Indication:Non-smoker Start:23-Mar-2020 Instruction Type:Patient Education Patient Instructions Indication:Non-smoker Start:23-Mar-2020 Instruction Type:Provider Instructions for Treatment How to access health informa tion online Indication:Non-smoker Start:16-Jan-2020 Instruction Type:Patient Education How to access health informa tion online - Detail Indication:Non-smoker Start:16-Jan-2020 Instruction Type:Patient Education Patient Instructions Indication:Non-smoker Start:16-Jan-2020 Instruction Type:Provider Instructions for Treatment How to access health informa tion online Indication:BMI 24.0-24.9, adult Start:28-Dec-2019 Instruction Type:Patient Education How to access health informa tion online - Detail Indication:BMI 24.0-24.9, adult Start:28-Dec-2019 Instruction Type:Patient Education Patient Instructions Indication:BMI 24.0-24.9, adult Start:28-Dec-2019 Instruction Type:Provider Instructions for Treatment How to access health informa tion online Indication:BMI 23.0-23.9, adult Start:19-Sep-2019 Instruction Type:Patient Education How to access health informa tion online - Detail Indication:BMI 23.0-23.9, adult Start:19-Sep-2019 Instruction Type:Patient Education Patient Instructions Indication:BMI 23.0-23.9, adult Start:19-Sep-2019 Instruction Type:Provider Instructions for Treatment How to access health informa tion online Indication:Non-smoker Start:11-Apr-2019 Instruction Type:Patient Education How to access health informa tion online - Detail Indication:Non-smoker Start:11-Apr-2019 Instruction Type:Patient Education Patient Instructions Indication:Non-smoker Start:11-Apr-2019 Instruction Type:Provider Instructions for Treatment How to access health informa tion online Indication:Trigger ring finger of right hand Start:31-May-2018 Instruction Type:Patient Education How to access health informa tion online - Detail Indication:Trigger ring finger of right hand Start:31-May-2018 Instruction Type:Patient Education Patient Instructions Indication:Trigger ring finger of right hand Start:31-May-2018 Instruction Type:Provider Instructions for Treatment How to access health informa tion online Indication:Testicular/scrotal pain Start:19-Nov-2015 Instruction Type:Patient Education How to access health informa tion online - Detail Indication:Testicular/scrotal pain Start:19-Nov-2015 Instruction Type:Patient Education Patient Instructions Indication:Testicular/scrotal pain Start:19-Nov-2015 Instruction Type:Provider Instructions for Treatment Patient Instructions Indication:Contact dermatitis Start:10-Jan-2015 Instruction Type:Provider Instructions for Treatment Patient Instructions Indication:Hernia, inguinal Start:24-Oct-2014 Instruction Type:Provider Instructions for Treatment Patient Instructions Indication:Paresthesia Start:21-Aug-2014 Instruction Type:Provider Instructions for Treatment How to access health informa tion online Indication:Tremor Start:05-Jul-2014 Instruction Type:Patient Education How to access health informa tion online - Detail Indication:Tremor Start:05-Jul-2014 Instruction Type:Patient Education Patient Instructions Indication:Tremor Start:05-Jul-2014 Instruction Type:Provider Instructions for Treatment Patient Instructions Indication:Plantar fasciitis Start:24-Feb-2014 Instruction Type:Provider Instructions for Treatment [facility]; [facility] Work Phone: Instructions* Name Dates Details Patient Instructions Indication:Right flank pain Start:30-Apr-2022 Instruction Type:Provider Instructions for Treatment How to Access Health Informa tion Online using Patient Portal and [employer] Apps Indication:Right flank pain Start:30-Apr-2022 Instruction Type:Patient Education Patient Instructions Indication:Non-smoker Start:19-Feb-2022 Instruction Type:Provider Instructions for Treatment How to Access Health Informa tion Online using Patient Portal and [employer] Apps Indication:Non-smoker Start:19-Feb-2022 Instruction Type:Patient Education Patient Instructions Indication:Non-smoker Start:27-Nov-2021 Instruction Type:Provider Instructions for Treatment How to Access Health Informa tion Online using Patient Portal and [employer] Apps Indication:Non-smoker Start:27-Nov-2021 Instruction Type:Patient Education Patient Instructions Indication:BMI 24.0-24.9, adult Start:25-Oct-2021 Instruction Type:Provider Instructions for Treatment How to Access Health Informa tion Online using Patient Portal and [employer] Apps Indication:BMI 24.0-24.9, adult Start:25-Oct-2021 Instruction Type:Patient Education Patient Instructions Indication:Non-smoker Start:07-Oct-2021 Instruction Type:Provider Instructions for Treatment How to Access Health Informa tion Online using Patient Portal and [employer] Apps Indication:Non-smoker Start:07-Oct-2021 Instruction Type:Patient Education Patient Instructions Indication:Non-smoker Start:31-May-2021 Instruction Type:Provider Instructions for Treatment How to Access Health Informa tion Online using Patient Portal and [employer] Apps Indication:Non-smoker Start:31-May-2021 Instruction Type:Patient Education Patient Instructions Indication:Trigger finger, left little finger Start:26-Apr-2021 Instruction Type:Provider Instructions for Treatment How to Access Health Informa tion Online using Patient Portal and [employer] Apps Indication:Trigger finger, left little finger Start:26-Apr-2021 Instruction Type:Patient Education Patient Instructions Indication:Trigger thumb of right hand Start:15-Feb-2021 Instruction Type:Provider Instructions for Treatment How to Access Health Informa tion Online using Patient Portal and [employer] Apps Indication:Trigger thumb of right hand Start:15-Feb-2021 Instruction Type:Patient Education How to access health informa tion online Indication:Trigger ring finger of left hand Start:06-Jul-2020 Instruction Type:Patient Education How to access health informa tion online - Detail Indication:Trigger ring finger of left hand Start:06-Jul-2020 Instruction Type:Patient Education Patient Instructions Indication:Trigger ring finger of left hand Start:06-Jul-2020 Instruction Type:Provider Instructions for Treatment How to access health informa tion online Indication:Non-smoker Start:30-Mar-2020 Instruction Type:Patient Education How to access health informa tion online - Detail Indication:Non-smoker Start:30-Mar-2020 Instruction Type:Patient Education Patient Instructions Indication:Non-smoker Start:30-Mar-2020 Instruction Type:Provider Instructions for Treatment How to access health informa tion online Indication:Non-smoker Start:23-Mar-2020 Instruction Type:Patient Education How to access health informa tion online - Detail Indication:Non-smoker Start:23-Mar-2020 Instruction Type:Patient Education Patient Instructions Indication:Non-smoker Start:23-Mar-2020 Instruction Type:Provider Instructions for Treatment How to access health informa tion online Indication:Non-smoker Start:16-Jan-2020 Instruction Type:Patient Education How to access health informa tion online - Detail Indication:Non-smoker Start:16-Jan-2020 Instruction Type:Patient Education Patient Instructions Indication:Non-smoker Start:16-Jan-2020 Instruction Type:Provider Instructions for Treatment How to access health informa tion online Indication:BMI 24.0-24.9, adult Start:28-Dec-2019 Instruction Type:Patient Education How to access health informa tion online - Detail Indication:BMI 24.0-24.9, adult Start:28-Dec-2019 Instruction Type:Patient Education Patient Instructions Indication:BMI 24.0-24.9, adult Start:28-Dec-2019 Instruction Type:Provider Instructions for Treatment How to access health informa tion online Indication:BMI 23.0-23.9, adult Start:19-Sep-2019 Instruction Type:Patient Education How to access health informa tion online - Detail Indication:BMI 23.0-23.9, adult Start:19-Sep-2019 Instruction Type:Patient Education Patient Instructions Indication:BMI 23.0-23.9, adult Start:19-Sep-2019 Instruction Type:Provider Instructions for Treatment How to access health informa tion online Indication:Non-smoker Start:11-Apr-2019 Instruction Type:Patient Education How to access health informa tion online - Detail Indication:Non-smoker Start:11-Apr-2019 Instruction Type:Patient Education Patient Instructions Indication:Non-smoker Start:11-Apr-2019 Instruction Type:Provider Instructions for Treatment How to access health informa tion online Indication:Trigger ring finger of right hand Start:31-May-2018 Instruction Type:Patient Education How to access health informa tion online - Detail Indication:Trigger ring finger of right hand Start:31-May-2018 Instruction Type:Patient Education Patient Instructions Indication:Trigger ring finger of right hand Start:31-May-2018 Instruction Type:Provider Instructions for Treatment How to access health informa tion online Indication:Testicular/scrotal pain Start:19-Nov-2015 Instruction Type:Patient Education How to access health informa tion online - Detail Indication:Testicular/scrotal pain Start:19-Nov-2015 Instruction Type:Patient Education Patient Instructions Indication:Testicular/scrotal pain Start:19-Nov-2015 Instruction Type:Provider Instructions for Treatment Patient Instructions Indication:Contact dermatitis Start:10-Jan-2015 Instruction Type:Provider Instructions for Treatment Patient Instructions Indication:Hernia, inguinal Start:24-Oct-2014 Instruction Type:Provider Instructions for Treatment Patient Instructions Indication:Paresthesia Start:21-Aug-2014 Instruction Type:Provider Instructions for Treatment How to access health informa tion online Indication:Tremor Start:05-Jul-2014 Instruction Type:Patient Education How to access health informa tion online - Detail Indication:Tremor Start:05-Jul-2014 Instruction Type:Patient Education Patient Instructions Indication:Tremor Start:05-Jul-2014 Instruction Type:Provider Instructions for Treatment Patient Instructions Indication:Plantar fasciitis Start:24-Feb-2014 Instruction Type:Provider Instructions for Treatment [facility]; [facility] Work Phone: Instructions* Name Dates Details Patient Instructions Indication:Right flank pain Start:30-Apr-2022 Instruction Type:Provider Instructions for Treatment How to Access Health Informa tion Online using Patient Portal and [employer] Apps Indication:Right flank pain Start:30-Apr-2022 Instruction Type:Patient Education Patient Instructions Indication:Non-smoker Start:19-Feb-2022 Instruction Type:Provider Instructions for Treatment How to Access Health Informa tion Online using Patient Portal and [employer] Apps Indication:Non-smoker Start:19-Feb-2022 Instruction Type:Patient Education Patient Instructions Indication:Non-smoker Start:27-Nov-2021 Instruction Type:Provider Instructions for Treatment How to Access Health Informa tion Online using Patient Portal and [employer] Apps Indication:Non-smoker Start:27-Nov-2021 Instruction Type:Patient Education Patient Instructions Indication:BMI 24.0-24.9, adult Start:25-Oct-2021 Instruction Type:Provider Instructions for Treatment How to Access Health Informa tion Online using Patient Portal and [employer] Indication:BMI 24.0-24.9, adult Start:25-Oct-2021 Instruction Type:Patient Education Patient Instructions Indication:Non-smoker Start:07-Oct-2021 Instruction Type:Provider Instructions for Treatment How to Access Health Informa tion Online using Patient Portal and [employer] Indication:Non-smoker Start:07-Oct-2021 Instruction Type:Patient Education Patient Instructions Indication:Non-smoker Start:31-May-2021 Instruction Type:Provider Instructions for Treatment How to Access Health Informa tion Online using Patient Portal and [employer] Apps Indication:Non-smoker Start:31-May-2021 Instruction Type:Patient Education Patient Instructions Indication:Trigger finger, left little finger Start:26-Apr-2021 Instruction Type:Provider Instructions for Treatment How to Access Health Informa tion Online using Patient Portal and [employer] Indication:Trigger finger, left little finger Start:26-Apr-2021 Instruction Type:Patient Education Patient Instructions Indication:Trigger thumb of right hand Start:15-Feb-2021 Instruction Type:Provider Instructions for Treatment How to Access Health Informa tion Online using Patient Portal and [employer] Indication:Trigger thumb of right hand Start:15-Feb-2021 Instruction Type:Patient Education How to access health informa tion online Indication:Trigger ring finger of left hand Start:06-Jul-2020 Instruction Type:Patient Education How to access health informa tion online - Detail Indication:Trigger ring finger of left hand Start:06-Jul-2020 Instruction Type:Patient Education Patient Instructions Indication:Trigger ring finger of left hand Start:06-Jul-2020 Instruction Type:Provider Instructions for Treatment How to access health informa tion online Indication:Non-smoker Start:30-Mar-2020 Instruction Type:Patient Education How to access health informa tion online - Detail Indication:Non-smoker Start:30-Mar-2020 Instruction Type:Patient Education Patient Instructions Indication:Non-smoker Start:30-Mar-2020 Instruction Type:Provider Instructions for Treatment How to access health informa tion online Indication:Non-smoker Start:23-Mar-2020 Instruction Type:Patient Education How to access health informa tion online - Detail Indication:Non-smoker Start:23-Mar-2020 Instruction Type:Patient Education Patient Instructions Indication:Non-smoker Start:23-Mar-2020 Instruction Type:Provider Instructions for Treatment How to access health informa tion online Indication:Non-smoker Start:16-Jan-2020 Instruction Type:Patient Education How to access health informa tion online - Detail Indication:Non-smoker Start:16-Jan-2020 Instruction Type:Patient Education Patient Instructions Indication:Non-smoker Start:16-Jan-2020 Instruction Type:Provider Instructions for Treatment How to access health informa tion online Indication:BMI 24.0-24.9, adult Start:28-Dec-2019 Instruction Type:Patient Education How to access health informa tion online - Detail Indication:BMI 24.0-24.9, adult Start:28-Dec-2019 Instruction Type:Patient Education Patient Instructions Indication:BMI 24.0-24.9, adult Start:28-Dec-2019 Instruction Type:Provider Instructions for Treatment How to access health informa tion online Indication:BMI 23.0-23.9, adult Start:19-Sep-2019 Instruction Type:Patient Education How to access health informa tion online - Detail Indication:BMI 23.0-23.9, adult Start:19-Sep-2019 Instruction Type:Patient Education Patient Instructions Indication:BMI 23.0-23.9, adult Start:19-Sep-2019 Instruction Type:Provider Instructions for Treatment How to access health informa tion online Indication:Non-smoker Start:11-Apr-2019 Instruction Type:Patient Education How to access health informa tion online - Detail Indication:Non-smoker Start:11-Apr-2019 Instruction Type:Patient Education Patient Instructions Indication:Non-smoker Start:11-Apr-2019 Instruction Type:Provider Instructions for Treatment How to access health informa tion online Indication:Trigger ring finger of right hand Start:31-May-2018 Instruction Type:Patient Education How to access health informa tion online - Detail Indication:Trigger ring finger of right hand Start:31-May-2018 Instruction Type:Patient Education Patient Instructions Indication:Trigger ring finger of right hand Start:31-May-2018 Instruction Type:Provider Instructions for Treatment How to access health informa tion online Indication:Testicular/scrotal pain Start:19-Nov-2015 Instruction Type:Patient Education How to access health informa tion online - Detail Indication:Testicular/scrotal pain Start:19-Nov-2015 Instruction Type:Patient Education Patient Instructions Indication:Testicular/scrotal pain Start:19-Nov-2015 Instruction Type:Provider Instructions for Treatment Patient Instructions Indication:Contact dermatitis Start:10-Jan-2015 Instruction Type:Provider Instructions for Treatment Patient Instructions Indication:Hernia, inguinal Start:24-Oct-2014 Instruction Type:Provider Instructions for Treatment Patient Instructions Indication:Paresthesia Start:21-Aug-2014 Instruction Type:Provider Instructions for Treatment How to access health informa tion online Indication:Tremor Start:05-Jul-2014 Instruction Type:Patient Education How to access health informa tion online - Detail Indication:Tremor Start:05-Jul-2014 Instruction Type:Patient Education Patient Instructions Indication:Tremor Start:05-Jul-2014 Instruction Type:Provider Instructions for Treatment Patient Instructions Indication:Plantar fasciitis Start:24-Feb-2014 Instruction Type:Provider Instructions for Treatment [facility]; [facility] Work Phone: Instructions* Name Dates Details Patient Instructions Indication:Non-smoker Start:11-Jun-2022 Instruction Type:Provider Instructions for Treatment How to Access Health Informa tion Online using Patient Portal and [employer] Apps Indication:Non-smoker Start:11-Jun-2022 Instruction Type:Patient Education Patient Instructions Indication:Right flank pain Start:30-Apr-2022 Instruction Type:Provider Instructions for Treatment How to Access Health Informa tion Online using Patient Portal and [employer] Apps Indication:Right flank pain Start:30-Apr-2022 Instruction Type:Patient Education Patient Instructions Indication:Non-smoker Start:19-Feb-2022 Instruction Type:Provider Instructions for Treatment How to Access Health Informa tion Online using Patient Portal and [employer] Indication:Non-smoker Start:19-Feb-2022 Instruction Type:Patient Education Patient Instructions Indication:Non-smoker Start:27-Nov-2021 Instruction Type:Provider Instructions for Treatment How to Access Health Informa tion Online using Patient Portal and [employer] Indication:Non-smoker Start:27-Nov-2021 Instruction Type:Patient Education Patient Instructions Indication:BMI 24.0-24.9, adult Start:25-Oct-2021 Instruction Type:Provider Instructions for Treatment How to Access Health Informa tion Online using Patient Portal and [employer] Indication:BMI 24.0-24.9, adult Start:25-Oct-2021 Instruction Type:Patient Education Patient Instructions Indication:Non-smoker Start:07-Oct-2021 Instruction Type:Provider Instructions for Treatment How to Access Health Informa tion Online using Patient Portal and [employer] Indication:Non-smoker Start:07-Oct-2021 Instruction Type:Patient Education Patient Instructions Indication:Non-smoker Start:31-May-2021 Instruction Type:Provider Instructions for Treatment How to Access Health Informa tion Online using Patient Portal and [employer] Indication:Non-smoker Start:31-May-2021 Instruction Type:Patient Education Patient Instructions Indication:Trigger finger, left little finger Start:26-Apr-2021 Instruction Type:Provider Instructions for Treatment How to Access Health Informa tion Online using Patient Portal and [employer] Indication:Trigger finger, left little finger Start:26-Apr-2021 Instruction Type:Patient Education Patient Instructions Indication:Trigger thumb of right hand Start:15-Feb-2021 Instruction Type:Provider Instructions for Treatment How to Access Health Informa tion Online using Patient Portal and [employer] Indication:Trigger thumb of right hand Start:15-Feb-2021 Instruction Type:Patient Education How to access health informa tion online Indication:Trigger ring finger of left hand Start:06-Jul-2020 Instruction Type:Patient Education How to access health informa tion online - Detail Indication:Trigger ring finger of left hand Start:06-Jul-2020 Instruction Type:Patient Education Patient Instructions Indication:Trigger ring finger of left hand Start:06-Jul-2020 Instruction Type:Provider Instructions for Treatment How to access health informa tion online Indication:Non-smoker Start:30-Mar-2020 Instruction Type:Patient Education How to access health informa tion online - Detail Indication:Non-smoker Start:30-Mar-2020 Instruction Type:Patient Education Patient Instructions Indication:Non-smoker Start:30-Mar-2020 Instruction Type:Provider Instructions for Treatment How to access health informa tion online Indication:Non-smoker Start:23-Mar-2020 Instruction Type:Patient Education How to access health informa tion online - Detail Indication:Non-smoker Start:23-Mar-2020 Instruction Type:Patient Education Patient Instructions Indication:Non-smoker Start:23-Mar-2020 Instruction Type:Provider Instructions for Treatment How to access health informa tion online Indication:Non-smoker Start:16-Jan-2020 Instruction Type:Patient Education How to access health informa tion online - Detail Indication:Non-smoker Start:16-Jan-2020 Instruction Type:Patient Education Patient Instructions Indication:Non-smoker Start:16-Jan-2020 Instruction Type:Provider Instructions for Treatment How to access health informa tion online Indication:BMI 24.0-24.9, adult Start:28-Dec-2019 Instruction Type:Patient Education How to access health informa tion online - Detail Indication:BMI 24.0-24.9, adult Start:28-Dec-2019 Instruction Type:Patient Education Patient Instructions Indication:BMI 24.0-24.9, adult Start:28-Dec-2019 Instruction Type:Provider Instructions for Treatment How to access health informa tion online Indication:BMI 23.0-23.9, adult Start:19-Sep-2019 Instruction Type:Patient Education How to access health informa tion online - Detail Indication:BMI 23.0-23.9, adult Start:19-Sep-2019 Instruction Type:Patient Education Patient Instructions Indication:BMI 23.0-23.9, adult Start:19-Sep-2019 Instruction Type:Provider Instructions for Treatment How to access health informa tion online Indication:Non-smoker Start:11-Apr-2019 Instruction Type:Patient Education How to access health informa tion online - Detail Indication:Non-smoker Start:11-Apr-2019 Instruction Type:Patient Education Patient Instructions Indication:Non-smoker Start:11-Apr-2019 Instruction Type:Provider Instructions for Treatment How to access health informa tion online Indication:Trigger ring finger of right hand Start:31-May-2018 Instruction Type:Patient Education How to access health informa tion online - Detail Indication:Trigger ring finger of right hand Start:31-May-2018 Instruction Type:Patient Education Patient Instructions Indication:Trigger ring finger of right hand Start:31-May-2018 Instruction Type:Provider Instructions for Treatment How to access health informa tion online Indication:Testicular/scrotal pain Start:19-Nov-2015 Instruction Type:Patient Education How to access health informa tion online - Detail Indication:Testicular/scrotal pain Start:19-Nov-2015 Instruction Type:Patient Education Patient Instructions Indication:Testicular/scrotal pain Start:19-Nov-2015 Instruction Type:Provider Instructions for Treatment Patient Instructions Indication:Contact dermatitis Start:10-Jan-2015 Instruction Type:Provider Instructions for Treatment Patient Instructions Indication:Hernia, inguinal Start:24-Oct-2014 Instruction Type:Provider Instructions for Treatment Patient Instructions Indication:Paresthesia Start:21-Aug-2014 Instruction Type:Provider Instructions for Treatment How to access health informa tion online Indication:Tremor Start:05-Jul-2014 Instruction Type:Patient Education How to access health informa tion online - Detail Indication:Tremor Start:05-Jul-2014 Instruction Type:Patient Education Patient Instructions Indication:Tremor Start:05-Jul-2014 Instruction Type:Provider Instructions for Treatment Patient Instructions Indication:Plantar fasciitis Start:24-Feb-2014 Instruction Type:Provider Instructions for Treatment [facility]; [facility] Work Phone: Instructions* Name Dates Details Patient Instructions Indication:Non-smoker Start:11-Jun-2022 Instruction Type:Provider Instructions for Treatment How to Access Health Informa tion Online using Patient Portal and [employer] Indication:Non-smoker Start:11-Jun-2022 Instruction Type:Patient Education Patient Instructions Indication:Right flank pain Start:30-Apr-2022 Instruction Type:Provider Instructions for Treatment How to Access Health Informa tion Online using Patient Portal and [employer] Indication:Right flank pain Start:30-Apr-2022 Instruction Type:Patient Education Patient Instructions Indication:Non-smoker Start:19-Feb-2022 Instruction Type:Provider Instructions for Treatment How to Access Health Informa tion Online using Patient Portal and [employer] Indication:Non-smoker Start:19-Feb-2022 Instruction Type:Patient Education Patient Instructions Indication:Non-smoker Start:27-Nov-2021 Instruction Type:Provider Instructions for Treatment How to Access Health Informa tion Online using Patient Portal and [employer] Indication:Non-smoker Start:27-Nov-2021 Instruction Type:Patient Education Patient Instructions Indication:BMI 24.0-24.9, adult Start:25-Oct-2021 Instruction Type:Provider Instructions for Treatment How to Access Health Informa tion Online using Patient Portal and [employer] Indication:BMI 24.0-24.9, adult Start:25-Oct-2021 Instruction Type:Patient Education Patient Instructions Indication:Non-smoker Start:07-Oct-2021 Instruction Type:Provider Instructions for Treatment How to Access Health Informa tion Online using Patient Portal and [employer] Indication:Non-smoker Start:07-Oct-2021 Instruction Type:Patient Education Patient Instructions Indication:Non-smoker Start:31-May-2021 Instruction Type:Provider Instructions for Treatment How to Access Health Informa tion Online using Patient Portal and [employer] Apps Indication:Non-smoker Start:31-May-2021 Instruction Type:Patient Education Patient Instructions Indication:Trigger finger, left little finger Start:26-Apr-2021 Instruction Type:Provider Instructions for Treatment How to Access Health Informa tion Online using Patient Portal and [employer] Indication:Trigger finger, left little finger Start:26-Apr-2021 Instruction Type:Patient Education Patient Instructions Indication:Trigger thumb of right hand Start:15-Feb-2021 Instruction Type:Provider Instructions for Treatment How to Access Health Informa tion Online using Patient Portal and [employer] Indication:Trigger thumb of right hand Start:15-Feb-2021 Instruction Type:Patient Education How to access health informa tion online Indication:Trigger ring finger of left hand Start:06-Jul-2020 Instruction Type:Patient Education How to access health informa tion online - Detail Indication:Trigger ring finger of left hand Start:06-Jul-2020 Instruction Type:Patient Education Patient Instructions Indication:Trigger ring finger of left hand Start:06-Jul-2020 Instruction Type:Provider Instructions for Treatment How to access health informa tion online Indication:Non-smoker Start:30-Mar-2020 Instruction Type:Patient Education How to access health informa tion online - Detail Indication:Non-smoker Start:30-Mar-2020 Instruction Type:Patient Education Patient Instructions Indication:Non-smoker Start:30-Mar-2020 Instruction Type:Provider Instructions for Treatment How to access health informa tion online Indication:Non-smoker Start:23-Mar-2020 Instruction Type:Patient Education How to access health informa tion online - Detail Indication:Non-smoker Start:23-Mar-2020 Instruction Type:Patient Education Patient Instructions Indication:Non-smoker Start:23-Mar-2020 Instruction Type:Provider Instructions for Treatment How to access health informa tion online Indication:Non-smoker Start:16-Jan-2020 Instruction Type:Patient Education How to access health informa tion online - Detail Indication:Non-smoker Start:16-Jan-2020 Instruction Type:Patient Education Patient Instructions Indication:Non-smoker Start:16-Jan-2020 Instruction Type:Provider Instructions for Treatment How to access health informa tion online Indication:BMI 24.0-24.9, adult Start:28-Dec-2019 Instruction Type:Patient Education How to access health informa tion online - Detail Indication:BMI 24.0-24.9, adult Start:28-Dec-2019 Instruction Type:Patient Education Patient Instructions Indication:BMI 24.0-24.9, adult Start:28-Dec-2019 Instruction Type:Provider Instructions for Treatment How to access health informa tion online Indication:BMI 23.0-23.9, adult Start:19-Sep-2019 Instruction Type:Patient Education How to access health informa tion online - Detail Indication:BMI 23.0-23.9, adult Start:19-Sep-2019 Instruction Type:Patient Education Patient Instructions Indication:BMI 23.0-23.9, adult Start:19-Sep-2019 Instruction Type:Provider Instructions for Treatment How to access health informa tion online Indication:Non-smoker Start:11-Apr-2019 Instruction Type:Patient Education How to access health informa tion online - Detail Indication:Non-smoker Start:11-Apr-2019 Instruction Type:Patient Education Patient Instructions Indication:Non-smoker Start:11-Apr-2019 Instruction Type:Provider Instructions for Treatment How to access health informa tion online Indication:Trigger ring finger of right hand Start:31-May-2018 Instruction Type:Patient Education How to access health informa tion online - Detail Indication:Trigger ring finger of right hand Start:31-May-2018 Instruction Type:Patient Education Patient Instructions Indication:Trigger ring finger of right hand Start:31-May-2018 Instruction Type:Provider Instructions for Treatment How to access health informa tion online Indication:Testicular/scrotal pain Start:19-Nov-2015 Instruction Type:Patient Education How to access health informa tion online - Detail Indication:Testicular/scrotal pain Start:19-Nov-2015 Instruction Type:Patient Education Patient Instructions Indication:Testicular/scrotal pain Start:19-Nov-2015 Instruction Type:Provider Instructions for Treatment Patient Instructions Indication:Contact dermatitis Start:10-Jan-2015 Instruction Type:Provider Instructions for Treatment Patient Instructions Indication:Hernia, inguinal Start:24-Oct-2014 Instruction Type:Provider Instructions for Treatment Patient Instructions Indication:Paresthesia Start:21-Aug-2014 Instruction Type:Provider Instructions for Treatment How to access health informa tion online Indication:Tremor Start:05-Jul-2014 Instruction Type:Patient Education How to access health informa tion online - Detail Indication:Tremor Start:05-Jul-2014 Instruction Type:Patient Education Patient Instructions Indication:Tremor Start:05-Jul-2014 Instruction Type:Provider Instructions for Treatment Patient Instructions Indication:Plantar fasciitis Start:24-Feb-2014 Instruction Type:Provider Instructions for Treatment [facility]; [facility] Work Phone: Instructions* Name Dates Details Patient Instructions Indication:Non-smoker Start:16-Oct-2022 Instruction Type:Provider Instructions for Treatment How to Access Health Informa tion Online using Patient Portal and [employer] Indication:Non-smoker Start:16-Oct-2022 Instruction Type:Patient Education Patient Instructions Indication:Non-smoker Start:11-Jun-2022 Instruction Type:Provider Instructions for Treatment How to Access Health Informa tion Online using Patient Portal and [employer] Indication:Non-smoker Start:11-Jun-2022 Instruction Type:Patient Education Patient Instructions Indication:Right flank pain Start:30-Apr-2022 Instruction Type:Provider Instructions for Treatment How to Access Health Informa tion Online using Patient Portal and [employer] Indication:Right flank pain Start:30-Apr-2022 Instruction Type:Patient Education Patient Instructions Indication:Non-smoker Start:19-Feb-2022 Instruction Type:Provider Instructions for Treatment How to Access Health Informa tion Online using Patient Portal and [employer] Indication:Non-smoker Start:19-Feb-2022 Instruction Type:Patient Education Patient Instructions Indication:Non-smoker Start:27-Nov-2021 Instruction Type:Provider Instructions for Treatment How to Access Health Informa tion Online using Patient Portal and [employer] Apps Indication:Non-smoker Start:27-Nov-2021 Instruction Type:Patient Education Patient Instructions Indication:BMI 24.0-24.9, adult Start:25-Oct-2021 Instruction Type:Provider Instructions for Treatment How to Access Health Informa tion Online using Patient Portal and [employer] Indication:BMI 24.0-24.9, adult Start:25-Oct-2021 Instruction Type:Patient Education Patient Instructions Indication:Non-smoker Start:07-Oct-2021 Instruction Type:Provider Instructions for Treatment How to Access Health Informa tion Online using Patient Portal and [employer] Indication:Non-smoker Start:07-Oct-2021 Instruction Type:Patient Education Patient Instructions Indication:Non-smoker Start:31-May-2021 Instruction Type:Provider Instructions for Treatment How to Access Health Informa tion Online using Patient Portal and [employer] Indication:Non-smoker Start:31-May-2021 Instruction Type:Patient Education Patient Instructions Indication:Trigger finger, left little finger Start:26-Apr-2021 Instruction Type:Provider Instructions for Treatment How to Access Health Informa tion Online using Patient Portal and [employer] Indication:Trigger finger, left little finger Start:26-Apr-2021 Instruction Type:Patient Education Patient Instructions Indication:Trigger thumb of right hand Start:15-Feb-2021 Instruction Type:Provider Instructions for Treatment How to Access Health Informa tion Online using Patient Portal and [employer] Indication:Trigger thumb of right hand Start:15-Feb-2021 Instruction Type:Patient Education How to access health informa tion online Indication:Trigger ring finger of left hand Start:06-Jul-2020 Instruction Type:Patient Education How to access health informa tion online - Detail Indication:Trigger ring finger of left hand Start:06-Jul-2020 Instruction Type:Patient Education Patient Instructions Indication:Trigger ring finger of left hand Start:06-Jul-2020 Instruction Type:Provider Instructions for Treatment How to access health informa tion online Indication:Non-smoker Start:30-Mar-2020 Instruction Type:Patient Education How to access health informa tion online - Detail Indication:Non-smoker Start:30-Mar-2020 Instruction Type:Patient Education Patient Instructions Indication:Non-smoker Start:30-Mar-2020 Instruction Type:Provider Instructions for Treatment How to access health informa tion online Indication:Non-smoker Start:23-Mar-2020 Instruction Type:Patient Education How to access health informa tion online - Detail Indication:Non-smoker Start:23-Mar-2020 Instruction Type:Patient Education Patient Instructions Indication:Non-smoker Start:23-Mar-2020 Instruction Type:Provider Instructions for Treatment How to access health informa tion online Indication:Non-smoker Start:16-Jan-2020 Instruction Type:Patient Education How to access health informa tion online - Detail Indication:Non-smoker Start:16-Jan-2020 Instruction Type:Patient Education Patient Instructions Indication:Non-smoker Start:16-Jan-2020 Instruction Type:Provider Instructions for Treatment How to access health informa tion online Indication:BMI 24.0-24.9, adult Start:28-Dec-2019 Instruction Type:Patient Education How to access health informa tion online - Detail Indication:BMI 24.0-24.9, adult Start:28-Dec-2019 Instruction Type:Patient Education Patient Instructions Indication:BMI 24.0-24.9, adult Start:28-Dec-2019 Instruction Type:Provider Instructions for Treatment How to access health informa tion online Indication:BMI 23.0-23.9, adult Start:19-Sep-2019 Instruction Type:Patient Education How to access health informa tion online - Detail Indication:BMI 23.0-23.9, adult Start:19-Sep-2019 Instruction Type:Patient Education Patient Instructions Indication:BMI 23.0-23.9, adult Start:19-Sep-2019 Instruction Type:Provider Instructions for Treatment How to access health informa tion online Indication:Non-smoker Start:11-Apr-2019 Instruction Type:Patient Education How to access health informa tion online - Detail Indication:Non-smoker Start:11-Apr-2019 Instruction Type:Patient Education Patient Instructions Indication:Non-smoker Start:11-Apr-2019 Instruction Type:Provider Instructions for Treatment How to access health informa tion online Indication:Trigger ring finger of right hand Start:31-May-2018 Instruction Type:Patient Education How to access health informa tion online - Detail Indication:Trigger ring finger of right hand Start:31-May-2018 Instruction Type:Patient Education Patient Instructions Indication:Trigger ring finger of right hand Start:31-May-2018 Instruction Type:Provider Instructions for Treatment How to access health informa tion online Indication:Testicular/scrotal pain Start:19-Nov-2015 Instruction Type:Patient Education How to access health informa tion online - Detail Indication:Testicular/scrotal pain Start:19-Nov-2015 Instruction Type:Patient Education Patient Instructions Indication:Testicular/scrotal pain Start:19-Nov-2015 Instruction Type:Provider Instructions for Treatment Patient Instructions Indication:Contact dermatitis Start:10-Jan-2015 Instruction Type:Provider Instructions for Treatment Patient Instructions Indication:Hernia, inguinal Start:24-Oct-2014 Instruction Type:Provider Instructions for Treatment Patient Instructions Indication:Paresthesia Start:21-Aug-2014 Instruction Type:Provider Instructions for Treatment How to access health informa tion online Indication:Tremor Start:05-Jul-2014 Instruction Type:Patient Education How to access health informa tion online - Detail Indication:Tremor Start:05-Jul-2014 Instruction Type:Patient Education Patient Instructions Indication:Tremor Start:05-Jul-2014 Instruction Type:Provider Instructions for Treatment Patient Instructions Indication:Plantar fasciitis Start:24-Feb-2014 Instruction Type:Provider Instructions for Treatment [facility]; [facility] Work Phone: Instructions* Name Dates Details Patient Instructions Indication:BMI 24.0-24.9, adult Start:22-Dec-2022 Instruction Type:Provider Instructions for Treatment How to Access Health Informa tion Online using Patient Portal and [employer]rd [employer] Apps Indication:BMI 24.0-24.9, adult Start:22-Dec-2022 Instruction Type:Patient Education Patient Instructions Indication:Non-smoker Start:16-Oct-2022 Instruction Type:Provider Instructions for Treatment How to Access Health Informa tion Online using Patient Portal and [employer]rd [employer] Apps Indication:Non-smoker Start:16-Oct-2022 Instruction Type:Patient Education Patient Instructions Indication:Non-smoker Start:11-Jun-2022 Instruction Type:Provider Instructions for Treatment How to Access Health Informa tion Online using Patient Portal and [employer]rd [employer] Apps Indication:Non-smoker Start:11-Jun-2022 Instruction Type:Patient Education Patient Instructions Indication:Right flank pain Start:30-Apr-2022 Instruction Type:Provider Instructions for Treatment How to Access Health Informa tion Online using Patient Portal and [employer]rd [employer] Apps Indication:Right flank pain Start:30-Apr-2022 Instruction Type:Patient Education Patient Instructions Indication:Non-smoker Start:19-Feb-2022 Instruction Type:Provider Instructions for Treatment How to Access Health Informa tion Online using Patient Portal and [employer] Apps Indication:Non-smoker Start:19-Feb-2022 Instruction Type:Patient Education Patient Instructions Indication:Non-smoker Start:27-Nov-2021 Instruction Type:Provider Instructions for Treatment How to Access Health Informa tion Online using Patient Portal and [employer] Apps Indication:Non-smoker Start:27-Nov-2021 Instruction Type:Patient Education Patient Instructions Indication:BMI 24.0-24.9, adult Start:25-Oct-2021 Instruction Type:Provider Instructions for Treatment How to Access Health Informa tion Online using Patient Portal and [employer] Apps Indication:BMI 24.0-24.9, adult Start:25-Oct-2021 Instruction Type:Patient Education Patient Instructions Indication:Non-smoker Start:07-Oct-2021 Instruction Type:Provider Instructions for Treatment How to Access Health Informa tion Online using Patient Portal and [employer] Apps Indication:Non-smoker Start:07-Oct-2021 Instruction Type:Patient Education Patient Instructions Indication:Non-smoker Start:31-May-2021 Instruction Type:Provider Instructions for Treatment How to Access Health Informa tion Online using Patient Portal and [employer] Apps Indication:Non-smoker Start:31-May-2021 Instruction Type:Patient Education Patient Instructions Indication:Trigger finger, left little finger Start:26-Apr-2021 Instruction Type:Provider Instructions for Treatment How to Access Health Informa tion Online using Patient Portal and [employer] Apps Indication:Trigger finger, left little finger Start:26-Apr-2021 Instruction Type:Patient Education Patient Instructions Indication:Trigger thumb of right hand Start:15-Feb-2021 Instruction Type:Provider Instructions for Treatment How to Access Health Informa tion Online using Patient Portal and [employer] Apps Indication:Trigger thumb of right hand Start:15-Feb-2021 Instruction Type:Patient Education How to access health informa tion online Indication:Trigger ring finger of left hand Start:06-Jul-2020 Instruction Type:Patient Education How to access health informa tion online - Detail Indication:Trigger ring finger of left hand Start:06-Jul-2020 Instruction Type:Patient Education Patient Instructions Indication:Trigger ring finger of left hand Start:06-Jul-2020 Instruction Type:Provider Instructions for Treatment How to access health informa tion online Indication:Non-smoker Start:30-Mar-2020 Instruction Type:Patient Education How to access health informa tion online - Detail Indication:Non-smoker Start:30-Mar-2020 Instruction Type:Patient Education Patient Instructions Indication:Non-smoker Start:30-Mar-2020 Instruction Type:Provider Instructions for Treatment How to access health informa tion online Indication:Non-smoker Start:23-Mar-2020 Instruction Type:Patient Education How to access health informa tion online - Detail Indication:Non-smoker Start:23-Mar-2020 Instruction Type:Patient Education Patient Instructions Indication:Non-smoker Start:23-Mar-2020 Instruction Type:Provider Instructions for Treatment How to access health informa tion online Indication:Non-smoker Start:16-Jan-2020 Instruction Type:Patient Education How to access health informa tion online - Detail Indication:Non-smoker Start:16-Jan-2020 Instruction Type:Patient Education Patient Instructions Indication:Non-smoker Start:16-Jan-2020 Instruction Type:Provider Instructions for Treatment How to access health informa tion online Indication:BMI 24.0-24.9, adult Start:28-Dec-2019 Instruction Type:Patient Education How to access health informa tion online - Detail Indication:BMI 24.0-24.9, adult Start:28-Dec-2019 Instruction Type:Patient Education Patient Instructions Indication:BMI 24.0-24.9, adult Start:28-Dec-2019 Instruction Type:Provider Instructions for Treatment How to access health informa tion online Indication:BMI 23.0-23.9, adult Start:19-Sep-2019 Instruction Type:Patient Education How to access health informa tion online - Detail Indication:BMI 23.0-23.9, adult Start:19-Sep-2019 Instruction Type:Patient Education Patient Instructions Indication:BMI 23.0-23.9, adult Start:19-Sep-2019 Instruction Type:Provider Instructions for Treatment How to access health informa tion online Indication:Non-smoker Start:11-Apr-2019 Instruction Type:Patient Education How to access health informa tion online - Detail Indication:Non-smoker Start:11-Apr-2019 Instruction Type:Patient Education Patient Instructions Indication:Non-smoker Start:11-Apr-2019 Instruction Type:Provider Instructions for Treatment How to access health informa tion online Indication:Trigger ring finger of right hand Start:31-May-2018 Instruction Type:Patient Education How to access health informa tion online - Detail Indication:Trigger ring finger of right hand Start:31-May-2018 Instruction Type:Patient Education Patient Instructions Indication:Trigger ring finger of right hand Start:31-May-2018 Instruction Type:Provider Instructions for Treatment How to access health informa tion online Indication:Testicular/scrotal pain Start:19-Nov-2015 Instruction Type:Patient Education How to access health informa tion online - Detail Indication:Testicular/scrotal pain Start:19-Nov-2015 Instruction Type:Patient Education Patient Instructions Indication:Testicular/scrotal pain Start:19-Nov-2015 Instruction Type:Provider Instructions for Treatment Patient Instructions Indication:Contact dermatitis Start:10-Jan-2015 Instruction Type:Provider Instructions for Treatment Patient Instructions Indication:Hernia, inguinal Start:24-Oct-2014 Instruction Type:Provider Instructions for Treatment Patient Instructions Indication:Paresthesia Start:21-Aug-2014 Instruction Type:Provider Instructions for Treatment How to access health informa tion online Indication:Tremor Start:05-Jul-2014 Instruction Type:Patient Education How to access health informa tion online - Detail Indication:Tremor Start:05-Jul-2014 Instruction Type:Patient Education Patient Instructions Indication:Tremor Start:05-Jul-2014 Instruction Type:Provider Instructions for Treatment Patient Instructions Indication:Plantar fasciitis Start:24-Feb-2014 Instruction Type:Provider Instructions for Treatment [facility]; [facility] Work Phone: Instructions* Name Dates Details Patient Instructions Indication:Non-smoker Start:01-Jun-2023 Instruction Type:Provider Instructions for Treatment How to Access Health Informa tion Online using Patient Portal and [employer] Apps Indication:Non-smoker Start:01-Jun-2023 Instruction Type:Patient Education Patient Instructions Indication:BMI 24.0-24.9, adult Start:22-Dec-2022 Instruction Type:Provider Instructions for Treatment How to Access Health Informa tion Online using Patient Portal and [employer] Apps Indication:BMI 24.0-24.9, adult Start:22-Dec-2022 Instruction Type:Patient Education Patient Instructions Indication:Non-smoker Start:16-Oct-2022 Instruction Type:Provider Instructions for Treatment How to Access Health Informa tion Online using Patient Portal and [employer] Apps Indication:Non-smoker Start:16-Oct-2022 Instruction Type:Patient Education Patient Instructions Indication:Non-smoker Start:11-Jun-2022 Instruction Type:Provider Instructions for Treatment How to Access Health Informa tion Online using Patient Portal and [employer] Apps Indication:Non-smoker Start:11-Jun-2022 Instruction Type:Patient Education Patient Instructions Indication:Right flank pain Start:30-Apr-2022 Instruction Type:Provider Instructions for Treatment How to Access Health Informa tion Online using Patient Portal and [employer] Apps Indication:Right flank pain Start:30-Apr-2022 Instruction Type:Patient Education Patient Instructions Indication:Non-smoker Start:19-Feb-2022 Instruction Type:Provider Instructions for Treatment How to Access Health Informa tion Online using Patient Portal and [employer] Apps Indication:Non-smoker Start:19-Feb-2022 Instruction Type:Patient Education Patient Instructions Indication:Non-smoker Start:27-Nov-2021 Instruction Type:Provider Instructions for Treatment How to Access Health Informa tion Online using Patient Portal and [employer] Apps Indication:Non-smoker Start:27-Nov-2021 Instruction Type:Patient Education Patient Instructions Indication:BMI 24.0-24.9, adult Start:25-Oct-2021 Instruction Type:Provider Instructions for Treatment How to Access Health Informa tion Online using Patient Portal and [employer] Apps Indication:BMI 24.0-24.9, adult Start:25-Oct-2021 Instruction Type:Patient Education Patient Instructions Indication:Non-smoker Start:07-Oct-2021 Instruction Type:Provider Instructions for Treatment How to Access Health Informa tion Online using Patient Portal and [employer] Apps Indication:Non-smoker Start:07-Oct-2021 Instruction Type:Patient Education Patient Instructions Indication:Non-smoker Start:31-May-2021 Instruction Type:Provider Instructions for Treatment How to Access Health Informa tion Online using Patient Portal and [employer] Apps Indication:Non-smoker Start:31-May-2021 Instruction Type:Patient Education Patient Instructions Indication:Trigger finger, left little finger Start:26-Apr-2021 Instruction Type:Provider Instructions for Treatment How to Access Health Informa tion Online using Patient Portal and [employer] Apps Indication:Trigger finger, left little finger Start:26-Apr-2021 Instruction Type:Patient Education Patient Instructions Indication:Trigger thumb of right hand Start:15-Feb-2021 Instruction Type:Provider Instructions for Treatment How to Access Health Informa tion Online using Patient Portal and [employer] Apps Indication:Trigger thumb of right hand Start:15-Feb-2021 Instruction Type:Patient Education How to access health informa tion online Indication:Trigger ring finger of left hand Start:06-Jul-2020 Instruction Type:Patient Education How to access health informa tion online - Detail Indication:Trigger ring finger of left hand Start:06-Jul-2020 Instruction Type:Patient Education Patient Instructions Indication:Trigger ring finger of left hand Start:06-Jul-2020 Instruction Type:Provider Instructions for Treatment How to access health informa tion online Indication:Non-smoker Start:30-Mar-2020 Instruction Type:Patient Education How to access health informa tion online - Detail Indication:Non-smoker Start:30-Mar-2020 Instruction Type:Patient Education Patient Instructions Indication:Non-smoker Start:30-Mar-2020 Instruction Type:Provider Instructions for Treatment How to access health informa tion online Indication:Non-smoker Start:23-Mar-2020 Instruction Type:Patient Education How to access health informa tion online - Detail Indication:Non-smoker Start:23-Mar-2020 Instruction Type:Patient Education Patient Instructions Indication:Non-smoker Start:23-Mar-2020 Instruction Type:Provider Instructions for Treatment How to access health informa tion online Indication:Non-smoker Start:16-Jan-2020 Instruction Type:Patient Education How to access health informa tion online - Detail Indication:Non-smoker Start:16-Jan-2020 Instruction Type:Patient Education Patient Instructions Indication:Non-smoker Start:16-Jan-2020 Instruction Type:Provider Instructions for Treatment How to access health informa tion online Indication:BMI 24.0-24.9, adult Start:28-Dec-2019 Instruction Type:Patient Education How to access health informa tion online - Detail Indication:BMI 24.0-24.9, adult Start:28-Dec-2019 Instruction Type:Patient Education Patient Instructions Indication:BMI 24.0-24.9, adult Start:28-Dec-2019 Instruction Type:Provider Instructions for Treatment How to access health informa tion online Indication:BMI 23.0-23.9, adult Start:19-Sep-2019 Instruction Type:Patient Education How to access health informa tion online - Detail Indication:BMI 23.0-23.9, adult Start:19-Sep-2019 Instruction Type:Patient Education Patient Instructions Indication:BMI 23.0-23.9, adult Start:19-Sep-2019 Instruction Type:Provider Instructions for Treatment How to access health informa tion online Indication:Non-smoker Start:11-Apr-2019 Instruction Type:Patient Education How to access health informa tion online - Detail Indication:Non-smoker Start:11-Apr-2019 Instruction Type:Patient Education Patient Instructions Indication:Non-smoker Start:11-Apr-2019 Instruction Type:Provider Instructions for Treatment How to access health informa tion online Indication:Trigger ring finger of right hand Start:31-May-2018 Instruction Type:Patient Education How to access health informa tion online - Detail Indication:Trigger ring finger of right hand Start:31-May-2018 Instruction Type:Patient Education Patient Instructions Indication:Trigger ring finger of right hand Start:31-May-2018 Instruction Type:Provider Instructions for Treatment How to access health informa tion online Indication:Testicular/scrotal pain Start:19-Nov-2015 Instruction Type:Patient Education How to access health informa tion online - Detail Indication:Testicular/scrotal pain Start:19-Nov-2015 Instruction Type:Patient Education Patient Instructions Indication:Testicular/scrotal pain Start:19-Nov-2015 Instruction Type:Provider Instructions for Treatment Patient Instructions Indication:Contact dermatitis Start:10-Jan-2015 Instruction Type:Provider Instructions for Treatment Patient Instructions Indication:Hernia, inguinal Start:24-Oct-2014 Instruction Type:Provider Instructions for Treatment Patient Instructions Indication:Paresthesia Start:21-Aug-2014 Instruction Type:Provider Instructions for Treatment How to access health informa tion online Indication:Tremor Start:05-Jul-2014 Instruction Type:Patient Education How to access health informa tion online - Detail Indication:Tremor Start:05-Jul-2014 Instruction Type:Patient Education Patient Instructions Indication:Tremor Start:05-Jul-2014 Instruction Type:Provider Instructions for Treatment Patient Instructions Indication:Plantar fasciitis Start:24-Feb-2014 Instruction Type:Provider Instructions for Treatment [facility]; [facility] Work Phone: Instructions* Name Dates Details Patient Instructions Indication:Non-smoker Start:01-Jun-2023 Instruction Type:Provider Instructions for Treatment How to Access Health Informa tion Online using Patient Portal and [employer] Apps Indication:Non-smoker Start:01-Jun-2023 Instruction Type:Patient Education Patient Instructions Indication:BMI 24.0-24.9, adult Start:22-Dec-2022 Instruction Type:Provider Instructions for Treatment How to Access Health Informa tion Online using Patient Portal and [employer] Apps Indication:BMI 24.0-24.9, adult Start:22-Dec-2022 Instruction Type:Patient Education Patient Instructions Indication:Non-smoker Start:16-Oct-2022 Instruction Type:Provider Instructions for Treatment How to Access Health Informa tion Online using Patient Portal and [employer] Apps Indication:Non-smoker Start:16-Oct-2022 Instruction Type:Patient Education Patient Instructions Indication:Non-smoker Start:11-Jun-2022 Instruction Type:Provider Instructions for Treatment How to Access Health Informa tion Online using Patient Portal and [employer] Apps Indication:Non-smoker Start:11-Jun-2022 Instruction Type:Patient Education Patient Instructions Indication:Right flank pain Start:30-Apr-2022 Instruction Type:Provider Instructions for Treatment How to Access Health Informa tion Online using Patient Portal and [employer] Apps Indication:Right flank pain Start:30-Apr-2022 Instruction Type:Patient Education Patient Instructions Indication:Non-smoker Start:19-Feb-2022 Instruction Type:Provider Instructions for Treatment How to Access Health Informa tion Online using Patient Portal and [employer] Apps Indication:Non-smoker Start:19-Feb-2022 Instruction Type:Patient Education Patient Instructions Indication:Non-smoker Start:27-Nov-2021 Instruction Type:Provider Instructions for Treatment How to Access Health Informa tion Online using Patient Portal and [employer] Apps Indication:Non-smoker Start:27-Nov-2021 Instruction Type:Patient Education Patient Instructions Indication:BMI 24.0-24.9, adult Start:25-Oct-2021 Instruction Type:Provider Instructions for Treatment How to Access Health Informa tion Online using Patient Portal and [employer] Apps Indication:BMI 24.0-24.9, adult Start:25-Oct-2021 Instruction Type:Patient Education Patient Instructions Indication:Non-smoker Start:07-Oct-2021 Instruction Type:Provider Instructions for Treatment How to Access Health Informa tion Online using Patient Portal and [employer] Apps Indication:Non-smoker Start:07-Oct-2021 Instruction Type:Patient Education Patient Instructions Indication:Non-smoker Start:31-May-2021 Instruction Type:Provider Instructions for Treatment How to Access Health Informa tion Online using Patient Portal and [employer] Apps Indication:Non-smoker Start:31-May-2021 Instruction Type:Patient Education Patient Instructions Indication:Trigger finger, left little finger Start:26-Apr-2021 Instruction Type:Provider Instructions for Treatment How to Access Health Informa tion Online using Patient Portal and [employer] Apps Indication:Trigger finger, left little finger Start:26-Apr-2021 Instruction Type:Patient Education Patient Instructions Indication:Trigger thumb of right hand Start:15-Feb-2021 Instruction Type:Provider Instructions for Treatment How to Access Health Informa tion Online using Patient Portal and [employer] Apps Indication:Trigger thumb of right hand Start:15-Feb-2021 Instruction Type:Patient Education How to access health informa tion online Indication:Trigger ring finger of left hand Start:06-Jul-2020 Instruction Type:Patient Education How to access health informa tion online - Detail Indication:Trigger ring finger of left hand Start:06-Jul-2020 Instruction Type:Patient Education Patient Instructions Indication:Trigger ring finger of left hand Start:06-Jul-2020 Instruction Type:Provider Instructions for Treatment How to access health informa tion online Indication:Non-smoker Start:30-Mar-2020 Instruction Type:Patient Education How to access health informa tion online - Detail Indication:Non-smoker Start:30-Mar-2020 Instruction Type:Patient Education Patient Instructions Indication:Non-smoker Start:30-Mar-2020 Instruction Type:Provider Instructions for Treatment How to access health informa tion online Indication:Non-smoker Start:23-Mar-2020 Instruction Type:Patient Education How to access health informa tion online - Detail Indication:Non-smoker Start:23-Mar-2020 Instruction Type:Patient Education Patient Instructions Indication:Non-smoker Start:23-Mar-2020 Instruction Type:Provider Instructions for Treatment How to access health informa tion online Indication:Non-smoker Start:16-Jan-2020 Instruction Type:Patient Education How to access health informa tion online - Detail Indication:Non-smoker Start:16-Jan-2020 Instruction Type:Patient Education Patient Instructions Indication:Non-smoker Start:16-Jan-2020 Instruction Type:Provider Instructions for Treatment How to access health informa tion online Indication:BMI 24.0-24.9, adult Start:28-Dec-2019 Instruction Type:Patient Education How to access health informa tion online - Detail Indication:BMI 24.0-24.9, adult Start:28-Dec-2019 Instruction Type:Patient Education Patient Instructions Indication:BMI 24.0-24.9, adult Start:28-Dec-2019 Instruction Type:Provider Instructions for Treatment How to access health informa tion online Indication:BMI 23.0-23.9, adult Start:19-Sep-2019 Instruction Type:Patient Education How to access health informa tion online - Detail Indication:BMI 23.0-23.9, adult Start:19-Sep-2019 Instruction Type:Patient Education Patient Instructions Indication:BMI 23.0-23.9, adult Start:19-Sep-2019 Instruction Type:Provider Instructions for Treatment How to access health informa tion online Indication:Non-smoker Start:11-Apr-2019 Instruction Type:Patient Education How to access health informa tion online - Detail Indication:Non-smoker Start:11-Apr-2019 Instruction Type:Patient Education Patient Instructions Indication:Non-smoker Start:11-Apr-2019 Instruction Type:Provider Instructions for Treatment How to access health informa tion online Indication:Trigger ring finger of right hand Start:31-May-2018 Instruction Type:Patient Education How to access health informa tion online - Detail Indication:Trigger ring finger of right hand Start:31-May-2018 Instruction Type:Patient Education Patient Instructions Indication:Trigger ring finger of right hand Start:31-May-2018 Instruction Type:Provider Instructions for Treatment How to access health informa tion online Indication:Testicular/scrotal pain Start:19-Nov-2015 Instruction Type:Patient Education How to access health informa tion online - Detail Indication:Testicular/scrotal pain Start:19-Nov-2015 Instruction Type:Patient Education Patient Instructions Indication:Testicular/scrotal pain Start:19-Nov-2015 Instruction Type:Provider Instructions for Treatment Patient Instructions Indication:Contact dermatitis Start:10-Jan-2015 Instruction Type:Provider Instructions for Treatment Patient Instructions Indication:Hernia, inguinal Start:24-Oct-2014 Instruction Type:Provider Instructions for Treatment Patient Instructions Indication:Paresthesia Start:21-Aug-2014 Instruction Type:Provider Instructions for Treatment How to access health informa tion online Indication:Tremor Start:05-Jul-2014 Instruction Type:Patient Education How to access health informa tion online - Detail Indication:Tremor Start:05-Jul-2014 Instruction Type:Patient Education Patient Instructions Indication:Tremor Start:05-Jul-2014 Instruction Type:Provider Instructions for Treatment Patient Instructions Indication:Plantar fasciitis Start:24-Feb-2014 Instruction Type:Provider Instructions for Treatment [facility] Work Phone: Instructions* Name Dates Details Patient Instructions Indication:BMI 24.0-24.9, adult Start:21-Jul-2023 Instruction Type:Provider Instructions for Treatment How to Access Health Informa tion Online using Patient Portal and [employer] Apps Indication:BMI 24.0-24.9, adult Start:21-Jul-2023 Instruction Type:Patient Education Patient Instructions Indication:Non-smoker Start:01-Jun-2023 Instruction Type:Provider Instructions for Treatment How to Access Health Informa tion Online using Patient Portal and [employer] Apps Indication:Non-smoker Start:01-Jun-2023 Instruction Type:Patient Education Patient Instructions Indication:BMI 24.0-24.9, adult Start:22-Dec-2022 Instruction Type:Provider Instructions for Treatment How to Access Health Informa tion Online using Patient Portal and [employer] Apps Indication:BMI 24.0-24.9, adult Start:22-Dec-2022 Instruction Type:Patient Education Patient Instructions Indication:Non-smoker Start:16-Oct-2022 Instruction Type:Provider Instructions for Treatment How to Access Health Informa tion Online using Patient Portal and [employer] Apps Indication:Non-smoker Start:16-Oct-2022 Instruction Type:Patient Education Patient Instructions Indication:Non-smoker Start:11-Jun-2022 Instruction Type:Provider Instructions for Treatment How to Access Health Informa tion Online using Patient Portal and [employer] Apps Indication:Non-smoker Start:11-Jun-2022 Instruction Type:Patient Education Patient Instructions Indication:Right flank pain Start:30-Apr-2022 Instruction Type:Provider Instructions for Treatment How to Access Health Informa tion Online using Patient Portal and [employer] Apps Indication:Right flank pain Start:30-Apr-2022 Instruction Type:Patient Education Patient Instructions Indication:Non-smoker Start:19-Feb-2022 Instruction Type:Provider Instructions for Treatment How to Access Health Informa tion Online using Patient Portal and [employer] Apps Indication:Non-smoker Start:19-Feb-2022 Instruction Type:Patient Education Patient Instructions Indication:Non-smoker Start:27-Nov-2021 Instruction Type:Provider Instructions for Treatment How to Access Health Informa tion Online using Patient Portal and [employer] Apps Indication:Non-smoker Start:27-Nov-2021 Instruction Type:Patient Education Patient Instructions Indication:BMI 24.0-24.9, adult Start:25-Oct-2021 Instruction Type:Provider Instructions for Treatment How to Access Health Informa tion Online using Patient Portal and [employer] Apps Indication:BMI 24.0-24.9, adult Start:25-Oct-2021 Instruction Type:Patient Education Patient Instructions Indication:Non-smoker Start:07-Oct-2021 Instruction Type:Provider Instructions for Treatment How to Access Health Informa tion Online using Patient Portal and [employer] Apps Indication:Non-smoker Start:07-Oct-2021 Instruction Type:Patient Education Patient Instructions Indication:Non-smoker Start:31-May-2021 Instruction Type:Provider Instructions for Treatment How to Access Health Informa tion Online using Patient Portal and [employer] Apps Indication:Non-smoker Start:31-May-2021 Instruction Type:Patient Education Patient Instructions Indication:Trigger finger, left little finger Start:26-Apr-2021 Instruction Type:Provider Instructions for Treatment How to Access Health Informa tion Online using Patient Portal and [employer] Apps Indication:Trigger finger, left little finger Start:26-Apr-2021 Instruction Type:Patient Education Patient Instructions Indication:Trigger thumb of right hand Start:15-Feb-2021 Instruction Type:Provider Instructions for Treatment How to Access Health Informa tion Online using Patient Portal and [employer] Apps Indication:Trigger thumb of right hand Start:15-Feb-2021 Instruction Type:Patient Education How to access health informa tion online Indication:Trigger ring finger of left hand Start:06-Jul-2020 Instruction Type:Patient Education How to access health informa tion online - Detail Indication:Trigger ring finger of left hand Start:06-Jul-2020 Instruction Type:Patient Education Patient Instructions Indication:Trigger ring finger of left hand Start:06-Jul-2020 Instruction Type:Provider Instructions for Treatment How to access health informa tion online Indication:Non-smoker Start:30-Mar-2020 Instruction Type:Patient Education How to access health informa tion online - Detail Indication:Non-smoker Start:30-Mar-2020 Instruction Type:Patient Education Patient Instructions Indication:Non-smoker Start:30-Mar-2020 Instruction Type:Provider Instructions for Treatment How to access health informa tion online Indication:Non-smoker Start:23-Mar-2020 Instruction Type:Patient Education How to access health informa tion online - Detail Indication:Non-smoker Start:23-Mar-2020 Instruction Type:Patient Education Patient Instructions Indication:Non-smoker Start:23-Mar-2020 Instruction Type:Provider Instructions for Treatment How to access health informa tion online Indication:Non-smoker Start:16-Jan-2020 Instruction Type:Patient Education How to access health informa tion online - Detail Indication:Non-smoker Start:16-Jan-2020 Instruction Type:Patient Education Patient Instructions Indication:Non-smoker Start:16-Jan-2020 Instruction Type:Provider Instructions for Treatment How to access health informa tion online Indication:BMI 24.0-24.9, adult Start:28-Dec-2019 Instruction Type:Patient Education How to access health informa tion online - Detail Indication:BMI 24.0-24.9, adult Start:28-Dec-2019 Instruction Type:Patient Education Patient Instructions Indication:BMI 24.0-24.9, adult Start:28-Dec-2019 Instruction Type:Provider Instructions for Treatment How to access health informa tion online Indication:BMI 23.0-23.9, adult Start:19-Sep-2019 Instruction Type:Patient Education How to access health informa tion online - Detail Indication:BMI 23.0-23.9, adult Start:19-Sep-2019 Instruction Type:Patient Education Patient Instructions Indication:BMI 23.0-23.9, adult Start:19-Sep-2019 Instruction Type:Provider Instructions for Treatment How to access health informa tion online Indication:Non-smoker Start:11-Apr-2019 Instruction Type:Patient Education How to access health informa tion online - Detail Indication:Non-smoker Start:11-Apr-2019 Instruction Type:Patient Education Patient Instructions Indication:Non-smoker Start:11-Apr-2019 Instruction Type:Provider Instructions for Treatment How to access health informa tion online Indication:Trigger ring finger of right hand Start:31-May-2018 Instruction Type:Patient Education How to access health informa tion online - Detail Indication:Trigger ring finger of right hand Start:31-May-2018 Instruction Type:Patient Education Patient Instructions Indication:Trigger ring finger of right hand Start:31-May-2018 Instruction Type:Provider Instructions for Treatment How to access health informa tion online Indication:Testicular/scrotal pain Start:19-Nov-2015 Instruction Type:Patient Education How to access health informa tion online - Detail Indication:Testicular/scrotal pain Start:19-Nov-2015 Instruction Type:Patient Education Patient Instructions Indication:Testicular/scrotal pain Start:19-Nov-2015 Instruction Type:Provider Instructions for Treatment Patient Instructions Indication:Contact dermatitis Start:10-Jan-2015 Instruction Type:Provider Instructions for Treatment Patient Instructions Indication:Hernia, inguinal Start:24-Oct-2014 Instruction Type:Provider Instructions for Treatment Patient Instructions Indication:Paresthesia Start:21-Aug-2014 Instruction Type:Provider Instructions for Treatment How to access health informa tion online Indication:Tremor Start:05-Jul-2014 Instruction Type:Patient Education How to access health informa tion online - Detail Indication:Tremor Start:05-Jul-2014 Instruction Type:Patient Education Patient Instructions Indication:Tremor Start:05-Jul-2014 Instruction Type:Provider Instructions for Treatment Patient Instructions Indication:Plantar fasciitis Start:24-Feb-2014 Instruction Type:Provider Instructions for Treatment [facility]; [facility] Work Phone: Instructions* Name Dates Details Patient Instructions Indication:BMI 24.0-24.9, adult Start:21-Jul-2023 Instruction Type:Provider Instructions for Treatment How to Access Health Informa tion Online using Patient Portal and [employer] Apps Indication:BMI 24.0-24.9, adult Start:21-Jul-2023 Instruction Type:Patient Education Patient Instructions Indication:Non-smoker Start:01-Jun-2023 Instruction Type:Provider Instructions for Treatment How to Access Health Informa tion Online using Patient Portal and [employer] Apps Indication:Non-smoker Start:01-Jun-2023 Instruction Type:Patient Education Patient Instructions Indication:BMI 24.0-24.9, adult Start:22-Dec-2022 Instruction Type:Provider Instructions for Treatment How to Access Health Informa tion Online using Patient Portal and [employer] Apps Indication:BMI 24.0-24.9, adult Start:22-Dec-2022 Instruction Type:Patient Education Patient Instructions Indication:Non-smoker Start:16-Oct-2022 Instruction Type:Provider Instructions for Treatment How to Access Health Informa tion Online using Patient Portal and [employer] Apps Indication:Non-smoker Start:16-Oct-2022 Instruction Type:Patient Education Patient Instructions Indication:Non-smoker Start:11-Jun-2022 Instruction Type:Provider Instructions for Treatment How to Access Health Informa tion Online using Patient Portal and [employer] Apps Indication:Non-smoker Start:11-Jun-2022 Instruction Type:Patient Education Patient Instructions Indication:Right flank pain Start:30-Apr-2022 Instruction Type:Provider Instructions for Treatment How to Access Health Informa tion Online using Patient Portal and [employer] Apps Indication:Right flank pain Start:30-Apr-2022 Instruction Type:Patient Education Patient Instructions Indication:Non-smoker Start:19-Feb-2022 Instruction Type:Provider Instructions for Treatment How to Access Health Informa tion Online using Patient Portal and [employer] Apps Indication:Non-smoker Start:19-Feb-2022 Instruction Type:Patient Education Patient Instructions Indication:Non-smoker Start:27-Nov-2021 Instruction Type:Provider Instructions for Treatment How to Access Health Informa tion Online using Patient Portal and [employer] Apps Indication:Non-smoker Start:27-Nov-2021 Instruction Type:Patient Education Patient Instructions Indication:BMI 24.0-24.9, adult Start:25-Oct-2021 Instruction Type:Provider Instructions for Treatment How to Access Health Informa tion Online using Patient Portal and [employer] Apps Indication:BMI 24.0-24.9, adult Start:25-Oct-2021 Instruction Type:Patient Education Patient Instructions Indication:Non-smoker Start:07-Oct-2021 Instruction Type:Provider Instructions for Treatment How to Access Health Informa tion Online using Patient Portal and [employer] Apps Indication:Non-smoker Start:07-Oct-2021 Instruction Type:Patient Education Patient Instructions Indication:Non-smoker Start:31-May-2021 Instruction Type:Provider Instructions for Treatment How to Access Health Informa tion Online using Patient Portal and [employer] Apps Indication:Non-smoker Start:31-May-2021 Instruction Type:Patient Education Patient Instructions Indication:Trigger finger, left little finger Start:26-Apr-2021 Instruction Type:Provider Instructions for Treatment How to Access Health Informa tion Online using Patient Portal and [employer] Apps Indication:Trigger finger, left little finger Start:26-Apr-2021 Instruction Type:Patient Education Patient Instructions Indication:Trigger thumb of right hand Start:15-Feb-2021 Instruction Type:Provider Instructions for Treatment How to Access Health Informa tion Online using Patient Portal and [employer] Apps Indication:Trigger thumb of right hand Start:15-Feb-2021 Instruction Type:Patient Education How to access health informa tion online Indication:Trigger ring finger of left hand Start:06-Jul-2020 Instruction Type:Patient Education How to access health informa tion online - Detail Indication:Trigger ring finger of left hand Start:06-Jul-2020 Instruction Type:Patient Education Patient Instructions Indication:Trigger ring finger of left hand Start:06-Jul-2020 Instruction Type:Provider Instructions for Treatment How to access health informa tion online Indication:Non-smoker Start:30-Mar-2020 Instruction Type:Patient Education How to access health informa tion online - Detail Indication:Non-smoker Start:30-Mar-2020 Instruction Type:Patient Education Patient Instructions Indication:Non-smoker Start:30-Mar-2020 Instruction Type:Provider Instructions for Treatment How to access health informa tion online Indication:Non-smoker Start:23-Mar-2020 Instruction Type:Patient Education How to access health informa tion online - Detail Indication:Non-smoker Start:23-Mar-2020 Instruction Type:Patient Education Patient Instructions Indication:Non-smoker Start:23-Mar-2020 Instruction Type:Provider Instructions for Treatment How to access health informa tion online Indication:Non-smoker Start:16-Jan-2020 Instruction Type:Patient Education How to access health informa tion online - Detail Indication:Non-smoker Start:16-Jan-2020 Instruction Type:Patient Education Patient Instructions Indication:Non-smoker Start:16-Jan-2020 Instruction Type:Provider Instructions for Treatment How to access health informa tion online Indication:BMI 24.0-24.9, adult Start:28-Dec-2019 Instruction Type:Patient Education How to access health informa tion online - Detail Indication:BMI 24.0-24.9, adult Start:28-Dec-2019 Instruction Type:Patient Education Patient Instructions Indication:BMI 24.0-24.9, adult Start:28-Dec-2019 Instruction Type:Provider Instructions for Treatment How to access health informa tion online Indication:BMI 23.0-23.9, adult Start:19-Sep-2019 Instruction Type:Patient Education How to access health informa tion online - Detail Indication:BMI 23.0-23.9, adult Start:19-Sep-2019 Instruction Type:Patient Education Patient Instructions Indication:BMI 23.0-23.9, adult Start:19-Sep-2019 Instruction Type:Provider Instructions for Treatment How to access health informa tion online Indication:Non-smoker Start:11-Apr-2019 Instruction Type:Patient Education How to access health informa tion online - Detail Indication:Non-smoker Start:11-Apr-2019 Instruction Type:Patient Education Patient Instructions Indication:Non-smoker Start:11-Apr-2019 Instruction Type:Provider Instructions for Treatment How to access health informa tion online Indication:Trigger ring finger of right hand Start:31-May-2018 Instruction Type:Patient Education How to access health informa tion online - Detail Indication:Trigger ring finger of right hand Start:31-May-2018 Instruction Type:Patient Education Patient Instructions Indication:Trigger ring finger of right hand Start:31-May-2018 Instruction Type:Provider Instructions for Treatment How to access health informa tion online Indication:Testicular/scrotal pain Start:19-Nov-2015 Instruction Type:Patient Education How to access health informa tion online - Detail Indication:Testicular/scrotal pain Start:19-Nov-2015 Instruction Type:Patient Education Patient Instructions Indication:Testicular/scrotal pain Start:19-Nov-2015 Instruction Type:Provider Instructions for Treatment Patient Instructions Indication:Contact dermatitis Start:10-Jan-2015 Instruction Type:Provider Instructions for Treatment Patient Instructions Indication:Hernia, inguinal Start:24-Oct-2014 Instruction Type:Provider Instructions for Treatment Patient Instructions Indication:Paresthesia Start:21-Aug-2014 Instruction Type:Provider Instructions for Treatment How to access health informa tion online Indication:Tremor Start:05-Jul-2014 Instruction Type:Patient Education How to access health informa tion online - Detail Indication:Tremor Start:05-Jul-2014 Instruction Type:Patient Education Patient Instructions Indication:Tremor Start:05-Jul-2014 Instruction Type:Provider Instructions for Treatment Patient Instructions Indication:Plantar fasciitis Start:24-Feb-2014 Instruction Type:Provider Instructions for Treatment [facility]; [facility] Work Phone: reason for referral (narrative)No reason for referral information available[facility] Instructions Name Dates Details Trigger ring finger of right hand : How to access health information online Indication:Trigger ring finger of right hand Trigger ring finger of right hand : How to access health information online - Detail Indication:Trigger ring finger of right hand Trigger ring finger of right hand : Patient Instructions Indication:Trigger ring finger of right hand Testicular/scrotal pain : Ho w to access health information online Indication:Testicular/scrotal pain Testicular/scrotal pain : Ho w to access health information online - Detail Indication:Testicular/scrotal pain Testicular/scrotal pain : Pa tient Instructions Indication:Testicular/scrotal pain Contact dermatitis : Patient Instructions Indication:Contact dermatitis Hernia, inguinal : Patient I nstructions Indication:Hernia, inguinal Paresthesia : Patient Instru ctions Indication:Paresthesia Tremor : How to access healt h information online Indication:Tremor Tremor : How to access [employer] information online - Detail Indication:Tremor Tremor : Patient Instruction s Indication:Tremor Plantar fasciitis : Patient Instructions Indication:Plantar fasciitis Name Dates Details How to access health informa tion online Indication:Trigger ring finger of right hand Start:31-May-2018 Instruction Type:Patient Education How to access health informa tion online - Detail Indication:Trigger ring finger of right hand Start:31-May-2018 Instruction Type:Patient Education Patient Instructions Indication:Trigger ring finger of right hand Start:31-May-2018 Instruction Type:Provider Instructions for Treatment How to access health informa tion online Indication:Testicular/scrotal pain Start:19-Nov-2015 Instruction Type:Patient Education How to access health informa tion online - Detail Indication:Testicular/scrotal pain Start:19-Nov-2015 Instruction Type:Patient Education Patient Instructions Indication:Testicular/scrotal pain Start:19-Nov-2015 Instruction Type:Provider Instructions for Treatment Patient Instructions Indication:Contact dermatitis Start:10-Jan-2015 Instruction Type:Provider Instructions for Treatment Patient Instructions Indication:Hernia, inguinal Start:24-Oct-2014 Instruction Type:Provider Instructions for Treatment Patient Instructions Indication:Paresthesia Start:21-Aug-2014 Instruction Type:Provider Instructions for Treatment How to access health informa tion online Indication:Tremor Start:05-Jul-2014 Instruction Type:Patient Education How to access health informa tion online - Detail Indication:Tremor Start:05-Jul-2014 Instruction Type:Patient Education Patient Instructions Indication:Tremor Start:05-Jul-2014 Instruction Type:Provider Instructions for Treatment Patient Instructions Indication:Plantar fasciitis Start:24-Feb-2014 Instruction Type:Provider Instructions for Treatment Name Dates Details How to access health informa tion online Indication:Non-smoker Start:11-Apr-2019 Instruction Type:Patient Education How to access health informa tion online - Detail Indication:Non-smoker Start:11-Apr-2019 Instruction Type:Patient Education Patient Instructions Indication:Non-smoker Start:11-Apr-2019 Instruction Type:Provider Instructions for Treatment How to access health informa tion online Indication:Trigger ring finger of right hand Start:31-May-2018 Instruction Type:Patient Education How to access health informa tion online - Detail Indication:Trigger ring finger of right hand Start:31-May-2018 Instruction Type:Patient Education Patient Instructions Indication:Trigger ring finger of right hand Start:31-May-2018 Instruction Type:Provider Instructions for Treatment How to access health informa tion online Indication:Testicular/scrotal pain Start:19-Nov-2015 Instruction Type:Patient Education How to access health informa tion online - Detail Indication:Testicular/scrotal pain Start:19-Nov-2015 Instruction Type:Patient Education Patient Instructions Indication:Testicular/scrotal pain Start:19-Nov-2015 Instruction Type:Provider Instructions for Treatment Patient Instructions Indication:Contact dermatitis Start:10-Jan-2015 Instruction Type:Provider Instructions for Treatment Patient Instructions Indication:Hernia, inguinal Start:24-Oct-2014 Instruction Type:Provider Instructions for Treatment Patient Instructions Indication:Paresthesia Start:21-Aug-2014 Instruction Type:Provider Instructions for Treatment How to access health informa tion online Indication:Tremor Start:05-Jul-2014 Instruction Type:Patient Education How to access health informa tion online - Detail Indication:Tremor Start:05-Jul-2014 Instruction Type:Patient Education Patient Instructions Indication:Tremor Start:05-Jul-2014 Instruction Type:Provider Instructions for Treatment Patient Instructions Indication:Plantar fasciitis Start:24-Feb-2014 Instruction Type:Provider Instructions for Treatment Name Dates Details How to access health informa tion online Indication:Non-smoker Start:11-Apr-2019 Instruction Type:Patient Education How to access health informa tion online - Detail Indication:Non-smoker Start:11-Apr-2019 Instruction Type:Patient Education Patient Instructions Indication:Non-smoker Start:11-Apr-2019 Instruction Type:Provider Instructions for Treatment How to access health informa tion online Indication:Trigger ring finger of right hand Start:31-May-2018 Instruction Type:Patient Education How to access health informa tion online - Detail Indication:Trigger ring finger of right hand Start:31-May-2018 Instruction Type:Patient Education Patient Instructions Indication:Trigger ring finger of right hand Start:31-May-2018 Instruction Type:Provider Instructions for Treatment How to access health informa tion online Indication:Testicular/scrotal pain Start:19-Nov-2015 Instruction Type:Patient Education How to access health informa tion online - Detail Indication:Testicular/scrotal pain Start:19-Nov-2015 Instruction Type:Patient Education Patient Instructions Indication:Testicular/scrotal pain Start:19-Nov-2015 Instruction Type:Provider Instructions for Treatment Patient Instructions Indication:Contact dermatitis Start:10-Jan-2015 Instruction Type:Provider Instructions for Treatment Patient Instructions Indication:Hernia, inguinal Start:24-Oct-2014 Instruction Type:Provider Instructions for Treatment Patient Instructions Indication:Paresthesia Start:21-Aug-2014 Instruction Type:Provider Instructions for Treatment How to access health informa tion online Indication:Tremor Start:05-Jul-2014 Instruction Type:Patient Education How to access health informa tion online - Detail Indication:Tremor Start:05-Jul-2014 Instruction Type:Patient Education Patient Instructions Indication:Tremor Start:05-Jul-2014 Instruction Type:Provider Instructions for Treatment Patient Instructions Indication:Plantar fasciitis Start:24-Feb-2014 Instruction Type:Provider Instructions for Treatment Name Dates Details How to access health informa tion online Indication:Non-smoker Start:11-Apr-2019 Instruction Type:Patient Education How to access health informa tion online - Detail Indication:Non-smoker Start:11-Apr-2019 Instruction Type:Patient Education Patient Instructions Indication:Non-smoker Start:11-Apr-2019 Instruction Type:Provider Instructions for Treatment How to access health informa tion online Indication:Trigger ring finger of right hand Start:31-May-2018 Instruction Type:Patient Education How to access health informa tion online - Detail Indication:Trigger ring finger of right hand Start:31-May-2018 Instruction Type:Patient Education Patient Instructions Indication:Trigger ring finger of right hand Start:31-May-2018 Instruction Type:Provider Instructions for Treatment How to access health informa tion online Indication:Testicular/scrotal pain Start:19-Nov-2015 Instruction Type:Patient Education How to access health informa tion online - Detail Indication:Testicular/scrotal pain Start:19-Nov-2015 Instruction Type:Patient Education Patient Instructions Indication:Testicular/scrotal pain Start:19-Nov-2015 Instruction Type:Provider Instructions for Treatment Patient Instructions Indication:Contact dermatitis Start:10-Jan-2015 Instruction Type:Provider Instructions for Treatment Patient Instructions Indication:Hernia, inguinal Start:24-Oct-2014 Instruction Type:Provider Instructions for Treatment Patient Instructions Indication:Paresthesia Start:21-Aug-2014 Instruction Type:Provider Instructions for Treatment How to access health informa tion online Indication:Tremor Start:05-Jul-2014 Instruction Type:Patient Education How to access health informa tion online - Detail Indication:Tremor Start:05-Jul-2014 Instruction Type:Patient Education Patient Instructions Indication:Tremor Start:05-Jul-2014 Instruction Type:Provider Instructions for Treatment Patient Instructions Indication:Plantar fasciitis Start:24-Feb-2014 Instruction Type:Provider Instructions for Treatment Name Dates Details How to access health informa tion online Indication:Non-smoker Start:11-Apr-2019 Instruction Type:Patient Education How to access health informa tion online - Detail Indication:Non-smoker Start:11-Apr-2019 Instruction Type:Patient Education Patient Instructions Indication:Non-smoker Start:11-Apr-2019 Instruction Type:Provider Instructions for Treatment How to access health informa tion online Indication:Trigger ring finger of right hand Start:31-May-2018 Instruction Type:Patient Education How to access health informa tion online - Detail Indication:Trigger ring finger of right hand Start:31-May-2018 Instruction Type:Patient Education Patient Instructions Indication:Trigger ring finger of right hand Start:31-May-2018 Instruction Type:Provider Instructions for Treatment How to access health informa tion online Indication:Testicular/scrotal pain Start:19-Nov-2015 Instruction Type:Patient Education How to access health informa tion online - Detail Indication:Testicular/scrotal pain Start:19-Nov-2015 Instruction Type:Patient Education Patient Instructions Indication:Testicular/scrotal pain Start:19-Nov-2015 Instruction Type:Provider Instructions for Treatment Patient Instructions Indication:Contact dermatitis Start:10-Jan-2015 Instruction Type:Provider Instructions for Treatment Patient Instructions Indication:Hernia, inguinal Start:24-Oct-2014 Instruction Type:Provider Instructions for Treatment Patient Instructions Indication:Paresthesia Start:21-Aug-2014 Instruction Type:Provider Instructions for Treatment How to access health informa tion online Indication:Tremor Start:05-Jul-2014 Instruction Type:Patient Education How to access health informa tion online - Detail Indication:Tremor Start:05-Jul-2014 Instruction Type:Patient Education Patient Instructions Indication:Tremor Start:05-Jul-2014 Instruction Type:Provider Instructions for Treatment Patient Instructions Indication:Plantar fasciitis Start:24-Feb-2014 Instruction Type:Provider Instructions for Treatment Name Dates Details How to access health informa tion online Indication:BMI 23.0-23.9, adult Start:19-Sep-2019 Instruction Type:Patient Education How to access health informa tion online - Detail Indication:BMI 23.0-23.9, adult Start:19-Sep-2019 Instruction Type:Patient Education Patient Instructions Indication:BMI 23.0-23.9, adult Start:19-Sep-2019 Instruction Type:Provider Instructions for Treatment How to access health informa tion online Indication:Non-smoker Start:11-Apr-2019 Instruction Type:Patient Education How to access health informa tion online - Detail Indication:Non-smoker Start:11-Apr-2019 Instruction Type:Patient Education Patient Instructions Indication:Non-smoker Start:11-Apr-2019 Instruction Type:Provider Instructions for Treatment How to access health informa tion online Indication:Trigger ring finger of right hand Start:31-May-2018 Instruction Type:Patient Education How to access health informa tion online - Detail Indication:Trigger ring finger of right hand Start:31-May-2018 Instruction Type:Patient Education Patient Instructions Indication:Trigger ring finger of right hand Start:31-May-2018 Instruction Type:Provider Instructions for Treatment How to access health informa tion online Indication:Testicular/scrotal pain Start:19-Nov-2015 Instruction Type:Patient Education How to access health informa tion online - Detail Indication:Testicular/scrotal pain Start:19-Nov-2015 Instruction Type:Patient Education Patient Instructions Indication:Testicular/scrotal pain Start:19-Nov-2015 Instruction Type:Provider Instructions for Treatment Patient Instructions Indication:Contact dermatitis Start:10-Jan-2015 Instruction Type:Provider Instructions for Treatment Patient Instructions Indication:Hernia, inguinal Start:24-Oct-2014 Instruction Type:Provider Instructions for Treatment Patient Instructions Indication:Paresthesia Start:21-Aug-2014 Instruction Type:Provider Instructions for Treatment How to access health informa tion online Indication:Tremor Start:05-Jul-2014 Instruction Type:Patient Education How to access health informa tion online - Detail Indication:Tremor Start:05-Jul-2014 Instruction Type:Patient Education Patient Instructions Indication:Tremor Start:05-Jul-2014 Instruction Type:Provider Instructions for Treatment Patient Instructions Indication:Plantar fasciitis Start:24-Feb-2014 Instruction Type:Provider Instructions for Treatment Name Dates Details How to access health informa tion online Indication:Trigger ring finger of left hand Start:06-Jul-2020 Instruction Type:Patient Education How to access health informa tion online - Detail Indication:Trigger ring finger of left hand Start:06-Jul-2020 Instruction Type:Patient Education Patient Instructions Indication:Trigger ring finger of left hand Start:06-Jul-2020 Instruction Type:Provider Instructions for Treatment How to access health informa tion online Indication:Non-smoker Start:30-Mar-2020 Instruction Type:Patient Education How to access health informa tion online - Detail Indication:Non-smoker Start:30-Mar-2020 Instruction Type:Patient Education Patient Instructions Indication:Non-smoker Start:30-Mar-2020 Instruction Type:Provider Instructions for Treatment How to access health informa tion online Indication:Non-smoker Start:23-Mar-2020 Instruction Type:Patient Education How to access health informa tion online - Detail Indication:Non-smoker Start:23-Mar-2020 Instruction Type:Patient Education Patient Instructions Indication:Non-smoker Start:23-Mar-2020 Instruction Type:Provider Instructions for Treatment How to access health informa tion online Indication:Non-smoker Start:16-Jan-2020 Instruction Type:Patient Education How to access health informa tion online - Detail Indication:Non-smoker Start:16-Jan-2020 Instruction Type:Patient Education Patient Instructions Indication:Non-smoker Start:16-Jan-2020 Instruction Type:Provider Instructions for Treatment How to access health informa tion online Indication:BMI 24.0-24.9, adult Start:28-Dec-2019 Instruction Type:Patient Education How to access health informa tion online - Detail Indication:BMI 24.0-24.9, adult Start:28-Dec-2019 Instruction Type:Patient Education Patient Instructions Indication:BMI 24.0-24.9, adult Start:28-Dec-2019 Instruction Type:Provider Instructions for Treatment How to access health informa tion online Indication:BMI 23.0-23.9, adult Start:19-Sep-2019 Instruction Type:Patient Education How to access health informa tion online - Detail Indication:BMI 23.0-23.9, adult Start:19-Sep-2019 Instruction Type:Patient Education Patient Instructions Indication:BMI 23.0-23.9, adult Start:19-Sep-2019 Instruction Type:Provider Instructions for Treatment How to access health informa tion online Indication:Non-smoker Start:11-Apr-2019 Instruction Type:Patient Education How to access health informa tion online - Detail Indication:Non-smoker Start:11-Apr-2019 Instruction Type:Patient Education Patient Instructions Indication:Non-smoker Start:11-Apr-2019 Instruction Type:Provider Instructions for Treatment How to access health informa tion online Indication:Trigger ring finger of right hand Start:31-May-2018 Instruction Type:Patient Education How to access health informa tion online - Detail Indication:Trigger ring finger of right hand Start:31-May-2018 Instruction Type:Patient Education Patient Instructions Indication:Trigger ring finger of right hand Start:31-May-2018 Instruction Type:Provider Instructions for Treatment How to access health informa tion online Indication:Testicular/scrotal pain Start:19-Nov-2015 Instruction Type:Patient Education How to access health informa tion online - Detail Indication:Testicular/scrotal pain Start:19-Nov-2015 Instruction Type:Patient Education Patient Instructions Indication:Testicular/scrotal pain Start:19-Nov-2015 Instruction Type:Provider Instructions for Treatment Patient Instructions Indication:Contact dermatitis Start:10-Jan-2015 Instruction Type:Provider Instructions for Treatment Patient Instructions Indication:Hernia, inguinal Start:24-Oct-2014 Instruction Type:Provider Instructions for Treatment Patient Instructions Indication:Paresthesia Start:21-Aug-2014 Instruction Type:Provider Instructions for Treatment How to access health informa tion online Indication:Tremor Start:05-Jul-2014 Instruction Type:Patient Education How to access health informa tion online - Detail Indication:Tremor Start:05-Jul-2014 Instruction Type:Patient Education Patient Instructions Indication:Tremor Start:05-Jul-2014 Instruction Type:Provider Instructions for Treatment Patient Instructions Indication:Plantar fasciitis Start:24-Feb-2014 Instruction Type:Provider Instructions for Treatment Name Dates Details How to access health informa tion online Indication:Trigger ring finger of left hand Start:06-Jul-2020 Instruction Type:Patient Education How to access health informa tion online - Detail Indication:Trigger ring finger of left hand Start:06-Jul-2020 Instruction Type:Patient Education Patient Instructions Indication:Trigger ring finger of left hand Start:06-Jul-2020 Instruction Type:Provider Instructions for Treatment How to access health informa tion online Indication:Non-smoker Start:30-Mar-2020 Instruction Type:Patient Education How to access health informa tion online - Detail Indication:Non-smoker Start:30-Mar-2020 Instruction Type:Patient Education Patient Instructions Indication:Non-smoker Start:30-Mar-2020 Instruction Type:Provider Instructions for Treatment How to access health informa tion online Indication:Non-smoker Start:23-Mar-2020 Instruction Type:Patient Education How to access health informa tion online - Detail Indication:Non-smoker Start:23-Mar-2020 Instruction Type:Patient Education Patient Instructions Indication:Non-smoker Start:23-Mar-2020 Instruction Type:Provider Instructions for Treatment How to access health informa tion online Indication:Non-smoker Start:16-Jan-2020 Instruction Type:Patient Education How to access health informa tion online - Detail Indication:Non-smoker Start:16-Jan-2020 Instruction Type:Patient Education Patient Instructions Indication:Non-smoker Start:16-Jan-2020 Instruction Type:Provider Instructions for Treatment How to access health informa tion online Indication:BMI 24.0-24.9, adult Start:28-Dec-2019 Instruction Type:Patient Education How to access health informa tion online - Detail Indication:BMI 24.0-24.9, adult Start:28-Dec-2019 Instruction Type:Patient Education Patient Instructions Indication:BMI 24.0-24.9, adult Start:28-Dec-2019 Instruction Type:Provider Instructions for Treatment How to access health informa tion online Indication:BMI 23.0-23.9, adult Start:19-Sep-2019 Instruction Type:Patient Education How to access health informa tion online - Detail Indication:BMI 23.0-23.9, adult Start:19-Sep-2019 Instruction Type:Patient Education Patient Instructions Indication:BMI 23.0-23.9, adult Start:19-Sep-2019 Instruction Type:Provider Instructions for Treatment How to access health informa tion online Indication:Non-smoker Start:11-Apr-2019 Instruction Type:Patient Education How to access health informa tion online - Detail Indication:Non-smoker Start:11-Apr-2019 Instruction Type:Patient Education Patient Instructions Indication:Non-smoker Start:11-Apr-2019 Instruction Type:Provider Instructions for Treatment How to access health informa tion online Indication:Trigger ring finger of right hand Start:31-May-2018 Instruction Type:Patient Education How to access health informa tion online - Detail Indication:Trigger ring finger of right hand Start:31-May-2018 Instruction Type:Patient Education Patient Instructions Indication:Trigger ring finger of right hand Start:31-May-2018 Instruction Type:Provider Instructions for Treatment How to access health informa tion online Indication:Testicular/scrotal pain Start:19-Nov-2015 Instruction Type:Patient Education How to access health informa tion online - Detail Indication:Testicular/scrotal pain Start:19-Nov-2015 Instruction Type:Patient Education Patient Instructions Indication:Testicular/scrotal pain Start:19-Nov-2015 Instruction Type:Provider Instructions for Treatment Patient Instructions Indication:Contact dermatitis Start:10-Jan-2015 Instruction Type:Provider Instructions for Treatment Patient Instructions Indication:Hernia, inguinal Start:24-Oct-2014 Instruction Type:Provider Instructions for Treatment Patient Instructions Indication:Paresthesia Start:21-Aug-2014 Instruction Type:Provider Instructions for Treatment How to access health informa tion online Indication:Tremor Start:05-Jul-2014 Instruction Type:Patient Education How to access health informa tion online - Detail Indication:Tremor Start:05-Jul-2014 Instruction Type:Patient Education Patient Instructions Indication:Tremor Start:05-Jul-2014 Instruction Type:Provider Instructions for Treatment Patient Instructions Indication:Plantar fasciitis Start:24-Feb-2014 Instruction Type:Provider Instructions for Treatment Name Dates Details How to access health informa tion online Indication:Non-smoker Start:30-Mar-2020 Instruction Type:Patient Education How to access health informa tion online - Detail Indication:Non-smoker Start:30-Mar-2020 Instruction Type:Patient Education Patient Instructions Indication:Non-smoker Start:30-Mar-2020 Instruction Type:Provider Instructions for Treatment How to access health informa tion online Indication:Non-smoker Start:23-Mar-2020 Instruction Type:Patient Education How to access health informa tion online - Detail Indication:Non-smoker Start:23-Mar-2020 Instruction Type:Patient Education Patient Instructions Indication:Non-smoker Start:23-Mar-2020 Instruction Type:Provider Instructions for Treatment How to access health informa tion online Indication:Non-smoker Start:16-Jan-2020 Instruction Type:Patient Education How to access health informa tion online - Detail Indication:Non-smoker Start:16-Jan-2020 Instruction Type:Patient Education Patient Instructions Indication:Non-smoker Start:16-Jan-2020 Instruction Type:Provider Instructions for Treatment How to access health informa tion online Indication:BMI 24.0-24.9, adult Start:28-Dec-2019 Instruction Type:Patient Education How to access health informa tion online - Detail Indication:BMI 24.0-24.9, adult Start:28-Dec-2019 Instruction Type:Patient Education Patient Instructions Indication:BMI 24.0-24.9, adult Start:28-Dec-2019 Instruction Type:Provider Instructions for Treatment How to access health informa tion online Indication:BMI 23.0-23.9, adult Start:19-Sep-2019 Instruction Type:Patient Education How to access health informa tion online - Detail Indication:BMI 23.0-23.9, adult Start:19-Sep-2019 Instruction Type:Patient Education Patient Instructions Indication:BMI 23.0-23.9, adult Start:19-Sep-2019 Instruction Type:Provider Instructions for Treatment How to access health informa tion online Indication:Non-smoker Start:11-Apr-2019 Instruction Type:Patient Education How to access health informa tion online - Detail Indication:Non-smoker Start:11-Apr-2019 Instruction Type:Patient Education Patient Instructions Indication:Non-smoker Start:11-Apr-2019 Instruction Type:Provider Instructions for Treatment How to access health informa tion online Indication:Trigger ring finger of right hand Start:31-May-2018 Instruction Type:Patient Education How to access health informa tion online - Detail Indication:Trigger ring finger of right hand Start:31-May-2018 Instruction Type:Patient Education Patient Instructions Indication:Trigger ring finger of right hand Start:31-May-2018 Instruction Type:Provider Instructions for Treatment How to access health informa tion online Indication:Testicular/scrotal pain Start:19-Nov-2015 Instruction Type:Patient Education How to access health informa tion online - Detail Indication:Testicular/scrotal pain Start:19-Nov-2015 Instruction Type:Patient Education Patient Instructions Indication:Testicular/scrotal pain Start:19-Nov-2015 Instruction Type:Provider Instructions for Treatment Patient Instructions Indication:Contact dermatitis Start:10-Jan-2015 Instruction Type:Provider Instructions for Treatment Patient Instructions Indication:Hernia, inguinal Start:24-Oct-2014 Instruction Type:Provider Instructions for Treatment Patient Instructions Indication:Paresthesia Start:21-Aug-2014 Instruction Type:Provider Instructions for Treatment How to access health informa tion online Indication:Tremor Start:05-Jul-2014 Instruction Type:Patient Education How to access health informa tion online - Detail Indication:Tremor Start:05-Jul-2014 Instruction Type:Patient Education Patient Instructions Indication:Tremor Start:05-Jul-2014 Instruction Type:Provider Instructions for Treatment Patient Instructions Indication:Plantar fasciitis Start:24-Feb-2014 Instruction Type:Provider Instructions for Treatment Name Dates Details Patient Instructions Indication:Trigger thumb of right hand Start:15-Feb-2021 Instruction Type:Provider Instructions for Treatment How to Access Health Informa tion Online using Patient Portal and [employer] Indication:Trigger thumb of right hand Start:15-Feb-2021 Instruction Type:Patient Education How to access health informa tion online Indication:Trigger ring finger of left hand Start:06-Jul-2020 Instruction Type:Patient Education How to access health informa tion online - Detail Indication:Trigger ring finger of left hand Start:06-Jul-2020 Instruction Type:Patient Education Patient Instructions Indication:Trigger ring finger of left hand Start:06-Jul-2020 Instruction Type:Provider Instructions for Treatment How to access health informa tion online Indication:Non-smoker Start:30-Mar-2020 Instruction Type:Patient Education How to access health informa tion online - Detail Indication:Non-smoker Start:30-Mar-2020 Instruction Type:Patient Education Patient Instructions Indication:Non-smoker Start:30-Mar-2020 Instruction Type:Provider Instructions for Treatment How to access health informa tion online Indication:Non-smoker Start:23-Mar-2020 Instruction Type:Patient Education How to access health informa tion online - Detail Indication:Non-smoker Start:23-Mar-2020 Instruction Type:Patient Education Patient Instructions Indication:Non-smoker Start:23-Mar-2020 Instruction Type:Provider Instructions for Treatment How to access health informa tion online Indication:Non-smoker Start:16-Jan-2020 Instruction Type:Patient Education How to access health informa tion online - Detail Indication:Non-smoker Start:16-Jan-2020 Instruction Type:Patient Education Patient Instructions Indication:Non-smoker Start:16-Jan-2020 Instruction Type:Provider Instructions for Treatment How to access health informa tion online Indication:BMI 24.0-24.9, adult Start:28-Dec-2019 Instruction Type:Patient Education How to access health informa tion online - Detail Indication:BMI 24.0-24.9, adult Start:28-Dec-2019 Instruction Type:Patient Education Patient Instructions Indication:BMI 24.0-24.9, adult Start:28-Dec-2019 Instruction Type:Provider Instructions for Treatment How to access health informa tion online Indication:BMI 23.0-23.9, adult Start:19-Sep-2019 Instruction Type:Patient Education How to access health informa tion online - Detail Indication:BMI 23.0-23.9, adult Start:19-Sep-2019 Instruction Type:Patient Education Patient Instructions Indication:BMI 23.0-23.9, adult Start:19-Sep-2019 Instruction Type:Provider Instructions for Treatment How to access health informa tion online Indication:Non-smoker Start:11-Apr-2019 Instruction Type:Patient Education How to access health informa tion online - Detail Indication:Non-smoker Start:11-Apr-2019 Instruction Type:Patient Education Patient Instructions Indication:Non-smoker Start:11-Apr-2019 Instruction Type:Provider Instructions for Treatment How to access health informa tion online Indication:Trigger ring finger of right hand Start:31-May-2018 Instruction Type:Patient Education How to access health informa tion online - Detail Indication:Trigger ring finger of right hand Start:31-May-2018 Instruction Type:Patient Education Patient Instructions Indication:Trigger ring finger of right hand Start:31-May-2018 Instruction Type:Provider Instructions for Treatment How to access health informa tion online Indication:Testicular/scrotal pain Start:19-Nov-2015 Instruction Type:Patient Education How to access health informa tion online - Detail Indication:Testicular/scrotal pain Start:19-Nov-2015 Instruction Type:Patient Education Patient Instructions Indication:Testicular/scrotal pain Start:19-Nov-2015 Instruction Type:Provider Instructions for Treatment Patient Instructions Indication:Contact dermatitis Start:10-Jan-2015 Instruction Type:Provider Instructions for Treatment Patient Instructions Indication:Hernia, inguinal Start:24-Oct-2014 Instruction Type:Provider Instructions for Treatment Patient Instructions Indication:Paresthesia Start:21-Aug-2014 Instruction Type:Provider Instructions for Treatment How to access health informa tion online Indication:Tremor Start:05-Jul-2014 Instruction Type:Patient Education How to access health informa tion online - Detail Indication:Tremor Start:05-Jul-2014 Instruction Type:Patient Education Patient Instructions Indication:Tremor Start:05-Jul-2014 Instruction Type:Provider Instructions for Treatment Patient Instructions Indication:Plantar fasciitis Start:24-Feb-2014 Instruction Type:Provider Instructions for Treatment Summary Purpose Family History No Family History Records FoundNo Family History Records FoundNo Family History Records FoundNo Family History Records Found Advance Directives No Advanced Directives Records FoundNo Advanced Directives Records FoundNo Advanced Directives Records FoundNo Advanced Directives Records Found Reason for Referral Specialty Diagnoses / Procedures Referred By Rita t Referred To Contact Diagnoses Essential tremor Procedures PROVIDER ORDERED FOLLOW UP OFFICE/OUTPATIENT [facility] 60-74 MINUTES Miladys Carter MD [address] [place] [id number] Referral ID Status Reason Start Date Expiration Date Visits Requested Visits Authorized [id number] Authorized PCP Requested Referral 01/08/2023 04/08/2023 1 1 Chief Complaint and Reason for Visit Chief Complaint Admit Date CHEST X-RAY, PA AND LATERAL/ COUGH 2024 2:06pm XRAY February 17, 2025 8:4 6am BUE; CARPAL TUNNEL SYNDROME March 15 9:57am BUE; CARPAL TUNNEL SYNDROME March 15 1:35pm Chief Complaint Admit Date XRAY February 17, 2025 8:4 6am BUE; CARPAL TUNNEL SYNDROME March 15 9:57am BUE; CARPAL TUNNEL SYNDROME March 15 1:35pm BILAT CARPAL TUNNEL April 27, 2025 1:36 pm Additional Source Comments (unrecognized sect ion and content) No Status Records FoundNo Status Records FoundNo Status Records FoundNo Status Records Found INFORMATION SOURCE (unrecogn ized section and content) DATE CREATED AUTHOR 09/09/2019 [facility] DATE CREATED AUTHOR AUTHOR'S ORGANIZ ATION 10/16/2022 [facility] DATE CREATED AUTHOR AUTHOR'S ORGANIZ ATION 12/27/2024 [facility] DATE CREATED AUTHOR AUTHOR'S ORGANIZ ATION 04/28/2025 [facility] Source Comments (unrecognize d section and content) In the event this informatio n is protected by the Federal Confidentiality of Alcohol and Drug Abuse Patient Records regulations: The Federal rules restrict any use of the information to criminally investigate or prosecute any alcohol or drug abuse patient.[facility] the event this information is protected by the Federal Confidentiality of Alcohol and Drug Abuse Patient Records regulations: The Federal rules restrict any use of the information to criminally investigate or prosecute any alcohol or drug abuse patient.[facility] the event this information is protected by the Federal Confidentiality of Alcohol and Drug Abuse Patient Records regulations: The Federal rules restrict any use of the information to criminally investigate or prosecute any alcohol or drug abuse patient.[facility] Reason for Visit (unrecogniz ed section and content) Reason Onset Date Comments Refill Request 07/18/2022 Reason Comments essential tremors Reason Comments Follow Up Care Teams (unrecognized sec tion and content) Business Instructor Relationship Specialty Start Date End Date Kyra Bowers DO [address] [facility] [address] [place], [place] [id number] PCP - General Internal Medicine 03/01/18 Business Instructor Relationship Specialty Start Date End Date Kyra Bowers DO [address] [facility] [address] [place], [place] [id number] PCP - General Internal Medicine 03/01/18 Business Instructor Relationship Specialty Start Date End Date Kyra Bowers DO [address] [facility] [address] [place], [place] [phone] PCP - General Internal Medicine 03/01/18 Team Status: Active Member Role Status Dates Dr. Kyra Bowers DO Primary Care Provider Active Team Status: Inactive Member Role Status Dates Dr. Kyra Bowers DO Primary Care Provider Active Start: December 05, 2024 End: December 05, 2024 Dr. Kyra Bowers DO Attending Provider Active Start: December 05, 2024 End: December 05, 2024 Dr. Kyra Bowers DO Referring Provider Active Start: December 05, 2024 End: December 05, 2024 Team Status: Inactive Member Role Status Dates Dr. Kyra Bowers DO Primary Care Provider Active Start: February 17, 2025 End: February 17, 2025 Dr. Sly Kaur MD Attending Provider Active S tart: February 17, 2025 End: February 17, 2025 Team Status: Inactive Member Role Status Dates Dr. Kyra Bowers DO Primary Care Provider Active Start: March 15, 2025 End: March 15, 2025 Dr. Kyra Bowers DO Attending Provider Active Start: March 15, 2025 End: March 15, 2025 Dr. Kyra Bowers DO Referring Provider Active Start: March 15, 2025 End: March 15, 2025 Team Status: Active Member Role Status Dates Dr. Kyra Bowers DO Primary Care Provider Active Start: March 15, 2025 Dr. Kyra Bowers DO Referring Provider Active Start: March 15, 2025 Dr. Kyra Bowers DO Other Provider Active S tart: March 15, 2025 Dr. Bridget Bañuelos MD Attending Provider Active S tart: March 15, 2025 Team Status: Inactive Member Role Status Dates Dr. Kyra Bowers DO Primary Care Provider Active Start: April 27, 2025 End: April 27, 2025 Dr. Kyra Bowers DO Referring Provider Active Start: April 27, 2025 End: April 27, 2025 Dr. Marcus Matos MD Attending Provider Active Start: April 27, 2025 End: April 27, 2025 Goals (unrecognized section and content) Goals may be documented in a n alternate sectionGoals may be documented in an alternate section FOR RECORDS PERTAINING TO PATIENTS WHO ARE OR HAVE BEEN ENROLLED IN A CHEMICAL DEPENDENCY/SUBSTANCEABUSE PROGRAM, SOME INFORMATION MAY BE OMITTED. This clinical summary was aggregated from multiple sources. Caution should be exercised in using it in the provision of clinical care. This summary normalizes information from multiple sources, and as a consequence, information in this document may materially change the coding, format and clinical context of patient data. In addition, data may be omitted in some cases. CLINICAL DECISIONS SHOULD BE BASED ON THE PRIMARY CLINICAL RECORDS. [employer] provides no warranty or guarantee of the accuracy or completeness of information in this document.
--- NOTE | 2025-05-01 06:55 | CT_ITS ---
PROCEDURE: LIMITED CHEST CT CARDIAC ONLY 05/01/2025 REASON FOR EXAM: HYPERCHOLESTEREMIA TECHNIQUE: LIMITED CHEST CT CARDIAC ONLY CONTRAST: None One or more dose reduction techniques were used (e.g., Automated exposure control, adjustment of the mA and/or kV according to patient size, use of iterative reconstruction technique). RADIATION DOSE SUMMARY: CTDlvol: 12.19 mGy DLP: 268.17 mGycm COMPARISON: None FINDINGS: Calcified left hilar lymph nodes. Calcified lymph node in the aortopulmonary window. Small benign-appearing mediastinal lymph nodes. No significant coronary artery calcification is seen. . CT/Limited Chest CT Cardiac Only IMPRESSION: No evidence of coronary artery calcification. Reading Location: [facility]
--- NOTE | 2025-05-01 15:34 | CA.SCORE ---
Calcium Scoring Date of Study:: 05/01/25 Indications Indications: HLD Coronary Calcium Scoring: High-resolution Computed Tomographic imaging of the chest was performed on [05/01/25 ], with particular attention paid to the coronary arteries. Images from the examination were analyzed for the presence and extent of coronary artery calcification , using coronary calcium quantification software. The patient tolerated the procedure well and there were no complications. The results of the coronary calcification analysis are provided below. Findings Coronary Artery Left Main (LM): 0 Left Anterior Descending (LAD): 0 Left Circumflex (LCX): 0 Right Coronary Artery (RCA): 0 Total Agatston Score: 0 Percentile Rankin Calcium Scoring Interpretation: Different methods to categorize the overall amount of coronary plaque. Overall amount CAC SIS Visual of coronary plaque P1 Mild -100 <2 1-2 vessels with mild amount of plaque P2 Moderate 101-300 3-4 1-2 vessels with moderate amount, 3 vessels with mild amount of plaque P3 Severe 301-999 5-7 3 vessels with moderate amount, 1 vessel with severe amount of plaque P4 Extensive >1000 >8 2-3 vessels with severe amount of plaque Conclusion: No atherosclerotic plaques noted
== END 2025-05-01 23:59 | disposition home or self-care (01) ==
LOC: CT 06:37
PROVIDERS: PCP Internal Medicine; Referring Provider Internal Medicine; Visit Provider Internal Medicine
DX: E78.00 Pure hypercholesterolemia, unspecified (principal)
CPT/HCPCS: 75571; 76380

== ENCOUNTER → 2025-08-14 | Outpatient (CLI) | payer MEDICARE, SELFPAY ==
[2025-08-14 16:08] LABS: Mucous, Urine 0 SEEN /hpf (<or=2+)
[2025-08-14 18:58] LABS: Hematocrit 43.9 % (40-54); Hemoglobin 15.3 g/dL (13.0-16.5); Immature Granulocytes Count 0.040 X10^3/uL (0.0-0.0); Mean Corp Hgb Conc 34.9 g/dL (32-36); Mean Corpuscular Volume 88.3 fL (80-94); Mean Platelet Vol. 10.9 fl (6.2-12.0); NRBC Flagged by Analyzer 0 % (0-5); Platelet Count 221 K/mm3 (150-450); RBC Distribution Width CV 13.1 % (11.6-14.6); RBC Distribution Width SD 42.5 fl (35.1-43.9); Red Blood Count 4.97 M/mm3 (4.6-6.2); White Blood Count 10.5 K/mm3 (4.4-11.0)
[2025-08-14 19:41] LABS: Creatinine, Urine (random) 184.00 mg/dL (39.00-259.00); Microalbumin,Random Urine < 12.0 mg/L (<20 mg/L)
[2025-08-14 19:47] LABS: Color, Urine Yellow (Yellow); Glucose, Dipstick Normal (Normal); Ketone-Dipstick Negative (Negative); Leukocyte Esterase-Dipstick Negative /ul (Negative); Nitrite-Dipstick Negative (Negative); Occult Blood-Urine 10 /ul (Negative); Protein-Dipstick 15 mg/dl (Negative); Specific Gravity, Urine 1.020 (1.002-1.030); Urine Bilirubin Dipstick Negative (Negative)
[2025-08-14 21:30] LABS: AST(SGOT) 30 U/L (<=37); Alanine Aminotransfer ALT/SGPT 30 U/L (<=46); Albumin, Serum 4.2 g/dL (3.4-4.8); Alkaline Phosphatase 77 U/L (40-129); Anion Gap 13 (5-15); BUN 18 mg/dL (4-19); BUN/Creat Ratio 17.2 RATIO (10-20); Calcium,Total 9.5 mg/dL (7.6-11.0); Carbon Dioxide 20.6 mmol/L (21.0-32.0); Chloride 105 mmol/L (98-108); Cholesterol 136 mg/dL (<=200); Globulin 2.9 g/dL (2.2-4.2); Glucose 101 mg/dL (70-99); Low Density Lipoprotein Calc. 74 mg/dL; PSA,Total - Annual Screen 3.21 ng/mL (0.02-4.00); Potassium 4.4 mmol/L (3.3-5.1); Triglycerides 92 mg/dL; Very Low Density Lipoprotein 18 mg/dL (5-40); cholesterol:hdl ratio screen 3.08
[2025-08-14 21:52] LABS: Red Blood Cells-Urine 0-5 SEEN /hpf (0-5); Squamous Epithelial Cells - UA 0-5 SEEN /hpf (0-5)
== END | disposition home or self-care (01) ==
PROVIDERS: PCP Internal Medicine; Referring Provider Internal Medicine; Visit Provider Internal Medicine
DX: Z12.5 Encounter for screening for malignant neoplasm of prostate (principal); E78.00 Pure hypercholesterolemia, unspecified; R73.09 Other abnormal glucose
CPT/HCPCS: 36415; 80053; 80061; 81001; 82043; 82570; 84153; 84443; 85025; G0103